=== PATIENT | male | born 1945 | race Caucasian/White ===

== ENCOUNTER → 2017-08-29 | Outpatient (CLI) | payer MEDICARE ==
[2017-08-29 10:14] LABS: HCT 48.2 % (39.0-53.0); MCH 31.6 pg (25.0-35.0); MCHC 33.2 g/dL (31.0-37.0); MCV 95.2 fL (80.0-100.0); Mean Platelet Volume 6.4; Platelet Count 192 k/uL (150-450); RBC 5.07 m/uL (4.30-5.90); RDW 12.8 % (11.5-15.5); WBC 6.1 k/uL (3.8-10.6)
[2017-08-29 10:29] LABS: Prothrombin Time 9.6 sec (9.0-12.0)
[2017-08-29 10:42] LABS: ALT 40 U/L (21-72); AST 27 U/L (17-59); Albumin 4.4 g/dL (3.5-5.0); Alkaline Phosphatase 60 U/L (38-126); Anion Gap 11 mmol/L; Blood Urea Nitrogen 22 mg/dL (9-20); Calcium 9.4 mg/dL (8.4-10.2); Carbon Dioxide 26 mmol/L (22-30); Chloride 105 mmol/L (98-107); Glucose 105 mg/dL (74-99); Potassium 4.8 mmol/L (3.5-5.1); Sodium 142 mmol/L (137-145); Total Bilirubin 0.9 mg/dL (0.2-1.3); Total Protein 6.9 g/dL (6.3-8.2)
[2017-08-29 12:22] LABS: Appearance,Urine Clear (Clear); Bilirubin,Urine Negative (Negative); Blood,Urine Negative (Negative); Color,Urine Yellow; Glucose,Urine (UA) Negative (Negative); Ketones,Urine Negative (Negative); Leukocyte Esterase,Urine Negative (Negative); Nitrite,Urine Negative (Negative); PH, Urine 6.5 (5.0-8.0); Protein,Urine Trace (Negative)
== END | disposition home or self-care (01) ==
LOC: LABPAT 09:27
PROVIDERS: ATTEND Orthopaedic Surgery Sports Medicine
DX: Z01.812 Encounter for preprocedural laboratory examination (principal); M19.011 Primary osteoarthritis, right shoulder; Z79.01 Long term (current) use of anticoagulants
CPT/HCPCS: 36415; 80053; 81003; 85027; 85610; 85730; 87070

== ENCOUNTER 2017-09-08 09:40 | Inpatient (IN) | payer MEDICARE ==
[2017-08-29 11:30] VITALS: BMI 27.8
[~2017-09-08 09:40] MED LIST: ACETAMINOPHEN TAB 500 MG TAB PO ONE; DEXAMETHASONE SOD PHOSPHATE 10 MG/ML 1 ML VIAL IV ONE; HYDROmorphone 0.5 MG/0.5 ML SYRINGE IVP PRN; MIDAZOLAM 2 MG/2 ML VIAL IV PRN; ONDANSETRON 4 MG/2 ML VIAL IVP ONE; TRANEXAMIC ACID 1,000 MG in SODIUM CHLORIDE 0.9% 50 ML IVPB ONE; VANCOMYCIN 1,500 MG in SODIUM CHLORIDE 0.9% 250 ML IVPB ONE; ceFAZolin IN SWFI 2 GM/20 ML SYRINGE IVP ONE
[2017-09-08] MEDS: LACTATED RINGERS 1,000 ML IV SCH ×2 (10:34→17:37)
[2017-09-08] MEDS ORDERED: LIDOCAINE 1% 20 ML VIAL (10MG/ML) FOR IV START INTRADERMA ONE (10:34)
[2017-09-08] MEDS ORDERED: fentaNYL (PF) 50 MCG/ML 2 ML AMP ONE ×2 (11:22→13:38)
[2017-09-08] MEDS ORDERED: fentaNYL (PF) 50 MCG/ML 2 ML AMP IVP ONE (12:25)
[2017-09-08] MEDS ORDERED: NEOSTIGMINE 1 MG/ML 10 ML VIAL ONE (13:38)
[2017-09-08] MEDS ORDERED: ePHEDrine SULFATE/0.9% NACL/PF 50 MG/5 ML SYRINGE IV ONE (13:38)
[2017-09-08] MEDS ORDERED: PROPOFOL 10 MG/ML 20 ML VIAL IV ONE (13:38)
[2017-09-08] MEDS ORDERED: ROCURONIUM BROMIDE 10 MG/ML 10 ML VIAL IV ONE (13:38)
[2017-09-08] MEDS ORDERED: SUCCINYLCHOLINE CHLORIDE 100 MG/5 ML SYR IV ONE (13:38)
[2017-09-08] MEDS ORDERED: TRANEXAMIC ACID 1,000 MG/10 ML VIAL ONE (13:38)
[2017-09-08] MEDS ORDERED: SODIUM CHLORIDE 0.9% 100 ML BAG ONE (13:38)
[2017-09-08] MEDS ORDERED: MIDAZOLAM 2 MG/2 ML VIAL ONE (13:38)
[2017-09-08] MEDS ORDERED: GLYCOPYRROLATE 0.2 MG/ML 2 ML VIAL ONE (13:38)
[2017-09-08] MEDS ORDERED: ROPIVACAINE 5 MG/ML 30 ML VIAL ONE (13:38)
[2017-09-08] MEDS ORDERED: PHENYLEPHRINE-0.9% NACL SYG 1 MG/10 ML SYRINGE ONE (13:38)
[2017-09-08] MEDS ORDERED: LIDOCAINE 1% INJ 10MG/ML (20 ML MDV) ONE (13:38)
[2017-09-08] MEDS ORDERED: VANCOMYCIN 1,000 MG VIAL MISCELLANE ONE (15:07)
[2017-09-08] MEDS ORDERED: TEMAZEPAM 15 MG CAP PO PRN (15:41)
[2017-09-08] MEDS ORDERED: diphenhydrAMINE 25 MG CAP PO PRN (15:41)
[2017-09-08] MEDS ORDERED: ONDANSETRON 4 MG/2 ML VIAL IVP PRN (15:41)
[2017-09-08] MEDS ORDERED: METOCLOPRAMIDE 5 MG/ML 2 ML VIAL IVP PRN (15:41)
[2017-09-08] MEDS ORDERED: HYDROmorphone 0.5 MG/0.5 ML SYRINGE IVP PRN ×2 (15:41)
[2017-09-08] MEDS ORDERED: PROCHLORPERAZINE SUPPOSITORY 25 MG SUPP RECTAL PRN (15:41)
[2017-09-08] MEDS ORDERED: SENNOSIDES-DOCUSATE SODIUM 1 EACH TAB PO PRN (15:41)
[2017-09-08] MEDS ORDERED: HYDROcodone/APAP 7.5-325MG 1 EACH TAB PO PRN (15:45)
--- NOTE | 2017-09-08 16:03 | XR ---
EXAMINATION TYPE: XR shoulder limited RT DATE OF EXAM: 09/08/2017 COMPARISON: NONE HISTORY: 71-year-old male assess postoperative alignment TECHNIQUE: Single portable AP view FINDINGS: Images shows reverse right total shoulder arthroplasty. Alignment appears appropriate. The S tear and humeral stem components appear well-seated without periprosthetic fracture. Surgical drain is presen t. Prominent degenerative spurring superiorly at the AC joint. Some hazy right basilar densities prob ably represent atelectasis. IMPRESSION: Uncomplicated postoperative appearance reverse right total shoulder arthroplasty.
--- NOTE | 2017-09-08 17:20 | OP ---
OPERATIVE REPORT DATE OF PROCEDURE: 09/08/2017. SURGEON: Stuart Adam MD. ELECTROMECHANISMS DESIGN DRAFTER: KYLAH Palm. PREOPERATIVE DIAGNOSIS: Right shoulder advanced rotator cuff arthropathy. POSTOPERATIVE DIAGNOSIS: Right shoulder advanced rotator cuff arthropathy. OPERATION: Right reverse total shoulder arthroplasty. ANESTHESIA: General endotracheal with interscalene block. ESTIMATED BLOOD LOSS: 150 mL. DRAINS: One deep drain. COMPLICATIONS: None apparent. DISPOSITION: Postanesthesia care unit. INDICATIONS: Mr. Colunga is a very pleasant 71-year-old gentleman with long-standing right shoulder pain. Workup including x-rays, MRI revealed advanced rotator cuff arthropathy of the right shoulder. At this point, it is felt that he has failed conservative management and he would like to proceed with operative intervention. The risks of procedure were discussed with him in detail. These risks include, but are not limited to risk of infection, nerve damage, bleeding, pain, instability in the shoulder, loosening of the implants and the risk of deep infection. There is also small risk of deep vein thrombosis which could lead to fatal pulmonary embolism. The patient understands all the risks. All of his questions with regards to the risks of procedure were answered to his satisfaction. Appropriate informed consent was obtained. DESCRIPTION OF THE PROCEDURE: Patient identified in preoperative holding area. Surgical sites marked by both the patient and myself. He was given 2 g of Ancef IV for prophylactic purposes. He was then transferred to the operative suite where he was placed supine on the operative table. General anesthetic was then administered and dosed per the Anesthesia Department without apparent complication. Examination under anesthesia was then performed of the right shoulder. He had passive elevation to 140 degrees, external rotation at the side to 50 degrees. The patient's right upper extremity was then prepped and draped in usual sterile fashion. Standard surgical pause undertaken to ensure that we were operating the correct site and that appropriate preoperative antibiotics were given. All staff in the room in agreement and we proceeded. The acromion, AC joint, clavicle and coracoid were marked surgical pen. A planned incision starting at the level at the clavicle and extending distally over the deltopectoral interval approximately 1 cm lateral to the coracoid were marked surgical pen. The incision was then made with a 10 blade scalpel. Dissection carried down sharply to the deltoid fascia. The deltopectoral interval was then identified at the level of the clavicle. A small band retractor was then placed onto the proximal deltoid. I then released the deltoid fascia on the lateral aspect of the cephalic vein. The vein was protected and left in its bed medially. The cephalic vein was protected throughout the entire case. I then identified the clavipectoral fascia. This was incised proximally to the level of the coracoacromial ligament. The coracoacromial ligament was left intact. I then used my finger to spread the interval between the conjoint tendon and the subscapularis. I felt for the axillary nerve which was readily palpable. I then cleared the subacromial and subdeltoid spaces of bursal and scar tissue. There was no rotator cuff tissue attached to the entire greater tuberosity at all. He had very minimal subscapularis tendon remaining and this was only approximately the inferior 1/4 was still attached to the lesser tuberosity. The entire superior 3/4 of the subscapularis was torn and retracted. The long head of the biceps tendon and also chronically ruptured and was not in the in the bicipital groove. I then proceeded with release of the anterior inferior shoulder capsule and the inferior aspect of the subscapularis. I then continued to release the capsule along the inferior neck of the humerus in a vertical fashion to about the 6 o'clock position. Great care was taken to ensure that the capsule was always visualized as it was released to avoid injuring the axillary nerve. I then brought the Brewer booking officer with the arm externally rotated and abducted. I continued to release the capsule inferomedially to the 4 o'clock position. He had very minimal inferior osteophytes and these were now removed as well. This was done with a rongeur. I then proceeded with preparation of the humerus. I removed the subchondral plate from the superior aspect of the humeral head utilizing a rongeur. I then used a starter reamer to gain access to the humeral canal. This was 1 cm medial to the rotator cuff insertion and 1 cm posterior to the bicipital groove. I then prepared the humeral canal with hand reaming. I started with a 6 mm reamer and progressed in 1 mm increments until firm resistance was encountered. This was at 14 mm. The reamer handle was then left in place. I then utilized a humeral resection guide set at 30 degrees of retrotorsion. The cutting block was set at the insertion of the rotator cuff. I proceeded to osteotomized the humeral head utilizing oscillating saw. I removed the resection guide and then completed the osteotomy. I then proceed with trial stem placement. Trial with a 6 mm broach and incrementally increased in 1 mm increments up to a 14 mm broach. The 14 mm broach was left in place. I then proceeded to expose the glenoid. The arm was then placed on the Brewer booking officer approximately 80 degrees of abduction and in slight flexion. I then placed the Bhattman retractor in the posterior glenoid rim. I then proceeded to remove the hypertrophic labrum to definitively identify the actual glenoid. I then utilized the mini base plate guide. The pin was placed with a 10 degree of an inferior tilt in the center of the glenoid. I then proceeded with reaming. This was done with the mini base plate reamer. This preferentially took off slightly more inferior glenoid due to the inferior tilt of the pin. I then had the claims representative open a Biomet mini base plate. This was then impacted into the glenoid firmly. The threaded pin was removed. I then placed a 30 mm central screw. This had excellent purchase in bone. When it was firmly seated, I was able to rotate the scapula through the screwdriver. I then proceeded to place the 4 peripheral locking screws. The superior locking screws 25 x 5 mm screw. The inferior screw was a 20 x 5 mm screw. The anterior-posterior screws were both 15 mm x 5 mm screws. The base plate had excellent fixation in the glenoid. I then chose a size 41 glenosphere. It was selectively offset that the glenosphere would be inferiorly set as much as possible. The glenosphere was then impacted into the base plate firmly. I then proceeded with trialing. I utilized a standard tray and a standard poly. The shoulder was then reduced. It was a somewhat difficult reduction. It was very stable once reduced, was taken through full range of motion. There was no impingement anteriorly. He had a full elevation. The shoulder was then redislocated. I made decision to proceed with a 14 mm mini stem, a standard tray and a standard poly. The claims representative opened a Biomet 14 mm mini stem. This is impacted in 30 degrees of retrotorsion. The standard poly and tray were assembled on the back table and then impacted into the Spaulding taper of the stem. The shoulder was reduced. It was taken through full range of motion. Again, there was no impingement anteriorly. He had full elevation. At this point, no further work was deemed necessary. The shoulder was thoroughly irrigated with sterile saline solution with antibiotic added via pulse lavage. Deep drain was then placed and brought out superiorly away from the incision. I then also felt for the axillary nerve. It was readily palpable and intact. 500 mg of vancomycin powder was then spread into the wound. The deltopectoral interval was then closed with interrupted 0 Vicryl suture. The wound was again thoroughly irrigated with sterile saline solution with antibiotic added via pulse lavage. The remaining 500 mg of vancomycin powder was then spread subcutaneously. The subcutaneous tissue was then closed with 2-0 Vicryl suture. The skin was closed with 3-0 running Quill suture. Dermabond was applied to the incision. Sterile compressive dressings were then applied. The patient's right upper extremity was placed into a standard sling. All sponge and needle counts were deemed correct prior to closure. The patient tolerated procedure without apparent complication. He was transferred recovery room in stable condition. MMODL / IJN: [id number] /
[2017-09-08] MEDS: FINASTERIDE 5 MG TAB PO SCH (20:51)
[2017-09-08] MEDS: ATORVASTATIN 10 MG TAB PO SCH (20:52)
[2017-09-08] MEDS: HYDROcodone/APAP 7.5-325MG 1 EACH TAB PO PRN (21:23)
[2017-09-08] MEDS: ceFAZolin IN SWFI 2 GM/20 ML SYRINGE IVP SCH (23:20)
[2017-09-09] MEDS: HYDROcodone/APAP 7.5-325MG 1 EACH TAB PO PRN (01:59)
[2017-09-09] MEDS: LACTATED RINGERS 1,000 ML IV SCH ×3 (05:45→16:20)
[2017-09-09 06:41] LABS: Basophils % (A) 0 %; Eosinophils % (A) 0 %; HCT 41.1 % (39.0-53.0); HGB 13.8 gm/dL (13.0-17.5); Lymphocytes # (A) 0.4 k/uL (1.0-4.8); Lymphocytes % (A) 4 %; MCH 32.1 pg (25.0-35.0); MCHC 33.5 g/dL (31.0-37.0); MCV 95.6 fL (80.0-100.0); Mean Platelet Volume 6.9; Monocytes # (A) 0.6 k/uL (0-1.0); Monocytes % (A) 6 %; Neutrophils # (A) 8.9 k/uL (1.3-7.7); Neutrophils % (A) 89 %; Platelet Count 189 k/uL (150-450)
[2017-09-09] MEDS: hydrOXYzine PAMOATE 25 MG CAP PO PRN ×3 (07:02→23:48)
[2017-09-09] MEDS: HYDROmorphone 0.5 MG/0.5 ML SYRINGE IVP PRN ×3 (07:02→21:26)
[2017-09-09] MEDS: ceFAZolin IN SWFI 2 GM/20 ML SYRINGE IVP SCH (08:53)
[2017-09-09] MEDS ORDERED: oxyCODONE-APAP 5-325MG 1 EACH TAB PO PRN ×2 (09:57→09:58)
--- NOTE | 2017-09-09 12:24 | P.PN ---
Subjective Progress Note Date: 09/09/17 Principal diagnosis: S/P right total reverse shoulder arthroplasty Patient is seen at bedside this morning. He is postop day #1 from Right Total Reverse Shoulder arthroplasty. He has pain at the surgical site as expected but denies any new complaints. He denies numbness, tingling or calf pain. Review of systems is negative for fever, chills, chest pain, shortness of breath or other Objective - Vital Signs Vital signs: Vital Signs Temp 97.7 F 09/09/17 07:31 Pulse 74 09/09/17 07:31 Resp 17 09/09/17 07:31 BP 130/75 09/09/17 07:31 Pulse Ox 94 L 09/09/17 07:31 Intake & Output 09/08/17 09/09/17 09/09/17 18:59 06:59 18:59 Intake Total 1550 900 Output Total 190 65 Balance 1360 835 Weight 92.986 kg Intake: IV 1550 Intake, IV Titration 900 Amount Lactated Ringers 1,000 ml 900 @ 75 mls/hr IV .[id number] [facility] Rx#:[id number] Output: Drainage 65 Right Shoulder 65 Estimated Blood Loss 190 Other: Voiding Method Urinal Toilet # Voids 2 - Exam Inspection reveals a benign surgical wound. There is no active bleeding or drainage. Neurovascular status is intact throughout the upper extremity with motor and sensation fully intact. Calf is soft and nontender. 2+ radial pulse , dorsalis pedis pulse and less than 2 second cap refill is present - Constitutional General appearance: Present: no acute distress - Psychiatric Psychiatric: Present: A&O x's 3, appropriate affect, intact judgment & insight - Labs CBC & Chem 7: 09/09/17 06:12 Labs: Abnormal Lab Results - Last 24 Hours (Table) 09/09/17 Range/Units 06:12 Neutrophils # 8.9 H (1.3-7.7) k/uL Lymphocytes # 0.4 L (1.0-4.8) k/uL Assessment and Plan (1) Osteoarthritis of right shoulder Narrative/Plan: Wound vac has been discontinued without complication. Wound remained intact and benign. He will continue with routine postop orthopedic protocol including pain management, wound care, DVT prophylaxis and medical management. Expect that he will discharge to home tomorrow. Current Visit: Yes Status: Acute Priority: Medium Code(s): M19.011 - PRIMARY OSTEOARTHRITIS, RIGHT SHOULDER SNOMED Code(s): [id number] Time with Patient: Less than 30
--- NOTE | 2017-09-09 13:52 | P.CONS ---
History of Present Illness - Reason for Consult Recommendations regarding antidepressive medications - History of Present Illness 70-year-old admitted with right shoulder arthroplasty patient services and underwent surgery his pain is not well controlled because of which a orthopedic surgeries holding his discharge today. Patient blood pressures are fairly stable at this point of time patient is expected to have perioperative hypotension because of which I'll hold off on antidepressant medication patient and fever chills nausea dysuria. Review of Systems REVIEW OF SYSTEMS: CONSTITUTIONAL: No fever, no malaise, no fatigue. HEENT: No recent visual problems or hearing problems. Denied any sore throat. CARDIOVASCULAR: No chest pain, orthopnea, PND, no palpitations, no syncope. PULMONARY: No shortness of breath, no cough, no hemoptysis. GASTROINTESTINAL: No diarrhea, no nausea, no vomiting, no abdominal pain. Normoactive bowel sounds. NEUROLOGICAL: No headaches, no weakness, no numbness. HEMATOLOGICAL: Denies any bleeding or petechiae. GENITOURINARY: Denies any burning micturition, frequency, or urgency. MUSCULOSKELETAL/RHEUMATOLOGICAL: Denies any joint pain, swelling, or any muscle pain. ENDOCRINE: Denies any polyuria or polydipsia. The rest of the 14-point review of systems is negative. 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, History of Any Multi-Drug Resistant Organisms: None Reported Past Surgical History: Cardiac Valve Replacement, Heart Catheterization, Hernia Repair, Joint Replacement, Orthopedic Surgery Additional Past Surgical History / Comment(s): aortic valve replacement 2013, rt ankle tendon repair, shelly knee replacements, left carotid endarterectomy, arthroscopy left knee x 3 Past Anesthesia/Blood Transfusion Reactions: Previous Problems w/ Anesthesia Additional Past Anesthesia/Blood Transfusion Reaction / Comm: DVT post op after ankle surgery, throat swelling and sore throat "pretty bad" after he had arthroscopy left knee surgery at another hospital. pt states was not told anything about any problems or difficulty with intubation Past Psychological History: No Psychological Hx Reported Smoking Status: Never smoker Past Alcohol Use History: Daily Additional Past Alcohol Use History / Comment(s): 2 drinks daily with dinner Past Drug Use History: None Reported - Past Family History Mother Family Medical History: Cancer Additional Family Medical History / Comment(s): ovarian cancer Father Family Medical History: Cancer Additional Family Medical History / Comment(s): melanoma Medications and Allergies Home Medications Medication Instructions Recorded Confirmed Type Acetaminophen with Codeine 1 tab PO QID PRN 08/29/17 09/08/17 History [Tylenol w/codeine #3] Aspirin [Adult Low Dose Aspirin EC] 81 mg PO HS 08/29/17 09/08/17 History Finasteride [Proscar] 5 mg PO HS 08/29/17 09/08/17 History Lansoprazole 30 mg PO DAILY 08/29/17 09/08/17 History Losartan/Hydrochlorothiazide 1 tab PO DAILY 08/29/17 09/08/17 History [Losartan-Hctz 100-25 mg Tab] Simvastatin [Zocor] 20 mg PO HS 08/29/17 09/08/17 History Docusate [Colace] 100 mg PO BID #60 capsule 09/09/17 Rx Doxycycline Hyclate 100 mg PO BID #10 tab 09/09/17 Rx oxyCODONE HCL/ACETAMINOPHEN 1 tab PO Q4HR PRN #60 tab 09/09/17 Rx [Percocet 5-325 mg] Allergies Allergy/AdvReac Type Severity Reaction Status Date / Time No Known Allergies Allergy Verified 09/08/17 16:48 Physical Exam Vitals: Vital Signs Temp Pulse Pulse Resp BP Pulse Ox 09/09/17 07:31 97.7 F 74 17 130/75 94 L 09/09/17 00:14 98.1 F 99 16 100/62 94 L 09/08/17 19:07 87 108/72 94 L 09/08/17 18:55 81 109/72 95 09/08/17 18:25 96 109/74 93 L 09/08/17 17:55 83 111/75 94 L 09/08/17 17:25 83 110/75 93 L 09/08/17 17:10 96 109/78 09/08/17 16:58 87 18 112/72 95 09/08/17 16:55 98.7 F 89 16 116/75 92 L 09/08/17 16:30 68 18 109/58 95 09/08/17 16:15 83 16 109/58 94 L 09/08/17 16:00 71 16 109/60 95 09/08/17 15:41 97.6 F 84 17 107/59 94 L Intake and Output 07/05/18 07/06/18 07/06/18 22:59 06:59 14:59 Intake Total 400 600 Output Total 40 65 Balance 360 535 Intake: IV 100 Intake, IV Titration 300 600 Amount Lactated Ringers 1,000 ml 300 600 @ 75 mls/hr IV .[id number] [facility] Rx#:[id number] Output: Drainage 65 Right Shoulder 65 Estimated Blood Loss 40 Other: Voiding Method Toilet Toilet # Voids 1 2 Weight 92.986 kg PHYSICAL EXAMINATION: GENERAL: The patient is alert and oriented x3, not in any acute distress. Well developed, well nourished. HEENT: Pupils are round and equally reacting to light. EOMI. No scleral icterus. No conjunctival pallor. Normocephalic, atraumatic. No pharyngeal erythema. No thyromegaly. CARDIOVASCULAR: S1 and S2 present. No murmurs, rubs, or gallops. PULMONARY: Chest is clear to auscultation, no wheezing or crackles. ABDOMEN: Soft, nontender, nondistended, normoactive bowel sounds. No palpable organomegaly. MUSCULOSKELETAL: No joint swelling or deformity. Right shoulder sling EXTREMITIES: No cyanosis, clubbing, or pedal edema. NEUROLOGICAL: Gross neurological examination did not reveal any focal deficits. SKIN: No rashes. Results CBC & Chem 7: 09/09/17 06:12 Labs: Abnormal Lab Results - Last 24 Hours (Table) 09/09/17 Range/Units 06:12 Neutrophils # 8.9 H (1.3-7.7) k/uL Lymphocytes # 0.4 L (1.0-4.8) k/uL Assessment and Plan Plan: -Hypertension: Hold off on antidepressant medication to prevent perioperative hypotension probably can be resumed upon discharge -Right shoulder arthroplasty pain management and DVT prophylaxis per primary service -Gastroesophageal reflux disease -Hyperlipidemia: Patient can be resumed on statin. -Osteoarthritis
[2017-09-09] MEDS ORDERED: oxyCODONE-APAP 7.5-325MG 1 EACH TAB PO PRN (15:16)
[2017-09-09] MEDS: oxyCODONE-APAP 7.5-325MG 1 EACH TAB PO PRN ×2 (16:45→23:49)
[2017-09-09] MEDS ORDERED: ASPIRIN 81 MG PO SCH (21:00)
[2017-09-09] MEDS ORDERED: NON-FORMULARY DRUG (Aspirin [Adult Low Dose Aspirin Ec] 81 MG) PO SCH (21:00)
[2017-09-09] MEDS: ASPIRIN 81 MG PO SCH (21:16)
[2017-09-09] MEDS: FINASTERIDE 5 MG TAB PO SCH (21:16)
[2017-09-09] MEDS: ATORVASTATIN 10 MG TAB PO SCH (21:16)
[2017-09-10] MEDS: LACTATED RINGERS 1,000 ML IV SCH ×2 (05:44→08:26)
[2017-09-10] MEDS: hydrOXYzine PAMOATE 25 MG CAP PO PRN (06:12)
[2017-09-10] MEDS: oxyCODONE-APAP 7.5-325MG 1 EACH TAB PO PRN ×2 (06:13→12:16)
[2017-09-10] MEDS ORDERED: PANTOPRAZOLE 40 MG TABLET PO SCH (07:30)
[2017-09-10 07:34] VITALS: BP 119/73; PULSE 80; RESP 18; TEMP 98.4
[2017-09-10] MEDS: ASPIRIN 81 MG PO SCH (08:26)
[2017-09-10] MEDS ORDERED: NON-FORMULARY DRUG (Lansoprazole [Lansoprazole] 30 MG) PO SCH (09:00)
--- NOTE | 2017-09-10 09:58 | P.DS ---
Providers Date of admission: 09/08/17 09:51 Expected date of discharge: 09/10/17 Attending physician: Stuart Adam Consults: 09/08/17 15:41 Consult Physician Routine Consulting Provider: Constantine Ramirez Consult Reason/Comments: post op medical management Do you want consulting provider notified?: Yes Primary care physician: Amish Braun - Discharge Diagnosis(es) (1) Osteoarthritis of right shoulder Current Visit: Yes Status: Acute Priority: Medium (2) S/P shoulder surgery Current Visit: Yes Status: Acute Hospital Course: This is a 71-year-old male who has history of severe degenerative arthritis of the right shoulder and presented to discuss surgical options. After discussion and consideration the patient elects to proceed with total shoulder arthroplasty. The pt is seen preoperatively by their family physician and cleared for surgery. The patient is admitted to [facility] on 09/08/2017 for total right shoulder arthroplasty. He is doing well postoperatively. Vital signs and hemoglobin are stable. The pt is able to get up out of bed independently and is ambulating without assistance. Pain is well controlled. Patient is discharged to home on postoperative day #2 in good condition. Please see med rec for accurate list of home medications. Plan - Discharge Summary Discharge Rx Participant: Yes New Discharge Prescriptions: New Docusate [Colace] 100 mg PO BID #60 capsule Doxycycline Hyclate 100 mg PO BID #10 tab oxyCODONE HCL/ACETAMINOPHEN [Percocet 5-325 mg] 1 tab PO Q4HR PRN #60 tab PRN Reason: Pain No Action Acetaminophen with Codeine [Tylenol w/codeine #3] 1 tab PO QID PRN PRN Reason: Pain Aspirin [Adult Low Dose Aspirin EC] 81 mg PO HS Simvastatin [Zocor] 20 mg PO HS Losartan/Hydrochlorothiazide [Losartan-Hctz 100-25 mg Tab] 1 tab PO DAILY Lansoprazole 30 mg PO DAILY Finasteride [Proscar] 5 mg PO HS Discharge Medication List Acetaminophen with Codeine [Tylenol w/codeine #3] 1 tab PO QID PRN 08/29/17 [ History] Aspirin [Adult Low Dose Aspirin EC] 81 mg PO HS 08/29/17 [History] Finasteride [Proscar] 5 mg PO HS 08/29/17 [History] Lansoprazole 30 mg PO DAILY 08/29/17 [History] Losartan/Hydrochlorothiazide [Losartan-Hctz 100-25 mg Tab] 1 tab PO DAILY [History] Simvastatin [Zocor] 20 mg PO HS 08/29/17 [History] Docusate [Colace] 100 mg PO BID #60 capsule 09/09/17 [Rx] Doxycycline Hyclate 100 mg PO BID #10 tab 09/09/17 [Rx] oxyCODONE HCL/ACETAMINOPHEN [Percocet 5-325 mg] 1 tab PO Q4HR PRN #60 tab [Rx] Follow up Appointment(s)/Referral(s): Stuart Adam MD [STAFF PHYSICIAN] - 09/21/17 10:00 am Activity/Diet/Wound Care/Special Instructions: keep wound clean and dry take meds as directed f/u with Dr. Adam in office Maintain sling non weightbearing with right upper extremity Discharge Disposition: HOME WITH HOME HEALTH SERVICES
--- NOTE | 2017-09-10 22:31 | P.PN ---
Subjective Progress Note Date: 09/10/17 Principal diagnosis: Right shoulder arthroplasty Patient is status post right shoulder arthroplasty due to degenerative joint disease. postoperative day 1. 09/10/2017 Patient says that his right shoulder pain is well controlled with pain medications. No complaints of nausea vomiting or abdominal pain. Tolerating oral diet. No fever no chills. No headache or dizziness or lightheadedness. Patient is being discharged home today. Objective - Vital Signs Vital signs: Vital Signs Temp 98.4 F 09/10/17 07:33 Pulse 80 09/10/17 07:33 Resp 18 09/10/17 07:33 BP 119/73 09/10/17 07:33 Pulse Ox 94 L 09/10/17 07:33 Intake & Output 09/09/17 09/10/17 09/10/17 18:59 06:59 18:59 Intake Total 600 Balance 600 Intake: Intake, IV Titration 600 Amount Lactated Ringers 1,000 ml 600 @ 75 mls/hr IV .[id number] [facility]IKE Rx#:[id number] Other: Voiding Method Toilet # Voids 2 1 - Exam PHYSICAL EXAMINATION: Patient is lying in the bed comfortably, no acute distress, awake alert and oriented.. HEENT: Normocephalic. Neck is supple. Pupils reactive. Nostrils clear. Oral cavity is moist. Ears reveal no drainage. Neck reveals no JVD, carotid bruits, or thyromegaly. CHEST EXAMINATION: Trachea is central. Symmetrical expansion. Lung gregorio clear to auscultation and percussion. CARDIAC: Normal S1, S2 with no gallops. No murmurs ABDOMEN: Soft. Bowel sounds normal. No organomegaly. No abdominal bruits. Extremities: reveal no edema. No clubbing or cyanosis Neurologically awake, alert, oriented x3 with well-coordinated movements. No focal deficits noted Skin: No rash or skin lesions. Psychiatric: Coperative. Nonsuicidal Musculoskeletal: No joint swelling or deformity. Normal range of motion. Right shoulder sling in place - Labs CBC & Chem 7: 09/09/17 06:12 Assessment and Plan Assessment: -Hypertension: Hold off on antihypertensive medication to prevent perioperative hypotension. can be resumed upon discharge -Right shoulder arthroplasty -Gastroesophageal reflux disease -Hyperlipidemia: Patient can be resumed on statin. -Osteoarthritis Plan: Patient be continued on pain management and DVT prophylaxis per primary service. Blood pressure medications can be restarted upon discharge. DVT prophylaxis and incentive spirometry. Discharge medication reconciliation was done. Patient was recommended to follow with primary care physician in 1-3 days. Patient is being discharged home today. Time with Patient: Greater than 30
== END 2017-09-10 14:25 | disposition home health service (06) | DRG 483 ==
LOC: 2ORMAIN 09:51 → 3SUR 15:34
PROVIDERS: ADMIT Orthopaedic Surgery Sports Medicine; ATTEND Orthopaedic Surgery Sports Medicine
PROC: 0RRJ00Z Replacement of Right Shoulder Joint with Reverse Ball and Socket Synthetic Substitute, Open Approach (ICD-10-PCS; principal; 2017-09-08 13:30)
DX: M19.011 Primary osteoarthritis, right shoulder (principal); E78.5 Hyperlipidemia, unspecified; I10 Essential (primary) hypertension; K21.9 Gastro-esophageal reflux disease without esophagitis; Z79.82 Long term (current) use of aspirin; Z79.899 Other long term (current) drug therapy; Z80.8 Family history of malignant neoplasm of other organs or systems; Z95.2 Presence of prosthetic heart valve; Z96.653 Presence of artificial knee joint, bilateral; Z79.891 Long term (current) use of opiate analgesic; Z86.718 Personal history of other venous thrombosis and embolism
CPT/HCPCS: 64415; 85025; 88300

== ENCOUNTER → 2019-02-15 | Outpatient (CLI) | payer MEDICARE ==
--- NOTE | 2019-02-15 12:00 | CT ---
EXAMINATION TYPE: CT ChestAbdPelvis w con DATE OF EXAM: 02/15/2019 COMPARISON: None HISTORY: Prostate cancer CT DLP: 1536 mGycm Automated exposure control for dose reduction was used. CONTRAST: CT scan of the chest, abdomen and pelvis is performed with Oral Contrast and with IV Contrast, patien t injected with 100 ml mL of Isovue 300. FINDINGS: There is a hiatal hernia with partial intrathoracic stomach, paraesophageal hernia. LUNGS: The lungs are grossly clear, there is no concerning parenchymal mass or nodule identified. So me focal thickening present along the fissure posteriorly on the left on axial image 32. There is no pleural effusion or pneumothorax seen. The tracheobronchial tree is patent. MEDIASTINUM: There are no greater than 1 cm hilar or mediastinal lymph nodes. No pericardial effusi on is seen. AORTA: There is a focal area of abnormal enhancement anterior to the ascending aorta measuring appro ximately 2 cm x 2 cm x 2.5 cm. Some associated low-attenuation is present peripherally about this are a. There is probable post procedural change to the aortic valve. OTHER: Right inguinal hernia contains fat. LIVER/GB: No significant abnormality is appreciated. PANCREAS: No significant abnormality is seen. SPLEEN: No significant abnormality is seen. ADRENALS: No significant abnormality is seen. KIDNEYS: No significant abnormality is seen. REPRODUCTIVE ORGANS: Prostate shows associated calcification BOWEL: Diverticular changes extensive in the sigmoid colon. Difficult to exclude a mucosal lesion. FREE AIR: No Free Air visible. ASCITES: None seen. RETROPERITONEAL ADENOPATHY: No retroperitoneal adenopathy is seen. LYMPH NODES: No greater than 1 cm abdominal or pelvic lymph nodes are appreciated. URINARY BLADDER: No significant abnormality is seen. PELVIC ADENOPATHY: None visualized. OSSEOUS STRUCTURES: Lytic lesion in the right femoral neck shows a sclerotic margin, nonaggressive a ppearance and measures approximately 3.3 cm. 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 Correlate with bone scan. Patient is post median sternotomy. 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 Metastatic disease is not evident. Urgent message sent by [employer]. Results called to the office of Dr. Garcia at the time of dicta tion, results given telephonically at the time of interpretation.
--- NOTE | 2019-02-15 14:10 | NM ---
EXAMINATION TYPE: NM bone scan whole body DATE OF EXAM: 02/15/2019 COMPARISON: NONE HISTORY: Prostate CA Delayed whole-body scanning was performed following the injection of 26.2 mCi Tc 99m MDP. Images acq uired 5 hours post injection. FINDINGS: Intense uptake noted to involve the approximate L1 segment. On CT there is a severe degenerative osullivan ge noted at this level. The metastatic disease however is difficult to exclude. There is degenerative uptake seen about the shoulders, throughout the thoracic spine, bilateral wrists and bilateral ankle s and mid feet. The bilateral knee prosthesis noted. IMPRESSION: 1. Intense uptake involving L1 may be related to degenerative change however I cannot exclude metasta tic disease.
== END | disposition home or self-care (01) ==
LOC: RADCTMAIN 07:36
PROVIDERS: ATTEND Urology
DX: I71.2 Thoracic aortic aneurysm, without rupture (principal); C61 Malignant neoplasm of prostate
CPT/HCPCS: 82565; 84520; 71260; 74177; 36415; 78306; A9503; Q9967

== ENCOUNTER → 2021-06-16 | Outpatient (CLI) | payer MEDICARE ==
--- NOTE | 2021-06-16 12:02 | MM ---
Reason for exam: clinical finding. Baseline mammogram. History: Patient has history of other cancer at age 73. Family history of breast cancer in brother at age 60. Indicated problem(s): palpable abnormality in both breasts. Physical Findings: A clinical breast exam by your physician is recommended on an annual basis and results should be correlated with mammographic findings. MG 3D Diag Mammo W/Cad INDU Bilateral CC and MLO view(s) were taken. The breast tissue is heterogeneously dense. This may lower the sensitivity of mammography. Bilateral flame shaped subareolar focal asymmetry. A few benign oil cyst calcifications. Results were given to the patient verbally at the time of the exam. ASSESSMENT: Incomplete: need additional imaging evaluation, BI-RAD 0 RECOMMENDATION: Ultrasound of both breasts.
--- NOTE | 2021-06-16 12:05 | USB ---
Reason for exam: additional evaluation requested from abnormal screening. History: Patient has history of other cancer at age 73. Family history of breast cancer in brother at age 60. Physical Findings: A clinical breast exam by your physician is recommended on an annual basis and results should be correlated with mammographic findings. US Breast Limited BILAT Right limited breast ultrasound including focal area of concern, retroareolar and axilla demonstrates a 1.7 x 0.8 x 0.6cm hypoechoic lesion at the posterior nipple. Left limited breast ultrasound including focal area of concern, retroareolar and axilla demonstrates a 1.4 x 0.8 x 1.2cm hypoechoic lesion at the posterior nipple. Subareaolar gynecomastia. Bilateral periareolar and subareolar regions scanned. Results were given to the patient verbally at the time of the exam. ASSESSMENT: Benign, BI-RAD 2 RECOMMENDATION: Clinical management of both breasts. Manage on a clinical basis with regard to cause of gynecomastia. Surgical consult can be considered.
== END | disposition home or self-care (01) ==
LOC: RADMAMWWP 10:19
PROVIDERS: ATTEND Family Medicine
DX: R92.1 Mammographic calcification found on diagnostic imaging of breast (principal); N62 Hypertrophy of breast; N64.89 Other specified disorders of breast
CPT/HCPCS: 77066; 76642; G0279; 77062

== ENCOUNTER → 2023-01-17 | Outpatient (CLI) | payer MEDICARE ==
[2023-01-17 15:54] LABS: INR 0.95 sec (0.93-1.11); Prothrombin Time 10.3 sec (9.9-11.9)
[2023-01-17 16:04] LABS: Appearance,Urine Clear (Clear); Bilirubin,Urine Negative (Negative); Blood,Urine Negative (Negative); Color,Urine Yellow (Yellow); Ketones,Urine Trace (Negative); Nitrite,Urine Negative (Negative); Specific Gravity,Urine 1.016 (1.001-1.030); Urobilinogen,Urine 0.2 E.U./DL
[2023-01-17 16:53] LABS: Basophils # (A) 0.05 X 10*3/uL (0.00-0.10); Eosinophils # (A) 0.35 X 10*3/uL (0.04-0.35); Eosinophils % (A) 7.2 %; HCT 45.9 % (39.6-50.0); Lymphocytes % (A) 12.3 %; MCH 32.5 pg (27.0-32.0); MCHC 32.7 g/dL (32.0-37.0); MCV 99.6 FL (80.0-97.0); Mean Platelet Volume 9.1 FL (9.5-12.2); Monocytes # (A) 0.43 X 10*3/uL (0.20-1.00); Monocytes % (A) 8.8 %; NRBC Per 100 WBC 0 X 10*3/uL (0.00-0.01); Neutrophils # (A) 3.44 X 10*3/uL (1.80-7.70); Neutrophils % (A) 70.5 %; Platelet Count 153 X 10*3/uL (140-440); RBC 4.61 X 10*6/uL (4.40-5.60); RDW 13.2 % (11.5-14.5); WBC 4.88 X 10*3/uL (4.50-10.00)
[2023-01-17 18:43] LABS: ALT 18 U/L (10-49); AST 22 U/L (14-35); Albumin 4.1 g/dL (3.8-4.9); Albumin/Globulin Ratio 1.95 Ratio (1.60-3.17); Alkaline Phosphatase 69 U/L (41-126); BUN/Creat Ratio 15.45 Ratio (12.00-20.00); Calcium 9.4 mg/dL (8.7-10.3); Carbon Dioxide 24.1 mmol/L (21.6-31.8); Chloride 105 mmol/L (96-109); Globulin 2.1 g/dL (1.6-3.3); Glucose 107 mg/dL (70-110); Potassium 4.8 mmol/L (3.5-5.5); Sodium 141 mmol/L (135-145); Total Bilirubin 0.8 mg/dL (0.3-1.2); Total Protein 6.2 g/dL (6.2-8.2)
== END | disposition home or self-care (01) ==
LOC: LABPAT 09:27
PROVIDERS: ATTEND Orthopaedic Surgery Sports Medicine
DX: Z01.812 Encounter for preprocedural laboratory examination (principal); M19.012 Primary osteoarthritis, left shoulder
CPT/HCPCS: 80053; 81003; 85025; 85610; 85730; 87070

== ENCOUNTER → 2023-01-19 | Outpatient (CLI) | payer MEDICARE ==
--- NOTE | 2023-01-19 21:00 | CT ---
EXAMINATION TYPE: CT shoulder LT wo con CT DLP: 514 mGycm, Automated exposure control for dose reduction was used. DATE OF EXAM: 01/19/2023 3:21 PM COMPARISON: CT 02/15/2019 CLINICAL INDICATION:Male, 77 years old with history of M75.122 COMPLETE ROTATR-CUFF TEAR/RUPTR OF LEF T SH; PHH, presurgical planning TECHNIQUE: Axial images were obtained of the CT shoulder LT wo con, Additional coronal and sagittal r eformatted images and soft tissue and bone window were obtained for review. 3-D reconstruction was cr eated on a separate workstation. Contrast used: mL of , (None if empty) Oral contrast used: (None if empty) FINDINGS: There is severe degeneration changes of the left shoulder with acetabularization of the acromion comp atible with focal full-thickness rotator cuff tear. There is atrophy changes of the supraspinous and infraspinatus muscles. Osteophyte formation involving the humeral head and aspect involving the glenoid. Glenoid is without significant subchondral pseudocystic change. There is evidence of impingement of the humeral head on the acromion with subchondral cystic change in the more lateral aspect. High density material seen within the joint space itself which could represent joint bodies. Multilevel degeneration changes throughout the spine are moderate. Visualized portions of the chest including the lungs are grossly unremarkable. Mild ascending thoraci c aorta ectasia up to 4.2 cm. Mild coronary artery atherosclerosis. Aortic valve repair changes. Ster notomy wires are present. IMPRESSION: Severe degeneration changes of the left shoulder with evidence of full-thickness rotator cuff tear wi th atrophy changes of the supraspinatus and infraspinatus muscles.
== END | disposition home or self-care (01) ==
LOC: RADCTMAIN 14:09
PROVIDERS: ATTEND Orthopaedic Surgery Sports Medicine
DX: M19.012 Primary osteoarthritis, left shoulder (principal); M75.122 Complete rotator cuff tear or rupture of left shoulder, not specified as traumatic

== ENCOUNTER 2023-02-10 05:35 | Day surgery (SDC) | payer MEDICARE ==
[~2023-02-10 05:35] MED LIST changes: -ACETAMINOPHEN TAB 500 MG TAB PO ONE; +ACETAMINOPHEN TAB 500 MG TAB PO PRN; -DEXAMETHASONE SOD PHOSPHATE 10 MG/ML 1 ML VIAL IV ONE; +GABAPENTIN 300 MG CAP PO PRN; -HYDROmorphone 0.5 MG/0.5 ML SYRINGE IVP PRN; +MELOXICAM 7.5 MG TAB PO PRN; -MIDAZOLAM 2 MG/2 ML VIAL IV PRN; -ONDANSETRON 4 MG/2 ML VIAL IVP ONE; +ONDANSETRON 4 MG/2 ML VIAL IVP PRN; +TRANEXAMIC 1,000 MG/100ML-NACL 1,000 MG in SALINE 1 100ML.BAG IVPB PRN; -TRANEXAMIC ACID 1,000 MG in SODIUM CHLORIDE 0.9% 50 ML IVPB ONE; -VANCOMYCIN 1,500 MG in SODIUM CHLORIDE 0.9% 250 ML IVPB ONE; -ceFAZolin IN SWFI 2 GM/20 ML SYRINGE IVP ONE
[2023-02-10] MEDS ORDERED: LACTATED RINGERS 1,000 ML IV SCH (05:47)
[2023-02-10] MEDS ORDERED: DEXAMETHASONE SOD PHOSPHATE 4 MG/ML 1 ML VIAL IV ONE (05:47)
[2023-02-10] MEDS ORDERED: ONDANSETRON 4 MG/2 ML VIAL IVP ONE (05:47)
[2023-02-10] MEDS ORDERED: HYDROmorphone 0.5 MG/0.5 ML SYRINGE IVP PRN ×3 (05:47→08:45)
[2023-02-10] MEDS ORDERED: MIDAZOLAM 2 MG/2 ML VIAL IVP ONE (06:39)
[2023-02-10] MEDS ORDERED: TRANEXAMIC 1,000 MG/100ML-NACL PREMIX BAG ONE (06:53)
[2023-02-10] MEDS ORDERED: SUCCINYLCHOLINE CHLORIDE 200 MG/10 ML VIAL IV ONE (06:53)
[2023-02-10] MEDS ORDERED: LIDOCAINE 1% INJ 10MG/ML (20 ML MDV) ONE (06:53)
[2023-02-10] MEDS ORDERED: fentaNYL (PF) 50 MCG/ML 2 ML AMP ONE (06:53)
[2023-02-10] MEDS ORDERED: NEOSTIGMINE 1 MG/ML 10 ML VIAL ONE (06:53)
[2023-02-10] MEDS ORDERED: GLYCOPYRROLATE 0.2 MG/ML 2 ML VIAL ONE (06:53)
[2023-02-10] MEDS ORDERED: DEXAMETHASONE SOD PHOSPHATE 4 MG/ML 1 ML VIAL ONE (06:53)
[2023-02-10] MEDS ORDERED: ROPIVACAINE 5 MG/ML 30 ML VIAL ONE (06:53)
[2023-02-10] MEDS ORDERED: PROPOFOL 10 MG/ML 20 ML VIAL IV ONE (06:53)
[2023-02-10] MEDS ORDERED: ePHEDrine 50 MG/ML 1 ML VIAL ONE (06:53)
[2023-02-10] MEDS ORDERED: PHENYLEPHRINE-0.9% NACL SYG 1,000 MCG/10 ML SYRINGE ONE (06:53)
[2023-02-10] MEDS ORDERED: ROCURONIUM 10 MG/ML (5 ML VIAL) IV ONE (06:53)
[2023-02-10] MEDS ORDERED: VANCOMYCIN 1,000 MG VIAL MISCELLANE ONE ×2 (07:42→08:00)
[2023-02-10] MEDS ORDERED: diphenhydrAMINE 25 MG CAP PO PRN (08:45)
[2023-02-10] MEDS ORDERED: SENNOSIDES-DOCUSATE SODIUM 1 EACH TAB PO PRN (08:45)
[2023-02-10] MEDS ORDERED: ONDANSETRON 4 MG/2 ML VIAL IVP PRN (08:45)
[2023-02-10] MEDS ORDERED: HYDROcodone/APAP 7.5-325MG 1 EACH TAB PO PRN (08:48)
--- NOTE | 2023-02-10 09:50 | OP ---
OPERATIVE REPORT DATE OF SERVICE : 02/10/2023 RESIDENTIAL MORTGAGE MANAGER: Singh Baldwin PA-C PREOPERATIVE DIAGNOSIS: Left shoulder advanced rotator cuff arthrosis. POSTOPERATIVE DIAGNOSIS: Left shoulder advanced rotator cuff arthrosis. PROCEDURE PERFORMED: Left reverse total shoulder arthroplasty. ANESTHESIA: General endotracheal. ESTIMATED BLOOD LOSS: 100 mL. DRAINS: None. COMPLICATIONS: None apparent. DISPOSITION: Postanesthesia care unit. INDICATIONS: Mr. Colunga is a very pleasant 77-year-old male with longstanding history of left shoulder pain. Workup including x-rays and CT scan revealed advanced rotator cuff arthropathy of the left shoulder. At this point, it was felt that he has failed conservative management. He would like to proceed with operative intervention. The risks of procedure were discussed with him in detail. These risks include, but are not limited to risk of infection, nerve damage, bleeding, pain, instability in the shoulder, loosening of the implants, and deep infection. There is also small risk of deep vein thrombosis, which could lead to fatal pulmonary embolism. The patient understood these risks. All of his questions with regard to the risks of procedure were answered to his satisfaction. An appropriate informed consent was obtained. DESCRIPTION OF PROCEDURE: The patient was identified in preoperative holding area. Surgical site was marked by both the patient and myself. He was given 2 g of Ancef IV for prophylactic purposes. He was then transported to the operative suite. He was placed supine on the operating room table. A general anesthetic was then administered and dosed per the anesthesia department without apparent complication. An examination under anesthesia was then performed of the left shoulder. Elevation was to 100 degrees. External rotation to the side was to 50 degrees. The patient was then placed in the beach chair position, well-padded in preparation for surgery. Great care was taken to ensure that his neck was in neutral alignment, well- padded and maintained that way throughout the operative procedure. Great care was also taken to ensure that his legs were appropriately padded as well. The patient's left upper extremity was then prepped and draped in usual sterile fashion. Standard surgical pause was undertaken to ensure that appropriate preoperative antibiotics were given and that we were operating the correct site. All staff in the room and were in agreement, and we proceeded. The acromion AC joint clavicle and coracoid were marked with a surgical pen. A planned incision starting at the level of the clavicle and extending distally over the deltopectoral interval approximately 1 cm lateral to the coracoid was marked with a surgical pen. The incision was then made with a 10-blade scalpel. Dissection was carried down sharply to the deltoid fascia. The deltopectoral interval was then identified at the level of the clavicle. A small band retractor was then placed onto the proximal deltoid. I then released the deltoid fascia on the lateral aspect of the cephalic vein. The vein was preserved and left in its bed medially. The cephalic vein was protected throughout the entire case. I then identified the clavipectoral fascia. This was incised proximally to the level of the coracoacromial ligament. The coracoacromial ligament was then left intact. I then used my finger to spread the interval between the conjoint tendon and the subscapularis. I felt for the axillary nerve, which was readily palpable. I then cleared the subacromial subdeltoid spaces of bursal and scar tissue. I then utilized a brown retractor to hold the deltoid and expose the humeral head. I then proceeded to release the subscapularis and the anterior inferior shoulder capsule. The rotator cuff was inspected. The greater tuberosity was completely devoid of rotator cuff attachment. He had a chronic massive tear of the supraspinatus and the entire infraspinatus. I then released the capsule anteriorly where the rotator interval would be. This released to the base of the coracoid and then out laterally. The capsule was then released and extended distally in a lazy-S fashion approximately 1 cm medial to the biceps tendon. I then continued to release the capsule along the inferior neck in a vertical fashion. This was done approximately at the 6 o'clock position. Great care was taken to ensure the capsule was always visualized as it was released as to avoid injuring the axillary nerve. I then brought the Brewer fish hatchery superintendent with the arm externally rotated and abducted. I continued to release the capsule inferomedially to approximately the 4 o'clock position. The inferior osteophytes were then removed as well. This was done with a rongeur. I then proceeded with preparation of the proximal humerus. I removed all the goat's gross osteophytes. I then removed the subchondral plate from the superior aspect of the humeral head utilizing a large rongeur. I then used a starting reamer to gain access to the humeral canal. This was approximately 1 cm medial to the prior rotator cuff insertion 1 cm posterior to the bicipital groove. I then prepared the humeral canal with hand reaming. We started with a 6 mm reamer and incrementally increased until firm resistance was encountered at 13 mm. The reamer handle was then left in place. I then utilized a humeral resection guide. This was set at 30 degrees of retrotorsion. The cutting block was then set approximately 1 mm above the prior rotator cuff insertion. I then proceeded to osteotomize the humeral head utilizing the oscillating saw. I removed the resection guide and then completed the osteotomy. I then proceeded with trial stem placement. A trial size 14 was then broached into the canal starting with an 8 mm broach and incrementally increasing up to a 13 mm broach. The 13 mm trial stem was then left in place. I then made a decision to proceed with a reverse shoulder arthroplasty due to the immense lack of rotator cuff. At this point, I did release the biceps tendon. This was tenotomized at the level of superior labrum. I then utilized a bone hook to pull the humerus out laterally. I then inspected the joint for any loose bodies. The Bhattman retractor was then placed onto the posterior glenoid rim. The arm was then placed in approximately 80 degrees of abduction and in slight flexion on the Brewer stand. I then proceeded to remove the hypertrophic labrum to definitively identify the actual glenoid. I then utilized a mini base plate guide. The starting pin was then placed in the center of the glenoid in approximately 10 degrees of inferior tilt. Great care was taken to ensure this. The starting pin was placed down the center of the glenoid. I then proceeded to ream the glenoid with a mini base plate reamer. As minimal reaming was done as possible as to preserve as much subchondral bone as possible with the reaming. After the glenoid was removed, I did remove the peripheral osteophytes around the glenoid utilizing a rongeur. I had the bilingual sales representative open a [place] mini base plate. This was then impacted onto the real glenoid. The starting pin was removed. I then measured the length and a 30 mm central screw was placed. The screw had an excellent purchase in bone. I was able to rotate the scapula through the screwdriver when the screw was firmly seated. I then proceeded to place the peripheral locking screws. The inferior screw was a 20 mm screw. The anterior and posterior screws were 15 mm screws and the superior screw was a 15 mm screw. All 4 of the screws had excellent purchase and bone and were firmly seated into the base plate. I then had the bilingual sales representative open a 36 mm glenosphere. I slightly offset it inferiorly. The Spaulding taper was dried and the real glenosphere was impacted onto the real base plate. I then proceeded with trial. I placed a standard tray and a standard poly trial. It was a mildly difficult reduction. It was very stable. There was no impingement noted. I took it through a full range of motion with no impingement noted. I then carefully redislocated the shoulder. I made a decision to proceed with the standard tray and standard polyethylene. I then had the bilingual sales representative open a Biomet mini 13 mm stem, standard tray, and a standard polyethylene for 36 mm glenosphere. The real stem was then impacted into the proximal humerus in approximately 30 degrees of retrotorsion. The Spaulding taper was then dried and the tray and polyethylene were then impacted onto the dried Spaulding taper. At this point, the wound was thoroughly irrigated with sterile saline solution with antibiotic added. This was done via pulse lavage. I then placed the IrriSept antiseptic solution. This was allowed to sit for a few minutes. The shoulder was then again reduced. Again, it was a mildly difficult reduction. It was very stable. The conjoint tendon did not have any undue tension. I felt for the axillary nerve at this point, which was readily palpable and intact. At this point, we proceeded with closure. Again, the wound was thoroughly irrigated with sterile saline solution with antibiotic added via pulse lavage. I then used the remaining IrriSept solution for a few minutes. Approximately 500 mg of vancomycin powder was then placed deep. The deltopectoral interval was closed with 0 Vicryl interrupted suture. The subcutaneous tissue was irrigated again and the remaining 500 mg of vancomycin powder was then placed subcutaneously. The subcutaneous tissue was then closed with 2-0 Vicryl interrupted suture and the skin was closed with a running 3-0 Quill suture. Dermabond was applied to the incision. Sterile compressive dressings were applied. The patient's left upper extremity was then placed into a standard sling. All sponge and needle counts were deemed correct prior to closure. The patient tolerated the procedure without apparent complication. He was transferred to recovery room in stable condition. MMODL / IJN: [id number] /
--- NOTE | 2023-02-10 10:05 | XR ---
EXAMINATION TYPE: XR shoulder limited LT DATE OF EXAM: 02/10/2023 COMPARISON: NONE HISTORY: Postop left shoulder TECHNIQUE: Single portable view left shoulder FINDINGS: Single portable view of the left shoulder is submitted demonstrating glenohumeral prosthesi s. Postsurgical soft tissue changes noted. Appropriate postoperative alignment. IMPRESSION: As above
[2023-02-10 12:14] VITALS: RESP 18
--- NOTE | 2023-02-10 18:49 | P.ANPRN ---
Procedure Note - Anesthesia - Nerve Block Performed Left Interscalene Single Time Out Performed: Yes Date of Procedure: 02/10/23 Procedure Start Time: 06:38 Procedure Stop Time: 06:41 Location of Patient: PreOp Indication: Acute Post-Operative Pain, Requested by Surgeon Sedation Type: Sedate with meaningful contact maintained Preparation: Sterile Prep Position: Supine Needle Types: Pajunk Needle Gauge: 21 Ultrasound used to visualize needle placement: Yes Ultrasound used to observe medication spread: Yes Blood Aspirated: No Pain Paresthesia on Injection Noted: No Resistance on Injection: Normal Image Stored and Saved: Yes Events: Uneventful and Well Tolerated (Ropivacaine 0.5% 20 mL plus dexamethasone 4 mg)
[2023-02-10] MEDS: PANTOPRAZOLE 40 MG/10 ML VIAL IVP SCH (20:11)
[2023-02-10] MEDS: LACTATED RINGERS 1,000 ML IV SCH ×2 (20:15→22:18)
[2023-02-10] MEDS ORDERED: ATORVASTATIN 10 MG TAB PO SCH (21:00)
[2023-02-10] MEDS: HYDROcodone/APAP 7.5-325MG 1 EACH TAB PO PRN (22:15)
--- NOTE | 2023-02-11 00:17 | P.CONS ---
History of Present Illness - Reason for Consult Consult date: 02/10/23 Medical management - Chief Complaint Left shoulder total arthroplasty - History of Present Illness Patient is a 77-year-old male with a known history of hypertension, hyperlipidemia, GERD, history of DVT and prostate cancer status post brachytherapy, history of aortic valve replacement in 2013, left carotid endarterectomy and osteoarthritis and also daily alcohol use was admitted to the hospital for elective right total arthroplasty. Patient is s/p procedure. Blood pressure is elevated with SBP in the 170s. Otherwise no complaints of chest pain or shortness of breath. No headache or dizziness or lightheadedness. No leg swelling. Denies any recent illnesses. Laboratory data is not available at this time. Review of Systems Constitutional: Patient denies any fever or chills . no Generalized weakness. Abdomen: Patient denied any nausea or vomiting or abd. pain Cardiovascular: Patient denies any chest pain or short of breath no palpitations. Respiratory: patient denied any cough . no sputum production. No shortness of breath Neurologic: Patient denied any numbness or tingling or headache. Musculoskeletal: Patient denies any complaints of joint swelling or deformity. Skin: Negative Psychiatric: Negative Endocrine: No heat or cold intolerance. No recent weight gain. Genitourinary: No dysuria or hematuria. 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 lumbar fusion laminectomy. L3 L5. bx of upper chest cancer Past Anesthesia/Blood Transfusion Reactions: Previous Problems w/ Anesthesia Additional Past Anesthesia/Blood Transfusion Reaction / Comm: DVT post op after ankle surgery 2007, throat swelling and sore throat "pretty bad" after he had arthroscopy left knee surgery at another hospital. pt states was not told anything about any problems or difficulty with intubation Past Psychological History: No Psychological Hx Reported Smoking Status: Never smoker Past Alcohol Use History: Daily Additional Past Alcohol Use History / Comment(s): 2 drinks daily with dinner Past Drug Use History: None Reported - Past Family History Mother Family Medical History: Cancer Additional Family Medical History / Comment(s): ovarian cancer Father Family Medical History: Cancer Additional Family Medical History / Comment(s): melanoma Medications and Allergies Home Medications Medication Instructions Recorded Confirmed Type Aspirin [Adult Low Dose Aspirin EC] 81 mg PO HS 08/29/17 02/07/23 History Lansoprazole 30 mg PO DAILY 08/29/17 02/10/23 History Losartan/Hydrochlorothiazide 1 tab PO DAILY 08/29/17 02/10/23 History [Losartan-Hctz 100-25 mg Tab] Simvastatin [Zocor] 20 mg PO HS 08/29/17 02/10/23 History Cholecalciferol [Vitamin D3 (25 25 mcg PO DAILY 02/07/23 02/10/23 History Mcg = 1000 Iu)] HYDROcodone/APAP 7.5-325MG [[place] 1 tab PO Q4H PRN 02/07/23 02/10/23 History 7.5-325] Allergies Allergy/AdvReac Type Severity Reaction Status Date / Time No Known Allergies Allergy Verified 02/10/23 05:56 Physical Exam Vitals: Vital Signs Temp Pulse Pulse Resp BP BP Pulse Ox 02/10/23 12:01 71 18 123/80 96 02/10/23 11:30 64 16 119/56 96 02/10/23 11:00 72 16 109/65 96 02/10/23 10:45 55 L 16 108/57 96 02/10/23 10:30 66 16 103/55 96 02/10/23 10:15 68 16 108/62 96 02/10/23 10:00 78 16 106/57 96 02/10/23 09:45 72 16 107/54 93 L 02/10/23 09:30 69 16 107/55 93 L 02/10/23 09:15 78 16 108/57 98 02/10/23 09:00 98 16 110/62 98 02/10/23 08:43 97.8 F 92 16 121/58 98 02/10/23 06:42 68 16 173/76 96 02/10/23 06:09 96.9 F L 80 18 168/74 97 Intake and Output 02/09/23 02/10/23 02/10/23 22:59 06:59 14:59 Intake Total 550 500 Output Total 100 Balance 550 400 Intake: IV 550 500 Output: Estimated Blood Loss 100 Other: Weight 90.2 kg 90.2 kg PHYSICAL EXAMINATION: Patient is lying in the bed comfortably, no acute distress, awake alert and oriented.. HEENT: Normocephalic. Neck is supple. Pupils reactive. Nostrils clear. Oral cavity is moist. Neck reveals no JVD, carotid bruits, or thyromegaly. CHEST EXAMINATION: Trachea is central. Symmetrical expansion. Lung gregorio clear to auscultation and percussion. CARDIAC: Normal S1, S2 with no gallops. No murmurs ABDOMEN: Soft. Bowel sounds present. Nontender. No organomegaly. No abdominal bruits. Extremities: reveal no edema. No clubbing or cyanosis Left shoulder surgical site is bandaged. Left shoulder sling in place. Neurologically awake, alert, oriented x3 with well-coordinated movements. No focal deficits noted Skin: No rash or skin lesions. Psychiatric: Coperative. Nonsuicidal, Musculoskeletal: No joint swelling or deformity. Normal range of motion. Assessment and Plan Assessment: Status post left total arthroplasty postoperative day 0 Hypertension uncontrolled likely due to pain. Hyperlipidemia History of prostate cancer status post brachytherapy History of aortic valve replacement 2013 Prior history of left carotid endarterectomy History of lumbar fusion/laminectomy L3 L5 Daily alcohol use GERD Plan: Patient will be continued current pain medications, bowel regimen and encourage incentive spirometry. Patient will be started back on losartan and hydrochlorothiazide is on hold. Encourage ambulation. Will continue to follow and further recommendations based on the clinical course. Follow-up CBC and BMP tomorrow Thank you kindly for your consult.
[2023-02-11] MEDS: HYDROmorphone 0.5 MG/0.5 ML SYRINGE IVP PRN ×4 (06:01→15:12)
[2023-02-11] MEDS ORDERED: NON FORMULARY DRUG (Losartan/Hydrochlorothiazide [Losartan-Hctz 100-25 Mg Tab] 1 EACH Tabl PO SCH (09:00)
[2023-02-11] MEDS ORDERED: LOSARTAN 50 MG TAB PO SCH (09:00)
[2023-02-11] MEDS ORDERED: CHOLECALCIFEROL 25 MCG (1000 IU) TABLET PO SCH (09:00)
[2023-02-11] MEDS: PANTOPRAZOLE 40 MG/10 ML VIAL IVP SCH (09:04)
[2023-02-11] MEDS: HYDROcodone/APAP 7.5-325MG 1 EACH TAB PO PRN (10:11)
[2023-02-11 11:30] LABS: Basophils # (A) 0.01 X 10*3/uL (0.00-0.10); Basophils % (A) 0.1 %; Eosinophils # (A) 0.01 X 10*3/uL (0.04-0.35); Eosinophils % (A) 0.1 %; HCT 41.9 % (39.6-50.0); Lymphocytes # (A) 0.58 X 10*3/uL (0.90-5.00); Lymphocytes % (A) 5.9 %; MCH 32.3 pg (27.0-32.0); MCHC 33.4 g/dL (32.0-37.0); MCV 96.8 FL (80.0-97.0); Mean Platelet Volume 9.1 FL (9.5-12.2); Monocytes # (A) 0.96 X 10*3/uL (0.20-1.00); Monocytes % (A) 9.8 %; NRBC Per 100 WBC 0 X 10*3/uL (0.00-0.01); Neutrophils # (A) 8.18 X 10*3/uL (1.80-7.70); Neutrophils % (A) 83.8 %; Platelet Count 154 X 10*3/uL (140-440); RBC 4.33 X 10*6/uL (4.40-5.60); RDW 13.1 % (11.5-14.5); WBC 9.77 X 10*3/uL (4.50-10.00)
[2023-02-11 11:37] LABS: Blood Urea Nitrogen 16.2 mg/dL (9.0-27.0); Calcium 9.2 mg/dL (8.7-10.3); Carbon Dioxide 25.6 mmol/L (21.6-31.8); Chloride 103 mmol/L (96-109); Glucose 124 mg/dL (70-110); Potassium 5.3 mmol/L (3.5-5.5); Sodium 139 mmol/L (135-145)
[2023-02-11] MEDS ORDERED: oxyCODONE-APAP 7.5-325MG 1 EACH TAB PO PRN ×2 (12:45)
--- NOTE | 2023-02-11 12:55 | P.PN ---
Subjective Progress Note Date: 02/11/23 Principal diagnosis: Left reverse TSA Patient is seen at bedside this morning. He is postop day #1 from left reverse total shoulder arthroplasty. He has pain at the surgical site as expected but denies any new complaints. He denies numbness, tingling or calf pain. Review of systems is negative for fever, chills, chest pain, shortness of breath or other Objective - Vital Signs Vital signs: Vital Signs Temp 97.6 F 02/11/23 06:51 Pulse 56 L 02/11/23 06:51 Resp 18 02/11/23 06:51 BP 144/80 02/11/23 06:51 Pulse Ox 98 02/11/23 06:51 FiO2 Intake & Output 02/10/23 02/11/23 02/11/23 18:59 06:59 18:59 Intake Total 500 10 Output Total 500 Balance 0 10 Weight 90.2 kg Intake: IV 500 10 Invasive Line 1 10 Output: Urine 400 Estimated Blood Loss 100 Other: Voiding Method Toilet # Voids 2 3 - Exam Inspection reveals a benign surgical wound. There is no active bleeding or drai nage. Neurovascular status is intact throughout the lower extremity with motor and sensation fully intact. Calf is soft and nontender. 2+ radial pulse and less than 2 second cap refill is present. - Constitutional General appearance: Present: no acute distress - Labs CBC & Chem 7: 02/11/23 06:30 02/11/23 06:30 Labs: Abnormal Lab Results - Last 24 Hours (Table) 02/11/23 02/11/23 Range/Units 06:30 06:30 RBC 4.33 L (4.40-5.60) X 10*6/uL MCH 32.3 H (27.0-32.0) pg MPV 9.1 L (9.5-12.2) FL Neutrophils # 8.18 H (1.80-7.70) X 10*3/uL Lymphocytes # 0.58 L (0.90-5.00) X 10*3/uL Eosinophils # 0.01 L (0.04-0.35) X 10*3/uL Glucose 124 H (70-110) mg/dL Assessment and Plan (1) Osteoarthritis of left shoulder Narrative/Plan: He will continue with routine postop orthopedic protocol including pain management, wound care, DVT prophylaxis and medical management. Expect that he will transfer to home later today or tomorrow Current Visit: Yes Status: Acute Priority: Medium Code(s): M19.012 - PRIMARY OSTEOARTHRITIS, LEFT SHOULDER SNOMED Code(s): 788236879689268 Time with Patient: Less than 30
--- NOTE | 2023-02-11 12:57 | P.DS ---
Providers Expected date of discharge: 02/12/23 Attending physician: Stuart Adam Consults: 02/10/23 08:45 Consult Physician Routine Consulting Provider: Constantine Ramirez Consult Reason/Comments: post op medical management Do you want consulting provider notified?: Yes Primary care physician: Linda Mccloud - Discharge Diagnosis(es) (1) Osteoarthritis of left shoulder Patient was admitted to the OR on 02/10/23 to undergo a left reverse total shoulder arthroplasty. He had failed conservative measures as an outpatient and desired to proceed with elective surgery after given informed consent. He underwent the above procedure which he tolerated well without complication. Postoperative hospital course has remained without complication. On day of discharge he is afebrile, vital signs stable, labs within acceptable ranges, tolerating by mouth meds and diet, voiding without difficulty, positive flatus, denies abdominal pain or calf pain, pain is controlled on oral pain medication and has no new complaints. Wound is benign, neurovascular status is intact, calf is soft and nontender, abdomen soft and nontender. Review of systems is negative for numbness, tingling, fever, chills, chest pain, shortness of breath, nausea, vomiting, dizziness, headaches, slurred speech or other. Current Visit: Yes Status: Acute Priority: Medium Procedures: Left Reverse TSA Patient Condition at Discharge: Good Plan - Discharge Summary Discharge Rx Participant: No New Discharge Prescriptions: New Doxycycline Hyclate 100 mg PO BID #10 tab Ondansetron [Zofran] 4 mg PO Q8HR PRN #21 tab PRN Reason: Nausea Docusate [Colace] 100 mg PO BID #60 capsule oxyCODONE-APAP 7.5-325MG [Percocet 7.5-325 mg] 1 tab PO Q4HR PRN #42 tab PRN Reason: Pain No Action Aspirin [Adult Low Dose Aspirin EC] 81 mg PO HS Simvastatin [Zocor] 20 mg PO HS Losartan/Hydrochlorothiazide [Losartan-Hctz 100-25 mg Tab] 1 tab PO DAILY Lansoprazole 30 mg PO DAILY Cholecalciferol [Vitamin D3 (25 Mcg = 1000 Iu)] 25 mcg PO DAILY HYDROcodone/APAP 7.5-325MG [[place] 7.5-325] 1 tab PO Q4H PRN PRN Reason: Pain Discharge Medication List Aspirin [Adult Low Dose Aspirin EC] 81 mg PO HS 08/29/17 [History] Lansoprazole 30 mg PO DAILY 08/29/17 [History] Losartan/Hydrochlorothiazide [Losartan-Hctz 100-25 mg Tab] 1 tab PO DAILY 08/29/17 [History] Simvastatin [Zocor] 20 mg PO HS 08/29/17 [History] Cholecalciferol [Vitamin D3 (25 Mcg = 1000 Iu)] 25 mcg PO DAILY 02/07/23 [History] HYDROcodone/APAP 7.5-325MG [[place] 7.5-325] 1 tab PO Q4H PRN 02/07/23 [History] Docusate [Colace] 100 mg PO BID #60 capsule 02/11/23 [Rx] Doxycycline Hyclate 100 mg PO BID #10 tab 02/11/23 [Rx] Ondansetron [Zofran] 4 mg PO Q8HR PRN #21 tab 02/11/23 [Rx] oxyCODONE-APAP 7.5-325MG [Percocet 7.5-325 mg] 1 tab PO Q4HR PRN #42 tab 02/11/23 [Rx] Follow up Appointment(s)/Referral(s): Stuart Adam MD [STAFF PHYSICIAN] - 10 Days Activity/Diet/Wound Care/Special Instructions: maintain sling keep wound clean and dry take meds as directed non weightbearing f/u in office Discharge Disposition: HOME SELF-CARE
--- NOTE | 2023-02-11 13:11 | P.PN ---
Subjective Progress Note Date: 02/11/23 77-year-old male with a known history of hypertension, hyperlipidemia, GERD, history of DVT and prostate cancer status post brachytherapy, history of aortic valve replacement in 2013, left carotid endarterectomy and osteoarthritis and also daily alcohol use was admitted to the hospital for elective right total arthroplasty. Patient is s/p procedure. Blood pressure is elevated with SBP in the 170s. Otherwise no complaints of chest pain or shortness of breath. No headache or dizziness or lightheadedness. No leg swelling. Denies any recent illnesses. Laboratory data is not available at this time. Patient is seen and evaluated. He is postop day #1 from left reverse total shoulder arthroplasty. He has pain at the surgical site; no other complaints reported. Likely dc today Objective - Vital Signs Vital signs: Vital Signs Temp 97.6 F 02/11/23 06:51 Pulse 56 L 02/11/23 06:51 Resp 18 02/11/23 06:51 BP 144/80 02/11/23 06:51 Pulse Ox 98 02/11/23 06:51 FiO2 Intake & Output 02/10/23 02/11/23 02/11/23 18:59 06:59 18:59 Intake Total 500 10 Output Total 500 Balance 0 10 Weight 90.2 kg Intake: IV 500 10 Invasive Line 1 10 Output: Urine 400 Estimated Blood Loss 100 Other: Voiding Method Toilet # Voids 2 3 - Exam Patient is lying in the bed comfortably, no acute distress, awake alert and o riented.. HEENT: Normocephalic. Neck is supple. Pupils reactive. Nostrils clear. Oral cavity is moist. Neck reveals no JVD, carotid bruits, or thyromegaly. CHEST EXAMINATION: Trachea is central. Symmetrical expansion. Lung gregorio clear to auscultation and percussion. CARDIAC: Normal S1, S2 with no gallops. No murmurs ABDOMEN: Soft. Bowel sounds present. Nontender. No organomegaly. No abdominal bruits. Extremities: reveal no edema. No clubbing or cyanosis Left shoulder surgical site is bandaged. Left shoulder sling in place. Neurologically awake, alert, oriented x3 with well-coordinated movements. No focal deficits noted - Labs CBC & Chem 7: 02/11/23 06:30 02/11/23 06:30 Labs: Abnormal Lab Results - Last 24 Hours (Table) 02/11/23 02/11/23 Range/Units 06:30 06:30 RBC 4.33 L (4.40-5.60) X 10*6/uL MCH 32.3 H (27.0-32.0) pg MPV 9.1 L (9.5-12.2) FL Neutrophils # 8.18 H (1.80-7.70) X 10*3/uL Lymphocytes # 0.58 L (0.90-5.00) X 10*3/uL Eosinophils # 0.01 L (0.04-0.35) X 10*3/uL Glucose 124 H (70-110) mg/dL Assessment and Plan Assessment: Status post left total arthroplasty postoperative day 0 Hypertension uncontrolled likely due to pain. Hyperlipidemia History of prostate cancer status post brachytherapy History of aortic valve replacement 2013 Prior history of left carotid endarterectomy History of lumbar fusion/laminectomy L3 L5 Daily alcohol use GERD Plan: Patient will be continued current pain medications, bowel regimen and encourage incentive spirometry. Patient will be started back on losartan and hydrochlorothiazide is on hold. Encourage ambulation. Stable for dc from medical standpoint
[2023-02-11 14:16] VITALS: BP 125/76; PULSE 80; TEMP 98
== END 2023-02-11 19:07 | disposition home or self-care (01) ==
LOC: OR 05:35 → 4SSUR 08:32 → OR 02-11 19:07
PROVIDERS: ATTEND Orthopaedic Surgery Sports Medicine
DX: M19.012 Primary osteoarthritis, left shoulder (principal); M75.122 Complete rotator cuff tear or rupture of left shoulder, not specified as traumatic; E78.5 Hyperlipidemia, unspecified; I10 Essential (primary) hypertension; K21.9 Gastro-esophageal reflux disease without esophagitis; Z85.46 Personal history of malignant neoplasm of prostate; Z86.718 Personal history of other venous thrombosis and embolism; Z95.2 Presence of prosthetic heart valve; Z79.899 Other long term (current) drug therapy
CPT/HCPCS: 64415; 80048; 85025; 73020; 23473; C1776; J2250; J3370; J1100; J0690; J2405; C9113 ×2; J1170 ×2

== ENCOUNTER 2023-08-18 20:12 | Inpatient (IN) | payer MEDICARE ==
--- NOTE | 2023-08-18 20:25 | ED ---
Syncope HPI - General Stated Complaint: near syncope Time Seen by Provider: 08/18/23 20:24 Source: RN notes reviewed, old records reviewed Mode of arrival: ambulatory Limitations: no limitations - History of Present Illness Initial Comments: This is a 77-year-old male to the ER today. This patient presents today for evaluation of severe weakness lightheadedness dizziness and feelings of near syncope diaphoresis without chest pain. Patient states has been off his pain medication for 2 days and became significant diaphoretic and short of breath and fell using a pass out prior to arrival remains anxious and feel he is in a pass out here in the emergency department MD Complaint: loss of consciousness, felt faint, almost passed out -: hour(s) Prodromal Symptoms: none -: second(s) Witnessed: yes - by bystander Current Symptoms: lightheaded Treatments Prior to Arrival: none - Related Data Home Medications Medication Instructions Recorded Confirmed Aspirin [Adult Low Dose Aspirin EC] 81 mg PO DAILY 08/29/17 08/19/23 Lansoprazole 30 mg PO Q2D 08/29/17 08/19/23 Simvastatin [Zocor] 20 mg PO HS 08/29/17 08/19/23 Losartan [Cozaar] 50 mg PO DAILY 08/19/23 08/19/23 Naproxen Sodium [Aleve] 220 mg PO BID PRN 08/19/23 08/19/23 hydroCHLOROthiazide 12.5 mg PO DAILY 08/19/23 08/19/23 Allergies Allergy/AdvReac Type Severity Reaction Status Date / Time No Known Allergies Allergy Verified 08/19/23 07:57 Review of Systems ROS Statement: Those systems with pertinent positive or pertinent negative responses have been documented in the HPI. ROS Other: All systems not noted in ROS Statement are negative. 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, History of Any Multi-Drug Resistant Organisms: None Reported Past Surgical History: Cardiac Valve Replacement, Heart Catheterization, Hernia Repair, Joint Replacement, Orthopedic Surgery Additional Past Surgical History / Comment(s): aortic valve replacement 2013, rt ankle tendon repair, shelly knee replacements, left carotid endarterectomy, arthroscopy left knee x 3 Past Anesthesia/Blood Transfusion Reactions: Previous Problems w/ Anesthesia Additional Past Anesthesia/Blood Transfusion Reaction / Comment(s): DVT post op after ankle surgery, throat swelling and sore throat "pretty bad" after he had arthroscopy left knee surgery at another hospital. pt states was not told anything about any problems or difficulty with intubation Past Psychological History: No Psychological Hx Reported Past Alcohol Use History: Daily Additional Past Alcohol Use History / Comment(s): 2 drinks daily with dinner Past Drug Use History: None Reported - Past Family History Mother Family Medical History: Cancer Additional Family Medical History / Comment(s): ovarian cancer Father Family Medical History: Cancer Additional Family Medical History / Comment(s): melanoma General Exam - General Exam Comments Initial Comments: NIH of 0 General appearance: alert, in no apparent distress, anxious Head exam: Present: atraumatic, normocephalic, normal inspection Eye exam: Present: normal appearance, PERRL, EOMI. Absent: scleral icterus, conjunctival injection, periorbital swelling ENT exam: Present: normal exam, mucous membranes moist Neck exam: Present: normal inspection. Absent: tenderness, meningismus, lymphadenopathy Respiratory exam: Present: normal lung sounds bilaterally. Absent: respiratory distress, wheezes, rales, rhonchi, stridor Cardiovascular Exam: Present: regular rate, normal rhythm, normal heart sounds. Absent: systolic murmur, diastolic murmur, rubs, gallop, clicks GI/Abdominal exam: Present: soft, normal bowel sounds. Absent: distended, te nderness, guarding, rebound, rigid Extremities exam: Present: normal inspection, full ROM, normal capillary refill. Absent: tenderness, pedal edema, joint swelling, calf tenderness Back exam: Present: normal inspection Neurological exam: Present: alert, oriented X3, CN II-XII intact Psychiatric exam: Present: normal affect, normal mood Skin exam: Present: warm, dry, intact, normal color. Absent: rash Course Vital Signs 08/18/23 08/18/23 08/18/23 20:19 21:00 21:30 Temperature 97.6 F Pulse Rate 70 86 72 Respiratory 18 19 20 Rate Blood Pressure 156/75 145/84 143/63 Blood Pressure [Sitting] Blood Pressure [Standing] Blood Pressure [Supine] O2 Sat by Pulse 100 98 99 Oximetry 08/18/23 08/18/23 08/18/23 22:00 22:30 23:40 Temperature Pulse Rate 74 72 72 Respiratory 16 18 18 Rate Blood Pressure 152/84 155/82 149/75 Blood Pressure [Sitting] Blood Pressure [Standing] Blood Pressure [Supine] O2 Sat by Pulse 86 L 98 99 Oximetry 08/19/23 08/19/23 08/19/23 00:00 00:30 01:00 Temperature Pulse Rate 68 78 79 Respiratory 18 16 16 Rate Blood Pressure 135/70 122/76 121/70 Blood Pressure [Sitting] Blood Pressure [Standing] Blood Pressure [Supine] O2 Sat by Pulse 95 97 96 Oximetry 08/19/23 08/19/23 08/19/23 01:30 02:00 04:25 Temperature 97.8 F Pulse Rate 80 71 85 Respiratory 18 17 17 Rate Blood Pressure 135/78 126/79 127/66 Blood Pressure [Sitting] Blood Pressure [Standing] Blood Pressure [Supine] O2 Sat by Pulse 98 96 96 Oximetry 08/19/23 08/19/23 08/19/23 10:00 14:00 17:00 Temperature Pulse Rate 86 83 74 Respiratory 18 17 18 Rate Blood Pressure 126/65 119/68 127/70 Blood Pressure [Sitting] Blood Pressure [Standing] Blood Pressure [Supine] O2 Sat by Pulse 97 97 98 Oximetry 08/19/23 08/19/23 08/19/23 18:00 20:17 21:00 Temperature Pulse Rate 76 71 80 Respiratory 17 16 18 Rate Blood Pressure 123/60 115/66 146/81 Blood Pressure [Sitting] Blood Pressure [Standing] Blood Pressure [Supine] O2 Sat by Pulse 98 97 97 Oximetry 08/19/23 08/19/23 08/20/23 22:00 23:00 00:00 Temperature Pulse Rate 87 72 67 Respiratory 19 16 16 Rate Blood Pressure 129/67 136/78 146/80 Blood Pressure [Sitting] Blood Pressure [Standing] Blood Pressure [Supine] O2 Sat by Pulse 98 Oximetry 08/20/23 08/20/23 08/20/23 00:49 01:00 02:00 Temperature Pulse Rate 71 70 76 Respiratory 16 18 18 Rate Blood Pressure 132/69 132/69 155/76 Blood Pressure [Sitting] Blood Pressure [Standing] Blood Pressure [Supine] O2 Sat by Pulse 95 98 97 Oximetry 08/20/23 08/20/23 08/20/23 05:00 06:00 10:02 Temperature Pulse Rate 68 63 99 Respiratory 16 14 16 Rate Blood Pressure 155/67 150/81 148/87 Blood Pressure [Sitting] Blood Pressure [Standing] Blood Pressure [Supine] O2 Sat by Pulse 98 99 99 Oximetry 08/20/23 08/20/23 08/20/23 13:13 16:51 17:04 Temperature Pulse Rate 95 62 Respiratory 18 20 Rate Blood Pressure 152/95 145/80 Blood Pressure 138/73 [Sitting] Blood Pressure 136/93 [Standing] Blood Pressure 145/80 [Supine] O2 Sat by Pulse 99 98 Oximetry 08/20/23 08/20/23 17:53 18:00 Temperature 98.2 F Pulse Rate 74 Respiratory 18 18 Rate Blood Pressure 140/87 Blood Pressure [Sitting] Blood Pressure [Standing] Blood Pressure [Supine] O2 Sat by Pulse 96 Oximetry - Reevaluation(s) Reevaluation #1: 08/18/23 22:33 Records reviewed Reevaluation #2: 08/18/23 22:33 Patient symptoms are mildly improving Reevaluation #3: 08/18/23 22:33 Patient informed of results and questions answered Patient does have persistent recurrence of near syncopal feeling Reevaluation #4: Was pt. sent in by a medical professional or institution (, PA, TOOL MAINTENANCE TECHNICIAN, urgent care, hospital, or [facility]...) When possible be specific @ -no Did you speak to anyone other than the patient for history (EMS, parent, family, police, friend...)? What history was obtained from this source @ -no Did you review nursing and triage notes (agree or disagree)? Why? @ -agree Are old charts reviewed (outside hosp., previous admission, EMS record, old EKG, old radiological studies, urgent care reports/EKG's, [facility] records)? Report findings @ -yes Differential Diagnosis (chest pain, altered mental status, abdominal pain women, abdominal pain men, vaginal bleeding, weakness, fever, dyspnea, syncope, headache, dizziness, GI bleed, back pain, seizure, CVA, palpatations, mental health, musculoskeletal)? @ -prior EKG interpreted by me (3pts min.). @ -yes X-rays interpreted by me (1pt min.). @ -no CT interpreted by me (1pt min.). @ -yes negative for acute disease U/S interpreted by me (1pt. min.). @ -no What testing was considered but not performed or refused? (CT, X-rays, U/S, labs)? Why? @ -none What meds were considered but not given or refused? Why? @ -none Did you discuss the management of the patient with other professionals (professionals i.e. , PA, TOOL MAINTENANCE TECHNICIAN, lab, RT, psych nurse, sr. social media & mobile manager, park worker, teacher, commercial account officer, case repairer)? Give summary @ -no Was smoking cessation discussed for >3mins.? @ -no Was critical care preformed (if so, how long)? @ -yes31 Were there social determinants of health that impacted care today? How? (Homelessness, low income, unemployed, alcoholism, drug addiction, transporta tion, low edu. Level, literacy, decrease access to med. care, shelter, rehab)? @ -none Was there de-escalation of care discussed even if they declined (Discuss DNR or withdrawal of care, Hospice)? DNR status @ -no What co-morbidities impacted this encounter? (DM, HTN, Smoking, COPD, CAD, Cancer, CVA, ARF, Chemo, Hep., AIDS, mental health diagnosis, sleep apnea, morbid obesity)? @ -none Was patient admitted / discharged? Hospital course, mention meds given and route, prescriptions, significant lab abnormalities, going to OR and other pertinent info. @ - 77 male to the ER for evaluation patient will be admitted for new onset atrial fibrillation near syncopal versus feeling like he is going to pass out. Admitted Undiagnosed new problem with uncertain prognosis? @ -no Drug Therapy requiring intensive monitoring for toxicity (Heparin, Nitro, Insulin, Cardizem)? @ -no Were any procedures done? @ -no Diagnosis/symptom? @ -Near syncope here in the emergency department with tachycardia Acute, or Chronic, or Acute on Chronic? @ -Acute Uncomplicated (without systemic symptoms) or Complicated (systemic symptoms)? @ -Complicated Side effects of treatment? @ -no Exacerbation, Progression, or Severe Exacerbation? @ -exacerbation Poses a threat to life or bodily function? How? (Chest pain, [place], AL, pneumonia, PE, COPD, DKA, ARF, appy, cholecystitis, CVA, Diverticulitis, Homicidal, [place] icidal, threat to staff... and all critical care pts) @ -yes extremes of age Reevaluation #5: Differential Syncope: Valvular disease, hypertrophic cardiomyopathy, pulmonary embolism, tamponade, tachycardia, bradycardia, AL, hypovolemia, hemorrhage, dissection, anemia, i ntracranial hemorrhage, seizure, hypoglycemia, carbon monoxide poisoning, this is not meant to be an all-inclusive list. - Consultations Consultation #1: Spoke with [facility] who agrees to admit this patient EKG Findings - EKG Comments: EKG Findings:: EKG is sinus 66 [place] 154 QRS 159 QTc 472 - EKG Results: EKG: interpreted by MADELINE Medical Decision Making - Medical Decision Making 77 male to the ER for evaluation patient will be admitted for syncope for what appears to be possible new onset atrial fibrillation here in the emergency department, new onset atrial fibrillation near syncopal versus feeling like he is going to pass out. - Lab Data Result diagrams: 08/29/23 06:10 08/29/23 06:10 Lab Results 08/18/23 08/18/23 08/18/23 Range/Units 20:36 20:36 20:36 WBC 8.2 (3.8-10.6) k/uL RBC 3.82 L (4.30-5.90) m/uL Hgb 11.6 L (13.0-17.5) gm/dL Hct 36.6 L (39.0-53.0) % MCV 95.8 (80.0-100.0) fL MCH 30.5 (25.0-35.0) pg MCHC 31.8 (31.0-37.0) g/dL RDW 13.2 (11.5-15.5) % Plt Count 244 (150-450) k/uL MPV 7.4 Neutrophils % 89 % Lymphocytes % 4 % Monocytes % 5 % Eosinophils % 1 % Basophils % 0 % Neutrophils # 7.3 (1.3-7.7) k/uL Lymphocytes # 0.4 L (1.0-4.8) k/uL Monocytes # 0.4 (0-1.0) k/uL Eosinophils # 0.1 (0-0.7) k/uL Basophils # 0.0 (0-0.2) k/uL Hypochromasia Slight PT 10.1 (10.0-12.5) sec INR 0.9 (<1.2) APTT 18.4 L (22.0-30.0) sec D-Dimer (<0.60) mg/L FEU Sodium 135 L (137-145) mmol/L Potassium 4.3 (3.5-5.1) mmol/L Chloride 107 (98-107) mmol/L Carbon Dioxide 21 L (22-30) mmol/L Anion Gap 7 mmol/L BUN 24 H (9-20) mg/dL Creatinine 0.80 (0.66-1.25) mg/dL Est GFR (CKD-EPI)AfAm >90 (>60 ml/min/1.73 sqM) Est GFR (CKD-EPI)NonAf 87 (>60 ml/min/1.73 sqM) Glucose 153 H (74-99) mg/dL Plasma Lactic Acid César (0.7-2.0) mmol/L Calcium 9.0 (8.4-10.2) mg/dL Phosphorus 3.6 (2.5-4.5) mg/dL Magnesium 1.8 (1.6-2.3) mg/dL Total Bilirubin 0.7 (0.2-1.3) mg/dL AST 17 (17-59) U/L ALT 13 (4-49) U/L Alkaline Phosphatase 83 (38-126) U/L Troponin I (0.000-0.034) ng/mL NT-Pro-B Natriuret Pep 219 pg/mL Total Protein 5.7 L (6.3-8.2) g/dL Albumin 3.6 (3.5-5.0) g/dL 08/18/23 08/18/23 08/18/23 Range/Units 20:36 20:36 21:44 WBC (3.8-10.6) k/uL RBC (4.30-5.90) m/uL Hgb (13.0-17.5) gm/dL Hct (39.0-53.0) % MCV (80.0-100.0) fL MCH (25.0-35.0) pg MCHC (31.0-37.0) g/dL RDW (11.5-15.5) % Plt Count (150-450) k/uL MPV Neutrophils % % Lymphocytes % % Monocytes % % Eosinophils % % Basophils % % Neutrophils # (1.3-7.7) k/uL Lymphocytes # (1.0-4.8) k/uL Monocytes # (0-1.0) k/uL Eosinophils # (0-0.7) k/uL Basophils # (0-0.2) k/uL Hypochromasia PT (10.0-12.5) sec INR (<1.2) APTT (22.0-30.0) sec D-Dimer 2.62 H (<0.60) mg/L FEU Sodium (137-145) mmol/L Potassium (3.5-5.1) mmol/L Chloride (98-107) mmol/L Carbon Dioxide (22-30) mmol/L Anion Gap mmol/L BUN (9-20) mg/dL Creatinine (0.66-1.25) mg/dL Est GFR (CKD-EPI)AfAm (>60 ml/min/1.73 sqM) Est GFR (CKD-EPI)NonAf (>60 ml/min/1.73 sqM) Glucose (74-99) mg/dL Plasma Lactic Acid César 1.7 (0.7-2.0) mmol/L Calcium (8.4-10.2) mg/dL Phosphorus (2.5-4.5) mg/dL Magnesium (1.6-2.3) mg/dL Total Bilirubin (0.2-1.3) mg/dL AST (17-59) U/L ALT (4-49) U/L Alkaline Phosphatase (38-126) U/L Troponin I <0.012 (0.000-0.034) ng/mL NT-Pro-B Natriuret Pep pg/mL Total Protein (6.3-8.2) g/dL Albumin (3.5-5.0) g/dL - EKG Data -: EKG Interpreted by Ak - Radiology Data Radiology results: report reviewed (CTA chest negative for PE), image reviewed Disposition Clinical Impression: Near syncope, Weakness, Dizziness Disposition: ADMITTED IP TO THIS [facility] Condition: Serious Is patient prescribed a controlled substance at d/c from ED?: No Time of Disposition: 22:55
[2023-08-18 21:00] LABS: Basophils % (A) 0 %; Eosinophils # (A) 0.1 k/uL (0-0.7); Eosinophils % (A) 1 %; HCT 36.6 % (39.0-53.0); HGB 11.6 gm/dL (13.0-17.5); Hypochromasia Slight; Lymphocytes # (A) 0.4 k/uL (1.0-4.8); Lymphocytes % (A) 4 %; MCH 30.5 pg (25.0-35.0); MCHC 31.8 g/dL (31.0-37.0); MCV 95.8 fL (80.0-100.0); Mean Platelet Volume 7.4; Monocytes # (A) 0.4 k/uL (0-1.0); Monocytes % (A) 5 %; Neutrophils # (A) 7.3 k/uL (1.3-7.7); Neutrophils % (A) 89 %; Platelet Count 244 k/uL (150-450); RBC 3.82 m/uL (4.30-5.90); RDW 13.2 % (11.5-15.5); WBC 8.2 k/uL (3.8-10.6)
[2023-08-18 21:02] LABS: ALT 13 U/L (4-49); AST 17 U/L (17-59); African American GFR (CKD) >90 (>60 ml/min/1.73 sqM); Albumin 3.6 g/dL (3.5-5.0); Alkaline Phosphatase 83 U/L (38-126); Anion Gap 7 mmol/L; Blood Urea Nitrogen 24 mg/dL (9-20); Carbon Dioxide 21 mmol/L (22-30); Chloride 107 mmol/L (98-107); Glucose 153 mg/dL (74-99); Magnesium 1.8 mg/dL (1.6-2.3); Non-African American GFR(CKD) 87 (>60 ml/min/1.73 sqM); Phosphorus 3.6 mg/dL (2.5-4.5); Potassium 4.3 mmol/L (3.5-5.1); Sodium 135 mmol/L (137-145); Total Bilirubin 0.7 mg/dL (0.2-1.3); Total Protein 5.7 g/dL (6.3-8.2)
[2023-08-18 21:10] LABS: NT-Pro-B-Type Natriuretic Pept 219 pg/mL
[2023-08-18 21:13] LABS: INR 0.9 (<1.2); Prothrombin Time 10.1 sec (10.0-12.5)
[2023-08-18 21:15] LABS: Partial Thromboplastin Time 18.4 sec (22.0-30.0)
[2023-08-18] MEDS: LORazepam 2 MG/ML INJ IV STA (21:41)
[2023-08-18] MEDS: SODIUM CHLORIDE 0.9% 500 ML 500 ML IV STA (21:41)
[2023-08-18] MEDS: SODIUM CHLORIDE 0.9% 1,000 ML IV STA ×2 (21:41)
[2023-08-18] MEDS ORDERED: HYDROmorphone 1 MG/ML 1 ML SYRINGE IVP PRN (22:29)
[2023-08-18] MEDS ORDERED: NALOXONE 0.4 MG/ML 1 ML VIAL IV PRN (22:29)
[2023-08-18] MEDS: HEPARIN SODIUM 1,000 UN/ML (10ML VL) IV ONE (23:26)
[2023-08-18] MEDS: HEPARIN SOD,PORK IN 0.45% NACL 25,000 UNIT in 0.45% NACL 1 250ML.BAG IV SCH (23:30)
[2023-08-18] MEDS: SODIUM CHLORIDE 0.9% 1,000 ML IV SCH (23:43)
--- NOTE | 2023-08-19 01:40 | CT ---
EXAM: CT Angiography Chest With Intravenous Contrast CLINICAL HISTORY: ITS.REASON CT Reason: pe TECHNIQUE: Axial computed tomographic angiography images of the chest with intravenous contrast. CTDI is 16.8 mGy and DLP is 491.3 mGy-cm. This CT exam was performed using one or more of the following dose reduction techniques: automated exposure control, adjustment of the mA and/or kV according to patient size, and/or use of iterative reconstruction technique. MIP reconstructed images were created and reviewed. COMPARISON: No relevant prior studies available. FINDINGS: Patient has undergone previous midline sternotomy and aortic valve replacement. There is mild coronary artery atherosclerosis. Heart size is normal. There is no RV strain or pericardial effusion. There is adequate pulmonary artery opacification. Evaluation for pulmonary embolus is limited by respiratory motion. No acute pulmonary embolism is identified to the segmental level. More distal emboli cannot be reliably excluded due to motion. 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 There is no aortic dissection. There is no adenopathy. There is no airspace consolidation, pulmonary mass, pleural effusion, or pneumothorax. Large hiatal hernia is noted. Benign hepatic cyst is present. Upper abdomen is otherwise unremarkable. There is no acute fracture or dislocation. Bilateral reverse shoulder arthroplasties are noted. Laminectomies and posterior fixation hardware are present in the visualized upper lumbar spine. There is disc degeneration within the spine without acute fracture or dislocation. IMPRESSION: 1. No pulmonary embolism as visualized. Respiratory motion obscures the subsegmental branch vessels. 2. 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 3. Large hiatal hernia.
[2023-08-19 08:54] LABS: Basophils % (A) 0 %; Eosinophils # (A) 0.1 k/uL (0-0.7); Eosinophils % (A) 2 %; HCT 33.2 % (39.0-53.0); HGB 10.4 gm/dL (13.0-17.5); Hypochromasia Slight; Lymphocytes # (A) 0.6 k/uL (1.0-4.8); Lymphocytes % (A) 8 %; MCH 30.5 pg (25.0-35.0); MCHC 31.4 g/dL (31.0-37.0); MCV 97.1 fL (80.0-100.0); Mean Platelet Volume 7.5; Monocytes # (A) 0.5 k/uL (0-1.0); Monocytes % (A) 6 %; Neutrophils # (A) 5.9 k/uL (1.3-7.7); Neutrophils % (A) 82 %; Platelet Count 224 k/uL (150-450); RBC 3.42 m/uL (4.30-5.90); RDW 13.2 % (11.5-15.5); WBC 7.2 k/uL (3.8-10.6)
[2023-08-19 09:13] LABS: ALT 12 U/L (4-49); AST 17 U/L (17-59); African American GFR (CKD) >90 (>60 ml/min/1.73 sqM); Alkaline Phosphatase 77 U/L (38-126); Anion Gap 4 mmol/L; Blood Urea Nitrogen 17 mg/dL (9-20); Calcium 8.5 mg/dL (8.4-10.2); Carbon Dioxide 20 mmol/L (22-30); Chloride 110 mmol/L (98-107); Glucose 122 mg/dL (74-99); Magnesium 1.8 mg/dL (1.6-2.3); Non-African American GFR(CKD) >90 (>60 ml/min/1.73 sqM); Phosphorus 3.3 mg/dL (2.5-4.5); Potassium 3.7 mmol/L (3.5-5.1); Sodium 134 mmol/L (137-145); Total Bilirubin 0.7 mg/dL (0.2-1.3); Total Protein 5.2 g/dL (6.3-8.2)
[2023-08-19] MEDS: HEPARIN SODIUM 1,000 UN/ML (10ML VL) IV PRN (09:30)
[2023-08-19] MEDS: PANTOPRAZOLE 40 MG/10 ML VIAL IV SCH (09:32)
--- NOTE | 2023-08-19 12:57 | P.HPIM ---
History of Present Illness Patient is a pleasant 77-year-old male came in with complaints lightheadedness it is not clear whether patient is dizzy or vertigo but upon further questioning manage it appears patient has vertigo and patient has weakness in bilateral lower extremities patient is unable to stand. Patient denies any hearing problems sinusitis or ear infection. Patient denies any diaphoresis, denies shortness of breath but patient felt like his get a pass out. Patient is admitted for atrial fibrillation but I did not see any A-fib on the EKG patient had sinus rhythm with PVCs. Patient denies any syncope. Patient is unable to stand quite weak which also started yesterday. REVIEW OF SYSTEMS: CONSTITUTIONAL: No fever, no malaise, no fatigue. HEENT: No recent visual problems or hearing problems. Denied any sore throat. CARDIOVASCULAR: No chest pain, orthopnea, PND, no palpitations, no syncope. PULMONARY: No shortness of breath, no cough, no hemoptysis. GASTROINTESTINAL: No diarrhea, no nausea, no vomiting, no abdominal pain. NEUROLOGICAL: No headaches, no weakness, no numbness. HEMATOLOGICAL: Denies any bleeding or petechiae. GENITOURINARY: Denies any burning micturition, frequency, or urgency. MUSCULOSKELETAL/RHEUMATOLOGICAL: Denies any joint pain, swelling, or any muscle pain. ENDOCRINE: Denies any polyuria or polydipsia. The rest of the 14-point review of systems is negative. PHYSICAL EXAMINATION: GENERAL: The patient is alert and oriented x3, not in any acute distress. Well developed, well nourished. HEENT: Pupils are round and equally reacting to light. EOMI. No scleral icterus. No conjunctival pallor. Normocephalic, atraumatic. No pharyngeal erythema. No thyromegaly. CARDIOVASCULAR: S1 and S2 present. No murmurs, rubs, or gallops. PULMONARY: Chest is clear to auscultation, no wheezing or crackles. ABDOMEN: Soft, nontender, nondistended, normoactive bowel sounds. No palpable organomegaly. MUSCULOSKELETAL: No joint swelling or deformity. EXTREMITIES: No cyanosis, clubbing, or pedal edema. NEUROLOGICAL: Significant nonfocal weakness which is new onset normal SKIN: No rashes. Assessment and plan 1 dizziness possibly vertigo: Will obtain a CT of the head without contrast and neurology will be consulted patient has significant weakness, I am unable to assess for Romberg sign need to rule out cerebellar stroke. -Possible lightheadedness, I did not see any atrial fibrillation patient heart rate is well-controlled cardiology will evaluate patient will obtain echocardiogram. Possibly because of mild dehydration and hypotension patient blood pressure is within normal limits we will hold off on his hydrochlorothiazide and DENA inhibitor temporarily -History of DVT presently not on any anticoagulation although patient was started on IV heparin by ER physician will continue with gentle patient is evaluate by cardiology -Hyperlipidemia -Gastroesophageal reflux disease DVT prophylaxis: Lovenox 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, History of Any Multi-Drug Resistant Organisms: None Reported Past Surgical History: Cardiac Valve Replacement, Heart Catheterization, Hernia Repair, Joint Replacement, Orthopedic Surgery Additional Past Surgical History / Comment(s): aortic valve replacement 2013, rt ankle tendon repair, shelly knee replacements, left carotid endarterectomy, arthroscopy left knee x 3 Past Anesthesia/Blood Transfusion Reactions: Previous Problems w/ Anesthesia Additional Past Anesthesia/Blood Transfusion Reaction / Comment(s): DVT post op after ankle surgery, throat swelling and sore throat "pretty bad" after he had arthroscopy left knee surgery at another hospital. pt states was not told anything about any problems or difficulty with intubation Past Psychological History: No Psychological Hx Reported Past Alcohol Use History: Daily Additional Past Alcohol Use History / Comment(s): 2 drinks daily with dinner Past Drug Use History: None Reported - Past Family History Mother Family Medical History: Cancer Additional Family Medical History / Comment(s): ovarian cancer Father Family Medical History: Cancer Additional Family Medical History / Comment(s): melanoma Medications and Allergies Home Medications Medication Instructions Recorded Confirmed Type Aspirin [Adult Low Dose Aspirin EC] 81 mg PO DAILY 08/29/17 08/19/23 History Lansoprazole 30 mg PO Q2D 08/29/17 08/19/23 History Simvastatin [Zocor] 20 mg PO HS 08/29/17 08/19/23 History Losartan [Cozaar] 50 mg PO DAILY 08/19/23 08/19/23 History Naproxen Sodium [Aleve] 220 mg PO BID PRN 08/19/23 08/19/23 History hydroCHLOROthiazide 12.5 mg PO DAILY 08/19/23 08/19/23 History Allergies Allergy/AdvReac Type Severity Reaction Status Date / Time No Known Allergies Allergy Verified 08/19/23 07:57 Physical Exam Vitals: Vital Signs Temp Pulse Resp BP Pulse Ox 08/19/23 10:00 86 18 126/65 97 08/19/23 04:25 97.8 F 85 17 127/66 96 08/19/23 02:00 71 17 126/79 96 08/19/23 01:30 80 18 135/78 98 08/19/23 01:00 79 16 121/70 96 08/19/23 00:30 78 16 122/76 97 08/19/23 00:00 68 18 135/70 95 08/18/23 23:40 72 18 149/75 99 08/18/23 22:30 72 18 155/82 98 08/18/23 22:00 74 16 152/84 86 L 08/18/23 21:30 72 20 143/63 99 08/18/23 21:00 86 19 145/84 98 08/18/23 20:19 97.6 F 70 18 156/75 100 Intake and Output 08/18/23 08/19/23 08/19/23 22:59 06:59 14:59 Intake Total 100.167 Output Total 300 Balance -300 100.167 Intake: Intake, IV Titration 100.167 Amount Heparin Sod,Pork in 0.45% 100.167 NaCl 25,000 unit In 0.45 % NaCl 1 250ml.bag @ 11. 603 UNITS/KG/HR 10 mls/hr IV .Q24H [facility] Rx#: [id number] Output: Urine 300 Other: Weight 86.183 kg Results CBC & Chem 7: 08/19/23 08:24 08/19/23 08:24 Labs: Abnormal Lab Results - Last 24 Hours (Table) 08/18/23 08/18/23 08/18/23 Range/Units 20:36 20:36 20:36 RBC 3.82 L (4.30-5.90) m/uL Hgb 11.6 L (13.0-17.5) gm/dL Hct 36.6 L (39.0-53.0) % Lymphocytes # 0.4 L (1.0-4.8) k/uL APTT 18.4 L (22.0-30.0) sec D-Dimer (<0.60) mg/L FEU Sodium 135 L (137-145) mmol/L Chloride (98-107) mmol/L Carbon Dioxide 21 L (22-30) mmol/L BUN 24 H (9-20) mg/dL Creatinine (0.66-1.25) mg/dL Glucose 153 H (74-99) mg/dL Total Protein 5.7 L (6.3-8.2) g/dL Albumin (3.5-5.0) g/dL 08/18/23 08/19/23 08/19/23 Range/Units 20:36 08:24 08:24 RBC 3.42 L (4.30-5.90) m/uL Hgb 10.4 L (13.0-17.5) gm/dL Hct 33.2 L (39.0-53.0) % Lymphocytes # 0.6 L (1.0-4.8) k/uL APTT (22.0-30.0) sec D-Dimer 2.62 H (<0.60) mg/L FEU Sodium 134 L (137-145) mmol/L Chloride 110 H (98-107) mmol/L Carbon Dioxide 20 L (22-30) mmol/L BUN (9-20) mg/dL Creatinine 0.59 L (0.66-1.25) mg/dL Glucose 122 H (74-99) mg/dL Total Protein 5.2 L (6.3-8.2) g/dL Albumin 3.0 L (3.5-5.0) g/dL 08/19/23 Range/Units 08:24 RBC (4.30-5.90) m/uL Hgb (13.0-17.5) gm/dL Hct (39.0-53.0) % Lymphocytes # (1.0-4.8) k/uL APTT 42.9 H (22.0-30.0) sec D-Dimer (<0.60) mg/L FEU Sodium (137-145) mmol/L Chloride (98-107) mmol/L Carbon Dioxide (22-30) mmol/L BUN (9-20) mg/dL Creatinine (0.66-1.25) mg/dL Glucose (74-99) mg/dL Total Protein (6.3-8.2) g/dL Albumin (3.5-5.0) g/dL
--- NOTE | 2023-08-19 14:16 | CT ---
EXAMINATION TYPE: CT brain wo con DATE OF EXAM: 08/19/2023 COMPARISON: None HISTORY: Vertigo, Weakness CT DLP: 1197.4 mGycm Automated exposure control for dose reduction was used. Findings: The ventricles, basal cisterns and sulci over convexities are moderately enlarged consistent with mod erate generalized atrophy. There is mild decreased anterior periventricular white matter consistent with mild chronic ischemic w pedrito matter demyelination. There is no mass effect or shift in midline structures.. There is no acute intra or extra-axial hemorrhage. The posterior fossa including the brainstem, fourth ventricle and cerebellar pontine angles appear no rmal. Intraorbital contents appear normal and symmetric. Visualized paranasal sinuses and mastoid air cells are well aerated. The calvarium is intact. IMPRESSION: 1. Moderate age-appropriate atrophy and ischemic demyelination. 2. No acute bleed or mass effect.
--- NOTE | 2023-08-19 19:48 | CA ---
Transthoracic Echo Report Name: Venkata Colunga Age: 77 Gender: M : 1945 Exam Date: 08/19/2023 14:55 Exam Location: [facility] Ht (in): 72 Wt (lb): 190 Ordering Physician: Antoni Rm MD Attending/Referring Phys: Parachute Cushion Installer July Olson RDCS Procedure CPT: Indications: near syncope Cardiac Hx: Hx of DVT, Biorosthetic AOV Technical Quality: Good Contrast 1: Total Dose (mL): Contrast 2: Total Dose (mL): MEASUREMENTS (Male / Female) Normal Values 2D ECHO LV Diastolic Diameter PLAX 4.5 cm 4.2 - 5.9 / 3.9 - 5.3 cm LV Systolic Diameter PLAX 3.7 cm IVS Diastolic Thickness 1.2 cm 0.6 - 1.0 / 0.6 - 0.9 cm LVPW Diastolic Thickness 1.2 cm 0.6 - 1.0 / 0.6 - 0.9 cm LV Relative Wall Thickness 0.5 RV Internal Dim ED PLAX 3.8 cm LA Systolic Diameter LX 4.3 cm 3.0 - 4.0 / 2.7 - 3.8 cm LV Diastolic Volume MOD 4C 136.3 cm??? LV Systolic Volume MOD 4C 51.0 cm??? LV Ejection Fraction MOD 4C 62.6 % LV Cardiac Index MOD 4C 2963.8 cm???/min???m??? LV Diastolic Length 4C 9.1 cm LV Systolic Length 4C 7.2 cm LV Diastolic Volume MOD 2C 112.7 cm??? LV Systolic Volume MOD 2C 57.7 cm??? LV Ejection Fraction MOD 2C 48.7 % LV Cardiac Index MOD 2C 1907.2 cm???/min???m??? LV Diastolic Length 2C 8.7 cm LV Systolic Length 2C 7.2 cm LA Volume 89.4 cm??? 18 - 58 / 22 - 52 cm??? LA Volume Index 42.5 cm???/m??? 16 - 28 cm???/m??? M-MODE Aortic Root Diameter MM 3.9 cm DOPPLER AV Peak Velocity 290.6 cm/s AV Peak Gradient 33.8 mmHg AV Mean Velocity 203.7 cm/s AV Mean Gradient 18.3 mmHg AV Velocity Time Integral 59.7 cm LVOT Peak Velocity 207.9 cm/s LVOT Peak Gradient 17.3 mmHg LVOT Velocity Time Integral 43.4 cm MV Area PHT 2.3 cm??? Mitral E Point Velocity 117.6 cm/s Mitral A Point Velocity 141.9 cm/s Mitral E to A Ratio 0.8 MV Deceleration Time 332.5 ms FINDINGS Left Ventricle Left ventricular ejection fraction is estimated at 55-60 %. Left ventricular cavity size normal. Mildly increased septal wall thickness. No obvious regional wall motion abnormalities. Right Ventricle Mild right ventricular dilatation. Unable to estimate the right ventricular systolic pressure. Right Atrium Normal right atrial size. No right atrial thrombus or mass seen. Left Atrium Moderate left atrial dilatation Mitral Valve Structurally normal mitral valve. Trace to mild mitral regurgitation. Aortic Valve Normally functioning bioprosthetic aortic valve without stenosis with a peak velocity of 2.9 m/s, peak gradient 34 mmHg, mean gradient 18 mmHg Tricuspid Valve Structurally normal tricuspid valve. No tricuspid stenosis, regurgitation or prolapse. Pulmonic Valve Structurally normal pulmonic valve. Trace pulmonic regurgitation. Pericardium No pericardial or pleural effusion. Aorta Mild aortic dilatation at the level of the sinuses of valsalva 39 mm. Ascending AO 41 mm CONCLUSIONS Left ventricular ejection fraction is estimated at 55-60 %. No obvious regional wall motion abnormalities. Moderate left atrial dilatation. Normally functioning bioprosthetic aortic valve with mean gradient 18 mmHg. No PVL Ascending aorta is at upper limit of normal. Ascending aorta measured 4.1 cm. Aortic root 3.9 cm Previewed by: Dr Zeeshan Boyd (Electronically Signed) Final Date: 19 August 2023 19:48
[2023-08-19] MEDS: CLOPIDOGREL 75 MG TAB PO SCH (21:51)
[2023-08-19] MEDS: ATORVASTATIN 10 MG TAB PO SCH (21:51)
--- NOTE | 2023-08-19 22:49 | P.CNNES ---
History of Present Illness Consult date: 08/19/23 Requesting physician: Antoni Rm Reason for Consult: vertigo, weakness History of Present Illness: Patient is a 77-year-old right-handed male with history of hypertension, came to the hospital by ambulance yesterday at 8:12 PM for acute onset of vertigo. Patient states that yesterday at 4 PM he was walking around the kitchen and when suddenly "something hit bad", and he started spinning and almost lost consciousness, and he kept himself from falling. He sat down in the chair. He then started sweating profusely for an hour. Then he started feeling cold. He also felt nauseous and vomited. He called his and he made it to the bed with his walker, but was very wobbly. He noticed that when he was watching TV, his eyes felt very blurry, and some double vision. There was no slurred speech or facial droop. Patient had undergone lumbar surgery about 3 weeks ago. Patient states that he takes aspirin every day. About 2 weeks before his back surgery and for 1 week after his back surgery he had stopped taking aspirin. 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 As per EMS flowsheet when they arrived, patient was laying in bed alert and orient x 4. Patient states that after he woke up from a nap at about 4 PM, he tried to stand up and became dizzy, nauseated and began to vomit. Patient stated he felt like he was "going to pass out". Patient states that he felt fine all day prior to this event. Patient had back surgery approximately 3 weeks prior and is off all pain medications. Patient mentioned that earlier in the day he took his dog for a walk and move light furniture in his home, and has not had any water intake. Patient appeared diaphoretic with normal skin coloring. He had some signs of dehydration with pallor to the mucosal membrane. Negative orthostatic blood pressure changes. He does have an increase in dizziness and vomiting upon sitting up. Patient's vitals at the scene was blood pressure 147/80, pulse rate 75 respirations 16 temperature 97.8. Blood sugar 191 mg/dL. Repeat blood pressure 163/90. Blood test shows normal WBC hemoglobin 11.6, platelets 244. PTT 18.4. Sodium 135, potassium is normal BUN 24, hepatic panel normal. Troponin negative. EKG showed sinus rhythm with occasional supraventricular premature complexes. CTA of the chest showed no pulmonary embolism. 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 Large hiatal hernia. CT head showed moderate age-appropriate atrophy and ischemic demy elination. No acute bleed or mass effect. I personally reviewed CT head, and on my review, there is evidence of probable multifocal, subacute hypodensities in the right cerebellar hemisphere concerning for subacute ischemia. Visualized paranasal sinuses and external auditory canals are clear. No prior CT scans available for comparison. Patient has history of hypertension. Denies diabetes. Patient denies any previous history of CVA or TIA. Patient has history of aortic valve replacement in 2013. He takes aspirin 81 mg daily. He has never smoked tobacco, drinks 2 drinks of vodka per day. Patient states that even at this time, he cannot stand at this time otherwise he feels very dizzy and off balance. Review of Systems Constitutional: Reports sweats (On the day of admission), Denies chills, Denies fever Eyes: bilateral blurred vision, bilateral diplopia (Transient), denies loss of peripheral vision Ears: deny: decreased hearing, ear discharge Ears, nose, mouth and throat: Reports vertigo, Denies headache, Denies sore throat Cardiovascular: Denies chest pain, Denies shortness of breath Respiratory: Denies cough, Denies wheezing Gastrointestinal: Reports constipation, Reports nausea, Reports vomiting, Denies diarrhea Genitourinary: Denies dysuria, Denies incontinence Musculoskeletal: Reports low back pain, Denies neck pain Integumentary: Denies pruritus, Denies rash Neurological: Reports as per HPI Psychiatric: Reports anxiety, Denies depression 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, History of Any Multi-Drug Resistant Organisms: None Reported Past Surgical History: Cardiac Valve Replacement, Heart Catheterization, Hernia Repair, Joint Replacement, Orthopedic Surgery Additional Past Surgical History / Comment(s): aortic valve replacement 2014, rt ankle tendon repair, shelly knee replacements, left carotid endarterectomy, arthroscopy left knee x 3 Past Anesthesia/Blood Transfusion Reactions: Previous Problems w/ Anesthesia Additional Past Anesthesia/Blood Transfusion Reaction / Comment(s): DVT post op after ankle surgery, throat swelling and sore throat "pretty bad" after he had arthroscopy left knee surgery at another hospital. pt states was not told anything about any problems or difficulty with intubation Past Psychological History: No Psychological Hx Reported Past Alcohol Use History: Daily Additional Past Alcohol Use History / Comment(s): 2 drinks daily with dinner Past Drug Use History: None Reported - Past Family History Mother Family Medical History: Cancer Additional Family Medical History / Comment(s): ovarian cancer Father Family Medical History: Cancer Additional Family Medical History / Comment(s): melanoma Medications and Allergies Home Medications Medication Instructions Recorded Confirmed Type Aspirin [Adult Low Dose Aspirin EC] 81 mg PO DAILY 08/29/17 08/19/23 History Lansoprazole 30 mg PO Q2D 08/29/17 08/19/23 History Simvastatin [Zocor] 20 mg PO HS 08/29/17 08/19/23 History Losartan [Cozaar] 50 mg PO DAILY 08/19/23 08/19/23 History Naproxen Sodium [Aleve] 220 mg PO BID PRN 08/19/23 08/19/23 History hydroCHLOROthiazide 12.5 mg PO DAILY 08/19/23 08/19/23 History Allergies Allergy/AdvReac Type Severity Reaction Status Date / Time No Known Allergies Allergy Verified 08/19/23 07:57 Physical Examination - Vital Signs Vital Signs: Vital Signs Temp Pulse Resp BP Pulse Ox 08/19/23 18:00 76 17 123/60 98 08/19/23 17:00 74 18 127/70 98 08/19/23 14:00 83 17 119/68 97 08/19/23 10:00 86 18 126/65 97 08/19/23 04:25 97.8 F 85 17 127/66 96 08/19/23 02:00 71 17 126/79 96 08/19/23 01:30 80 18 135/78 98 08/19/23 01:00 79 16 121/70 96 08/19/23 00:30 78 16 122/76 97 08/19/23 00:00 68 18 135/70 95 08/18/23 23:40 72 18 149/75 99 08/18/23 22:30 72 18 155/82 98 08/18/23 22:00 74 16 152/84 86 L 08/18/23 21:30 72 20 143/63 99 08/18/23 21:00 86 19 145/84 98 08/18/23 20:19 97.6 F 70 18 156/75 100 Intake and Output 08/19/23 08/19/23 08/19/23 06:59 14:59 22:59 Intake Total 100.167 Output Total 300 Balance -300 100.167 Intake: Intake, IV Titration 100.167 Amount Heparin Sod,Pork in 0.45% 100.167 NaCl 25,000 unit In 0.45 % NaCl 1 250ml.bag @ 11. 603 UNITS/KG/HR 10 mls/hr IV .Q24H [facility] Rx#: [id number] Output: Urine 300 Patient is an elderly male, very pleasant, in no acute distress. Patient is alert awake oriented to time place and person. Speech and language functions are normal. Patient can name and repeat very well. No aphasia or dysarthria. Attention, concentration and fund of knowledge is adequate. On cranial nerve examination, pupils are equal, round and reacting to light, visual gregorio are full on confrontation, with no neglect on double simultaneous stimulation. Extraocular muscles are intact with mild nystagmus noted to the left and right. Face is symmetric, tongue protrudes to the midline. Palatal elevation and sensation normal, hearing and shoulder shrug normal, facial sensation normal. On muscle strength testing, there is no pronator drift and the strength is normal in arms and legs distally and proximally, except (right/left) deltoid 5/5-, hip flexion 4+/5-. Rest of the muscle strength is normal. Deep tendon reflexes are symmetric 1+ to 2 and plantars downgoing. Sensory to touch is equal with no neglect on double simultaneous stimulation. Cerebellar function showed at least moderate ataxia for [id number] testing only with the right upper limb, not with the left. No ataxia for gfyo-eb-ilcu testing on either side. Tone and bulk of muscles normal. Gait deferred.. On general examination, there is no carotid bruit or murmur, S1-S2 audible. Chest is clear on consultation. Abdomen is soft nontender. No organomegaly, bowel sounds present. Peripheral pulses are present. No peripheral edema. Results - Laboratory Findings CBC and BMP: 08/19/23 08:24 08/19/23 08:24 Abnormal Lab Findings: Abnormal Labs 08/18/23 08/18/23 08/18/23 20:36 20:36 20:36 RBC 3.82 L Hgb 11.6 L Hct 36.6 L Lymphocytes # 0.4 L APTT 18.4 L D-Dimer Sodium 135 L Chloride Carbon Dioxide 21 L BUN 24 H Creatinine Glucose 153 H Total Protein 5.7 L Albumin 08/18/23 08/19/23 08/19/23 20:36 08:24 08:24 RBC 3.42 L Hgb 10.4 L Hct 33.2 L Lymphocytes # 0.6 L APTT D-Dimer 2.62 H Sodium 134 L Chloride 110 H Carbon Dioxide 20 L BUN Creatinine 0.59 L Glucose 122 H Total Protein 5.2 L Albumin 3.0 L 08/19/23 08/19/23 08:24 15:29 RBC Hgb Hct Lymphocytes # APTT 42.9 H 64.2 H D-Dimer Sodium Chloride Carbon Dioxide BUN Creatinine Glucose Total Protein Albumin Assessment and Plan Assessment: * Acute ischemic stroke, right cerebellar region. Patient has presented with vertigo, nausea vomiting, gait ataxia and near syncope. Examination reveals nystagmus, ataxia of the right upper limb, and gait ataxia. CT head on my review revealed multiple areas of subacute ischemia in the right cerebellar hemisphere. Patient has history of aortic valve replacement for which patient was on aspirin. Patient had stopped aspirin for about 3 weeks around his lumbar surgery that was performed 3 weeks ago. * Hypertension * History of aortic valve replacement * Status post back surgery 3 weeks ago * History of bilateral knee and bilateral shoulder surgery. * Mild alcoholism, consumes 2 drinks of vodka daily. Plan: MRI of the brain without contrast, evaluate for acute CVA 2-D echo revealed left ventricular EF 55 to 60%. Left ventricular cavity size is normal. Mildly increased septal wall thickness. No obvious regional wall mo tion abnormalities. Moderate left atrial dilation. Ascending aorta is at upper limits of normal. Ascending aorta measured 4.1 cm with aortic root 3.9 cm. Patient may need PRIMITIVO. Recommend 30-day event monitor to rule out paroxysmal atrial fibrillation Cardiology on board. Check CTA head and neck Fasting a.m. lipid panel. Patient on simvastatin 20 mg daily. Hemoglobin A1c Permissive hypertension for next 24-48 hours Patient was taking aspirin 81 mg daily. We will start Plavix 75 mg daily. Neuro checks as per protocol. Telemetry monitoring rule out any arrhythmia PT, OT, speech therapy DVT prophylaxis: Heparin 5000 units subcu every [address] Navarrete will cover neurology service over the weekend.. Thank you for the consult. Addendum: I had already ordered Plavix, and later found out patient has been diagnosed with new onset atrial fibrillation. Patient has been started on heparin IV. PTT is therapeutic 64.2. We will stop Plavix. We will discontinue the order of CTA and order carotid Doppler ultrasound instead.
[2023-08-19] MEDS: MECLIZINE 25 MG TAB PO PRN (23:10)
[2023-08-19] MEDS: traZODone HCL 50 MG TAB PO SCH (23:11)
[2023-08-20] MEDS: ASPIRIN 81 MG PO SCH (09:55)
[2023-08-20] MEDS: PANTOPRAZOLE 40 MG TABLET PO SCH (09:55)
[2023-08-20] MEDS: APIXABAN 5 MG TAB PO SCH (11:34)
--- NOTE | 2023-08-20 12:24 | P.PN ---
Subjective Progress Note Date: 08/20/23 The patient is a 77-year-old male who was seen in neurologic follow-up on August 20, 2023, in collaboration with Ela Mccloud, via teleneurology. This chart has been reviewed. Dr. De Jesus's consultation from yesterday August 19, 2023 has been reviewed. I have personally viewed CT scan of the brain. I agree with Dr. De Jesus's interpretation of possible multifocal areas of ischemia involving the right cerebellar hemisphere. This morning, the patient reports feeling better. He says that yesterday, he had a spinning sensation as well as feeling off balance. He said it was as if he was on a boat. Rocking back and forth, up and down. He also reported nausea and vomiting. The patient reported blurred vision. There is no diplopia, tinnitus or hearing loss. Objective - Vital Signs Vital signs: Vital Signs Temp 97.8 F 08/19/23 04:25 Pulse 63 08/20/23 06:00 Resp 14 08/20/23 06:00 BP 150/81 08/20/23 06:00 Pulse Ox 99 08/20/23 06:00 FiO2 Intake & Output 08/19/23 08/20/23 08/20/23 18:59 06:59 18:59 Intake Total 100.167 149.833 Balance 100.167 149.833 Intake: Intake, IV Titration 100.167 149.833 Amount Heparin Sod,Pork in 0.45% 100.167 149.833 NaCl 25,000 unit In 0.45 % NaCl 1 250ml.bag @ 11. 603 UNITS/KG/HR 10 mls/hr IV .Q24H [facility] Rx#: [id number] - Exam General: The patient is well-nourished, well-developed and in no acute distress. HEENT: Head is atraumatic, normocephalic. Fundus not visualized. There is no scleral icterus. Mucous members are moist. Neck: Supple without carotid bruits Heart: Regular rate and rhythm Lungs: Essentially clear to auscultation Extremities: Without edema Neurological examination Mental status: The patient is awake, alert and oriented x 3. His speech is clear. There is no dysarthria or aphasia. Cranial nerves: Pupils are equal at 2 mm and reactive. Visual gregorio are full to confrontation. Extraocular movements are intact. There is nystagmus involving the right eye only, in all directions of gaze. Facial sensation is intact. There is a mild right facial droop with right ptosis. Hearing is grossly intact. Uvula and palate are midline. Shoulder shrug is symmetric. Tongue protrudes midline. Motor: Strength is 5/5 throughout, with the exception of the hip flexors bilaterally at 4/5. Sensation: The patient reports decreased light touch sensation in the fingers of his right hand. Coordination: Baevah-dl-exxl, rapid alternating movements and vnbn-ti-zmdm are intact. Deep tendon reflexes: Right upper extremity reflexes 3+/4+. Left upper extremity reflexes 2+/4+. Right patellar 2+/4+. Left patellar 1+/4+. Gait: Not assessed - Labs CBC & Chem 7: 08/19/23 08:24 08/19/23 08:24 Labs: Abnormal Lab Results - Last 24 Hours (Table) 08/19/23 08/19/23 08/19/23 Range/Units 08:24 08:24 08:24 RBC 3.42 L (4.30-5.90) m/uL Hgb 10.4 L (13.0-17.5) gm/dL Hct 33.2 L (39.0-53.0) % Lymphocytes # 0.6 L (1.0-4.8) k/uL APTT 42.9 H (22.0-30.0) sec Sodium 134 L (137-145) mmol/L Chloride 110 H (98-107) mmol/L Carbon Dioxide 20 L (22-30) mmol/L Creatinine 0.59 L (0.66-1.25) mg/dL Glucose 122 H (74-99) mg/dL Total Protein 5.2 L (6.3-8.2) g/dL Albumin 3.0 L (3.5-5.0) g/dL 08/19/23 Range/Units 15:29 RBC (4.30-5.90) m/uL Hgb (13.0-17.5) gm/dL Hct (39.0-53.0) % Lymphocytes # (1.0-4.8) k/uL APTT 64.2 H (22.0-30.0) sec Sodium (137-145) mmol/L Chloride (98-107) mmol/L Carbon Dioxide (22-30) mmol/L Creatinine (0.66-1.25) mg/dL Glucose (74-99) mg/dL Total Protein (6.3-8.2) g/dL Albumin (3.5-5.0) g/dL Assessment and Plan Assessment: Acute ischemic stroke, right cerebellar region. Patient has presented with vertigo, nausea vomiting, gait ataxia and near syncope. Examination reveals nystagmus, ataxia of the right upper limb, and gait ataxia. CT head on my review revealed multiple areas of subacute ischemia in the right cerebellar hemisphere. Patient has history of aortic valve replacement for which patient was on aspirin. Patient had stopped aspirin for about 3 weeks around his lumbar surgery that was performed 3 weeks ago. * Hypertension * History of aortic valve replacement * Status post back surgery 3 weeks ago * History of bilateral knee and bilateral shoulder surgery. * Mild alcoholism, consumes 2 drinks of vodka daily. Plan: MRI of the brain without contrast, evaluate for acute CVA-this test will be done today 2-D echo revealed left ventricular EF 55 to 60%. Left ventricular cavity size is normal. Mildly increased septal wall thickness. No obvious regional wall motion abnormalities. Moderate left atrial dilation. Ascending aorta is at upper limits of normal. Ascending aorta measured 4.1 cm with aortic root 3.9 cm. Patient may need PRIMITIVO. Recommend 30-day event monitor to rule out paroxysmal atrial fibrillation Cardiology on board. Fasting a.m. lipid panel. Patient on simvastatin 20 mg daily. Hemoglobin A1c Permissive hypertension for next 24-48 hours Patient was taking aspirin 81 mg daily. We will start Plavix 75 mg daily. Neuro checks as per protocol. Telemetry monitoring rule out any arrhythmia PT, OT, speech therapy Time with Patient: Greater than 30 (45 minutes were spent caring for this patient today including obtaining history, examining the patient, reviewing imaging, chart documentation, labs, placing orders and creating this note)
--- NOTE | 2023-08-20 13:06 | US ---
EXAMINATION TYPE: US carotid duplex BILAT DATE OF EXAM: 08/20/2023 COMPARISON: NONE CLINICAL INDICATION: Male, 77 years old with history of cva; CVA TECHNIQUE: Carotid duplex ultrasound examination. Indirect Doppler criteria was utilized. FINDINGS: EXAM MEASUREMENTS: RIGHT: Peak Systolic Velocity (PSV) cm/sec ----- Right CCA: 95.5 ----- Right ICA: 125 ----- Right ECA: 154 ICA/CCA ratio: 1.3 RIGHT: End Diastole cm/sec ----- Right CCA: 10.4 ----- Right ICA: 22.1 ----- Right ECA: 0.0 LEFT: Peak Systolic Velocity (PSV) cm/sec ----- Left CCA: 112 ----- Left ICA: 173 ----- Left ECA: 234 ICA/CCA ratio: 1.5 LEFT: End Diastole cm/sec ----- Left CCA: 14.7 ----- Left ICA: 14.5 ----- Left ECA: 0.0 VERTEBRALS (direction of flow): Right Vertebral: Antegrade Left Vertebral: Antegrade Rhythm: Arrhythmia, - known A-fib DIRECTOR HOME NOTES: Heterogeneous plaque bilaterally, more on left side with elevated velocities left ICA and ECA IMPRESSION: 1. Bilateral heterogeneous plaque greater on the left with no significant hemodynamic stenosis by car otid Doppler ultrasound. 2. 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 3. Cardiac dysrhythmia. Criteria for Assigning % of Stenosis / Diameter reduction (Estimation based on the indirect measurements of the internal carotid artery velocities (ICA PSV). 1. Normal (no stenosis)=ICA PSV < 125 cm/s: ratio < 2.0: ICA EDV<40 cm/s. 2. Less than 50% stenosis=ICA PSV < 125 cm/s: ratio < 2.0: ICA EDV<40 cm/s. 3. 50 to 69% stenosis=ICA PSV of 125 to 230 cm/s: ration 2.0 ? 4.0: ICA EDV 40-100 cm/s. 4. Greater than 70% stenosis to near occlusion= ICA PSV > 230 cm/s: ratio > 4.0: ICA EDV > 100 cm/s. 5. Near occlusion= ICA PSV velocities may be low or undetectable: variable ratio and ICA EDV. 6. Total occlusion=unable to detect flow.
[2023-08-20 13:32] LABS: INR 0.9 (<1.2); Prothrombin Time 10.1 sec (10.0-12.5)
--- NOTE | 2023-08-20 15:20 | P.PN ---
Subjective Progress Note Date: 08/20/23 Patient is a pleasant 77-year-old male came in with complaints lightheadedness it is not clear whether patient is dizzy or vertigo but upon further questioning manage it appears patient has vertigo and patient has weakness in bilateral lower extremities patient is unable to stand. Patient denies any hearing problems sinusitis or ear infection. Patient denies any diaphoresis, denies shortness of breath but patient felt like his get a pass out. Patient is admitted for atrial fibrillation but I did not see any A-fib on the EKG patient had sinus rhythm with PVCs. Patient denies any syncope. Patient is unable to stand quite weak which also started yesterday. 08/20/2023 Patient is evaluated today in follow-up in the ER pending bed on the medical floor. He continues to report significant dizziness and lightheadedness. Patient is currently pending MRI. Had carotid doppler done showing bilateral heterogenous plaque greater than left with no significant hemodynamic stenosis by carotid Doppler ultrasound. Stenosis involving the left CECE suspected. There is cardiac dysrhythmia. There was concern for atrial fibrillation with has been ruled out at this time patient appears to have sinus rhythm with right bundle branch block and frequent PVCs and PACs. He has been started on dual antiplatelet therapy with aspirin and Plavix. Echocardiogram has been done and reveals an EF of 55 to 60% with moderate left atrial dilation, trace to mild mitral regurgitation. Review of Systems Constitutional: Denied any fatigue denied any fever. Cardio vascular: denied any chest pain, palpitations Gastrointestinal: denied any nausea, vomiting, diarrhea Pulmonary: Denied any shortness of breath cough Neurologic denied any new focal deficits All inpatient medications were reviewed and appropriate changes in these medications as dictated in the interval history and assessment and plan. PHYSICAL EXAMINATION: GENERAL: The patient is alert and oriented x3, not in any acute distress. Well developed, well nourished. HEENT: Pupils are round and equally reacting to light. EOMI. No scleral icterus. No conjunctival pallor. Normocephalic, atraumatic. No pharyngeal erythema. No thyromegaly. CARDIOVASCULAR: S1 and S2 present. No murmurs, rubs, or gallops. PULMONARY: Chest is clear to auscultation, no wheezing or crackles. ABDOMEN: Soft, nontender, nondistended, normoactive bowel sounds. No palpable organomegaly. MUSCULOSKELETAL: No joint swelling or deformity. EXTREMITIES: No cyanosis, clubbing, or pedal edema. NEUROLOGICAL: Significant nonfocal weakness which is new onset normal SKIN: No rashes. Assessment and plan -Dizziness lightheadedness vertigo and near syncope with brain CT positive for multiple areas of subacute ischemia in the right cerebellar hemisphere. Patient recently stopped taking his aspirin outpatient about 3 weeks ago secondary to lumbar surgery that was performed. Patient will complete stroke workup with a brain MRI which is currently pending at this time. He has been resumed on dual antiplatelet therapy with aspirin and Plavix. Neurology following. -Cardiac dysrhythmia atrial fibrillation has been ruled out -History of aortic valve replacement in 2013 -Hx of carotid artery stenosis with previous left carotid endartectomy -History of DVT presently not on any anticoagulation -Hyperlipidemia -Gastroesophageal reflux disease DVT prophylaxis: subcu heparin Full Code Pending PT/OT consultation continue on meclizine. The impression and plan of care has been dictated by Sharla Ma, Nurse Practitioner as directed. Dr. Jag MD I have performed a history and physical examination and medical decision making of this patient, discussed the same with the dictator, and agree with the dictators assessment and plan as written, documented as a scribe. Based on total visit time, I have performed more than 50% of this visit. Objective - Vital Signs Vital signs: Vital Signs Temp 97.8 F 08/19/23 04:25 Pulse 95 08/20/23 13:13 Resp 18 08/20/23 13:13 BP 152/95 08/20/23 13:13 Pulse Ox 99 08/20/23 13:13 FiO2 Intake & Output 08/19/23 08/20/23 08/20/23 18:59 06:59 18:59 Intake Total 100.167 149.833 Balance 100.167 149.833 Intake: Intake, IV Titration 100.167 149.833 Amount Heparin Sod,Pork in 0.45% 100.167 149.833 NaCl 25,000 unit In 0.45 % NaCl 1 250ml.bag @ 11. 603 UNITS/KG/HR 10 mls/hr IV .Q24H HEIKE Rx#: [id number] - Labs CBC & Chem 7: 08/19/23 08:24 08/19/23 08:24 Labs: Abnormal Lab Results - Last 24 Hours (Table) 08/19/23 Range/Units 15:29 APTT 64.2 H (22.0-30.0) sec Assessment and Plan Time with Patient: Less than 30
--- NOTE | 2023-08-20 16:21 | MR ---
EXAMINATION TYPE: MR brain wo con DATE OF EXAM: 08/20/2023 1:49 PM CLINICAL INDICATION:Male, 77 years old with history of CVA; PHH, Syncope, weakness, evaluate for CVA. COMPARISON: 08/19/2023.. TECHNIQUE: Multi planar, multi sequence imaging was performed through the brain including: T1, T2, In version recovery, Diffusion weighted imaging, and gradient echo imaging. No gadolinium was given. FINDINGS: Restricted diffusion within the right cerebellum also affecting the medulla oblongata on th e right lateral aspect. Mild cerebral atrophy with proportional dilation of ventricular system. Sca ttered foci of high T2 signal intensity are seen within the periventricular white matter. Midline str uctures show no abnormality. The susceptibility weighted images do not reveal any evidence for micro -hemorrhage. The bone marrow signal is within normal limits. Paranasal sinuses and mastoid air cells: No significant paranasal sinus disease. Visualized orbits: . IMPRESSION: 1. Involving the right cerebellum and right lateral medulla oblongata. 2. Nonspecific white matter changes, likely secondary to small vessel ischemic disease.
--- NOTE | 2023-08-20 18:10 | P.CRDCN ---
History of Present Illness Consult date: 08/20/23 History of present illness: HISTORY OF PRESENTING ILLNESS 77-year-old presented to the hospital because of lightheadedness and dizziness. Patient is a poor historian and is not able to describe his symptoms of dizziness. It is unclear if patient had a passing out spell. There was a concern of possible atrial fibrillation on admission Hg. On review of ECG and telemetry it appears that the rhythm is sinus rhythm with frequent PACs and right bundle branch block. There is no prior documented atrial fibrillation history on [facility]. Patient not on prior anticoagulation. BP 145/80, heart rate 62, hemoglobin 10.4, BUN 17, creatinine 0.5, troponins are negative, TSH 1.2. REVIEW OF SYSTEMS 14 point review of system is negative except what is mentioned above in HPI. PHYSICAL EXAMINATION Vital signs reviewed. Head: Normocephalic. Eyes: Sclerae nonicteric. Neck: Brisk carotid upstroke, no jugular venous distention. Lungs: Diminished breath sounds bilateral lung bases. Heart: Irregularly irregular, S1-S2, mild systolic murmur audible Abdomen: Soft nontender, Extremities: No edema, Neuro: Alert, oritented, no focal deficits. Detailed neuro exam was not performed. 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 On review of CT from 2019, ascending aorta pseudoaneurysm was noticed measuring at 2.3 cm Mild Ascending aorta dilatation S/p bioprosthetic aortic valve, normal function Dizziness, likely vertigo History of prostate cancer Cardiac testing ECG shows sinus rhythm with frequent PACs, right bundle branch block. Heart rate 83 bpm Echo showed LVEF 55 to 60%, no wall motion abnormality, moderate LA dilatation, normal functioning bioprosthetic aortic valve, 18 mmHg mean gradient, no PVL, ascending or to dilated at 4.1 cm Suspected left ECA stenosis on carotid Doppler PLAN Consult CT surgery for ascending aorta pseudoaneurysm Discontinue Plavix. Continue aspirin, atorvastatin Obtain echocardiogram Monitor telemetry Consider event monitor at the time of discharge Obtain orthostatic vital signs Zeeshan Boyd MD, FACC, RPVI Thank you for allowing [facility] to participate in this patient's care. Feel free to reach out in case of any followup questions. 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, History of Any Multi-Drug Resistant Organisms: None Reported Past Surgical History: Cardiac Valve Replacement, Heart Catheterization, Hernia Repair, Joint Replacement, Orthopedic Surgery Additional Past Surgical History / Comment(s): aortic valve replacement 2013, rt ankle tendon repair, shelly knee replacements, left carotid endarterectomy, arthroscopy left knee x 3 Past Anesthesia/Blood Transfusion Reactions: Previous Problems w/ Anesthesia Additional Past Anesthesia/Blood Transfusion Reaction / Comment(s): DVT post op after ankle surgery, throat swelling and sore throat "pretty bad" after he had arthroscopy left knee surgery at another hospital. pt states was not told anyt andreia about any problems or difficulty with intubation Past Psychological History: No Psychological Hx Reported Past Alcohol Use History: Daily Additional Past Alcohol Use History / Comment(s): 2 drinks daily with dinner Past Drug Use History: None Reported - Past Family History Mother Family Medical History: Cancer Additional Family Medical History / Comment(s): ovarian cancer Father Family Medical History: Cancer Additional Family Medical History / Comment(s): melanoma Medications and Allergies Home Medications Medication Instructions Recorded Confirmed Type Aspirin [Adult Low Dose Aspirin EC] 81 mg PO DAILY 08/29/17 08/19/23 History Lansoprazole 30 mg PO Q2D 08/29/17 08/19/23 History Simvastatin [Zocor] 20 mg PO HS 08/29/17 08/19/23 History Losartan [Cozaar] 50 mg PO DAILY 08/19/23 08/19/23 History Naproxen Sodium [Aleve] 220 mg PO BID PRN 08/19/23 08/19/23 History hydroCHLOROthiazide 12.5 mg PO DAILY 08/19/23 08/19/23 History Allergies Allergy/AdvReac Type Severity Reaction Status Date / Time No Known Allergies Allergy Verified 08/19/23 07:57 Physical Exam Vitals: Vital Signs Temp Pulse Resp BP BP BP BP 08/20/23 17:53 98.2 F 74 18 140/87 08/20/23 17:04 138/73 136/93 145/80 08/20/23 16:51 62 20 145/80 08/20/23 13:13 95 18 152/95 08/20/23 10:02 99 16 148/87 08/20/23 06:00 63 14 150/81 08/20/23 05:00 68 16 155/67 08/20/23 02:00 76 18 155/76 08/20/23 01:00 70 18 132/69 08/20/23 00:49 71 16 132/69 08/20/23 00:00 67 16 146/80 08/19/23 23:00 72 16 136/78 08/19/23 22:00 87 19 129/67 08/19/23 21:00 80 18 146/81 08/19/23 20:17 71 16 115/66 Pulse Ox 08/20/23 17:53 96 08/20/23 17:04 08/20/23 16:51 98 08/20/23 13:13 99 08/20/23 10:02 99 08/20/23 06:00 99 08/20/23 05:00 98 08/20/23 02:00 97 08/20/23 01:00 98 08/20/23 00:49 95 08/20/23 00:00 08/19/23 23:00 08/19/23 22:00 98 08/19/23 21:00 97 08/19/23 20:17 97 Results 08/19/23 08:24 08/19/23 08:24 Coagulation 08/20/23 Range/Units 12:53 PT 10.1 (10.0-12.5) sec Current Medications Generic Name Dose Route Start Last Admin Trade Name Freq PRN Reason Stop Dose Admin Aspirin 81 mg 08/20/23 09:00 08/20/23 09:55 Aspirin 81 Mg PO 81 mg DAILY HEIKE Administration Atorvastatin Calcium 10 mg 08/19/23 21:00 08/19/23 21:51 Atorvastatin 10 Mg Tab PO 10 mg HS HEIKE Administration Heparin Sodium (Porcine) 5,000 unit 08/20/23 21:00 Heparin Sodium,Porcine 5,000 Unit/Ml 1 Ml Vial SQ Q12HR HEIKE Meclizine HCl 25 mg 08/19/23 12:38 08/19/23 23:10 Meclizine 25 Mg Tab PO 25 mg TID PRN Administration Vertigo Naloxone HCl 0.2 mg 08/18/23 22:29 Naloxone 0.4 Mg/Ml 1 Ml Vial IV Q2M PRN Opioid Reversal Pantoprazole Sodium 40 mg 08/20/23 07:30 06/15/24 09:55 Pantoprazole 40 Mg Tablet PO 40 mg Q2D HEIKE Administration Trazodone HCl 50 mg 08/19/23 23:30 08/19/23 23:11 Trazodone Hcl 50 Mg Tab PO 50 mg HS HEIKE Administration 08/19/23 08:24 08/19/23 08:24
[2023-08-20] MEDS: HEPARIN SODIUM,PORCINE 5,000 UNIT/ML 1 ML VIAL SQ SCH (20:05)
[2023-08-20] MEDS: HYDROcodone/APAP 5-325MG 1 EACH TAB PO PRN (20:39)
[2023-08-21 11:03] LABS: Chol/HDL Ratio 2.42 Ratio; LDL Cholesterol,Calculated 82.1 mg/dL (0.0-131.0)
--- NOTE | 2023-08-21 12:21 | P.PN ---
Subjective Progress Note Date: 08/21/23 The patient is a 77-year-old male who was seen in neurologic follow-up on August 21, 2023, in collaboration with Ela Mccloud, via teleneurology. This chart has been reviewed. Dr. De Jesus's consultation from August 19, 2023 has been reviewed. I have personally viewed CT scan of the brain. I agree with Dr. De Jesus's interpretation of possible multifocal areas of ischemia involving the right cerebellar hemisphere. This morning, the patient reports that he continues to have difficulty with balance. He says he feels off balance and dizzy when he attempts to stand. He reports having difficulty getting to the commode on his own. The patient has not been up sitting in the bedside chair. He reports that he was assisted into a wheelchair, to going to the bathroom to clean up. He has not worked with physical therapy as of yet. MRI results were discussed with the patient and his who is present at the bedside at the time of the evaluation. Objective - Vital Signs Vital signs: Vital Signs Temp 97.9 F 08/21/23 08:00 Pulse 95 08/21/23 08:00 Resp 16 08/21/23 08:00 BP 131/73 08/21/23 08:00 Pulse Ox 96 08/21/23 08:00 FiO2 Intake & Output 08/20/23 08/21/23 08/21/23 18:59 06:59 18:59 Intake Total 20 40 118 Output Total 150 800 200 Balance -130 -760 -82 Weight 86.183 kg Intake: IV 20 40 Invasive Line 1 10 20 Invasive Line 2 10 20 Oral 118 Output: Urine 150 800 200 Other: Voiding Method Urinal Urinal # Voids 1 - Exam General: The patient is well-nourished, well-developed and in no acute distress. HEENT: Head is atraumatic, normocephalic. Fundus not visualized. There is no scleral icterus. Mucous members are moist. Extremities: Without edema Neurological examination Mental status: The patient is awake, alert and oriented x 3. His speech is clear. There is no dysarthria or aphasia. Cranial nerves: Pupils are equal at 2 mm and reactive. Visual gregorio are full to confrontation. Extraocular movements are intact. There is nystagmus involving the right eye only, in all directions of gaze. Facial sensation is intact. There is a mild right facial droop with right ptosis. Hearing is grossly intact. Uvula and palate are midline. Shoulder shrug is symmetric. Tongue protrudes midline. Motor: Strength is 5/5 throughout, with the exception of the hip flexors bilaterally at 4/5. Coordination: [id number], rapid alternating movements and [id number] are intact. Deep tendon reflexes: Right upper extremity reflexes 3+/4+. Left upper extremity reflexes 2+/4+. Right patellar 2+/4+. Left patellar 1+/4+. Gait: Not assessed - Labs CBC & Chem 7: 08/19/23 08:24 08/19/23 08:24 Assessment and Plan Assessment: Acute ischemic stroke, right cerebellar region, definitively verified by MRI. Patient has presented with vertigo, nausea vomiting, gait ataxia and near syncope. Examination reveals nystagmus, ataxia of the right upper limb, and gait ataxia. CT head on my review revealed multiple areas of subacute ischemia in the right cerebellar hemisphere. Patient has history of aortic valve replacement for which patient was on aspirin. Patient had stopped aspirin for about 3 weeks around his lumbar surgery that was performed 3 weeks ago. * Hypertension * History of aortic valve replacement * Status post back surgery 3 weeks ago * History of bilateral knee and bilateral shoulder surgery. * Mild alcoholism, consumes 2 drinks of vodka daily. Plan: Await physical therapy and Occupational Therapy evaluation. The patient may benefit from acute rehab placement 2-D echo revealed left ventricular EF 55 to 60%. Left ventricular cavity size is normal. Mildly increased septal wall thickness. No obvious regional wall motion abnormalities. Moderate left atrial dilation. Ascending aorta is at upper limits of normal. Ascending aorta measured 4.1 cm with aortic root 3.9 cm. Patient may need PRIMITIVO. Recommend 30-day event monitor to rule out paroxysmal atrial fibrillation Cardiology on board. Fasting a.m. lipid panel. Patient on simvastatin 20 mg daily, would recommend increase to 40 mg in light of LDL cholesterol is elevated at 82.1, total cholesterol 182, triglycerides 123 Hemoglobin A1c-5.9 Patient was taking aspirin 81 mg daily. We will start Plavix 75 mg daily. Neuro checks as per protocol. Telemetry monitoring rule out any arrhythmia PT, OT, speech therapy Dr. Александр Arce will assume neurologic coverage of this patient as of 08/22/2023 Time with Patient: Greater than 30 (35 minutes were spent caring for this patient today including, obtaining the history, examining the patient, reviewing imaging, chart documentation, labs, placing orders and creating this note)
--- NOTE | 2023-08-21 12:39 | P.GSCN ---
History of Present Illness Consult date: 08/21/23 Reason for Consult: Ascending aorta pseudoaneurysm Requesting physician: Zeeshan Boyd History of present illness: This is a 77-year-old gentleman who is followed by Dr. Linda Mccloud on an outpatient basis for his primary care. He also follows with Dr. Jacobs from cardiothoracic surgery for a known pseudoaneurysm. He has a past medical history significant for hypertension, hyperlipidemia, aortic valve disease und erwent an aortic valve replacement surgery in 2013 at [facility] by Dr. Jacobs, has a known ascending aorta pseudoaneurysm with yearly surveillance, carotid artery stenosis, status post left carotid endarterectomy, GERD, history of prostate cancer status post radiation treatments, degenerative disc disease with recent lower back surgery completed at [facility], osteoarthritis, and daily alcohol use with drinking 3 glasses of alcohol a day. The patient reports on August while in the kitchen he became dizzy, the room started to spin, blurred vision, he was losing his balance, nauseous with 1 small emesis, diaphoretic with cold sweats. The patient did report that he felt like he was going to pass out but never lost consciousness. He denies any recent fever, shortness of breath, recent trauma, hematemesis, hemoptysis, cough, headache, constipation, diarrhea, chest pain/pressure, weakness in any extremity and syncope. The patient reports he was brought to the emergency department here at [facility] via EMS. The patient states that he was in atrial fibrillation on admission but his EKG shows normal sinus rhythm with occasional PVCs. Initial laboratory results show a WBC count of 8.2, hemoglobin 11.6, hematocrit 36.6, platelets 244, PT 10.1, INR 0.9, PTT 18.4, D- dimer 2.62, sodium 135, potassium 4.3, CO2 21, BUN 24, creatinine 0.80, glucose 153, proBNP 219 and troponin less than 0.012. Subsequently, due to the patient's elevated D-dimer the patient underwent a CTA of the chest which demonstrated no evidence of pulmonary embolism, a pseudoaneurysm projecting anteriorly from the ascending aorta measuring 2.5 cm which was stable from his prior exam in 2018 and it also showed a large hiatal hernia. Subsequently, due to the findings on the CT of the chest a consult was placed to Dr. Hou from cardiothoracic surgery for further evaluation and treatment recommendations. Review of Systems A review of systems was completed and was negative except as mentioned in the HPI. 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, History of Any Multi-Drug Resistant Organisms: None Reported Past Surgical History: Cardiac Valve Replacement, Heart Catheterization, Hernia Repair, Joint Replacement, Orthopedic Surgery Additional Past Surgical History / Comment(s): aortic valve replacement 2013, rt ankle tendon repair, shelly knee replacements, left carotid endarterectomy, arthroscopy left knee x 3 Past Anesthesia/Blood Transfusion Reactions: Previous Problems w/ Anesthesia Additional Past Anesthesia/Blood Transfusion Reaction / Comm: DVT post op after ankle surgery, throat swelling and sore throat "pretty bad" after he had arthroscopy left knee surgery at another hospital. pt states was not told anything about any problems or difficulty with intubation Past Psychological History: No Psychological Hx Reported Smoking Status: Never smoker Past Alcohol Use History: Daily Additional Past Alcohol Use History / Comment(s): 3 drinks daily Past Drug Use History: None Reported - Past Family History Mother History Unknown: Yes Family Medical History: Cancer Additional Family Medical History / Comment(s): ovarian cancer Father History Unknown: Yes Family Medical History: Cancer Additional Family Medical History / Comment(s): melanoma Medications and Allergies Home Medications Medication Instructions Recorded Confirmed Type Aspirin [Adult Low Dose Aspirin EC] 81 mg PO DAILY 08/29/17 08/19/23 History Lansoprazole 30 mg PO Q2D 08/29/17 08/19/23 History Simvastatin [Zocor] 20 mg PO HS 08/29/17 08/19/23 History Losartan [Cozaar] 50 mg PO DAILY 08/19/23 08/19/23 History Naproxen Sodium [Aleve] 220 mg PO BID PRN 08/19/23 08/19/23 History hydroCHLOROthiazide 12.5 mg PO DAILY 08/19/23 08/19/23 History Allergies Allergy/AdvReac Type Severity Reaction Status Date / Time No Known Allergies Allergy Verified 08/19/23 07:57 Surgical - Exam Vital Signs Temp Pulse Resp BP Pulse Ox 97.6 F 70 18 156/75 100 08/18/23 20:19 08/18/23 20:19 08/18/23 20:19 08/18/23 20:19 08/18/23 20:19 - General well developed, well nourished, no distress, no pain - Eyes PERRL, normal ocular movement, no pale, no icteric - ENT normal pinna, normal nares, normal mucosa, no hearing loss, no congestion - Neck Neck is supple, no lymphadenopathy. no masses, no bruits, trachea midline, no venous distension - Respiratory Lung sounds essentially clear throughout. No wheezes, rhonchi or crackles. Respirations are symmetrical and nonlabored. - Cardiovascular Regular rhythm and rate. S1 and S2 present, negative for S3, gallop or murmur. - Abdomen Abdomen is soft, nontender nondistended. Active bowel sounds present all 4 abdominal quadrants. No guarding or rigidity. No organomegaly appreciated. - Genitourinary Deferred - Rectum Deferred - Integumentary Skin is warm and dry. No clubbing or cyanosis is present. Dressing clean, dry and intact to his lower back. no rash, no growths, no abnormal pigmentation - Neurologic Blurred vision, right eye greater than left, significant nonfocal weakness - Musculoskeletal Moves all 4 extremities with equal strength bilateral. - Psychiatric oriented to time, oriented to person, oriented to place, speech is normal, paulette ry intact Results - Labs 08/19/23 08:24 08/19/23 08:24 Abnormal Lab Results - Last 24 Hours (Table) 08/21/23 Range/Units 06:24 HDL Cholesterol 75.30 H (40.00-60.00) mg/dL Diabetes panel 08/20/23 08/21/23 Range/Units 12:53 06:24 Hemoglobin A1c 5.9 (<=6.0) % Triglycerides 123.00 (0.00-149.00) mg/dL HDL Cholesterol 75.30 H (40.00-60.00) mg/dL Thyroid panel 08/20/23 Range/Units 12:53 TSH 1.220 (0.465-4.680) mIU/L Pituitary panel 08/20/23 Range/Units 12:53 TSH 1.220 (0.465-4.680) mIU/L - Imaging CT scan - chest: report reviewed, image reviewed Assessment and Plan Assessment: Known 2.5 cm ascending aorta pseudoaneurysm on CT of the chest, with no significant change from his CTA of his chest in 2019, gets yearly surveillance Aortic valve disease status post aortic valve replacement in 2014 Dizziness, blurred vision unknown etiology History of hypertension Hyperlipidemia History of carotid stenosis, status post left carotid endarterectomy History of prostate cancer, status post radiation treatments GERD Degenerative disc disease, status post recent lower back surgery Osteoarthritis Daily EtOH use Plan: The patient was seen and examined at his bedside on the third floor cardiac stepdown unit in conjunction with Dr. Hou from cardiothoracic surgery. His chart and diagnostics were reviewed. Dr. Hou discussed the findings on the CT of the chest with the patient, the patient reports that he has a no one ascending aorta pseudoaneurysm which is followed yearly by Dr. Jacobs from cardiothoracic surgery. No surgical intervention is warranted at this time. Continue to follow with Dr. Jacobs for continued surveillance of the ascending aorta pseudoaneurysm. Continue to recommend strict blood pressure control. Medical management other comorbidities per primary care service. We will continue to follow the patient on an as-needed basis. Thank you for this consult. I have personally seen and examined the patient, performed the documentation and the assessment and plan as written. Number of minutes spent on the visit: 30. DESIREE Hutchins Attending Addendum: Pt seen and evaluated with SENIOR MARKETING MANAGER above. Agree with his assessment and plan. This is a 77 year-old M s/p bioprosthetic AVR 10 years ago who has had a chronic pseudoanueurysm in the ascending aorta which is unchanged. He presents with TIA symptoms. Agree with conservative management at this time. I spent 35 minutes reviewing the data and discussing plan of care with the patient and his team. Time with Patient: Greater than 30
--- NOTE | 2023-08-21 13:33 | P.PN ---
Subjective Progress Note Date: 08/21/23 Patient is a pleasant 77-year-old male came in with complaints lightheadedness it is not clear whether patient is dizzy or vertigo but upon further questioning manage it appears patient has vertigo and patient has weakness in bilateral lower extremities patient is unable to stand. Patient denies any hearing problems sinusitis or ear infection. Patient denies any diaphoresis, denies shortness of breath but patient felt like his get a pass out. Patient is admitted for atrial fibrillation but I did not see any A-fib on the EKG patient had sinus rhythm with PVCs. Patient denies any syncope. Patient is unable to stand quite weak which also started yesterday. 08/20/2023 Patient is evaluated today in follow-up in the ER pending bed on the medical floor. He continues to report significant dizziness and lightheadedness. Patient is currently pending MRI. Had carotid doppler done showing bilateral heterogenous plaque greater than left with no significant hemodynamic stenosis by carotid Doppler ultrasound. Stenosis involving the left CECE suspected. There is cardiac dysrhythmia. There was concern for atrial fibrillation with has been ruled out at this time patient appears to have sinus rhythm with right bundle branch block and frequent PVCs and PACs. He has been started on dual antiplatelet therapy with aspirin and Plavix. Echocardiogram has been done and reveals an EF of 55 to 60% with moderate left atrial dilation, trace to mild mitral regurgitation. 08/21/2023 Patient is evaluated in follow-up on the medical floor. Patient does continue to report significant dizziness and lightheadedness ports he is up ambulating to the bathroom today was unable to ambulate back to the bed secondary to his dizziness. He has meclizine as needed 3 times a day would recommend to change this to scheduled to see if this helps improve his vertigo-like symptoms. Patient's MRI does come back positive for a acute ischemic stroke in the right cerebellum and right lateral medulla oblongata. This is felt to be due to him stopping his aspirin outpatient secondary to a recent lumbar surgery. 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 Neurology recommending aspirin and plavix. Review of Systems Constitutional: Denied any fatigue denied any fever. Cardio vascular: denied any chest pain, palpitations Gastrointestinal: denied any nausea, vomiting, diarrhea Pulmonary: Denied any shortness of breath cough Neurologic: Continues to report dizziness and gait ataxia. All inpatient medications were reviewed and appropriate changes in these medications as dictated in the interval history and assessment and plan. PHYSICAL EXAMINATION: GENERAL: The patient is alert and oriented x3, not in any acute distress. Well developed, well nourished. HEENT: Pupils are round and equally reacting to light. EOMI. No scleral icterus. No conjunctival pallor. Normocephalic, atraumatic. No pharyngeal erythema. No thyromegaly. CARDIOVASCULAR: S1 and S2 present. No murmurs, rubs, or gallops. PULMONARY: Chest is clear to auscultation, no wheezing or crackles. ABDOMEN: Soft, nontender, nondistended, normoactive bowel sounds. No palpable organomegaly. MUSCULOSKELETAL: No joint swelling or deformity. EXTREMITIES: No cyanosis, clubbing, or pedal edema. NEUROLOGICAL: Significant nonfocal weakness which is new onset, continues to report dizziness, gait ataxia. SKIN: No rashes. Assessment and plan -Dizziness lightheadedness vertigo and near syncope with brain CT positive for multiple areas of subacute ischemia in the right cerebellar hemisphere. Patient recently stopped taking his aspirin outpatient about 3 weeks ago secondary to lumbar surgery that was performed. Patient will complete stroke workup; brain MRI confirms stroke in the right cerebellum. Neurology recommending aspirin and plavix therapy, on statin therapy as well with lipitor 40 mg HS. Patient is awaiting evaluation with PT/OT and will likely need CHARIS on discharge may be a good candidate for IPR. -Cardiac dysrhythmia atrial fibrillation has been ruled out patient will need 30 day event monitor on discharge to rule out atrial fibrillation. 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 -History of aortic valve replacement in 2013 -Ascending aortic pseudoaneurysm following with CT surgery and stable at this time -Recent lumbar surgery 3 weeks ago -Hx of carotid artery stenosis with previous left carotid endartectomy -History of DVT presently not on any anticoagulation -Hyperlipidemia -Gastroesophageal reflux disease DVT prophylaxis: subcu heparin Full Code Pending PT/OT consultation continue on meclizine. The impression and plan of care has been dictated by Nurse Jackie Godinezitioner as directed. Dr. Jag MD I have performed a history and physical examination and medical decision making of this patient, discussed the same with the dictator, and agree with the dictat ors assessment and plan as written, documented as a scribe. Based on total visit time, I have performed more than 50% of this visit. Objective - Vital Signs Vital signs: Vital Signs Temp 97.9 F 08/21/23 08:00 Pulse 93 08/21/23 12:00 Resp 16 08/21/23 12:00 BP 143/67 08/21/23 12:00 Pulse Ox 97 08/21/23 12:00 FiO2 Intake & Output 08/20/23 08/21/23 08/21/23 18:59 06:59 18:59 Intake Total 20 40 266 Output Total 150 800 300 Balance -130 -760 -34 Weight 86.183 kg Intake: IV 20 40 30 Invasive Line 1 10 20 10 Invasive Line 2 10 20 20 Oral 236 Output: Urine 150 800 300 Other: Voiding Method Urinal Urinal Urinal # Voids 1 - Labs CBC & Chem 7: 08/19/23 08:24 08/19/23 08:24 Labs: Abnormal Lab Results - Last 24 Hours (Table) 08/21/23 Range/Units 06:24 HDL Cholesterol 75.30 H (40.00-60.00) mg/dL Assessment and Plan Time with Patient: Less than 30
[2023-08-21] MEDS ORDERED: CLOPIDOGREL 75 MG TAB PO SCH (16:00)
[2023-08-21] MEDS: CLOPIDOGREL 75 MG TAB PO SCH (16:07)
--- NOTE | 2023-08-21 17:44 | P.PN ---
Subjective Progress Note Date: 08/21/23 Progress note August 21, 2023 Patient seen and examined at bedside this a.m. He reports feeling dizzy with c hanging in position. His MRI is suspicious for cerebellar infarct. Unable to determine from the MRI report if there has been embolic phenomena or not. On detailed review of his chest CT it appears that patient's pseudoaneurysm in ascending aorta does have layered thrombus. HISTORY OF PRESENTING ILLNESS 77-year-old presented to the hospital because of lightheadedness and dizziness. Patient is a poor historian and is not able to describe his symptoms of dizziness. It is unclear if patient had a passing out spell. There was a concern of possible atrial fibrillation on admission Hg. On review of ECG and telemetry it appears that the rhythm is sinus rhythm with frequent PACs and right bundle branch block. There is no prior documented atrial fibrillation history on [facility]. Patient not on prior anticoagulation. BP 145/80, heart rate 62, hemoglobin 10.4, BUN 17, creatinine 0.5, troponins are negative, TSH 1.2. REVIEW OF SYSTEMS 14 point review of system is negative except what is mentioned above in HPI. PHYSICAL EXAMINATION Vital signs reviewed. Head: Normocephalic. Eyes: Sclerae nonicteric. Neck: Brisk carotid upstroke, no jugular venous distention. Lungs: Diminished breath sounds bilateral lung bases. Heart: Irregularly irregular, S1-S2, mild systolic murmur audible Abdomen: Soft nontender, Extremities: No edema, Neuro: Alert, oritented, no focal deficits. Detailed neuro exam was not performed. 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 On review of CT from 2019, ascending aorta pseudoaneurysm was noticed measuring at 2.3 cm Mild Ascending aorta dilatation S/p bioprosthetic aortic valve, normal function Dizziness, likely vertigo History of prostate cancer Cardiac testing ECG shows sinus rhythm with frequent PACs, right bundle branch block. Heart rate 83 bpm Echo showed LVEF 55 to 60%, no wall motion abnormality, moderate LA dilatation, normal functioning bioprosthetic aortic valve, 18 mmHg mean gradient, no PVL, ascending or to dilated at 4.1 cm Suspected left ECA stenosis on carotid Doppler PLAN Consult CT surgery for ascending aorta pseudoaneurysm. No plan for intervention Patient was not on Plavix prior to this event. Will start him on aspirin and Plavix. Patient does have suspected layered thrombus in his aortic pseudoaneurysm. There is no clear evidence or guidelines on what anticoagulation or antiplatelet regimen is best suited in this clinical situation. He will choose to continue aspirin and Plavix. If CVA med records, would recommend evaluation. Would recommend 30-day event monitor prior to discharge. It can be picked up from cardiology clinic Obtain echocardiogram Monitor telemetry Anticipate discharge in next 24 hours, PT OT evaluation, rehab evaluation Objective - Vital Signs Vital signs: Vital Signs Temp 97.9 F 08/21/23 08:00 Pulse 94 08/21/23 16:00 Resp 16 08/21/23 16:00 BP 116/78 08/21/23 16:00 Pulse Ox 97 08/21/23 16:00 FiO2 Intake & Output 08/20/23 08/21/23 08/21/23 18:59 06:59 18:59 Intake Total 20 40 266 Output Total 150 800 300 Balance -130 -760 -34 Weight 86.183 kg Intake: IV 20 40 30 Invasive Line 1 10 20 10 Invasive Line 2 10 20 20 Oral 236 Output: Urine 150 800 300 Other: Voiding Method Urinal Urinal Urinal # Voids 1 - Labs CBC & Chem 7: 08/19/23 08:24 08/19/23 08:24 Labs: Abnormal Lab Results - Last 24 Hours (Table) 08/21/23 Range/Units 06:24 HDL Cholesterol 75.30 H (40.00-60.00) mg/dL
[2023-08-21] MEDS: ATORVASTATIN 40 MG TAB PO SCH (20:23)
--- NOTE | 2023-08-22 12:42 | P.PN ---
Subjective Progress Note Date: 08/22/23 HISTORY OF PRESENTING ILLNESS 77-year-old presented to the hospital because of lightheadedness and dizziness. Patient is a poor historian and is not able to describe his symptoms of dizziness. It is unclear if patient had a passing out spell. There was a concern of possible atrial fibrillation on admission Hg. On review of ECG and telemetry it appears that the rhythm is sinus rhythm with frequent PACs and right bundle branch block. There is no prior documented atrial fibrillation history on [facility]. Patient not on prior anticoagulation. BP 145/80, heart rate 62, hemoglobin 10.4, BUN 17, creatinine 0.5, troponins are negative, TSH 1.2. Cardiac testing ECG shows sinus rhythm with frequent PACs, right bundle branch block. Heart rate 83 bpm Echo showed LVEF 55 to 60%, no wall motion abnormality, moderate LA dilatation, normal functioning bioprosthetic aortic valve, 18 mmHg mean gradient, no PVL, ascending or to dilated at 4.1 cm Suspected left ECA stenosis on carotid Doppler August 21, 2023 Patient seen and examined at bedside this a.m. He reports feeling dizzy with changing in position. His MRI is suspicious for cerebellar infarct. Unable to determine from the MRI report if there has been embolic phenomena or not. On detailed review of his chest CT it appears that patient's pseudoaneurysm in ascending aorta does have layered thrombus. 08/21 Patient states that his breathing is a little labored and a little worse from when he came in. He denies having any chest pain, no syncopal episodes, he does have dizziness like spinning of the room. No nausea. 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 Colon. He denies history of atrial fibrillation. Patient has been seen by cardiothoracic surgery regarding ascending aortic pseudoaneurysm. No plan for any surgical intervention at this time as patient follows on a regular basis with Dr. Jacobs. Echocardiogram reveals EF of 55 to 60%. Moderate left atrial dilatation. Normally functioning bioprosthetic aortic valve with mean gradient 18 mmHg. No PE VL. Ascending aorta measuring 4.1 cm. Aortic root 3.9 cm. PHYSICAL EXAMINATION Vital signs reviewed. Head: Normocephalic. Eyes: Sclerae nonicteric. Neck: Brisk carotid upstroke, no jugular venous distention. Lungs: Diminished breath sounds bilateral lung bases. Heart: Irregularly irregular, S1-S2, mild systolic murmur audible Abdomen: Soft nontender, Extremities: No edema, Neuro: Alert, oritented, no focal deficits. Detailed neuro exam was not pe rformed. 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 On review of CT from 2019, ascending aorta pseudoaneurysm was noticed measuring at 2.3 cm Mild Ascending aorta dilatation S/p bioprosthetic aortic valve, normal function Dizziness, likely vertigo History of prostate cancer PLAN Consult CT surgery for ascending aorta pseudoaneurysm appreciated. No plan for intervention Continue patient on aspirin and Plavix. 30-day event monitor ordered Patient is cleared for discharge from cardiology and may follow-up with his primary lithographic press operator apprentice, Dr. Colon, in 1 to 2 weeks. Nurse practitioner note has been reviewed, I agree with documented findings and plan of care. Patient was seen and examined. Objective - Vital Signs Vital signs: Vital Signs Temp 97.8 F 08/22/23 08:00 Pulse 68 08/22/23 08:00 Resp 16 08/22/23 08:00 BP 116/60 08/22/23 08:00 Pulse Ox 95 08/22/23 08:00 FiO2 Intake & Output 08/21/23 08/22/23 08/22/23 18:59 06:59 18:59 Intake Total 384 40 240 Output Total 450 400 Balance -66 -360 240 Intake: IV 30 40 20 Invasive Line 1 10 20 10 Invasive Line 2 20 20 10 Oral 354 220 Output: Urine 450 400 Other: Voiding Method Urinal Urinal - Labs CBC & Chem 7: 08/19/23 08:24 08/19/23 08:24 Labs: Abnormal Lab Results - Last 24 Hours (Table) 08/21/23 Range/Units 06:24 HDL Cholesterol 75.30 H (40.00-60.00) mg/dL
--- NOTE | 2023-08-22 15:06 | P.PN ---
Subjective Progress Note Date: 08/22/23 I am seeing the patient for the first time during this admission. Please refer to Dr. De Jesus's and Rosalba's note for further details. Seems the patient presented to the hospital because of dizziness nausea vomiting and was found to have acute right cerebellar stroke. Having some hoarseness of the voice today. Objective - Vital Signs Vital signs: Vital Signs Temp 97.8 F 08/22/23 08:00 Pulse 68 08/22/23 08:00 Resp 16 08/22/23 08:00 BP 116/60 08/22/23 08:00 Pulse Ox 95 08/22/23 08:00 FiO2 Intake & Output 08/21/23 08/22/23 08/22/23 18:59 06:59 18:59 Intake Total 384 40 358 Output Total 450 400 Balance -66 -360 358 Intake: IV 30 40 20 Invasive Line 1 10 20 10 Invasive Line 2 20 20 10 Oral 354 338 Output: Urine 450 400 Other: Voiding Method Urinal Urinal # Voids 1 # Bowel Movements 1 - Exam General: Lying in bed and does not appear in acute distress. Neuro: The patient is awake, alert, oriented to self, place and time. Is following simple commands. No aphasia or neglect. Pupils are round equal and reactive to light. No facial weakness. Has minimal hoarsesness of voice. Motor: Strength is 5/5 throughout. - Labs CBC & Chem 7: 08/19/23 08:24 08/19/23 08:24 Assessment and Plan Assessment: Acute ischemic stroke, right cerebellar region, definitively verified by MRI. Patient has presented with vertigo, nausea vomiting, gait ataxia and near syncope. Examination reveals nystagmus, ataxia of the right upper limb, and gait ataxia. CT head on my review revealed multiple areas of subacute ischemia in the right cerebellar hemisphere. MRI showed right cerebellum and right lateral medulla oblongata. Patient has history of aortic valve replacement for which patient was on aspirin. Patient had stopped aspirin for about 3 weeks around his lumbar surgery that was performed 3 weeks ago. * Hypertension * History of aortic valve replacement * Status post back surgery 3 weeks ago * History of bilateral knee and bilateral shoulder surgery. * Mild alcoholism, consumes 2 drinks of vodka daily. Plan: MRI of the brain is reported as involving right cerebellum and right lateral me dulla oblongatta. Nonspecific white matter changes, likely secondary due to small vessel ischemic disease. 2-D echo revealed left ventricular EF 55 to 60%. Left ventricular cavity size is normal. Mildly increased septal wall thickness. No obvious regional wall motion abnormalities. Moderate left atrial dilation. Ascending aorta is at upper limits of normal. Ascending aorta measured 4.1 cm with aortic root 3.9 cm. Carotid duplex is reported as bilateral heterogeneous plaque greater on the left with no significant hemodynamic stenosis by carotid Doppler ultrasound. 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 Cardiac dysrhythmia. Per Dr. Navarrete may need PRIMITIVO and spoke with primary team and they stated will have it likely tomorrow. Recommend 30-day event monitor to rule out paroxysmal atrial fibrillation and today had monitor placed. Cardiology on board. Fasting a.m. lipid panel. Patient on simvastatin 20 mg daily, would recommend increase to 40 mg in light of LDL cholesterol is elevated at 82.1, total cholesterol 182, triglycerides 123 Hemoglobin A1c-5.9 Continue aspirin 81 mg daily (home dose) and Plavix 75 mg daily. Recommend dual antiplatelet for 21 days and after 21 days stop Plavix but continue aspirin indefinitely. Neuro checks as per protocol. Telemetry monitoring rule out any arrhythmia PT, OT, speech therapy For DVT prophylaxis: On subq heparin. Upon discharge, recommend the patient to follow-up with neurologist as outpatient within 2 weeks. The plan is discussed with patient and primary team. Time with Patient: Less than 30
--- NOTE | 2023-08-22 16:28 | P.CONS ---
History of Present Illness - Reason for Consult Consult date: 08/22/23 Rehab Needs - History of Present Illness PMR consult Mr. Colunga is 77 yo, right-handed, , lives with his in a 2 story home with 3 BERTIN; does have bed/bath on 1st floor if needed. Was using a walker recently as had lumbar surgery 2 weeks ago. Otherwise was independent with mobility and ADLS. He presented to the hospital because of lightheadedness and dizziness. It is unclear if patient had a passing out spell. There was a concern of possible atrial fibrillation on admission Hg. On review of ECG and telemetry it appears that the rhythm is sinus rhythm with frequent PACs and right bundle branch block. There is no prior documented atrial fibrillation history on [facility]. Patient not on prior anticoagulation. hemoglobin 10.4, BUN 17, creatinine 0.5, troponins are negative, TSH 1.2. Cardiac testing ECG shows sinus rhythm with frequent PACs, right bundle branch block. Heart rate 83 bpm Echo showed LVEF 55 to 60%, no wall motion abnormality, moderate LA dilatation, normal functioning bioprosthetic aortic valve, 18 mmHg mean gradient, no PVL, ascending or to dilated at 4.1 cm Suspected left ECA stenosis on carotid Doppler 08/20/2023 Patient is evaluated today in follow-up in the ER pending bed on the medical floor. He continues to report significant dizziness and lightheadedness. Patient is currently pending MRI. Had carotid doppler done showing bilateral het erogenous plaque greater than left with no significant hemodynamic stenosis by carotid Doppler ultrasound. Stenosis involving the left CECE suspected. There is cardiac dysrhythmia. There was concern for atrial fibrillation with has been ruled out at this time patient appears to have sinus rhythm with right bundle branch block and frequent PVCs and PACs. He has been started on dual antiplatelet therapy with aspirin and Plavix. Echocardiogram has been done and reveals an EF of 55 to 60% with moderate left atrial dilation, trace to mild mitral regurgitation. 08/21/2023 Patient is evaluated in follow-up on the medical floor. Patient does continue to report significant dizziness and lightheadedness ports he is up ambulating to the bathroom today was unable to ambulate back to the bed secondary to his dizziness. He has meclizine as needed 3 times a day would recommend to change this to scheduled to see if this helps improve his vertigo-like symptoms. Patient's MRI does come back positive for a acute ischemic stroke in the right cerebellum and right lateral medulla oblongata. This is felt to be due to him stopping his aspirin outpatient secondary to a recent lumbar surgery. 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 Neurology recommending aspirin and plavix. 08/21 Patient states that his breathing is a little labored and a little worse from when he came in. He denies having any chest pain, no syncopal episodes, he does have dizziness like spinning of the room. No nausea. His primary glaze carrier is Dr. Colon. He denies history of atrial fibrillation. Patient has been seen by cardiothoracic surgery regarding ascending aortic pseudoaneurysm. No plan for any surgical intervention at this time as patient follows on a regular basis with Dr. Jacobs. Echocardiogram reveals EF of 55 to 60%. Moderate left atrial dilatation. Normally functioning bioprosthetic aortic valve with mean gradient 18 mmHg. No PE VL. Ascending aorta measuring 4.1 cm. Aortic root 3.9 cm. PMR consulted for rehab needs. He is still dizzy, especially when up. Also having vision changes, SOB at times, difficulty swallowing. Had some right eye pain this am, also still some low back pain but denies LE pain. Denies numbness/tingling. Denies QUINTERO, CP, abdominal pain. LBM this am. With therapies, min A transfers, min A with TWISTING OPERATOR to ambulate, Mod A bathing/LE ADL/toileting, SUP UE ADL Review of Systems + per above, o/w alll systems reviewed negative. 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, History of Any Multi-Drug Resistant Organisms: None Reported Past Surgical History: Cardiac Valve Replacement, Heart Catheterization, Hernia Repair, Joint Replacement, Orthopedic Surgery Additional Past Surgical History / Comment(s): aortic valve replacement 2013, rt ankle tendon repair, shelly knee replacements, left carotid endarterectomy, arthroscopy left knee x 3 Past Anesthesia/Blood Transfusion Reactions: Previous Problems w/ Anesthesia Additional Past Anesthesia/Blood Transfusion Reaction / Comm: DVT post op after ankle surgery, throat swelling and sore throat "pretty bad" after he had arthroscopy left knee surgery at another hospital. pt states was not told anything about any problems or difficulty with intubation Past Psychological History: No Psychological Hx Reported Smoking Status: Never smoker Past Alcohol Use History: Daily Additional Past Alcohol Use History / Comment(s): 3 drinks daily Past Drug Use History: None Reported - Past Family History Mother History Unknown: Yes Family Medical History: Cancer Additional Family Medical History / Comment(s): ovarian cancer Father History Unknown: Yes Family Medical History: Cancer Additional Family Medical History / Comment(s): melanoma Medications and Allergies Home Medications Medication Instructions Recorded Confirmed Type Aspirin [Adult Low Dose Aspirin EC] 81 mg PO DAILY 08/29/17 08/19/23 History Lansoprazole 30 mg PO Q2D 08/29/17 08/19/23 History Simvastatin [Zocor] 20 mg PO HS 08/29/17 08/19/23 History Losartan [Cozaar] 50 mg PO DAILY 08/19/23 08/19/23 History Naproxen Sodium [Aleve] 220 mg PO BID PRN 08/19/23 08/19/23 History hydroCHLOROthiazide 12.5 mg PO DAILY 08/19/23 08/19/23 History Allergies Allergy/AdvReac Type Severity Reaction Status Date / Time No Known Allergies Allergy Verified 08/19/23 07:57 Physical Exam Vitals: Vital Signs Temp Pulse Resp BP Pulse Ox 08/22/23 08:00 97.8 F 68 16 116/60 95 08/22/23 03:40 62 16 131/85 97 08/21/23 23:10 82 16 111/68 95 08/21/23 20:40 98.6 F 105 H 16 137/85 97 08/21/23 16:00 94 16 116/78 97 Intake and Output 08/21/23 08/22/23 08/22/23 22:59 06:59 14:59 Intake Total 138 20 358 Output Total 550 Balance -412 20 358 Intake: IV 20 20 20 Invasive Line 1 10 10 10 Invasive Line 2 10 10 10 Oral 118 338 Output: Urine 550 Other: Voiding Method Urinal Urinal # Voids 1 # Bowel Movements 1 GENERAL: NAD, Well developed, well nourished. HEENT: Pupils are round and equally reacting to light. EOMI. No scleral icterus. Normocephalic, atraumatic. HEART: Regular rate, no significant LE edema LUNGS: Good air exchange, non-labored ABDOMEN: Soft, nontender, nondistended NEURO: A&O x4. Speech fluent. Repeats no ifs ands or buts. Follows 3 step commands MMT 5/5 bilateral UE/LE except decreased left shoulder (old surgery) SILT intact bilateral UE/LE DTR symmetric UE/LE Right finger to nose and heel to mulligan with dysmetria; normal on left EXTREMITIES: No cyanosis, clubbing, or pedal edema; negative Homans, no calf TTP SKIN: No rashes, warm and dry Results CBC & Chem 7: 08/19/23 08:24 06 08:24 Assessment and Plan Assessment: # Right cerebellar/lateral medulla oblongata CVA with ataxia, dizziness - brain CT positive for multiple areas of subacute ischemia in the right cerebellar hemisphere - Patient recently stopped taking his aspirin outpatient about 3 weeks ago secondary to lumbar surgery that was performed. - brain MRI confirms stroke in the right cerebellum. - Neurology recommending aspirin and plavix therapy, on statin therapy as well with lipitor 40 mg HS. 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 On review of CT from 2019, ascending aorta pseudoaneurysm was noticed measuring at 2.3 cm # Mild Ascending aorta dilatation - CT surgery consult for ascending aorta pseudoaneurysm appreciated. No plan for intervention #S/p bioprosthetic aortic valve, normal function # History of prostate cancer # Recent lumbar surgery 3 weeks ago # Hx of carotid artery stenosis with previous left carotid endartectomy DVT prophylaxis: subcu heparin Full Code Recommendations: - per your medical management - continue therapies Good IPR candidate when medically stable, pending insurance approval.
--- NOTE | 2023-08-22 18:30 | P.PN ---
Subjective Progress Note Date: 08/22/23 Patient is a pleasant 77-year-old male came in with complaints lightheadedness it is not clear whether patient is dizzy or vertigo but upon further questioning manage it appears patient has vertigo and patient has weakness in bilateral lower extremities patient is unable to stand. Patient denies any hearing problems sinusitis or ear infection. Patient denies any diaphoresis, denies shortness of breath but patient felt like his get a pass out. Patient is admitted for atrial fibrillation but I did not see any A-fib on the EKG patient had sinus rhythm with PVCs. Patient denies any syncope. Patient is unable to stand quite weak which also started yesterday. 08/20/2023 Patient is evaluated today in follow-up in the ER pending bed on the medical floor. He continues to report significant dizziness and lightheadedness. Patient is currently pending MRI. Had carotid doppler done showing bilateral heterogenous plaque greater than left with no significant hemodynamic stenosis by carotid Doppler ultrasound. Stenosis involving the left CECE suspected. There is cardiac dysrhythmia. There was concern for atrial fibrillation with has been ruled out at this time patient appears to have sinus rhythm with right bundle branch block and frequent PVCs and PACs. He has been started on dual antiplatelet therapy with aspirin and Plavix. Echocardiogram has been done and reveals an EF of 55 to 60% with moderate left atrial dilation, trace to mild mitral regurgitation. 08/21/2023 Patient is evaluated in follow-up on the medical floor. Patient does continue to report significant dizziness and lightheadedness ports he is up ambulating to the bathroom today was unable to ambulate back to the bed secondary to his dizziness. He has meclizine as needed 3 times a day would recommend to change this to scheduled to see if this helps improve his vertigo-like symptoms. Patient's MRI does come back positive for a acute ischemic stroke in the right cerebellum and right lateral medulla oblongata. This is felt to be due to him stopping his aspirin outpatient secondary to a recent lumbar surgery. 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 Neurology recommending aspirin and plavix. 08/22/2023 Patient is evaluated today in follow up. Further evaluation there is concern for thrombus in the ascending aortic aneurysm and patient will be going for a PRIMITIVO tomorrow as recommended by neurology. Patient remains on aspirin and plavix at this time. He continues to report dizziness and lightheadedness. He will be evaluated for inpatient rehab. Review of Systems Constitutional: Denied any fatigue denied any fever. Cardio vascular: denied any chest pain, palpitations Gastrointestinal: denied any nausea, vomiting, diarrhea Pulmonary: Denied any shortness of breath cough Neurologic: Continues to report dizziness and gait ataxia. All inpatient medications were reviewed and appropriate changes in these medications as dictated in the interval history and assessment and plan. PHYSICAL EXAMINATION: GENERAL: The patient is alert and oriented x3, not in any acute distress. Well developed, well nourished. HEENT: Pupils are round and equally reacting to light. EOMI. No scleral icterus. No conjunctival pallor. Normocephalic, atraumatic. No pharyngeal erythema. No thyromegaly. CARDIOVASCULAR: S1 and S2 present. No murmurs, rubs, or gallops. PULMONARY: Chest is clear to auscultation, no wheezing or crackles. ABDOMEN: Soft, nontender, nondistended, normoactive bowel sounds. No palpable organomegaly. MUSCULOSKELETAL: No joint swelling or deformity. EXTREMITIES: No cyanosis, clubbing, or pedal edema. NEUROLOGICAL: Significant nonfocal weakness which is new onset, continues to re port dizziness, gait ataxia. SKIN: No rashes. Assessment and plan -Dizziness lightheadedness vertigo and near syncope with brain CT positive for multiple areas of subacute ischemia in the right cerebellar hemisphere. Brain MRI confirms stroke in the right cerebellum. -Cardiac dysrhythmia atrial fibrillation has been ruled out while inpatient -History of aortic valve replacement in 2013 -Ascending aortic pseudoaneurysm following with CT surgery and stable at this time -Recent lumbar surgery 3 weeks ago -Hx of carotid artery stenosis with previous left carotid endartectomy -History of DVT presently not on any anticoagulation -Hyperlipidemia -Gastroesophageal reflux disease DVT prophylaxis: subcu heparin Full Code Plan Patient will be NPO after midnight for PRIMITIVO tomorrow Continue off losartan and hydrochlorothiazide at this time Patient recently stopped taking his aspirin outpatient about 3 weeks ago secondary to lumbar surgery that was performed. He has been resumed on aspirin 81 mg daily and started on plavix 75 mg daily Patient able to remove the dressing on his lumbar spine today and cleared to shower by his surgeon 30 day event monitor has been placed for discharge rule out cardiac arrhythmia. Continue security monitor while in the hospital. Pending evaluation for IPR vs. CHARIS on discharge Continue on meclizine as needed The impression and plan of care has been dictated by Sharla Ma, Nurse Practitioner as directed. Dr. Jag MD I have performed a history and physical examination and medical decision making of this patient, discussed the same with the dictator, and agree with the dictators assessment and plan as written, documented as a scribe. Based on total visit time, I have performed more than 50% of this visit. Objective - Vital Signs Vital signs: Vital Signs Temp 97.8 F 08/22/23 08:00 Pulse 68 08/22/23 08:00 Resp 16 08/22/23 08:00 BP 116/60 08/22/23 08:00 Pulse Ox 95 08/22/23 08:00 FiO2 Intake & Output 08/21/23 08/22/23 08/22/23 18:59 06:59 18:59 Intake Total 384 40 358 Output Total 450 400 Balance -66 -360 358 Intake: IV 30 40 20 Invasive Line 1 10 20 10 Invasive Line 2 20 20 10 Oral 354 338 Output: Urine 450 400 Other: Voiding Method Urinal Urinal # Voids 1 # Bowel Movements 1 - Labs CBC & Chem 7: 08/19/23 08:24 08/19/23 08:24 Assessment and Plan Time with Patient: Less than 30
[2023-08-22] MEDS: LACTATED RINGERS 1,000 ML IV SCH (20:41)
[2023-08-23] MEDS: BENZOCAINE SPRAY 1 CAN TOPICAL ONE (10:19)
[2023-08-23] MEDS: MIDAZOLAM 2 MG/2 ML VIAL IVP ONE (10:19)
[2023-08-23] MEDS: fentaNYL (PF) 50 MCG/ML 2 ML AMP IVP ONE (10:19)
--- NOTE | 2023-08-23 10:43 | P.PN ---
Subjective Progress Note Date: 08/23/23 PROGRESS NOTE The patient is a 77-year-old male who presented with symptoms of dizziness and was found to have evidence of right cerebellum infarct. He is status post aortic valve replacement. Since admission he has been in sinus mechanism with PACs but no atrial fibrillation. He continues to have symptoms of dizziness turning to the right. His breathing has been stable. He denies any chest discomfort. On his transthoracic echo his left ventricle systolic function was normal with normal functioning of his bioprosthetic aortic valve. Hemodynamically he has been stable. Neurology recommended a PRIMITIVO that was performed today and showed a normal ventricle size and systolic function with no evidence of left atrial appendage thrombus and no shunting. His bioprosthetic aortic valve had a normal function. On the monitor he continues to be in sinus mechanism. He has an event monitor placed. Medications: Aspirin, Lipitor 40 mg daily, clopidogrel 75 mg daily, Protonix, trazodone 50 mg daily PHYSICAL EXAMINATION: Blood pressure 134/69 heart rate 90 LUNGS: Clear to auscultation HEART: Regular rate and rhythm, S1, S2. No S3. Systolic ejection murmur, 2/6 at the base ABDOMEN: Soft, nontender, no organomegaly EXTREMETIES: No edema IMPRESSION: 1. Acute right cerebellar stroke with associated nausea vomiting and gait ataxia 2. Status post aortic valve replacement 3. History of hyperlipidemia 4. History of dilated ascending aorta with pseudoaneurysm, stable PLAN: 1. Patient has an event monitor placed to rule out atrial fibrillation, if documented then will require long-term anticoagulation 2. Continue other medication 3. Follow-up as an outpatient with Dr. Colon, his primary machine scallop cutter 4. We will follow on as-needed basis, please feel free to call us for any question Objective - Vital Signs Vital signs: Vital Signs Temp 97.7 F 08/23/23 07:31 Pulse 96 08/23/23 07:31 Resp 16 08/23/23 07:31 BP 152/52 08/23/23 07:31 Pulse Ox 97 08/23/23 07:31 FiO2 Intake & Output 08/22/23 08/23/23 08/23/23 18:59 06:59 18:59 Intake Total 476 40 Output Total 1150 Balance 476 -1110 Intake: IV 20 40 Invasive Line 1 10 20 Invasive Line 2 10 20 Oral 456 0 Output: Urine 1150 Other: Voiding Method Urinal Urinal # Voids 1 # Bowel Movements 1 0 - Labs CBC & Chem 7: 08/19/23 08:24 08/19/23 08:24
--- NOTE | 2023-08-23 10:45 | P.PCN ---
Date of Procedure: 08/23/23 Description of Procedure: Indication: CVA Procedure Description: After explaining the procedure to the patient, it's risk and complications, blood pressure, heart rate and O2 saturation were monitored. The throat was sprayed with Cetacaine. Patient received 2 mg intravenous Versed, 50 mcg intravenous fentanyl. The probe was introduced into the esophagus without difficulty. Images were obtained. Following that, the probe was removed. There was no immediate complication. Findings: Left atrial size is mildly dilated, left atrial appendage is normal. Lipomatous hypertrophy of the intra-atrial septum was noted. Left ventricle size and systolic function are normal. Mild thickening of the mitral valve leaflets was noted. Bioprosthetic aortic valve was noted with normal opening. The tricuspid valve appears to be normal. The ascending aorta is dilated, measuring 4.2 cm. No pericardial fusion was noted. Contrast bubble study revealed no shunting across the interatrial septum. Doppler: Pulse wave and color Doppler were obtained, and revealed mild mitral and tricuspid regurgitation. There was no shunting by color Doppler study. Conclusion: 1. Mildly dilated left atrium with normal appearance of the left atrial appendage 2. Normal ventricle size and systolic function 3. Bioprosthetic aortic valve with normal opening and no regurgitation 4. Mild mitral and tricuspid regurgitation 5. No shunting across the interatrial septum 6. Dilated ascending aorta
[2023-08-23] MEDS: fentaNYL (PF) 50 MCG/ML 2 ML AMP ONE (10:54)
--- NOTE | 2023-08-23 11:03 | CT ---
EXAMINATION TYPE: CT brain wo con DATE OF EXAM: 08/23/2023 COMPARISON: 08/19/2023 HISTORY: Re-eval recent CVA CT DLP: 1132.[address] of the brain was performed. The ventricles, basal cisterns and sulci overlying the cerebral convexities demonstrate mild enlargem ent. There is no evidence for intracranial hemorrhage or sulcal effacement. There is decreased attenuation about the periventricular white matter and deep white matter of both c erebral hemispheres, compatible with chronic small vessel ischemia. Differential diagnosis does inclu de demyelination. No mass effects are seen.No midline shift. Osseous calvarium is intact. If symptoms persist consider MRI. IMPRESSION: 1. Age related atrophic and chronic small vessel ischemic change without acute intracranial process s een at this time.
--- NOTE | 2023-08-23 12:00 | P.PN ---
Subjective Progress Note Date: 08/23/23 I am following up with patient and he is accompanied with his daughter. The patient states he continues to be hoarse and since yesterday noticed right facial numbness and hoarseness since yesterday. He is having some more secretions. Continue to feel dizzy. Denies any new weakness. Today he had PRIMITIVO. Objective - Vital Signs Vital signs: Vital Signs Temp 97.7 F 08/23/23 07:31 Pulse 98 08/23/23 11:00 Resp 16 08/23/23 11:00 BP 140/84 08/23/23 11:00 Pulse Ox 93 L 08/23/23 11:00 FiO2 Intake & Output 08/22/23 08/23/23 08/23/23 18:59 06:59 18:59 Intake Total 476 40 Output Total 1150 Balance 476 -1110 Weight 86.183 kg Intake: IV 20 40 Invasive Line 1 10 20 Invasive Line 2 10 20 Oral 456 0 Output: Urine 1150 Other: Voiding Method Urinal Urinal # Voids 1 # Bowel Movements 1 0 - Exam General: Lying in bed and does not appear in acute distress. Neuro: The patient is awake, alert, oriented to self, place and time. Is following simple commands. No aphasia or neglect. Pupils are round equal and reactive to light. Decrease sensation to right sided of face and normal to touch on left side. No facial weakness. Has hoarsesness of voice. Has mild dysarthria. Motor: Strength is 5/5 throughout. Cerebellar: Maybe subtle dysmetria on right finger to nose. Otherwise normal on the left side. - Labs CBC & Chem 7: 08/19/23 08:24 08/19/23 08:24 Assessment and Plan Assessment: Acute ischemic stroke, right cerebellar region, definitively verified by MRI. Patient has presented with vertigo, nausea vomiting, gait ataxia and near syncope. Examination reveals nystagmus, ataxia of the right upper limb, and gait ataxia. CT head on my review revealed multiple areas of subacute ischemia in the right cerebellar hemisphere. MRI showed right cerebellum and right lateral medulla oblongata. Patient has history of aortic valve replacement for which patient was on aspirin. Patient had stopped aspirin for about 3 weeks around his lumbar surgery that was performed 3 weeks ago. Yesterday he had right facial numbness, hoarseness of voice and continue to have some dyphagia and dizziness: Likely due to evolution of stroke. * Hypertension * History of aortic valve replacement * Status post back surgery 3 weeks ago * History of bilateral knee and bilateral shoulder surgery. * Mild alcoholism, consumes 2 drinks of vodka daily. Plan: MRI of the brain is reported as involving right cerebellum and right lateral medulla oblongatta. Nonspecific white matter changes, likely secondary due to small vessel ischemic disease. 2-D echo revealed left ventricular EF 55 to 60%. Left ventricular cavity size is normal. Mildly increased septal wall thickness. No obvious regional wall motion abnormalities. Moderate left atrial dilation. Ascending aorta is at upper limits of normal. Ascending aorta measured 4.1 cm with aortic root 3.9 cm. Carotid duplex is reported as bilateral heterogeneous plaque greater on the left with no significant hemodynamic stenosis by carotid Doppler ultrasound. 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 Cardiac dysrhythmia. PRIMITIVO: 1. Mildly dilated left atrium with normal appearance of the left atrial appendage, 2. Normal ventricle size and systolic function, 3. Bioprosthetic aortic valve with normal opening and no regurgitation, 4. Mild mitral and tricuspid regurgitation, 5. No shunting across the interatrial septum, 6. Dilated ascending aorta Recommend 30-day event monitor to rule out paroxysmal atrial fibrillation and on 08/22/2023 had monitor placed. I will get repeat CT head since patient have worsening of symptoms but I feel more due to evolution of stroke. I ordered scopolamine patch for excess secretion. Have head of the bed at 30 degrees. If patient has drastic worsening of symptoms then recommend to patient to be send to ICU for closer observation. Cardiology on board. Fasting a.m. lipid panel. Patient on simvastatin 20 mg daily, would recommend increase to 40 mg in light of LDL cholesterol is elevated at 82.1, total cholesterol 182, triglycerides 123 Hemoglobin A1c-5.9 Continue aspirin 81 mg daily (home dose) and Plavix 75 mg daily. Recommend dual antiplatelet for 21 days and after 21 days stop Plavix but continue aspirin indefinitely. Neuro checks as per protocol. Telemetry monitoring rule out any arrhythmia PT, OT, speech therapy. For DVT prophylaxis: On subq heparin. Upon discharge, recommend the patient to follow-up with neurologist as outp atient within 2 weeks. Patient is going to be discharge to inpatient rehab and I feel he will benefit from it. The plan is discussed with patient, his daughter who is at bedside and N.P. from primary team. Time with Patient: Less than 30
[2023-08-23 12:25] LABS: African American GFR (CKD) >90 (>60 ml/min/1.73 sqM); Anion Gap 4 mmol/L; Blood Urea Nitrogen 12 mg/dL (9-20); Calcium 8.8 mg/dL (8.4-10.2); Carbon Dioxide 24 mmol/L (22-30); Chloride 110 mmol/L (98-107); Glucose 106 mg/dL (74-99); Non-African American GFR(CKD) 90 (>60 ml/min/1.73 sqM); Potassium 4.7 mmol/L (3.5-5.1); Sodium 138 mmol/L (137-145)
[2023-08-23] MEDS: SCOPOLAMINE 1 MG/72 HR PATCH TRANSDERM SCH (12:32)
--- NOTE | 2023-08-23 13:47 | XR ---
EXAMINATION TYPE: XR chest 1V portable DATE OF EXAM: 08/23/2023 COMPARISON: None INDICATION: Shortness of breath TECHNIQUE: Single frontal view of the chest is obtained. FINDINGS: The heart size is normal. The pulmonary vasculature is normal. The lungs are clear. Sternotomy wires are in the midline. Electronic components overlie the chest. Bilateral shoulder pros theses are present. Large hiatal hernia may be present. IMPRESSION: 1. No acute pulmonary process. 2. Large hiatal hernia may be present.
--- NOTE | 2023-08-23 14:27 | P.PN ---
Subjective Progress Note Date: 08/23/23 Patient is a pleasant 77-year-old male came in with complaints lightheadedness it is not clear whether patient is dizzy or vertigo but upon further questioning manage it appears patient has vertigo and patient has weakness in bilateral lower extremities patient is unable to stand. Patient denies any hearing problems sinusitis or ear infection. Patient denies any diaphoresis, denies shortness of breath but patient felt like his get a pass out. Patient is admitted for atrial fibrillation but I did not see any A-fib on the EKG patient had sinus rhythm with PVCs. Patient denies any syncope. Patient is unable to stand quite weak which also started yesterday. 08/20/2023 Patient is evaluated today in follow-up in the ER pending bed on the medical floor. He continues to report significant dizziness and lightheadedness. Patient is currently pending MRI. Had carotid doppler done showing bilateral heterogenous plaque greater than left with no significant hemodynamic stenosis by carotid Doppler ultrasound. Stenosis involving the left CECE suspected. There is cardiac dysrhythmia. There was concern for atrial fibrillation with has been ruled out at this time patient appears to have sinus rhythm with right bundle branch block and frequent PVCs and PACs. He has been started on dual antiplatelet therapy with aspirin and Plavix. Echocardiogram has been done and reveals an EF of 55 to 60% with moderate left atrial dilation, trace to mild mitral regurgitation. 08/21/2023 Patient is evaluated in follow-up on the medical floor. Patient does continue to report significant dizziness and lightheadedness ports he is up ambulating to the bathroom today was unable to ambulate back to the bed secondary to his dizziness. He has meclizine as needed 3 times a day would recommend to change this to scheduled to see if this helps improve his vertigo-like symptoms. Patient's MRI does come back positive for a acute ischemic stroke in the right cerebellum and right lateral medulla oblongata. This is felt to be due to him stopping his aspirin outpatient secondary to a recent lumbar surgery. 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 Neurology recommending aspirin and plavix. 08/22/2023 Patient is evaluated today in follow up. Further evaluation there is concern for thrombus in the ascending aortic aneurysm and patient will be going for a PRIMITIVO tomorrow as recommended by neurology. Patient remains on aspirin and plavix at this time. He continues to report dizziness and lightheadedness. He will be evaluated for inpatient rehab. 08/23/2023 Patient is reporting worsening neurosymptoms today he report hoarseness in his voice, blurry vision and headache over the right eye and occipital lobe, facial numbness in the right side. This correlates with the area of stroke with MRI sh owing positive right cerebellar and right medulla oblongata area of infarct. Patient will undergo a repeat brain CT today. He is also pending a PRIMITIVO with cardiology. Continues on aspirin and Plavix therapy for now. Blood work reveals a sodium level of 138, potassium 4.7, BUN of 12 creatinine of 0.72. Review of Systems Constitutional: Denied any fatigue denied any fever. Cardio vascular: denied any chest pain, palpitations Gastrointestinal: denied any nausea, vomiting, diarrhea Pulmonary: Denied any shortness of breath cough Neurologic: Continues to report dizziness and gait ataxia. Now reports blurriness over his right eye with right facial numbness and hoarseness in his voice All inpatient medications were reviewed and appropriate changes in these medications as dictated in the interval history and assessment and plan. PHYSICAL EXAMINATION: GENERAL: The patient is alert and oriented x3, not in any acute distress. Well developed, well nourished. HEENT: Pupils are round and equally reacting to light. EOMI. No scleral icterus. No conjunctival pallor. Normocephalic, atraumatic. No pharyngeal erythema. No thyromegaly. CARDIOVASCULAR: S1 and S2 present. No murmurs, rubs, or gallops. PULMONARY: Chest is clear to auscultation, no wheezing or crackles. ABDOMEN: Soft, nontender, nondistended, normoactive bowel sounds. No palpable organomegaly. MUSCULOSKELETAL: No joint swelling or deformity. EXTREMITIES: No cyanosis, clubbing, or pedal edema. NEUROLOGICAL: Significant nonfocal weakness which is new onset, continues to report dizziness, gait ataxia. SKIN: No rashes. Assessment and plan -Dizziness lightheadedness vertigo and near syncope with brain CT positive for multiple areas of subacute ischemia in the right cerebellar hemisphere. Brain MRI confirms stroke in the right cerebellum and right medulla oblongata -Worsening newer symptoms with right facial numbness, blurry vision and pain in the right eye concern for evolution of the stroke. Brain CT does mention demyelination in the differential. 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 Patient underwent PRIMITIVO today reports pending Continue off losartan and hydrochlorothiazide at this time Patient recently stopped taking his aspirin outpatient about 3 weeks ago secondary to lumbar surgery that was performed. He has been resumed on aspirin 81 mg daily and started on plavix 75 mg daily Patient able to remove the dressing on his lumbar spine and cleared to shower by his surgeon 30 day event monitor has been placed for discharge rule out cardiac arrhythmia. Continue secured entrance monitor while in the hospital. Pending insurance authorization for IPR on discharge. Continue on meclizine as needed Speech therapy following. The impression and plan of care has been dictated by Sharla Ma, Nurse Practitioner as directed. Dr. Jag MD I have performed a history and physical examination and medical decision making of this patient, discussed the same with the dictator, and agree with the dictators assessment and plan as written, documented as a scribe. Based on total visit time, I have performed more than 50% of this visit. Objective - Vital Signs Vital signs: Vital Signs Temp 97.7 F 08/23/23 07:31 Pulse 98 08/23/23 11:00 Resp 16 08/23/23 11:00 BP 140/84 08/23/23 11:00 Pulse Ox 93 L 08/23/23 11:00 FiO2 Intake & Output 08/22/23 08/23/23 08/23/23 18:59 06:59 18:59 Intake Total 476 40 118 Output Total 1150 Balance 476 -1110 118 Weight 86.183 kg Intake: IV 20 40 Invasive Line 1 10 20 Invasive Line 2 10 20 Oral 456 0 118 Output: Urine 1150 Other: Voiding Method Urinal Urinal # Voids 1 # Bowel Movements 1 0 - Labs CBC & Chem 7: 08/19/23 08:24 08/23/23 11:10 Labs: Abnormal Lab Results - Last 24 Hours (Table) 08/23/23 Range/Units 11:10 Chloride 110 H (98-107) mmol/L Glucose 106 H (74-99) mg/dL Assessment and Plan Time with Patient: Less than 30
[2023-08-23 18:07] LABS: Glucose,Whole Blood 127 mg/dL (70-110)
[2023-08-24 05:28] LABS: Glucose,Whole Blood 117 mg/dL (70-110)
[2023-08-24] MEDS: ADENOSINE 3 MG/ML 2 ML VIAL IVP ONE (05:33)
[2023-08-24] MEDS: ADENOSINE 3 MG/ML 2 ML VIAL IVP STA (05:43)
[2023-08-24] MEDS: DILTIAZEM DRIP BOLUS FROM BAG 1 MG SOLN IV STA (06:02)
[2023-08-24] MEDS: DILTIAZEM DRIP BOLUS FROM BAG 1 MG SOLN IV ONE (06:02)
[2023-08-24] MEDS: DILTIAZEM 125 MG in SODIUM CHLORIDE 0.9% 100 ML IV SCH (06:02)
--- NOTE | 2023-08-24 11:14 | P.PN ---
Subjective Progress Note Date: 08/24/23 HISTORY OF PRESENTING ILLNESS 77-year-old presented to the hospital because of lightheadedness and dizziness. Patient is a poor historian and is not able to describe his symptoms of dizziness. It is unclear if patient had a passing out spell. There was a concern of possible atrial fibrillation on admission Hg. On review of ECG and telemetry it appears that the rhythm is sinus rhythm with frequent PACs and right bundle branch block. There is no prior documented atrial fibrillation history on [facility]. Patient not on prior anticoagulation. BP 145/80, heart rate 62, hemoglobin 10.4, BUN 17, creatinine 0.5, troponins are negative, TSH 1.2. Cardiac testing ECG shows sinus rhythm with frequent PACs, right bundle branch block. Heart rate 83 bpm Echo showed LVEF 55 to 60%, no wall motion abnormality, moderate LA dilatation, normal functioning bioprosthetic aortic valve, 18 mmHg mean gradient, no PVL, ascending or to dilated at 4.1 cm Suspected left ECA stenosis on carotid Doppler August 21, 2023 Patient seen and examined at bedside this a.m. He reports feeling dizzy with changing in position. His MRI is suspicious for cerebellar infarct. Unable to determine from the MRI report if there has been embolic phenomena or not. On detailed review of his chest CT it appears that patient's pseudoaneurysm in ascending aorta does have layered thrombus. 08/21 Patient states that his breathing is a little labored and a little worse from when he came in. He denies having any chest pain, no syncopal episodes, he does have dizziness like spinning of the room. No nausea. His primary bookkeeper receptionist is Dr. Colon. He denies history of atrial fibrillation. Patient has been seen by cardiothoracic surgery regarding ascending aortic pseudoaneurysm. No plan for any surgical intervention at this time as patient follows on a regular basis with Dr. Jacobs. Echocardiogram reveals EF of 55 to 60%. Moderate left atrial dilatation. Normally functioning bioprosthetic aortic valve with mean gradient 18 mmHg. No PE VL. Ascending aorta measuring 4.1 cm. Aortic root 3.9 cm. 08/23 Yesterday, patient underwent PRIMITIVO which revealed mildly dilated left atrium and normal appearance of the left atrial appendage. Normal ventricle size and systolic function. Bioprosthetic aortic valve with normal opening and no regurgitation. Mild mitral and tricuspid regurgitation. No shunting across the interatrial septum. Dilated ascending aorta. Patient was cleared at that time for discharge but subsequently patient developed SVT during the night and is status post adenosine and started on Cardizem drip. Telemetry and EKG revealed wide-complex rhythm up to 196 bpm. Patient is currently in a sinus rhythm at 111 bpm. Patient denied having any symptoms with the arrhythmias. Blood pressure is 118/52. Event monitor has been applied. Discussed with the patient and his the need for possible ablation down the road which would need to be discussed with his primary bookkeeper receptionist. PHYSICAL EXAMINATION Vital signs reviewed. Head: Normocephalic. Eyes: Sclerae nonicteric. Neck: Brisk carotid upstroke, no jugular venous distention. Lungs: Diminished breath sounds bilateral lung bases. Heart: Irregularly irregular, S1-S2, mild systolic murmur audible Abdomen: Soft nontender, Extremities: No edema, Neuro: Alert, oritented. 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 On review of CT from 2019, ascending aorta pseudoaneurysm was noticed measuring at 2.3 cm Mild Ascending aorta dilatation S/p bioprosthetic aortic valve, normal function Acute ischemic stroke presenting with dizziness New onset of SVT, currently sinus rhythm and controlled rate History of prostate cancer PLAN Consult with CT surgery for ascending aorta pseudoaneurysm appreciated. No plan for intervention Continue patient on aspirin, atorvastatin, and Plavix. 30-day event monitor in place Discontinue Cardizem drip and start patient on Lopressor 25 mg twice daily Continue telemetry monitoring At the time of discharge, patient will be following up with his primary bookkeeper receptionist, Dr. Colon. Nurse practitioner note has been reviewed, I agree with documented findings and plan of care. Patient was seen and examined. Objective - Vital Signs Vital signs: Vital Signs Temp 97.8 F 08/24/23 08:00 Pulse 61 08/24/23 08:00 Resp 16 08/24/23 08:00 BP 118/52 08/24/23 08:00 Pulse Ox 93 L 08/24/23 08:00 FiO2 Intake & Output 08/23/23 08/24/23 08/24/23 18:59 06:59 18:59 Intake Total 236 118 Output Total 750 Balance 236 -750 118 Weight 86.183 kg Intake: Oral 236 118 Output: Urine 750 Other: Voiding Method Urinal Urinal # Voids 1 # Bowel Movements 1 - Labs CBC & Chem 7: 08/19/23 08:24 08/23/23 11:10 Labs: Abnormal Lab Results - Last 24 Hours (Table) 08/23/23 08/23/23 08/24/23 Range/Units 11:10 18:06 05:27 Chloride 110 H (98-107) mmol/L Glucose 106 H (74-99) mg/dL POC Glucose (mg/dL) 127 H 117 H (70-110) mg/dL
[2023-08-24] MEDS: METOPROLOL TARTRATE 25 MG TAB PO SCH (11:21)
[2023-08-24] MEDS ORDERED: ACETAMINOPHEN TAB 325 MG TAB PO PRN (11:52)
--- NOTE | 2023-08-24 11:54 | P.PN ---
Subjective Progress Note Date: 08/24/23 Patient is a pleasant 77-year-old male came in with complaints lightheadedness it is not clear whether patient is dizzy or vertigo but upon further questioning manage it appears patient has vertigo and patient has weakness in bilateral lower extremities patient is unable to stand. Patient denies any hearing problems sinusitis or ear infection. Patient denies any diaphoresis, denies shortness of breath but patient felt like his get a pass out. Patient is admitted for atrial fibrillation but I did not see any A-fib on the EKG patient had sinus rhythm with PVCs. Patient denies any syncope. Patient is unable to stand quite weak which also started yesterday. 08/20/2023 Patient is evaluated today in follow-up in the ER pending bed on the medical floor. He continues to report significant dizziness and lightheadedness. Patient is currently pending MRI. Had carotid doppler done showing bilateral heterogenous plaque greater than left with no significant hemodynamic stenosis by carotid Doppler ultrasound. Stenosis involving the left CECE suspected. There is cardiac dysrhythmia. There was concern for atrial fibrillation with has been ruled out at this time patient appears to have sinus rhythm with right bundle branch block and frequent PVCs and PACs. He has been started on dual antiplatelet therapy with aspirin and Plavix. Echocardiogram has been done and reveals an EF of 55 to 60% with moderate left atrial dilation, trace to mild mitral regurgitation. 08/21/2023 Patient is evaluated in follow-up on the medical floor. Patient does continue to report significant dizziness and lightheadedness ports he is up ambulating to the bathroom today was unable to ambulate back to the bed secondary to his dizziness. He has meclizine as needed 3 times a day would recommend to change this to scheduled to see if this helps improve his vertigo-like symptoms. Patient's MRI does come back positive for a acute ischemic stroke in the right cerebellum and right lateral medulla oblongata. This is felt to be due to him stopping his aspirin outpatient secondary to a recent lumbar surgery. 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 Neurology recommending aspirin and plavix. 08/22/2023 Patient is evaluated today in follow up. Further evaluation there is concern for thrombus in the ascending aortic aneurysm and patient will be going for a PRIMITIVO tomorrow as recommended by neurology. Patient remains on aspirin and plavix at this time. He continues to report dizziness and lightheadedness. He will be evaluated for inpatient rehab. 08/23/2023 Patient is reporting worsening neurosymptoms today he report hoarseness in his voice, blurry vision and headache over the right eye and occipital lobe, facial numbness in the right side. This correlates with the area of stroke with MRI sh owing positive right cerebellar and right medulla oblongata area of infarct. Patient will undergo a repeat brain CT today. He is also pending a PRIMITIVO with cardiology. Continues on aspirin and Plavix therapy for now. Blood work reveals a sodium level of 138, potassium 4.7, BUN of 12 creatinine of 0.72. 08/24/2023 Patient is evaluated today on the medical floor. He is having worsening neurological symptoms including the numbness now going from the face all the way down the right side into the right arm. Patient also reports weakness in the right side. He is up in the bathroom attempting to shave and washout but is quite frustrated and agitated due to his worsening neurological symptoms. He does report the pain in his right eye has slightly improved today. Patient was given a scopolamine patch yesterday due to secretions and hoarseness in his voice and he reports that he has not noticed much difference in his symptoms. A repeat brain CT was completed yesterday which did not report on the acute stroke. Noted there was a age-related atrophic and chronic small vessel ischemic change without any acute intracranial processes at this time. Underwent trans esophageal echocardiogram completed yesterday revealing a mildly dilated left atrium with normal appearance of the left atrial appendage. Normal ventricle size and systolic function. There is a bioprosthetic aortic valve with normal opening and no regurgitation. Mild mitral and tricuspid regurgitation. No shunting across the interarterial septum. A dilated ascending aorta measuring 4.2 cm. There is no evidence of pericardial effusion and this was a negative bubble study. Continues on aspirin and Plavix therapy at this time. He is receiving LR at 50 MLS per hour. Patient continues on DVT prophylaxis with subcutaneous heparin. Over the night patient had an episode of SVT with heart rate up into the 180s to 200s. He received adenosine and was started on IV Cardizem drip. This is being discontinued today and cardiology is planning on transitioning the patient to oral Lopressor. Heart rate is now controlled and he is in normal sinus mechanism. Had a chest xray due to increased congestion noted on examination and concern for aspiration. Chest xray reveals no acute cardiopulmonary process. There is large hiatal hernia may be present. Remains afebrile, heart rate of 96, blood pressure 122/66, 95% 2L nasal cannula. Review of Systems Constitutional: Denied any fatigue denied any fever. Cardio vascular: denied any chest pain, palpitations Gastrointestinal: denied any nausea, vomiting, diarrhea Pulmonary: Denied any shortness of breath cough Neurologic: Continues to report dizziness and gait ataxia. Now reports blurriness over his right eye with right facial numbness and hoarseness in his voice having worsening symptoms today with numbness of the right arm. All inpatient medications were reviewed and appropriate changes in these medications as dictated in the interval history and assessment and plan. PHYSICAL EXAMINATION: GENERAL: The patient is alert and oriented x3, not in any acute distress. Well developed, well nourished. HEENT: Pupils are round and equally reacting to light. EOMI. No scleral icterus. No conjunctival pallor. Normocephalic, atraumatic. No pharyngeal erythema. No thyromegaly. CARDIOVASCULAR: S1 and S2 present. No murmurs, rubs, or gallops. PULMONARY: Chest is clear to auscultation, no wheezing or crackles. ABDOMEN: Soft, nontender, nondistended, normoactive bowel sounds. No palpable organomegaly. MUSCULOSKELETAL: No joint swelling or deformity. EXTREMITIES: No cyanosis, clubbing, or pedal edema. NEUROLOGICAL: Significant nonfocal weakness which is new onset, continues to report dizziness, gait ataxia. Hoarse voice. 4/5 right hand strength. SKIN: No rashes. Assessment and plan -Dizziness lightheadedness vertigo and near syncope with brain CT positive for multiple areas of subacute ischemia in the right cerebellar hemisphere. Brain MRI confirms stroke in the right cerebellum and right medulla oblongata -Worsening newer symptoms with right facial numbness, blurry vision and pain in the right eye concern for evolution of the stroke. Today patient reports right hand/arm numbness. 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 Continue off losartan and hydrochlorothiazide at this time Has been started on oral metoprolol for the SVT cardiology following. IV cardizem discontinued. Patient has been offered scopalomine patch for the excess secretions Patient is aspiration precautions head of bed should up be 30-45% at all times. On dysphagia level 3 chopped diet. Patient recently stopped taking his aspirin outpatient about 3 weeks ago secondary to lumbar surgery that was performed. He has been resumed on aspirin 81 mg daily and started on plavix 75 mg daily Patient able to remove the dressing on his lumbar spine and cleared to shower by his surgeon 30 day event monitor has been placed for discharge rule out cardiac arrhythmia. Continue monitoring manager while in the hospital. Pending insurance authorization for IPR on discharge. D/C held due to worsening neuro symptoms. Continue on meclizine as needed for the dizziness/vertigo Speech therapy following. Repeat blood work in the AM. The impression and plan of care has been dictated by Sharla Ma, Nurse Practitioner as directed. Dr. Jag MD I have performed a history and physical examination and medical decision making of this patient, discussed the same with the dictator, and agree with the dictators assessment and plan as written, documented as a scribe. Based on total visit time, I have performed more than 50% of this visit. Objective - Vital Signs Vital signs: Vital Signs Temp 97.8 F 08/24/23 08:00 Pulse 96 08/24/23 11:22 Resp 16 08/24/23 11:22 BP 122/66 08/24/23 11:22 Pulse Ox 95 08/24/23 11:22 FiO2 Intake & Output 08/23/23 08/24/23 08/24/23 18:59 06:59 18:59 Intake Total 236 118 Output Total 750 Balance 236 -750 118 Weight 86.183 kg Intake: Oral 236 118 Output: Urine 750 Other: Voiding Method Urinal Urinal Urinal # Voids 1 # Bowel Movements 1 - Labs CBC & Chem 7: 08/19/23 08:24 08/23/23 11:10 Labs: Abnormal Lab Results - Last 24 Hours (Table) 08/23/23 08/23/23 08/24/23 Range/Units 11:10 18:06 05:27 Chloride 110 H (98-107) mmol/L Glucose 106 H (74-99) mg/dL POC Glucose (mg/dL) 127 H 117 H (70-110) mg/dL Assessment and Plan Time with Patient: Greater than 30
--- NOTE | 2023-08-24 13:33 | P.CNPUL ---
History of Present Illness Consult date: 08/24/23 Requesting physician: Александр Arce Reason for consult: other (Critical care management) Chief complaint: Weakness, unsteady History of present illness: This is a 77-year-old male patient with a known history of hypertension, hyperlipidemia, gastroesophageal reflux disease, daily alcohol use, previous aortic valve replacement in 2013, previous left carotid endarterectomy, recent back surgery 3 weeks ago. 6 days ago the patient had developed severe dizziness lightheadedness and weakness and was able to get himself into a chair but then unable to get out. EMS was called and he was brought here on 08/18/2023. CT angiogram ruled out pulmonary embolism. There was a pseudoaneurysm of the asce nding aorta measuring 2.5 cm. Large hiatal hernia. CT scan of the brain revealed a moderate age-appropriate atrophy and ischemic demyelination. No acute bleed or mass effect. Echocardiogram revealed preserved left ventricular systolic function. Normally functioning bioprosthetic aortic valve. No evidence of thrombus. Carotid Dopplers revealed no significant stenosis bilaterally. MRI of the brain on 08/20/2023 revealed restricted diffusion within the right cerebellum and right lateral mid medulla oblongata. Follow-up CT scan of the brain revealed age-related atrophy and chronic small vessel ischemic changes without acute intracranial process. However, the patient was having progressive symptoms with increasing weakness on his right side. Facial droop, difficulty managing his secretions. He was seen again by neurology who felt that his CVA was evolving and is requesting transfer to the intensive care unit. Seen today in consultation. He is currently awake and alert. He definitely has some drifting of the right upper extremity. Unable to perform simple tasks such as touching his nose with his right finger. He is coughing and congested. Maintaining good O2 saturations in the mid 90s on 2 L/min per nasal cannula. He is afebrile. Hemodynamically stable. White count 7.2. Hemoglobin 10.4. Platelets 224. Sodium 138. Potassium 3.7. Bicarb 24. BUN 12. Creatinine 0.72. Glucose 106. He currently has a scopolamine patch in place. He is continued on Brilinta and aspirin. Heparin for DVT prophylaxis. Lactated Ringer's at 50 MLS per hour. PRIMITIVO today ruled out thrombus, no evidence of shunting across the interatrial septum, normally functioning bioprosthetic aortic valve. Review of Systems REVIEW OF SYSTEMS: CONSTITUTIONAL: Positive for significant dizziness and weakness. Denies any recent significant weight loss or weight gain. EYES: Denies change in vision. EARS, NOSE, MOUTH, THROAT: Denies headaches, denies sore throat. CARDIOVASCULAR: Denies chest pain, palpitations or syncopal episodes. RESPIRATORY: As it of for cough and congestion. No hemoptysis. GASTROINTESTINAL: Denies change in appetite, denies abdominal pain GENITOURINARY: Denies hematuria, denies infections. MUSKULOSKELETAL: Denies pain, denies swelling. INTEGUMENTARY: Denies rash, denies eczema. NEUROLOGICAL: Positive for dizziness, weakness, right-sided weakness, facial droop. PSYCHIATRIC: Denies anxiety, denies depression. HEMATOLOGIC/LYMPHATIC: Denies anemia, denies enlarged lymph nodes. 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, History of Any Multi-Drug Resistant Organisms: None Reported Past Surgical History: Cardiac Valve Replacement, Heart Catheterization, Hernia Repair, Joint Replacement, Orthopedic Surgery Additional Past Surgical History / Comment(s): aortic valve replacement 2013, rt ankle tendon repair, shelly knee replacements, left carotid endarterectomy, arthroscopy left knee x 3 Past Anesthesia/Blood Transfusion Reactions: Previous Problems w/ Anesthesia Additional Past Anesthesia/Blood Transfusion Reaction / Comment(s): DVT post op after ankle surgery, throat swelling and sore throat "pretty bad" after he had arthroscopy left knee surgery at another hospital. pt states was not told anything about any problems or difficulty with intubation Past Psychological History: No Psychological Hx Reported Past Alcohol Use History: Daily Additional Past Alcohol Use History / Comment(s): 2 drinks daily with dinner Past Drug Use History: None Reported - Past Family History Mother History Unknown: Yes Family Medical History: Cancer Additional Family Medical History / Comment(s): ovarian cancer Father History Unknown: Yes Family Medical History: Cancer Additional Family Medical History / Comment(s): melanoma Medications and Allergies Home Medications Medication Instructions Recorded Confirmed Type Aspirin [Adult Low Dose Aspirin EC] 81 mg PO DAILY 08/29/17 08/19/23 History Lansoprazole 30 mg PO Q2D 08/29/17 08/19/23 History Simvastatin [Zocor] 20 mg PO HS 08/29/17 08/19/23 History Losartan [Cozaar] 50 mg PO DAILY 08/19/23 08/19/23 History Naproxen Sodium [Aleve] 220 mg PO BID PRN 08/19/23 08/19/23 History hydroCHLOROthiazide 12.5 mg PO DAILY 08/19/23 08/19/23 History Allergies Allergy/AdvReac Type Severity Reaction Status Date / Time No Known Allergies Allergy Verified 08/19/23 07:57 Physical Exam Vitals: Vital Signs Temp Pulse Resp BP BP Pulse Ox 08/24/23 11:22 96 16 122/66 95 08/24/23 08:00 97.8 F 61 16 118/52 93 L 08/24/23 07:57 90 L 08/24/23 06:49 109 H 104/74 08/24/23 06:43 200 H 108/69 08/24/23 06:27 100 144/67 08/24/23 05:59 101 H 120/64 08/24/23 05:57 200 H 104/74 08/24/23 05:40 189 H 101/66 08/24/23 05:36 129 H 114/63 08/24/23 05:25 195 H 107/72 08/24/23 05:19 197 H 97/62 08/24/23 03:59 97.4 F L 110 H 16 96/54 97 08/23/23 23:46 75 16 110/59 99 08/23/23 20:24 98.2 F 78 16 146/70 96 08/23/23 18:52 116 H 08/23/23 17:49 98.0 F 133 H 24 140/69 94 L 08/23/23 15:07 97.6 F 101 H 20 130/73 94 L 08/23/23 13:18 98 Intake and Output 08/23/23 08/24/23 08/24/23 22:59 06:59 14:59 Intake Total 118 118 Output Total 750 Balance 118 -750 118 Intake: Oral 118 118 Output: Urine 750 Other: Voiding Method Urinal Urinal Urinal GENERAL EXAM: Alert, pleasant 77-year-old gentleman, noted right-sided weakness, facial droop, on 2 L nasal cannula. HEAD: Normocephalic. Noted facial droop. EYES: Normal reaction of pupils, equal size. NOSE: Clear with pink turbinates. THROAT: No erythema or exudates. NECK: No masses, no JVD. CHEST: No chest wall deformity. LUNGS: Equal air entry with few scattered rhonchi. CVS: S1 and S2 normal with no audible murmur, regular rhythm. ABDOMEN: No hepatosplenomegaly, normal bowel sounds, no guarding or rigidity. SPINE: No scoliosis or deformity SKIN: No rashes CENTRAL NERVOUS SYSTEM: Facial droop, right-sided weakness, tone is normal in all 4 extremities. EXTREMITIES: There is no peripheral edema. No clubbing, no cyanosis. Peripheral pulses are intact. Results - Laboratory Findings CBC and BMP: 08/19/23 08:24 08/23/23 11:10 PT/INR, D-dimer PT 10.1 sec (10.0-12.5) 08/20/23 12:53 INR 0.9 (<1.2) 08/20/23 12:53 D-Dimer 2.62 mg/L FEU (<0.60) H 08/18/23 20:36 Abnormal lab findings: Abnormal Labs 08/18/23 08/18/23 08/18/23 20:36 20:36 20:36 RBC 3.82 L Hgb 11.6 L Hct 36.6 L Lymphocytes # 0.4 L APTT 18.4 L D-Dimer Sodium 135 L Chloride Carbon Dioxide 21 L BUN 24 H Creatinine Glucose 153 H POC Glucose (mg/dL) Total Protein 5.7 L Albumin HDL Cholesterol 08/18/23 08/19/23 08/19/23 20:36 08:24 08:24 RBC 3.42 L Hgb 10.4 L Hct 33.2 L Lymphocytes # 0.6 L APTT D-Dimer 2.62 H Sodium 134 L Chloride 110 H Carbon Dioxide 20 L BUN Creatinine 0.59 L Glucose 122 H POC Glucose (mg/dL) Total Protein 5.2 L Albumin 3.0 L HDL Cholesterol 08/19/23 08/19/23 08/21/23 08:24 15:29 06:24 RBC Hgb Hct Lymphocytes # APTT 42.9 H 64.2 H D-Dimer Sodium Chloride Carbon Dioxide BUN Creatinine Glucose POC Glucose (mg/dL) Total Protein Albumin HDL Cholesterol 75.30 H 08/23/23 08/23/23 08/24/23 11:10 18:06 05:27 RBC Hgb Hct Lymphocytes # APTT D-Dimer Sodium Chloride 110 H Carbon Dioxide BUN Creatinine Glucose 106 H POC Glucose (mg/dL) 127 H 117 H Total Protein Albumin HDL Cholesterol - Diagnostic Findings CT scan - chest: image reviewed Assessment and Plan Assessment: Dizziness, near syncope, generalized weakness more so on the right secondary to acute ischemic stroke, right cerebellar region and right lateral medulla oblongata as documented by MRI Nystagmus, ataxia of the right upper extremity, gait ataxia secondary to above Recent back surgery approximately 3 weeks ago and patient had remained off aspirin Aortic valve replacement with bioprosthetic valve in 2013 Hyperlipidemia Gastroesophageal reflux disease Large hiatal hernia Carotid stenosis with previous left carotid endarterectomy History of hypertension History of daily alcohol use Plan: The patient was seen and evaluated CT scans of the brain, MRI of the brain, carotid Dopplers reviewed CT scan of the chest, chest x-ray, labs and medications reviewed Echocardiogram and transesophageal echocardiograms reviewed Patient is having progressive symptoms regarding his CVA To be transferred to the intensive care unit for closer monitoring Currently stable and on 2 L nasal cannula Currently able to expectorate his secretions Scopolamine patch remains in place Maintained on statin, aspirin and Brilinta Heparin for DVT prophylaxis We will continue to follow and make further recommendations based on his clinical status I have personally seen and examined the patient, performed the documentation in the assessment and plan as written. Number of minutes spent on the visit: 20.
--- NOTE | 2023-08-24 13:49 | P.PN ---
Subjective Progress Note Date: 08/24/23 I am following-up with patient and per the , she states he is worse today and feels he is weaker on the right side. She feels when eating he dropping food on himself since he is weak. Patient feels about the same compared to yesterday. Objective - Vital Signs Vital signs: Vital Signs Temp 97.8 F 08/24/23 08:00 Pulse 96 08/24/23 11:22 Resp 16 08/24/23 11:22 BP 122/66 08/24/23 11:22 Pulse Ox 95 08/24/23 11:22 FiO2 Intake & Output 08/23/23 08/24/23 08/24/23 18:59 06:59 18:59 Intake Total 236 236 Output Total 750 Balance 236 -750 236 Weight 86.183 kg Intake: Oral 236 236 Output: Urine 750 Other: Voiding Method Urinal Urinal Urinal # Voids 1 # Bowel Movements 1 - Exam General: Lying in bed and does not appear in acute distress. Neuro: The patient is awake, alert, oriented to self, place and time. Is following simple commands. No aphasia or neglect. Pupils are round equal and reactive to light. Decrease sensation to right sided of face and normal to touch on left side. No facial weakness. Has hoarsesness of voice. Has mild dysarthria. And it seems he continues to have secretions. Motor: Strength is right upper extremity is forearm flexion is 4+. Otherwise 5/5 throughout. Cerebellar: Ataxia finger to nose on the right. - Labs CBC & Chem 7: 08/19/23 08:24 08/23/23 11:10 Labs: Abnormal Lab Results - Last 24 Hours (Table) 08/23/23 08/24/23 Range/Units 18:06 05:27 POC Glucose (mg/dL) 127 H 117 H (70-110) mg/dL Assessment and Plan Assessment: Acute ischemic stroke, right cerebellar region, definitively verified by MRI. Patient has presented with vertigo, nausea vomiting, gait ataxia and near syncope. Examination reveals nystagmus, ataxia of the right upper limb, and gait ataxia. CT head on my review revealed multiple areas of subacute ischemia in the right cerebellar hemisphere. MRI showed right cerebellum and right lateral medulla oblongata. Patient has history of aortic valve replacement for which patient was on aspirin. Patient had stopped aspirin for about 3 weeks around his lumbar surgery that was performed 3 weeks ago. Two days he had right facial numbness, hoarseness of voice and continue to have some dyphagia and dizziness: Likely due to evolution of stroke. He also has ataxia on the right side due to stroke. * Hypertension * History of aortic valve replacement * Status post back surgery 3 weeks ago * History of bilateral knee and bilateral shoulder surgery. * Mild alcoholism, consumes 2 drinks of vodka daily. Plan: MRI of the brain is reported as involving right cerebellum and right lateral medulla oblongatta. Nonspecific white matter changes, likely secondary due to small vessel ischemic disease. 2-D echo revealed left ventricular EF 55 to 60%. Left ventricular cavity size is normal. Mildly increased septal wall thickness. No obvious regional wall motion abnormalities. Moderate left atrial dilation. Ascending aorta is at upper limits of normal. Ascending aorta measured 4.1 cm with aortic root 3.9 cm. Carotid duplex is reported as bilateral heterogeneous plaque greater on the left with no significant hemodynamic stenosis by carotid Doppler ultrasound. 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 Cardiac dysrhythmia. PRIMITIVO: 1. Mildly dilated left atrium with normal appearance of the left atrial appendage, 2. Normal ventricle size and systolic function, 3. Bioprosthetic aortic valve with normal opening and no regurgitation, 4. Mild mitral and tric uspid regurgitation, 5. No shunting across the interatrial septum, 6. Dilated ascending aorta Recommend 30-day event monitor to rule out paroxysmal atrial fibrillation and on 08/22/[address] monitor [address] head: It is reported as Agre related atrophic and chronic small vessel ischemic change without acute intracranial process seen at this time. Will pursue with repeat MRI Brain stat today. Continue scopolamine patch for excess secretion. Have head of the bed at 30 degrees. Since patient is having worsening of symptoms will have him transferred to ICU for closer neurological observation. Recommend repeat Swallow study. Cardiology on board. Fasting a.m. lipid panel. Patient on simvastatin 20 mg daily, would recommend increase to 40 mg in light of LDL cholesterol is elevated at 82.1, total cholesterol 182, triglycerides 123 Hemoglobin A1c-5.9 Continue aspirin 81 mg daily (home dose). During this admission he was on Plavix 75mg daily but will change to Brilinta 90mg bid. Neuro checks as per protocol. Telemetry monitoring rule out any arrhythmia PT, OT, speech therapy. For DVT prophylaxis: On subq heparin. Upon discharge, recommend the patient to follow-up with neurologist as outpatient within 2 weeks. Patient is going to be discharge to inpatient rehab and I feel he will benefit from it. The plan is discussed with patient, his who is at bedside, his nurse and N.P. from primary team. Time with Patient: Less than 30
[2023-08-24 15:34] LABS: Glucose,Whole Blood 130 mg/dL (70-110)
[2023-08-24 16:57] LABS: Glucose,Whole Blood 112 mg/dL (70-110)
--- NOTE | 2023-08-24 17:05 | MR ---
EXAMINATION TYPE: MR brain wo con DATE OF EXAM: 08/24/2023 4:45 PM CLINICAL INDICATION:Male, 77 years old with history of stroke. worsening of symptoms and new numbnes s; PHH, Stroke, Worsening of symptoms and new numbness COMPARISON: 08/20/2023.. TECHNIQUE: Multi planar, multi sequence imaging was performed through the brain including: T1, T2, In version recovery, Diffusion weighted imaging, and gradient echo imaging. No gadolinium was given. FINDINGS: FINDINGS: Restricted diffusion within the right cerebellum also affecting the medulla oblongata on th e right lateral aspect. Slightly more restricted diffusion within the abdominal medulla oblongata com pared to prior. Mild cerebral atrophy with proportional dilation of ventricular system. Scattered f oci of high T2 signal intensity are seen within the periventricular white matter. Midline structures show no abnormality. The susceptibility weighted images do not reveal any evidence for micro-hemorrh age. The bone marrow signal is within normal limits. Paranasal sinuses and mastoid air cells: No significant paranasal sinus disease. Visualized orbits: . IMPRESSION: 1. Involving the right cerebellum and right lateral medulla oblongata infarct with slightly more rest ricted diffusion within the medulla oblongata compared to immediate prior. No additional areas identi fied. 2. Nonspecific white matter changes, likely secondary to small vessel ischemic disease.
[2023-08-24] MEDS: TICAGRELOR 90 MG TAB PO SCH (21:44)
--- NOTE | 2023-08-24 21:56 | CT ---
EXAMINATION TYPE: CT angio head neck CT DLP: 502 mGycm, Automated exposure control for dose reduction was used. DATE OF EXAM: 08/24/2023 9:19 PM COMPARISON: MRI same day. CLINICAL INDICATION:Male, 77 years old with history of stroke; PHH, Stroke, Worsening of symptoms and new numbness. TECHNIQUE: Axially acquired helical CT angiogram of the head and neck was obtained with contrast. Axi al images are supplemented with 3D reconstructions and MIP images which were post-processed at an in dependent workstation. NASCET criteria used. Contrast used:65 mL of Isovue 370 with IV Contrast, Oral contrast used: None. FINDINGS: CTA HEAD: Right cerebral hemisphere/medulla oblongata infarct has increased in size within the medull a oblongata as seen on same day MRI. No evidence of acute intracranial hemorrhage, mass effect, or midline shift. The ventricles, sulci, a nd cisterns are unremarkable. The visualized portions of the internal carotid arteries, middle cerebral arteries, anterior cerebral arteries, and posterior cerebral arteries are patent. The basilar arteries is patent. CTA NECK: Right Carotid System: The common carotid and external carotid arteries are patent. There is less than 25% stenosis at the c arotid bifurcation secondary to calcified/noncalcified plaque. The rest of the internal carotid arter y is patent. Left Carotid System: The common carotid and external carotid arteries are patent. There is less than 25% stenosis at the c arotid bifurcation secondary to calcified/noncalcified plaque. The rest of the internal carotid arter y is patent. The right vertebral distally is occluded with reconstitution near its confluence with the left verteb ral artery. Dentition work limits evaluation. The left vertebral artery is patent. There is a three-vessel aortic arch. The origins of the great vessels are patent. No evidence of hemo dynamically significant stenosis. Upper thorax: Bilateral shoulder arthroplasties appear intact. Airspace opacities in the posterior as pect of the right lower lobe superior segment. IMPRESSION: 1. 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 Evolving right cerebellar hemisphere and right medulla oblongata acute/subacute CVA 3. No evidence of dissection of the cervical internal carotid arteries or vertebral arteries or any e vidence of significant stenosis at the carotid bifurcations. 4. No evidence of intracranial high-grade stenosis or intracranial aneurysm. 5. Airspace opacities right lower lobe superior segment suggested correlate for pneumonia.
[2023-08-24 23:24] LABS: Glucose,Whole Blood 121 mg/dL (70-110)
[2023-08-25] MEDS: QUEtiapine 25 MG TAB PO SCH (02:14)
[2023-08-25] MEDS: DEXMEDETOMIDINE/0.9% NACL(PMX) 400 MCG in EMPTY BAG 1 BAG IV SCH (02:19)
[2023-08-25 03:54] LABS: Basophils % (A) 0 %; Eosinophils % (A) 0 %; HCT 33.6 % (39.0-53.0); HGB 10.4 gm/dL (13.0-17.5); Hypochromasia Moderate; Lymphocytes # (A) 0.3 k/uL (1.0-4.8); Lymphocytes % (A) 3 %; MCH 30.5 pg (25.0-35.0); MCHC 30.8 g/dL (31.0-37.0); MCV 98.9 fL (80.0-100.0); Mean Platelet Volume 8.1; Monocytes # (A) 0.5 k/uL (0-1.0); Monocytes % (A) 5 %; Neutrophils # (A) 9.5 k/uL (1.3-7.7); Neutrophils % (A) 91 %; Platelet Count 192 k/uL (150-450); RDW 13.1 % (11.5-15.5); WBC 10.4 k/uL (3.8-10.6)
[2023-08-25 04:34] LABS: African American GFR (CKD) >90 (>60 ml/min/1.73 sqM); Anion Gap 3 mmol/L; Blood Urea Nitrogen 13 mg/dL (9-20); Calcium 8.6 mg/dL (8.4-10.2); Carbon Dioxide 24 mmol/L (22-30); Chloride 108 mmol/L (98-107); Glucose 114 mg/dL (74-99); Magnesium 1.9 mg/dL (1.6-2.3); Non-African American GFR(CKD) >90 (>60 ml/min/1.73 sqM); Potassium 3.7 mmol/L (3.5-5.1); Sodium 135 mmol/L (137-145)
[2023-08-25] MEDS ORDERED: Potassium Replacement Protocol 1 EACH MISC MISCELLANE PRN (04:46)
[2023-08-25] MEDS: PANTOPRAZOLE 40 MG TABLET PO SCH (05:49)
[2023-08-25] MEDS: POTASSIUM BICARBONATE/CIT AC 20 MEQ TABLET.EFF NG-TUBE SCH (05:52)
[2023-08-25] MEDS: POTASSIUM CHLORIDE 10 MEQ in WATER FOR INJECTION 1 100ML.BAG IVPB SCH (06:06)
--- NOTE | 2023-08-25 07:20 | P.PN ---
Subjective Progress Note Date: 08/25/23 PROGRESS NOTE The patient is a 77-year-old male who presented with symptoms of dizziness and was found to have evidence of right cerebellum infarct. He is status post aortic valve replacement. Since admission he has been in sinus mechanism with PACs but no atrial fibrillation. He continues to have symptoms of dizziness turning to the right. His breathing has been stable. He denies any chest discomfort. On his transthoracic echo his left ventricle systolic function was normal with normal functioning of his bioprosthetic aortic valve. Hemodynamically he has been stable. Neurology recommended a PRIMITIVO that was performed today and showed a normal ventricle size and systolic function with no evidence of left atrial appendage thrombus and no shunting. His bioprosthetic aortic valve had a normal function. On the monitor he continues to be in sinus mechanism. He has an event monitor placed. August 24: The patient was transferred to the ICU, he is awake alert, had some confusion. There was a question of extension of his cerebral stroke. He continues to be in sinus mechanism with PACs but no evidence of atrial fibrillation. Hemodynamically he is stable. He continues to have dizziness but he does not feel that it has progressed. He continues to have difficulties with his upper right extremity. He underwent a brain MRI that showed restricted diffusion in the right cerebellum involving the medulla oblongata with some progression. He had a CT angiogram that showed a distal right vertebral artery occlusion with evolving right cerebral hemisphere and right medulla oblongata acute and subacute CVA with no evidence of significant obstructive disease in the carotid artery. Medications: Aspirin, Lipitor 40 mg daily, Protonix, trazodone 50 mg daily, metoprolol 25 mg twice a day, Brilinta 90 mg twice a day PHYSICAL EXAMINATION: Blood pressure 114/80 heart rate 110 LUNGS: Clear to auscultation HEART: Regular rate and rhythm, S1, S2. No S3. Systolic ejection murmur, 2/6 at the base ABDOMEN: Soft, nontender, no organomegaly EXTREMETIES: No edema, continues with difficulty performing tasks with his right upper extremity IMPRESSION: 1. Acute right cerebellar stroke with associated nausea vomiting and gait ataxia, involving 2. Status post aortic valve replacement 3. History of hyperlipidemia 4. History of dilated ascending aorta with pseudoaneurysm, stable 5. Episode of SVT, continues to be in sinus mechanism PLAN: 1. Follow blood pressure and adjust the dose of beta-saba 2. Continue other medication 3. Follow-up as an outpatient with Dr. Colon, his primary purchasing intern 4. Other treatment per neurology team Objective - Vital Signs Vital signs: Vital Signs Temp 98.3 F 08/25/23 04:00 Pulse 111 H 08/25/23 07:00 Resp 31 H 08/25/23 07:00 BP 114/80 08/25/23 07:00 Pulse Ox 99 08/25/23 07:00 FiO2 2 08/24/23 19:00 Intake & Output 08/24/23 08/25/23 08/25/23 18:59 06:59 18:59 Intake Total 346.333 600 50 Output Total 1060 1310 125 Balance -713.667 -710 -75 Weight 88.3 kg Intake: IV 10 Invasive Line 3 10 Intake, IV Titration 100.333 600 50 Amount Diltiazem 125 mg In 100.333 Sodium Chloride 0.9% 100 ml @ 10 MG/HR 10 mls/hr IV .[id number] [facility] Rx#: [id number] Lactated Ringers 1,000 ml 0 600 50 @ 50 mls/hr IV .Q20H [facility] Rx#:[id number] Oral 236 Output: Urine 1060 1310 125 Other: Voiding Method Indwelling Catheter Indwelling Catheter - Labs CBC & Chem 7: 08/25/23 03:38 08/25/23 03:38 Labs: Abnormal Lab Results - Last 24 Hours (Table) 08/24/23 08/24/23 08/24/23 Range/Units 15:31 16:55 23:22 RBC (4.30-5.90) m/uL Hgb (13.0-17.5) gm/dL Hct (39.0-53.0) % MCHC (31.0-37.0) g/dL Neutrophils # (1.3-7.7) k/uL Lymphocytes # (1.0-4.8) k/uL Sodium (137-145) mmol/L Chloride (98-107) mmol/L Glucose (74-99) mg/dL POC Glucose (mg/dL) 130 H 112 H 121 H (70-110) mg/dL 08/25/23 08/25/23 Range/Units 03:38 03:38 RBC 3.40 L (4.30-5.90) m/uL Hgb 10.4 L (13.0-17.5) gm/dL Hct 33.6 L (39.0-53.0) % MCHC 30.8 L (31.0-37.0) g/dL Neutrophils # 9.5 H (1.3-7.7) k/uL Lymphocytes # 0.3 L (1.0-4.8) k/uL Sodium 135 L (137-145) mmol/L Chloride 108 H (98-107) mmol/L Glucose 114 H (74-99) mg/dL POC Glucose (mg/dL) (70-110) mg/dL
--- NOTE | 2023-08-25 12:04 | FL ---
Modified barium swallow. HISTORY: Dysphagia. Modified barium swallow was performed with the department of speech pathology. The patient was prese nted with various consistencies of barium. Bhaskar aspiration with thin liquid barium. Minimal aspiration noted with nectar thick barium and honey thick barium. Pooling of ingested material within the piriform sinuses. Full report is to follow fro m the department of speech pathology. Impression: As above.
--- NOTE | 2023-08-25 12:15 | P.PN ---
Subjective Progress Note Date: 08/25/23 Principal diagnosis: Acute cerebellar CVA This is a 77-year-old male patient with a known history of hypertension, hyperlipidemia, gastroesophageal reflux disease, daily alcohol use, previous aortic valve replacement in 2013, previous left carotid endarterectomy, recent back surgery 3 weeks ago. 6 days ago the patient had developed severe dizziness lightheadedness and weakness and was able to get himself into a chair but then unable to get out. EMS was called and he was brought here on 08/18/2023. CT angiogram ruled out pulmonary embolism. 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 Large hiatal hernia. CT scan of the brain revealed a moderate age-appropriate atrophy and ischemic demyelination. No acute bleed or mass effect. Echocardiogram revealed preserved left ventricular systolic function. Normally functioning bioprosthetic aortic valve. No evidence of thrombus. Carotid Dopplers revealed no significant stenosis bilaterally. MRI of the brain on 08/20/2023 revealed restricted diffusion within the right cerebellum and right lateral mid medulla oblongata. Follow-up CT scan of the brain revealed age-related atrophy and chronic small vessel ischemic changes without acute intracranial process. However, the patient was having progressive symptoms with increasing weakness on his right side. Facial droop, difficulty managing his secretions. He was seen again by neurology who felt that his CVA was evolving and is requesting transfer to the intensive care unit. Seen today in consultation. He is currently awake and alert. He definitely has some drifting of the right upper extremity. Unable to perform simple tasks such as touching his nose with his right finger. He is coughing and congested. Maintaining good O2 saturations in the mid 90s on 2 L/min per nasal cannula. He is afebrile. Hemodynamically stable. White count 7.2. Hemoglobin 10.4. Platelets 224. Sodium 138. Potassium 3.7. Bicarb 24. BUN 12. Creatinine 0.72. Glucose 106. He currently has a scopolamine patch in place. He is continued on Brilinta and aspirin. Heparin for DVT prophylaxis. Lactated Ringer's at 50 MLS per hour. PRIMITIVO today ruled out thrombus, no evidence of shunting across the interatrial septum, normally functioning bioprosthetic aortic valve. Patient evaluated today on 08/25/2023, remains in the ICU, I saw him yesterday and arrange for transfer to ICU. Patient is obviously having evolving right cerebellar CVA and lateral medulla oblongata CVA. Patient required a Precedex 0.2 mcg/kg/h yesterday upon arrival to the ICU as he was getting agitated and restless, aggressive. Today he seems to be [place]. He is now on aspirin, Brilinta, and heparin subcu. Patient is basically about the same as yesterday, not much has changed with his neurological findings, continues to have abnormal cerebellar findings with definite abnormal right [id number] test. CT angiogram showed distal right vertebral artery occlusion was involving the right cerebellar hemisphere and right medulla oblongata changes/acute Objective - Vital Signs Vital signs: Vital Signs Temp 98.1 F 08/25/23 08:00 Pulse 124 H 08/25/23 10:00 Resp 14 08/25/23 10:00 BP 114/80 08/25/23 11:41 Pulse Ox 98 08/25/23 10:00 FiO2 2 08/24/23 19:00 Intake & Output 08/24/23 08/25/23 08/25/23 18:59 06:59 18:59 Intake Total 346.333 600 282.748 Output Total 1060 1310 775 Balance -713.667 -710 -492.252 Weight 88.3 kg Intake: IV 10 200 Invasive Line 3 10 Lactated Ringers 1,000 ml 200 @ 50 mls/hr IV .Q20H [facility] Rx#:[id number] Intake, IV Titration 100.333 600 82.748 Amount Dexmedetomidine/0.9% NaCl 32.748 (Pmx) 400 mcg In Empty Bag 1 bag @ 0.2 MCG/KG/HR 4.309 mls/hr IV .[id number] [facility] Rx#:[id number] Diltiazem 125 mg In 100.333 Sodium Chloride 0.9% 100 ml @ 10 MG/HR 10 mls/hr IV .[id number] [facility] Rx#: [id number] Lactated Ringers 1,000 ml 0 600 50 @ 50 mls/hr IV .Q20H [facility] Rx#:[id number] Oral 236 Output: Urine 1060 1310 775 Other: Voiding Method Indwelling Catheter Indwelling Catheter Indwelling Catheter - Exam GENERAL EXAM: Alert, pleasant 77-year-old gentleman, noted right-sided weakness HEAD: Normocephalic. Noted facial droop. EYES: Normal reaction of pupils, equal size. NOSE: Clear with pink turbinates. THROAT: No erythema or exudates. NECK: No masses, no JVD. CHEST: No chest wall deformity. LUNGS: Equal air entry with few scattered rhonchi. CVS: S1 and S2 normal with no audible murmur, regular rhythm. ABDOMEN: No hepatosplenomegaly, normal bowel sounds, no guarding or rigidity. SPINE: No scoliosis or deformity SKIN: No rashes CENTRAL NERVOUS SYSTEM: Abnormal right krqoec-[id number] test. Clearly consistent with cerebellar CVA facial droop, right-sided weakness EXTREMITIES: There is no peripheral edema. No clubbing, no cyanosis. Peripheral pulses are intact. - Labs CBC & Chem 7: 08/25/23 03:38 08/25/23 03:38 Labs: Abnormal Lab Results - Last 24 Hours (Table) 08/24/23 08/24/23 08/24/23 Range/Units 15:31 16:55 23:22 RBC (4.30-5.90) m/uL Hgb (13.0-17.5) gm/dL Hct (39.0-53.0) % MCHC (31.0-37.0) g/dL Neutrophils # (1.3-7.7) k/uL Lymphocytes # (1.0-4.8) k/uL Sodium (137-145) mmol/L Chloride (98-107) mmol/L Glucose (74-99) mg/dL POC Glucose (mg/dL) 130 H 112 H 121 H (70-110) mg/dL 08/25/23 08/25/23 Range/Units 03:38 03:38 RBC 3.40 L (4.30-5.90) m/uL Hgb 10.4 L (13.0-17.5) gm/dL Hct 33.6 L (39.0-53.0) % MCHC 30.8 L (31.0-37.0) g/dL Neutrophils # 9.5 H (1.3-7.7) k/uL Lymphocytes # 0.3 L (1.0-4.8) k/uL Sodium 135 L (137-145) mmol/L Chloride 108 H (98-107) mmol/L Glucose 114 H (74-99) mg/dL POC Glucose (mg/dL) (70-110) mg/dL Assessment and Plan Assessment: Impression: Subacute cerebellar CVA with right-sided weakness, ataxia, and poor coordination. History of aortic valve replacement/bioprosthetic valve in 2013 Large hiatal hernia History of carotid artery stenosis with previous left carotid endarterectomy Benign essential hypertension Distal right vertebral artery occlusion Recommendation: Continue present supportive care measures Continue to monitor in the ICU Continue aspirin, subcu heparin and Brilinta Will eventually require long-term rehab. And physical therapy as well as Occupational Therapy May have to consider swallow evaluation on this patient and determine whether the patient could even swallow. Without aspiration Will continue to follow Time with Patient: Less than 30
--- NOTE | 2023-08-25 13:05 | P.PN ---
Subjective Progress Note Date: 08/25/23 Patient is a pleasant 77-year-old male came in with complaints lightheadedness it is not clear whether patient is dizzy or vertigo but upon further questioning manage it appears patient has vertigo and patient has weakness in bilateral lower extremities patient is unable to stand. Patient denies any hearing problems sinusitis or ear infection. Patient denies any diaphoresis, denies shortness of breath but patient felt like his get a pass out. Patient is admitted for atrial fibrillation but I did not see any A-fib on the EKG patient had sinus rhythm with PVCs. Patient denies any syncope. Patient is unable to stand quite weak which also started yesterday. 08/20/2023 Patient is evaluated today in follow-up in the ER pending bed on the medical floor. He continues to report significant dizziness and lightheadedness. Patient is currently pending MRI. Had carotid doppler done showing bilateral heterogenous plaque greater than left with no significant hemodynamic stenosis by carotid Doppler ultrasound. Stenosis involving the left CECE suspected. There is cardiac dysrhythmia. There was concern for atrial fibrillation with has been ruled out at this time patient appears to have sinus rhythm with right bundle branch block and frequent PVCs and PACs. He has been started on dual antiplatelet therapy with aspirin and Plavix. Echocardiogram has been done and reveals an EF of 55 to 60% with moderate left atrial dilation, trace to mild mitral regurgitation. 08/21/2023 Patient is evaluated in follow-up on the medical floor. Patient does continue to report significant dizziness and lightheadedness ports he is up ambulating to the bathroom today was unable to ambulate back to the bed secondary to his dizziness. He has meclizine as needed 3 times a day would recommend to change this to scheduled to see if this helps improve his vertigo-like symptoms. Patient's MRI does come back positive for a acute ischemic stroke in the right cerebellum and right lateral medulla oblongata. This is felt to be due to him stopping his aspirin outpatient secondary to a recent lumbar surgery. 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 Neurology recommending aspirin and plavix. 08/22/2023 Patient is evaluated today in follow up. Further evaluation there is concern for thrombus in the ascending aortic aneurysm and patient will be going for a PRIMITIVO tomorrow as recommended by neurology. Patient remains on aspirin and plavix at this time. He continues to report dizziness and lightheadedness. He will be evaluated for inpatient rehab. 08/23/2023 Patient is reporting worsening neurosymptoms today he report hoarseness in his voice, blurry vision and headache over the right eye and occipital lobe, facial numbness in the right side. This correlates with the area of stroke with MRI sh owing positive right cerebellar and right medulla oblongata area of infarct. Patient will undergo a repeat brain CT today. He is also pending a PRIMITIVO with cardiology. Continues on aspirin and Plavix therapy for now. Blood work reveals a sodium level of 138, potassium 4.7, BUN of 12 creatinine of 0.72. 08/24/2023 Patient is evaluated today on the medical floor. He is having worsening neurological symptoms including the numbness now going from the face all the way down the right side into the right arm. Patient also reports weakness in the right side. He is up in the bathroom attempting to shave and washout but is quite frustrated and agitated due to his worsening neurological symptoms. He does report the pain in his right eye has slightly improved today. Patient was given a scopolamine patch yesterday due to secretions and hoarseness in his voice and he reports that he has not noticed much difference in his symptoms. A repeat brain CT was completed yesterday which did not report on the acute stroke. Noted there was a age-related atrophic and chronic small vessel ischemic change without any acute intracranial processes at this time. Underwent trans esophageal echocardiogram completed yesterday revealing a mildly dilated left atrium with normal appearance of the left atrial appendage. Normal ventricle size and systolic function. There is a bioprosthetic aortic valve with normal opening and no regurgitation. Mild mitral and tricuspid regurgitation. No shunting across the interarterial septum. A dilated ascending aorta measuring 4.2 cm. There is no evidence of pericardial effusion and this was a negative bubble study. Continues on aspirin and Plavix therapy at this time. He is receiving LR at 50 MLS per hour. Patient continues on DVT prophylaxis with subcutaneous heparin. Over the night patient had an episode of SVT with heart rate up into the 180s to 200s. He received adenosine and was started on IV Cardizem drip. This is being discontinued today and cardiology is planning on transitioning the patient to oral Lopressor. Heart rate is now controlled and he is in normal sinus mechanism. Had a chest xray due to increased congestion noted on examination and concern for aspiration. Chest xray reveals no acute cardiopulmonary process. There is large hiatal hernia may be present. Remains afebrile, heart rate of 96, blood pressure 122/66, 95% 2L nasal cannula. 08/24. Patient seen and examined. at the bedside. Patient had a swallow study done this morning and failed swallow eval. Discussed with speech, they are recommending PEG tube placement REVIEW OF SYSTEMS: Cannot be obtained as patient is very confused PHYSICAL EXAMINATION: GENERAL: The patient is alert to self, ill looking HEENT: Pupils are round and equally reacting to light. EOMI. No scleral icterus. No conjunctival pallor. Normocephalic, atraumatic. No pharyngeal erythema. No thyromegaly. CARDIOVASCULAR: S1 and S2 present. No murmurs, rubs, or gallops. PULMONARY: Chest is clear to auscultation, no wheezing or crackles. ABDOMEN: Soft, nontender, nondistended, normoactive bowel sounds. No palpable organomegaly. MUSCULOSKELETAL: No joint swelling or deformity. EXTREMITIES: No cyanosis, clubbing, or pedal edema. NEUROLOGICAL: Moving all extremities SKIN: No rashes. 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 and stable at this time -Recent lumbar surgery 3 weeks ago -Hx of carotid artery stenosis with previous left carotid endartectomy -History of DVT presently not on any anticoagulation -Hyperlipidemia -Gastroesophageal reflux disease Plan Monitor vital signs monitor CBC Monitor CMP Continue neurochecks Failed swallow evaluation, speech therapy has been evaluating the patient, recommend alternative form of nutrition in the form of PEG tube placed Aspiration precautions continue aspirin, Brilinta Neurology following ICU following Consult surgery for PEG tube placement Labs and medication were reviewed.. Continue same treatment. Continue with symptomatic treatment. Resume home medication. Monitor labs and vitals. DVT and GI prophylaxis. Further recommendations as per clinical course of the patient Dictation was produced using [email or web address] dictation software. please excuse any grammatical, word or spelling errors. Objective - Vital Signs Vital signs: Vital Signs Temp 98.1 F 08/25/23 08:00 Pulse 124 H 08/25/23 10:00 Resp 14 08/25/23 10:00 BP 114/80 08/25/23 11:41 Pulse Ox 98 08/25/23 10:00 FiO2 2 08/24/23 19:00 Intake & Output 08/24/23 08/25/23 08/25/23 18:59 06:59 18:59 Intake Total 346.333 600 282.748 Output Total 1060 1310 775 Balance -713.667 -710 -492.252 Weight 88.3 kg Intake: IV 10 200 Invasive Line 3 10 Lactated Ringers 1,000 ml 200 @ 50 mls/hr IV .Q20H [facility] Rx#:[id number] Intake, IV Titration 100.333 600 82.748 Amount Dexmedetomidine/0.9% NaCl 32.748 (Pmx) 400 mcg In Empty Bag 1 bag @ 0.2 MCG/KG/HR 4.309 mls/hr IV .[id number] [facility] Rx#:[id number] Diltiazem 125 mg In 100.333 Sodium Chloride 0.9% 100 ml @ 10 MG/HR 10 mls/hr IV .[id number] [facility] Rx#: [id number] Lactated Ringers 1,000 ml 0 600 50 @ 50 mls/hr IV .Q20H [facility] Rx#:[id number] Oral 236 Output: Urine 1060 1310 775 Other: Voiding Method Indwelling Catheter Indwelling Catheter Indwelling Catheter - Labs CBC & Chem 7: 08/25/23 03:38 08/25/23 03:38 Labs: Abnormal Lab Results - Last 24 Hours (Table) 08/24/23 08/24/23 08/24/23 Range/Units 15:31 16:55 23:22 RBC (4.30-5.90) m/uL Hgb (13.0-17.5) gm/dL Hct (39.0-53.0) % MCHC (31.0-37.0) g/dL Neutrophils # (1.3-7.7) k/uL Lymphocytes # (1.0-4.8) k/uL Sodium (137-145) mmol/L Chloride (98-107) mmol/L Glucose (74-99) mg/dL POC Glucose (mg/dL) 130 H 112 H 121 H (70-110) mg/dL 08/25/23 08/25/23 Range/Units 03:38 03:38 RBC 3.40 L (4.30-5.90) m/uL Hgb 10.4 L (13.0-17.5) gm/dL Hct 33.6 L (39.0-53.0) % MCHC 30.8 L (31.0-37.0) g/dL Neutrophils # 9.5 H (1.3-7.7) k/uL Lymphocytes # 0.3 L (1.0-4.8) k/uL Sodium 135 L (137-145) mmol/L Chloride 108 H (98-107) mmol/L Glucose 114 H (74-99) mg/dL POC Glucose (mg/dL) (70-110) mg/dL
--- NOTE | 2023-08-25 14:26 | P.GSCN ---
History of Present Illness Consult date: 08/25/23 History of present illness: CHIEF COMPLAINT: Dizziness and weakness Reason for consult PEG tube placement HISTORY OF PRESENT ILLNESS: This is a 77-year-old male who presented with dizziness and weakness and was found to have a cerebellar CVA. Patient did require transfer to the ICU due to evolving stroke. Patient had swallow eval completed today which she failed he had marv signs of aspiration. Surgical consult has been placed for PEG tube placement. Patient did receive Brilinta yesterday evening. Prior to appointment the patient had been on Plavix. Patien t also having atrial fibrillation with rapid ventricular response followed by cardiology and currently on lopressor. Patient does have a history of aortic valve replacement in 2013, left carotid enterectomy and recent back surgery 3 weeks ago. Patient has bedside sitter. PAST MEDICAL HISTORY: See below PAST SURGICAL HISTORY: See below MEDICATIONS: See below ALLERGIES: See below SOCIAL HISTORY: No illicit drug use. REVIEW OF SYSTEMS: CONSTITUTIONAL: Denies fever or chills. HEENT: Denies blurred vision, vision changes, or eye pain. Denies hemoptysis CARDIOVASCULAR: Denies chest pain or pressure. RESPIRATORY: No shortness of breath. GASTROINTESTINAL: See HPI for pertinent findings HEMATOLOGIC: Denies bleeding disorders. GENITOURINARY: Denies any blood in urine or increased urinary frequency. SKIN: Denies pruitis. Denies rash. PHYSICAL EXAM: VITAL SIGNS: Reviewed GENERAL: no acute distress. ABDOMEN: Soft. Nondistended. nontender NEUROLOGIC: awake and alert but confused. Facial droop present LABORATORY DATA: WBC 10.4 hgb 10.4 plt 192 Na135 K 3.7 Cr 0.67 Albumin 3.0 IMAGING: MRI of the brain reports evolving right cerebellum and right lateral medulla oblongata infarct. ASSESSMENT: 1. Moderate protein calorie malnutrition 2. Dysphagia 3. Failed swallow eval 4. Evolving cerebellar CVA PLAN: -Patient scheduled for PEG tube placement tomorrow with Dr. 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 Signing provider agrees with the documented findings, assessment, and plan of care. I have personally seen and examined the patient, reviewed the SEO ANALYST /PAs history, exam and MDM and agree with the assessment and plan as written. Based on total visit time, I have performed more than 50% of the visit. As above: Patient with recent stroke. Failed swallow evaluation. Tentatively will schedule for PEG tube tomorrow if patient and family agreeable. Increased risks of bleeding related to his anticoagulant use reviewed with him. 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, History of Any Multi-Drug Resistant Organisms: None Reported Past Surgical History: Cardiac Valve Replacement, Heart Catheterization, Hernia Repair, Joint Replacement, Orthopedic Surgery Additional Past Surgical History / Comment(s): aortic valve replacement 2013, rt ankle tendon repair, shelly knee replacements, left carotid endarterectomy, arthroscopy left knee x 3 Past Anesthesia/Blood Transfusion Reactions: Previous Problems w/ Anesthesia Additional Past Anesthesia/Blood Transfusion Reaction / Comm: DVT post op after ankle surgery, throat swelling and sore throat "pretty bad" after he had arthroscopy left knee surgery at another hospital. pt states was not told anything about any problems or difficulty with intubation Past Psychological History: No Psychological Hx Reported Past Alcohol Use History: Daily Additional Past Alcohol Use History / Comment(s): 2 drinks daily with dinner Past Drug Use History: None Reported - Past Family History Mother History Unknown: Yes Family Medical History: Cancer Additional Family Medical History / Comment(s): ovarian cancer Father History Unknown: Yes Family Medical History: Cancer Additional Family Medical History / Comment(s): melanoma Medications and Allergies Home Medications Medication Instructions Recorded Confirmed Type Aspirin [Adult Low Dose Aspirin EC] 81 mg PO DAILY 08/29/17 08/19/23 History Lansoprazole 30 mg PO Q2D 08/29/17 08/19/23 History Simvastatin [Zocor] 20 mg PO HS 08/29/17 08/19/23 History Losartan [Cozaar] 50 mg PO DAILY 08/19/23 08/19/23 History Naproxen Sodium [Aleve] 220 mg PO BID PRN 08/19/23 08/19/23 History hydroCHLOROthiazide 12.5 mg PO DAILY 08/19/23 08/19/23 History Allergies Allergy/AdvReac Type Severity Reaction Status Date / Time No Known Allergies Allergy Verified 08/19/23 07:57 Surgical - Exam Vital Signs Temp Pulse Resp BP Pulse Ox 97.6 F 70 18 156/75 100 08/18/23 20:19 08/18/23 20:19 08/18/23 20:19 08/18/23 20:19 08/18/23 20:19 Results - Labs 08/25/23 03:38 08/25/23 03:38 Abnormal Lab Results - Last 24 Hours (Table) 08/24/23 08/24/23 08/24/23 Range/Units 15:31 16:55 23:22 RBC (4.30-5.90) m/uL Hgb (13.0-17.5) gm/dL Hct (39.0-53.0) % MCHC (31.0-37.0) g/dL Neutrophils # (1.3-7.7) k/uL Lymphocytes # (1.0-4.8) k/uL Sodium (137-145) mmol/L Chloride (98-107) mmol/L Glucose (74-99) mg/dL POC Glucose (mg/dL) 130 H 112 H 121 H (70-110) mg/dL 08/25/23 08/25/23 Range/Units 03:38 03:38 RBC 3.40 L (4.30-5.90) m/uL Hgb 10.4 L (13.0-17.5) gm/dL Hct 33.6 L (39.0-53.0) % MCHC 30.8 L (31.0-37.0) g/dL Neutrophils # 9.5 H (1.3-7.7) k/uL Lymphocytes # 0.3 L (1.0-4.8) k/uL Sodium 135 L (137-145) mmol/L Chloride 108 H (98-107) mmol/L Glucose 114 H (74-99) mg/dL POC Glucose (mg/dL) (70-110) mg/dL Diabetes panel 08/25/23 Range/Units 03:38 Sodium 135 L (137-145) mmol/L Potassium 3.7 (3.5-5.1) mmol/L Chloride 108 H (98-107) mmol/L Carbon Dioxide 24 (22-30) mmol/L BUN 13 (9-20) mg/dL Creatinine 0.67 (0.66-1.25) mg/dL Glucose 114 H (74-99) mg/dL Calcium 8.6 (8.4-10.2) mg/dL Calcium panel 08/25/23 Range/Units 03:38 Calcium 8.6 (8.4-10.2) mg/dL Pituitary panel 08/25/23 Range/Units 03:38 Sodium 135 L (137-145) mmol/L Potassium 3.7 (3.5-5.1) mmol/L Chloride 108 H (98-107) mmol/L Carbon Dioxide 24 (22-30) mmol/L BUN 13 (9-20) mg/dL Creatinine 0.67 (0.66-1.25) mg/dL Glucose 114 H (74-99) mg/dL Calcium 8.6 (8.4-10.2) mg/dL Adrenal panel 08/25/23 Range/Units 03:38 Sodium 135 L (137-145) mmol/L Potassium 3.7 (3.5-5.1) mmol/L Chloride 108 H (98-107) mmol/L Carbon Dioxide 24 (22-30) mmol/L BUN 13 (9-20) mg/dL Creatinine 0.67 (0.66-1.25) mg/dL Glucose 114 H (74-99) mg/dL Calcium 8.6 (8.4-10.2) mg/dL
--- NOTE | 2023-08-25 15:28 | P.PN ---
Subjective Progress Note Date: 08/25/23 Patient seen at bedside and denies any worsening of his condition. It seems he had barium swallow study today earlier in the morning and it seems that he failed it. is at bedside and that she was updated about his failed barium swallow test. Seems to overnight patient was agitated restless somewhat confused trying to get out of bed as a result patient was given Seroquel 25 mg nightly. Today he is much more calm and cooperative. He has a sitter at bedside. Objective - Vital Signs Vital signs: Vital Signs Temp 98.0 F 08/25/23 12:00 Pulse 122 H 08/25/23 15:00 Resp 42 H 08/25/23 15:00 BP 129/92 08/25/23 15:00 Pulse Ox 98 08/25/23 15:00 FiO2 2 08/24/23 19:00 Intake & Output 08/24/23 08/25/23 08/25/23 18:59 06:59 18:59 Intake Total 346.333 600 490.828 Output Total 1060 1310 1325 Balance -713.667 -710 -834.172 Weight 88.3 kg Intake: IV 10 400 Invasive Line 3 10 Lactated Ringers 1,000 ml 400 @ 50 mls/hr IV .Q20H [facility] Rx#:[id number] Intake, IV Titration 100.333 600 90.828 Amount Dexmedetomidine/0.9% NaCl 40.828 (Pmx) 400 mcg In Empty Bag 1 bag @ 0.2 MCG/KG/HR 4.309 mls/hr IV .[id number] [facility] Rx#:[id number] Diltiazem 125 mg In 100.333 Sodium Chloride 0.9% 100 ml @ 10 MG/HR 10 mls/hr IV .[id number] [facility] Rx#: [id number] Lactated Ringers 1,000 ml 0 600 50 @ 50 mls/hr IV .Q20H [facility] Rx#:[id number] Oral 236 Output: Urine 1060 1310 1325 Other: Voiding Method Indwelling Catheter Indwelling Catheter Indwelling Catheter - Exam General: Lying in bed and does not appear in acute distress. Neuro: The patient is awake, alert, oriented to self, place and time. Is following simple commands. No aphasia or neglect. Pupils are round equal and reactive to light. Decrease sensation to right sided of face and normal to touch on left side. No facial weakness. Has hoarsesness of voice. Has mild dysarthria. And it seems he continues to have secretions. Motor: Strength is right upper extremity is forearm flexion is 4+. Otherwise 5/5 throughout. Cerebellar: Ataxia finger to nose on the right. - Labs CBC & Chem 7: 08/25/23 03:38 08/25/23 03:38 Labs: Abnormal Lab Results - Last 24 Hours (Table) 08/24/23 08/24/23 08/24/23 Range/Units 15:31 16:55 23:22 RBC (4.30-5.90) m/uL Hgb (13.0-17.5) gm/dL Hct (39.0-53.0) % MCHC (31.0-37.0) g/dL Neutrophils # (1.3-7.7) k/uL Lymphocytes # (1.0-4.8) k/uL Sodium (137-145) mmol/L Chloride (98-107) mmol/L Glucose (74-99) mg/dL POC Glucose (mg/dL) 130 H 112 H 121 H (70-110) mg/dL 08/25/23 08/25/23 Range/Units 03:38 03:38 RBC 3.40 L (4.30-5.90) m/uL Hgb 10.4 L (13.0-17.5) gm/dL Hct 33.6 L (39.0-53.0) % MCHC 30.8 L (31.0-37.0) g/dL Neutrophils # 9.5 H (1.3-7.7) k/uL Lymphocytes # 0.3 L (1.0-4.8) k/uL Sodium 135 L (137-145) mmol/L Chloride 108 H (98-107) mmol/L Glucose 114 H (74-99) mg/dL POC Glucose (mg/dL) (70-110) mg/dL Assessment and Plan Assessment: Acute ischemic stroke, right cerebellar region, definitively verified by MRI. Patient has presented with vertigo, nausea vomiting, gait ataxia and near syncope. Examination reveals nystagmus, ataxia of the right upper limb, and gait ataxia. CT head on my review revealed multiple areas of subacute ischemia in the right cerebellar hemisphere. MRI showed right cerebellum and right lateral medulla oblongata. Patient has history of aortic valve replacement for which patient was on aspirin. Patient had stopped aspirin for about 3 weeks around his lumbar surgery that was performed 3 weeks ago. * Right PCIA stroke (cerebellum and lateral medulla) with symptoms of ataxia on the right, right facial numbness, hoarseness of voice, dyphagia and dizziness: Due to right PCIA stroke and he had worsening of symptoms due to evolution of stroke on repeat MRI. * Hypertension * History of aortic valve replacement * Status post back surgery 3 weeks ago * History of bilateral knee and bilateral shoulder surgery. * Mild alcoholism, consumes 2 drinks of vodka daily. Plan: MRI of the brain on 08/20/2023 is reported as involving right cerebellum and right lateral medulla oblongatta. Nonspecific white matter changes, likely secondary due to small vessel ischemic disease. Repeat MRI Brain on 08/24/23: Involving the right cerebellum and the right lateral medulla upon Gatta infarct with slightly more restricted diffusion within the medulla oblongata compared to the immediate prior. No additional areas identified. Nonspecific white matter changes, likely secondary due to small vessel ischemic disease. CTA head and neck: Artery is occluded with reconstitution near confluence with the left vertebral artery. Evolving right cerebellar hemisphere and right medulla oblongata acute/subacute CVA. No evidence of dissection of cervical internal carotid artery or vertebral artery or any evidence of significant stenosis at the carotid bifurcation. No evidence of intracranial high-grade stenosis or intracranial aneurysm. Regarding the right vertebral artery the patient is outside the window of intervention and had symptoms for >24 hours. Has been in our facility for 7 days. 2-D echo revealed left ventricular EF 55 to 60%. Left ventricular cavity size is normal. Mildly increased septal wall thickness. No obvious regional wall motion abnormalities. Moderate left atrial dilation. Ascending aorta is at upper limits of normal. Ascending aorta measured 4.1 cm with aortic root 3.9 cm. Carotid duplex is reported as bilateral heterogeneous plaque greater on the left with no significant hemodynamic stenosis by carotid Doppler ultrasound. 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 Cardiac dysrhythmia. PRIMITIVO: 1. Mildly dilated left atrium with normal appearance of the left atrial appendage, 2. Normal ventricle size and systolic function, 3. Bioprosthetic aortic valve with normal opening and no regurgitation, 4. Mild mitral and tricuspid regurgitation, 5. No shunting across the interatrial septum, 6. Dilated ascending aorta Recommend 30-day event monitor to rule out paroxysmal atrial fibrillation and on 08/22/2023 had monitor placed.. Continue scopolamine patch for excess secretion. Have head of the bed at 30 degrees. Has dysphagia and failed barium swallow. The was notified about NG tube vs PEG tube. She will talk with rest of family and make a decision. Cardiology on board. Fasting a.m. lipid panel. Patient on simvastatin 20 mg daily, would recommend increase to 40 mg in light of LDL cholesterol is elevated at 82.1, total cholesterol 182, triglycerides 123 Hemoglobin A1c-5.9 Continue aspirin 81 mg daily (home dose). During this admission he was on Plavix 75mg daily but it was changed to Brilinta 90mg bid on 08/24/2023. Neuro checks as per protocol. Telemetry monitoring rule out any arrhythmia PT, OT, speech therapy. For DVT prophylaxis: On subq heparin. Upon discharge, recommend the patient to follow-up with neurologist as outpatient within 2 weeks. Patient is going to be discharge to inpatient rehab and I feel he will benefit from it. The plan is discussed with patient, his who is at bedside, and primary team. ADDENDUM: Brilinta has been stopped by general surgery team for PEG tube. Time with Patient: Less than 30
[2023-08-26] MEDS: OLANZapine 10 MG VIAL IM STA (01:20)
[2023-08-26 06:58] LABS: HCT 35.1 % (39.0-53.0); HGB 10.7 gm/dL (13.0-17.5); Hypochromasia Marked; MCH 30.4 pg (25.0-35.0); MCHC 30.5 g/dL (31.0-37.0); MCV 99.9 fL (80.0-100.0); Mean Platelet Volume 7.2; Platelet Count 210 k/uL (150-450); RBC 3.51 m/uL (4.30-5.90); RDW 12.9 % (11.5-15.5); WBC 8.6 k/uL (3.8-10.6)
--- NOTE | 2023-08-26 07:22 | P.PN ---
Subjective Progress Note Date: 08/26/23 PROGRESS NOTE The patient is a 77-year-old male who presented with symptoms of dizziness and was found to have evidence of right cerebellum infarct. He is status post aortic valve replacement. Since admission he has been in sinus mechanism with PACs but no atrial fibrillation. He continues to have symptoms of dizziness turning to the right. His breathing has been stable. He denies any chest discomfort. On his transthoracic echo his left ventricle systolic function was normal with normal functioning of his bioprosthetic aortic valve. Hemodynamically he has been stable. Neurology recommended a PRIMITIVO that was performed today and showed a normal ventricle size and systolic function with no evidence of left atrial appendage thrombus and no shunting. His bioprosthetic aortic valve had a normal function. On the monitor he continues to be in sinus mechanism. He has an event monitor placed. August 24: The patient was transferred to the ICU, he is awake alert, had some confusion. There was a question of extension of his cerebral stroke. He continues to be in sinus mechanism with PACs but no evidence of atrial fibrillation. Hemodynamically he is stable. He continues to have dizziness but he does not feel that it has progressed. He continues to have difficulties with his upper right extremity. He underwent a brain MRI that showed restricted diffusion in the right cerebellum involving the medulla oblongata with some progression. He had a CT angiogram that showed a distal right vertebral artery occlusion with evolving right cerebral hemisphere and right medulla oblongata acute and subacute CVA with no evidence of significant obstructive disease in the carotid artery. August 25: The patient was more confused during the night requiring sedation. He appears to be better this morning. He continues to be in sinus mechanism with no evidence of atrial fibrillation. He has failed his swallow test and is scheduled to undergo PEG tube placement for nutrition. His blood pressure has been stable. He had mild dyspnea during the night that resolved. His urinary output is stable. Medications: Aspirin, Lipitor 40 mg daily, Protonix, trazodone 50 mg daily, metoprolol 25 mg twice a day, PHYSICAL EXAMINATION: Blood pressure 148/90 heart rate 70, mildly confused LUNGS: Clear to auscultation HEART: Regular rate and rhythm, S1, S2. No S3. Systolic ejection murmur, 2/6 at the base ABDOMEN: Soft, nontender, no organomegaly EXTREMETIES: No edema, Lab: Hemoglobin 10.7. Potassium yesterday 3.7, creatinine 0.67 IMPRESSION: 1. Acute right cerebellar stroke with associated nausea vomiting and gait ataxia, 2. Status post aortic valve replacement 3. History of hyperlipidemia 4. History of dilated ascending aorta with pseudoaneurysm, stable 5. Episode of SVT, continues to be in sinus mechanism. Event monitor in place 6. Difficulty swallowing PLAN: 1. PEG tube today 2. Continue other medication 3. Follow-up as an outpatient with Dr. Colon, his primary it project lead 4. We will see him on as-needed basis, please feel free to call us for any question. Objective - Vital Signs Vital signs: Vital Signs Temp 98.2 F 08/26/23 04:00 Pulse 71 08/26/23 07:00 Resp 29 H 08/26/23 07:00 BP 155/84 08/26/23 07:00 Pulse Ox 96 08/26/23 07:00 FiO2 50 08/26/23 05:07 Intake & Output 08/25/23 08/26/23 08/26/23 18:59 06:59 18:59 Intake Total 657.562 783.705 50 Output Total 1600 465 65 Balance -942.438 318.705 -15 Weight 85.4 kg Intake: IV 550 600 50 Lactated Ringers 1,000 ml 550 600 50 @ 50 mls/hr IV .Q20H [facility] Rx#:[id number] Intake, IV Titration 107.562 183.705 Amount Dexmedetomidine/0.9% NaCl 57.562 183.705 (Pmx) 400 mcg In Empty Bag 1 bag @ 0.2 MCG/KG/HR 4.309 mls/hr IV .[id number] [facility] Rx#:[id number] Lactated Ringers 1,000 ml 50 @ 50 mls/hr IV .Q20H [facility] Rx#:[id number] Output: Urine 1600 465 65 Other: Voiding Method Indwelling Catheter Indwelling Catheter - Labs CBC & Chem 7: 08/26/23 05:29 08/25/23 03:38 Labs: Abnormal Lab Results - Last 24 Hours (Table) 08/26/23 Range/Units 05:29 RBC 3.51 L (4.30-5.90) m/uL Hgb 10.7 L (13.0-17.5) gm/dL Hct 35.1 L (39.0-53.0) % MCHC 30.5 L (31.0-37.0) g/dL
[2023-08-26 07:33] LABS: African American GFR (CKD) >90 (>60 ml/min/1.73 sqM); Anion Gap 5 mmol/L; Blood Urea Nitrogen 18 mg/dL (9-20); Calcium 8.6 mg/dL (8.4-10.2); Carbon Dioxide 25 mmol/L (22-30); Chloride 108 mmol/L (98-107); Glucose 104 mg/dL (74-99); Non-African American GFR(CKD) >90 (>60 ml/min/1.73 sqM); Potassium 4.2 mmol/L (3.5-5.1); Sodium 138 mmol/L (137-145)
[2023-08-26] MEDS: PIPERACILLIN-TAZOBACTAM 3.375 GM in SODIUM CHLORIDE 0.9% 100 ML IVPB SCH (10:40)
--- NOTE | 2023-08-26 11:24 | P.PN ---
Subjective Progress Note Date: 08/26/23 Principal diagnosis: Acute cerebellar CVA This is a 77-year-old male patient with a known history of hypertension, hyperlipidemia, gastroesophageal reflux disease, daily alcohol use, previous aortic valve replacement in 2013, previous left carotid endarterectomy, recent back surgery 3 weeks ago. 6 days ago the patient had developed severe dizziness lightheadedness and weakness and was able to get himself into a chair but then unable to get out. EMS was called and he was brought here on 08/18/2023. CT angiogram ruled out pulmonary embolism. 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 Large hiatal hernia. CT scan of the brain revealed a moderate age-appropriate atrophy and ischemic demyelination. No acute bleed or mass effect. Echocardiogram revealed preserved left ventricular systolic function. Normally functioning bioprosthetic aortic valve. No evidence of thrombus. Carotid Dopplers revealed no significant stenosis bilaterally. MRI of the brain on 08/20/2023 revealed restricted diffusion within the right cerebellum and right lateral mid medulla oblongata. Follow-up CT scan of the brain revealed age-related atrophy and chronic small vessel ischemic changes without acute intracranial process. However, the patient was having progressive symptoms with increasing weakness on his right side. Facial droop, difficulty managing his secretions. He was seen again by neurology who felt that his CVA was evolving and is requesting transfer to the intensive care unit. Seen today in consultation. He is currently awake and alert. He definitely has some drifting of the right upper extremity. Unable to perform simple tasks such as touching his nose with his right finger. He is coughing and congested. Maintaining good O2 saturations in the mid 90s on 2 L/min per nasal cannula. He is afebrile. Hemodynamically stable. White count 7.2. Hemoglobin 10.4. Platelets 224. Sodium 138. Potassium 3.7. Bicarb 24. BUN 12. Creatinine 0.72. Glucose 106. He currently has a scopolamine patch in place. He is continued on Brilinta and aspirin. Heparin for DVT prophylaxis. Lactated Ringer's at 50 MLS per hour. PRIMITIVO today ruled out thrombus, no evidence of shunting across the interatrial septum, normally functioning bioprosthetic aortic valve. Patient evaluated today on 08/25/2023, remains in the ICU, I saw him yesterday and arrange for transfer to ICU. Patient is obviously having evolving right cerebellar CVA and lateral medulla oblongata CVA. Patient required a Precedex 0.2 mcg/kg/h yesterday upon arrival to the ICU as he was getting agitated and restless, aggressive. Today he seems to be [place]. He is now on aspirin, Brilinta, and heparin subcu. Patient is basically about the same as yesterday, not much has changed with his neurological findings, continues to have abnormal cerebellar findings with definite abnormal right [id number] test. CT angiogram showed distal right vertebral artery occlusion was involving the right cerebellar hemisphere and right medulla oblongata changes/acute evaluated today on 08/26/2023, remains in the ICU, patient is on 4 L nasal cannula, off Precedex. Patient is scheduled to have a PEG tube placement today. Chest x-ray is now showing a right lower lobe infiltrate highly suspicious for aspiration pneumonia hence I have recommended that we start the patient on Zosyn empirically. His neurological status is about the same, no change, and he is being closely followed by neurology on the case. WBC count is 8.6 hemoglobin 10.7 electrolytes are normal and renal profile is normal Objective - Vital Signs Vital signs: Vital Signs Temp 97.5 F L 08/26/23 08:00 Pulse 93 08/26/23 11:00 Resp 13 08/26/23 11:00 BP 160/86 08/26/23 11:00 Pulse Ox 96 08/26/23 11:00 FiO2 50 08/26/23 05:07 Intake & Output 08/25/23 08/26/23 08/26/23 18:59 06:59 18:59 Intake Total 657.562 783.705 150 Output Total 1600 465 340 Balance -942.438 318.705 -190 Weight 85.4 kg Intake: IV 550 600 150 Lactated Ringers 1,000 ml 550 600 150 @ 50 mls/hr IV .Q20H [facility] Rx#:[id number] Intake, IV Titration 107.562 183.705 Amount Dexmedetomidine/0.9% NaCl 57.562 183.705 (Pmx) 400 mcg In Empty Bag 1 bag @ 0.2 MCG/KG/HR 4.309 mls/hr IV .[id number] [facility] Rx#:[id number] Lactated Ringers 1,000 ml 50 @ 50 mls/hr IV .Q20H [facility] Rx#:[id number] Output: Urine 1600 465 340 Other: Voiding Method Indwelling Catheter Indwelling Catheter Indwelling Catheter - Exam GENERAL EXAM: Alert, pleasant 77-year-old gentleman, in no distress liters nasal cannula HEAD: Normocephalic. Noted facial droop. EYES: Normal reaction of pupils, equal size. NOSE: Clear with pink turbinates. THROAT: No erythema or exudates. NECK: No masses, no JVD. CHEST: No chest wall deformity. LUNGS: Crackles at the bases with scattered rhonchi. CVS: S1 and S2 normal with no audible murmur, regular rhythm. ABDOMEN: No hepatosplenomegaly, normal bowel sounds, no guarding or rigidity. SPINE: No scoliosis or deformity SKIN: No rashes CENTRAL NERVOUS SYSTEM: Abnormal right [id number] test. Clearly consistent with cerebellar CVA facial droop, right-sided weakness EXTREMITIES: There is no peripheral edema. No clubbing, no cyanosis. Peripheral pulses are intact. - Labs CBC & Chem 7: 08/26/23 05:29 08/26/23 05:29 Labs: Abnormal Lab Results - Last 24 Hours (Table) 08/26/23 08/26/23 Range/Units 05:29 05:29 RBC 3.51 L (4.30-5.90) m/uL Hgb 10.7 L (13.0-17.5) gm/dL Hct 35.1 L (39.0-53.0) % MCHC 30.5 L (31.0-37.0) g/dL Chloride 108 H (98-107) mmol/L Creatinine 0.60 L (0.66-1.25) mg/dL Glucose 104 H (74-99) mg/dL Assessment and Plan Assessment: Impression: Subacute cerebellar CVA with right-sided weakness, ataxia, and poor coordination. History of aortic valve replacement/bioprosthetic valve in 2013 Large hiatal hernia History of carotid artery stenosis with previous left carotid endarterectomy Benign essential hypertension Distal right vertebral artery occlusion Acute aspiration pneumonia Recommendation: Start patient empirically on Zosyn for aspiration pneumonia Proceed with PEG tube placement Continue present supportive care measures Continue to monitor in the ICU Continue aspirin, subcu heparin and Brilinta Patient will eventually require long-term rehab Prognosis is guarded. Will continue to follow Time with Patient: Less than 30
[2023-08-26] MEDS ORDERED: PROPOFOL 10 MG/ML 20 ML VIAL IV ONE (12:57)
[2023-08-26] MEDS ORDERED: LIDOCAINE 1% INJ 10MG/ML (20 ML MDV) ONE (12:57)
[2023-08-26] MEDS: SODIUM CHLORIDE 0.9% 500 ML 500 ML IV ONE (12:58)
--- NOTE | 2023-08-26 13:14 | P.PN ---
Subjective Progress Note Date: 08/26/23 Patient is a pleasant 77-year-old male came in with complaints lightheadedness it is not clear whether patient is dizzy or vertigo but upon further questioning manage it appears patient has vertigo and patient has weakness in bilateral lower extremities patient is unable to stand. Patient denies any hearing problems sinusitis or ear infection. Patient denies any diaphoresis, denies shortness of breath but patient felt like his get a pass out. Patient is admitted for atrial fibrillation but I did not see any A-fib on the EKG patient had sinus rhythm with PVCs. Patient denies any syncope. Patient is unable to stand quite weak which also started yesterday. 08/20/2023 Patient is evaluated today in follow-up in the ER pending bed on the medical floor. He continues to report significant dizziness and lightheadedness. Patient is currently pending MRI. Had carotid doppler done showing bilateral heterogenous plaque greater than left with no significant hemodynamic stenosis by carotid Doppler ultrasound. Stenosis involving the left CECE suspected. There is cardiac dysrhythmia. There was concern for atrial fibrillation with has been ruled out at this time patient appears to have sinus rhythm with right bundle branch block and frequent PVCs and PACs. He has been started on dual antiplatelet therapy with aspirin and Plavix. Echocardiogram has been done and reveals an EF of 55 to 60% with moderate left atrial dilation, trace to mild mitral regurgitation. 08/21/2023 Patient is evaluated in follow-up on the medical floor. Patient does continue to report significant dizziness and lightheadedness ports he is up ambulating to the bathroom today was unable to ambulate back to the bed secondary to his dizziness. He has meclizine as needed 3 times a day would recommend to change this to scheduled to see if this helps improve his vertigo-like symptoms. Patient's MRI does come back positive for a acute ischemic stroke in the right cerebellum and right lateral medulla oblongata. This is felt to be due to him stopping his aspirin outpatient secondary to a recent lumbar surgery. 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 Neurology recommending aspirin and plavix. 08/22/2023 Patient is evaluated today in follow up. Further evaluation there is concern for thrombus in the ascending aortic aneurysm and patient will be going for a PRIMITIVO tomorrow as recommended by neurology. Patient remains on aspirin and plavix at this time. He continues to report dizziness and lightheadedness. He will be evaluated for inpatient rehab. 08/23/2023 Patient is reporting worsening neurosymptoms today he report hoarseness in his voice, blurry vision and headache over the right eye and occipital lobe, facial numbness in the right side. This correlates with the area of stroke with MRI sh owing positive right cerebellar and right medulla oblongata area of infarct. Patient will undergo a repeat brain CT today. He is also pending a PRIMITIVO with cardiology. Continues on aspirin and Plavix therapy for now. Blood work reveals a sodium level of 138, potassium 4.7, BUN of 12 creatinine of 0.72. 08/24/2023 Patient is evaluated today on the medical floor. He is having worsening neurological symptoms including the numbness now going from the face all the way down the right side into the right arm. Patient also reports weakness in the right side. He is up in the bathroom attempting to shave and washout but is quite frustrated and agitated due to his worsening neurological symptoms. He does report the pain in his right eye has slightly improved today. Patient was given a scopolamine patch yesterday due to secretions and hoarseness in his voice and he reports that he has not noticed much difference in his symptoms. A repeat brain CT was completed yesterday which did not report on the acute stroke. Noted there was a age-related atrophic and chronic small vessel ischemic change without any acute intracranial processes at this time. Underwent trans esophageal echocardiogram completed yesterday revealing a mildly dilated left atrium with normal appearance of the left atrial appendage. Normal ventricle size and systolic function. There is a bioprosthetic aortic valve with normal opening and no regurgitation. Mild mitral and tricuspid regurgitation. No shunting across the interarterial septum. A dilated ascending aorta measuring 4.2 cm. There is no evidence of pericardial effusion and this was a negative bubble study. Continues on aspirin and Plavix therapy at this time. He is receiving LR at 50 MLS per hour. Patient continues on DVT prophylaxis with subcutaneous heparin. Over the night patient had an episode of SVT with heart rate up into the 180s to 200s. He received adenosine and was started on IV Cardizem drip. This is being discontinued today and cardiology is planning on transitioning the patient to oral Lopressor. Heart rate is now controlled and he is in normal sinus mechanism. Had a chest xray due to increased congestion noted on examination and concern for aspiration. Chest xray reveals no acute cardiopulmonary process. There is large hiatal hernia may be present. Remains afebrile, heart rate of 96, blood pressure 122/66, 95% 2L nasal cannula. 08/24. Patient seen and examined. at the bedside. Patient had a swallow study done this morning and failed swallow eval. Discussed with speech, they are recommending PEG tube placement 08/25. Patient seen and examined. Patient is much more alert compared to yesterday. Family at the bedside. Patient scheduled for PEG tube placement today REVIEW OF SYSTEMS: Denies any chest pain. Denies any shortness of breath. Denies nausea or vomiting PHYSICAL EXAMINATION: GENERAL: The patient is alert to self, ill looking HEENT: Pupils are round and equally reacting to light. EOMI. No scleral icterus. No conjunctival pallor. Normocephalic, atraumatic. No pharyngeal erythema. No thyromegaly. CARDIOVASCULAR: S1 and S2 present. No murmurs, rubs, or gallops. PULMONARY: Chest is clear to auscultation, no wheezing or crackles. ABDOMEN: Soft, nontender, nondistended, normoactive bowel sounds. No palpable organomegaly. MUSCULOSKELETAL: No joint swelling or deformity. EXTREMITIES: No cyanosis, clubbing, or pedal edema. NEUROLOGICAL: Moving all extremities SKIN: No rashes. 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 Continue same treatment. Continue with symptomatic treatment. Resume home medication. Monitor labs and vitals. DVT and GI prophylaxis. Further recommendations as per clinical course of the patient Dictation was produced using [employer] dictation software. please excuse any grammatical, word or spelling errors. Objective - Vital Signs Vital signs: Vital Signs Temp 97.5 F L 08/26/23 08:00 Pulse 93 08/26/23 11:00 Resp 13 08/26/23 11:00 BP 160/86 08/26/23 11:00 Pulse Ox 96 08/26/23 11:00 FiO2 50 08/26/23 05:07 Intake & Output 08/25/23 08/26/23 08/26/23 18:59 06:59 18:59 Intake Total 657.562 783.705 150 Output Total 1600 465 340 Balance -942.438 318.705 -190 Weight 85.4 kg Intake: IV 550 600 150 Lactated Ringers 1,000 ml 550 600 150 @ 50 mls/hr IV .Q20H [facility] Rx#:[id number] Intake, IV Titration 107.562 183.705 Amount Dexmedetomidine/0.9% NaCl 57.562 183.705 (Pmx) 400 mcg In Empty Bag 1 bag @ 0.2 MCG/KG/HR 4.309 mls/hr IV .[id number] [facility] Rx#:[id number] Lactated Ringers 1,000 ml 50 @ 50 mls/hr IV .Q20H [facility] Rx#:[id number] Output: Urine 1600 465 340 Other: Voiding Method Indwelling Catheter Indwelling Catheter Indwelling Catheter - Labs CBC & Chem 7: 08/26/23 05:29 08/26/23 05:29 Labs: Abnormal Lab Results - Last 24 Hours (Table) 08/26/23 08/26/23 Range/Units 05:29 05:29 RBC 3.51 L (4.30-5.90) m/uL Hgb 10.7 L (13.0-17.5) gm/dL Hct 35.1 L (39.0-53.0) % MCHC 30.5 L (31.0-37.0) g/dL Chloride 108 H (98-107) mmol/L Creatinine 0.60 L (0.66-1.25) mg/dL Glucose 104 H (74-99) mg/dL
--- NOTE | 2023-08-26 15:07 | P.PN ---
Subjective Progress Note Date: 08/26/23 I am following-up with patient and he feels about the same. Denies new neurological issues. He has been having ptosis of right eye for at least 3 days. The family has decided to pursue with PEG tube and he is schedule today. Objective - Vital Signs Vital signs: Vital Signs Temp 97.8 F 08/26/23 12:00 Pulse 105 H 08/26/23 14:00 Resp 24 08/26/23 14:00 BP 126/69 08/26/23 14:00 Pulse Ox 98 08/26/23 14:00 FiO2 50 08/26/23 05:07 Intake & Output 08/25/23 08/26/23 08/26/23 18:59 06:59 18:59 Intake Total 657.562 783.705 600 Output Total 1600 465 690 Balance -942.438 318.705 -90 Weight 85.4 kg 85.4 kg Intake: IV 550 600 600 Lactated Ringers 1,000 ml 550 600 400 @ 50 mls/hr IV .Q20H [facility] Rx#:[id number] Intake, IV Titration 107.562 183.705 Amount Dexmedetomidine/0.9% NaCl 57.562 183.705 (Pmx) 400 mcg In Empty Bag 1 bag @ 0.2 MCG/KG/HR 4.309 mls/hr IV .[id number] [facility] Rx#:[id number] Lactated Ringers 1,000 ml 50 @ 50 mls/hr IV .Q20H [facility] Rx#:[id number] Output: Urine 1600 465 690 Other: Voiding Method Indwelling Catheter Indwelling Catheter Indwelling Catheter - Exam General: Lying in bed and does not appear in acute distress. Neuro: The patient is awake, alert, oriented to self, place and time. Is following simple commands. No aphasia or neglect. Ptosis of right eye. Pupils are round equal and reactive to light. Decrease sensation to right sided of face and normal to touch on left side. No facial weakness. Has hoarsesness of voice. Has mild dysarthria. And it seems he continues to have secretions. Motor: Strength is right upper extremity is forearm flexion is 4+. Otherwise 5/5 throughout. Cerebellar: Ataxia finger to nose on the right. - Labs CBC & Chem 7: 08/26/23 05:29 08/26/23 05:29 Labs: Abnormal Lab Results - Last 24 Hours (Table) 08/26/23 08/26/23 Range/Units 05:29 05:29 RBC 3.51 L (4.30-5.90) m/uL Hgb 10.7 L (13.0-17.5) gm/dL Hct 35.1 L (39.0-53.0) % MCHC 30.5 L (31.0-37.0) g/dL Chloride 108 H (98-107) mmol/L Creatinine 0.60 L (0.66-1.25) mg/dL Glucose 104 H (74-99) mg/dL Assessment and Plan Assessment: Acute ischemic stroke, right cerebellar region, definitively verified by MRI. Patient has presented with vertigo, nausea vomiting, gait ataxia and near syncope. Examination reveals nystagmus, ataxia of the right upper limb, and gait ataxia. CT head on my review revealed multiple areas of subacute ischemia in the right cerebellar hemisphere. MRI showed right cerebellum and right lateral medulla oblongata. Patient has history of aortic valve replacement for which patient was on aspirin. Patient had stopped aspirin for about 3 weeks around his lumbar surgery that was performed 3 weeks ago. * Right PCIA stroke (cerebellum and lateral medulla) with symptoms of ataxia on the right, right facial numbness, ptosis of right eye, hoarseness of voice, dyphagia and dizziness: Due to right PCIA stroke and he had worsening of symptoms due to evolution of stroke on repeat MRI. * Hypertension * History of aortic valve replacement * Status post back surgery 3 weeks ago * History of bilateral knee and bilateral shoulder surgery. * Mild alcoholism, consumes 2 drinks of vodka daily. Plan: MRI of the brain on 08/20/2023 is reported as involving right cerebellum and right lateral medulla oblongatta. Nonspecific white matter changes, likely secondary due to small vessel ischemic disease. Repeat MRI Brain on 08/24/23: Involving the right cerebellum and the right lateral medulla upon Gatta infarct with slightly more restricted diffusion within the medulla oblongata compared to the immediate prior. No additional areas identified. Nonspecific white matter changes, likely secondary due to small vessel ischemic disease. CTA head and neck: Artery is occluded with reconstitution near confluence with the left vertebral artery. Evolving right cerebellar hemisphere and right medulla oblongata acute/subacute CVA. No evidence of dissection of cervical internal carotid artery or vertebral artery or any evidence of significant stenosis at the carotid bifurcation. No evidence of intracranial high-grade stenosis or intracranial aneurysm. Regarding the right vertebral artery the patient is outside the window of intervention and had symptoms for >24 hours. Has been in our facility for 7 days. 2-D echo revealed left ventricular EF 55 to 60%. Left ventricular cavity size is normal. Mildly increased septal wall thickness. No obvious regional wall motion abnormalities. Moderate left atrial dilation. Ascending aorta is at upper limits of normal. Ascending aorta measured 4.1 cm with aortic root 3.9 cm. Carotid duplex is reported as bilateral heterogeneous plaque greater on the left with no significant hemodynamic stenosis by carotid Doppler ultrasound. 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 Cardiac dysrhythmia. PRIMITIVO: 1. Mildly dilated left atrium with normal appearance of the left atrial appendage, 2. Normal ventricle size and systolic function, 3. Bioprosthetic aortic valve with normal opening and no regurgitation, 4. Mild mitral and tricuspid regurgitation, 5. No shunting across the interatrial septum, 6. Dilated ascending aorta Recommend 30-day event monitor to rule out paroxysmal atrial fibrillation and on 08/22/2023 had monitor placed.. Continue scopolamine patch for excess secretion. Have head of the bed at 30 degrees. Has dysphagia and failed barium swallow. He is schedule for PEG tube today. Cardiology on board. Fasting a.m. lipid panel. Patient on simvastatin 20 mg daily, would recommend increase to 40 mg in light of LDL cholesterol is elevated at 82.1, total cholesterol 182, triglycerides 123 Hemoglobin A1c-5.9 Continue aspirin 81 mg daily (home dose). During this admission he was on Plavix 75mg daily but it was changed to Brilinta 90mg bid on 08/24/2023. Neuro checks as per protocol. Telemetry monitoring rule out any arrhythmia PT, OT, speech therapy. For DVT prophylaxis: On subq heparin. Upon discharge, recommend the patient to follow-up with neurologist as outpatient within 2 weeks. Patient is going to be discharge to inpatient rehab and I feel he will benefit from it. The plan is discussed with patient, his and daughter who is at bedside. Time with Patient: Less than 30
--- NOTE | 2023-08-26 15:34 | XR ---
EXAMINATION TYPE: XR chest 1V portable DATE OF EXAM: 08/26/2023 COMPARISON: 08/23/2023 INDICATION: Increased O2 TECHNIQUE: Single frontal view of the chest is obtained. FINDINGS: The heart size is normal. The pulmonary vasculature is normal. There is a right lower infiltrate, correlate for pneumonia. Follow up recommended. IMPRESSION: 1. Correlate for right lower pneumonia.
--- NOTE | 2023-08-26 15:46 | P.PCN ---
Date of Procedure: 08/26/23 Procedure(s) Performed: PREOPERATIVE DIAGNOSIS: Malnutrition, aspiration POSTOPERATIVE DIAGNOSIS: Same PROCEDURE: EGD with PEG tube placement SURGEON: Phuc EBL: Minimal ANESTHESIA: Sedation COMPLICATIONS: None OPERATIVE PROCEDURE: The patient was placed in the supine position on the endoscopy table. The patient was sedated per anesthesia that time. The Olympus gastroscope was inserted into the oropharynx and passed under direct visualization to the region of the duodenum. No obstruction was seen. The pylorus was widely patent. The stomach was carefully inspected. The stomach was fully insufflated with air. The abdominal wall was inspected. The light was seen shining through the abdominal wall in the left upper quadrant. This site was chosen for PEG tube placement. The area was prepped in the usual sterile fashion. This area was then localized with lidocaine. No air was evident when aspirating while advancing the localizing needle into the stomach until the stomach was reached. A small vertical incision was made using the scalpel. The Seldinger needle was advanced into the lumen of the stomach the wire was advanced. The wire was grasped with an endoscopic snare. The wire was pulled through the oropharynx. The catheter was then threaded over the guidewire and the guidewire and catheter were pulled anteriorly until the hub of the PEG tube catheter was seated against the anterior wall the stomach. The circular bolster was applied and tightened down. The endoscope was then readvanced into the stomach. There was no evidence of any bleeding and there was appropriate tightness on the bolster. The catheter was cut appropriately. The dual port feeding adapter was applied. DISPOSITION: Stable to recovery room
[2023-08-26 23:34] LABS: Glucose,Whole Blood 83 mg/dL (70-110)
[2023-08-27 06:16] LABS: Basophils % (A) 0 %; Eosinophils # (A) 0.1 k/uL (0-0.7); Eosinophils % (A) 1 %; HCT 33.2 % (39.0-53.0); Hypochromasia Moderate; Lymphocytes # (A) 0.4 k/uL (1.0-4.8); Lymphocytes % (A) 6 %; MCV 96.6 fL (80.0-100.0); Mean Platelet Volume 7.4; Monocytes # (A) 0.4 k/uL (0-1.0); Monocytes % (A) 6 %; Neutrophils # (A) 6.4 k/uL (1.3-7.7); Neutrophils % (A) 85 %; Platelet Count 271 k/uL (150-450); RBC 3.44 m/uL (4.30-5.90); RDW 13.1 % (11.5-15.5); WBC 7.5 k/uL (3.8-10.6)
[2023-08-27 08:13] LABS: African American GFR (CKD) >90 (>60 ml/min/1.73 sqM); Anion Gap 5 mmol/L; Blood Urea Nitrogen 19 mg/dL (9-20); Calcium 8.3 mg/dL (8.4-10.2); Carbon Dioxide 23 mmol/L (22-30); Chloride 110 mmol/L (98-107); Glucose 104 mg/dL (74-99); Non-African American GFR(CKD) 89 (>60 ml/min/1.73 sqM); Potassium 3.6 mmol/L (3.5-5.1); Sodium 138 mmol/L (137-145)
[2023-08-27] MEDS: POTASSIUM BICARBONATE/CIT AC 20 MEQ TABLET.EFF NG-TUBE SCH (09:29)
[2023-08-27] MEDS: QUEtiapine 50 MG TAB PO SCH (10:12)
--- NOTE | 2023-08-27 10:37 | P.PN ---
Subjective Progress Note Date: 08/27/23 Principal diagnosis: Acute cerebellar CVA This is a 77-year-old male patient with a known history of hypertension, hyperlipidemia, gastroesophageal reflux disease, daily alcohol use, previous aortic valve replacement in 2013, previous left carotid endarterectomy, recent back surgery 3 weeks ago. 6 days ago the patient had developed severe dizziness lightheadedness and weakness and was able to get himself into a chair but then unable to get out. EMS was called and he was brought here on 08/18/2023. CT angiogram ruled out pulmonary embolism. 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 Large hiatal hernia. CT scan of the brain revealed a moderate age-appropriate atrophy and ischemic demyelination. No acute bleed or mass effect. Echocardiogram revealed preserved left ventricular systolic function. Normally functioning bioprosthetic aortic valve. No evidence of thrombus. Carotid Dopplers revealed no significant stenosis bilaterally. MRI of the brain on 08/20/2023 revealed restricted diffusion within the right cerebellum and right lateral mid medulla oblongata. Follow-up CT scan of the brain revealed age-related atrophy and chronic small vessel ischemic changes without acute intracranial process. However, the patient was having progressive symptoms with increasing weakness on his right side. Facial droop, difficulty managing his secretions. He was seen again by neurology who felt that his CVA was evolving and is requesting transfer to the intensive care unit. Seen today in consultation. He is currently awake and alert. He definitely has some drifting of the right upper extremity. Unable to perform simple tasks such as touching his nose with his right finger. He is coughing and congested. Maintaining good O2 saturations in the mid 90s on 2 L/min per nasal cannula. He is afebrile. Hemodynamically stable. White count 7.2. Hemoglobin 10.4. Platelets 224. Sodium 138. Potassium 3.7. Bicarb 24. BUN 12. Creatinine 0.72. Glucose 106. He currently has a scopolamine patch in place. He is continued on Brilinta and aspirin. Heparin for DVT prophylaxis. Lactated Ringer's at 50 MLS per hour. PRIMITIVO today ruled out thrombus, no evidence of shunting across the interatrial septum, normally functioning bioprosthetic aortic valve. Patient evaluated today on 08/25/2023, remains in the ICU, I saw him yesterday and arrange for transfer to ICU. Patient is obviously having evolving right cerebellar CVA and lateral medulla oblongata CVA. Patient required a Precedex 0.2 mcg/kg/h yesterday upon arrival to the ICU as he was getting agitated and restless, aggressive. Today he seems to be [place]. He is now on aspirin, Brilinta, and heparin subcu. Patient is basically about the same as yesterday, not much has changed with his neurological findings, continues to have abnormal cerebellar findings with definite abnormal right [id number] test. CT angiogram showed distal right vertebral artery occlusion was involving the right cerebellar hemisphere and right medulla oblongata changes/acute evaluated today on 08/26/2023, remains in the ICU, patient is on 4 L nasal cannula, off Precedex. Patient is scheduled to have a PEG tube placement today. Chest x-ray is now showing a right lower lobe infiltrate highly suspicious for aspiration pneumonia hence I have recommended that we start the patient on Zosyn empirically. His neurological status is about the same, no change, and he is being closely followed by neurology on the case. WBC count is 8.6 hemoglobin 10.7 electrolytes are normal and renal profile is normal Patient was evaluated today on 08/27/2023, patient is basically about the same. However he is back on Precedex because of intermittent episodes of agitation. On 3 L nasal cannula and O2 sats are 95% patient is status post PEG tube placement for nutritional support/enteral feeding via PEG tube. Apparently the patient failed his swallow evaluation, and clearly required a PEG tube placement which was done by Dr. Friend chest x-ray continues to show bibasilar infiltrates right more so than left, consistent with aspiration pneumonia, patient remains on Zosyn. WBC count is 7.5 hemoglobin is 10 electrolytes are normal renal profile is normal Objective - Vital Signs Vital signs: Vital Signs Temp 98.2 F 08/27/23 08:00 Pulse 32 L 08/27/23 09:00 Resp 16 08/27/23 09:00 BP 134/65 08/27/23 09:00 Pulse Ox 98 08/27/23 09:00 FiO2 50 08/26/23 05:07 Intake & Output 08/26/23 08/27/23 08/27/23 18:59 06:59 18:59 Intake Total 850 638.919 200 Output Total 1010 645 140 Balance -160 -6.081 60 Weight 85.4 kg 84.3 kg Intake: IV 850 600 200 Lactated Ringers 1,000 ml 550 600 100 @ 50 mls/hr IV .Q20H [facility] Rx#:[id number] Piperacillin-Tazobactam 3 100 100 .375 gm In Sodium Chloride 0.9% 100 ml @ 25 mls/hr IVPB Q8HR [facility] Rx# :[id number] Intake, IV Titration 38.919 Amount Dexmedetomidine/0.9% NaCl 38.919 (Pmx) 400 mcg In Empty Bag 1 bag @ 0.2 MCG/KG/HR 4.309 mls/hr IV .[id number] [facility] Rx#:[id number] Output: Urine 1010 645 140 Other: Voiding Method Indwelling Catheter Indwelling Catheter Indwelling Catheter # Bowel Movements 0 - Exam GENERAL EXAM: Alert, pleasant 77-year-old gentleman, in no distress, on nasal cannula HEAD: Normocephalic. Noted facial droop. EYES: Normal reaction of pupils, equal size. NOSE: Clear with pink turbinates. THROAT: No erythema or exudates. NECK: No masses, no JVD. CHEST: No chest wall deformity. LUNGS: Crackles at the bases with scattered rhonchi. CVS: S1 and S2 normal with no audible murmur, regular rhythm. ABDOMEN: No hepatosplenomegaly, normal bowel sounds, no guarding or rigidity. SPINE: No scoliosis or deformity SKIN: No rashes CENTRAL NERVOUS SYSTEM: No change in his overall neurological status with right- sided weakness and poor hiqxry-jx-yvsx test with right hand. EXTREMITIES: There is no peripheral edema. No clubbing, no cyanosis. Peripheral pulses are intact. - Labs CBC & Chem 7: 08/27/23 06:00 08/27/23 06:00 Labs: Abnormal Lab Results - Last 24 Hours (Table) 08/27/23 08/27/23 Range/Units 06:00 06:00 RBC 3.44 L (4.30-5.90) m/uL Hgb 10.0 L (13.0-17.5) gm/dL Hct 33.2 L (39.0-53.0) % MCHC 30.0 L (31.0-37.0) g/dL Lymphocytes # 0.4 L (1.0-4.8) k/uL Chloride 110 H (98-107) mmol/L Glucose 104 H (74-99) mg/dL Calcium 8.3 L (8.4-10.2) mg/dL Assessment and Plan Assessment: Impression: Subacute cerebellar CVA with right-sided weakness, ataxia, and poor coordination. History of aortic valve replacement/bioprosthetic valve in 2013 Large hiatal hernia History of carotid artery stenosis with previous left carotid endarterectomy Benign essential hypertension Distal right vertebral artery occlusion Acute aspiration pneumonia Recommendation: Continue present supportive care measures Patient is status post PEG tube placement and will start enteral feeding Continue Zosyn empirically for aspiration pneumonia Continue Precedex however the patient will be given a maintenance dose of Seroquel hoping to discontinue Precedex Continue to monitor in ICU Continue aspirin, subcu heparin and Brilinta Placement in rehab is in progress. Prognosis is guarded. Will continue to follow Time with Patient: Less than 30
--- NOTE | 2023-08-27 10:50 | P.PN ---
Progress Note - Text Progress Note Date: 08/27/23 HISTORY OF PRESENT ILLNESS: NAEO PHYSICAL EXAM: VITAL SIGNS: Reviewed. GENERAL: Well-developed in no acute distress. ABDOMEN: Soft. Nondistended. Nontender. PEG Tube site C/D/I NEUROLOGIC: Alert and oriented. Cranial nerves II through XII grossly intact. ASSESSMENT: 1. POD #1 PEG Tube Insertion PLAN: - ok to start Trickle Feeds and Meds
[2023-08-27 11:53] LABS: Glucose,Whole Blood 98 mg/dL (70-110)
--- NOTE | 2023-08-27 12:12 | P.PN ---
Subjective Progress Note Date: 08/27/23 Patient is a pleasant 77-year-old male came in with complaints lightheadedness it is not clear whether patient is dizzy or vertigo but upon further questioning manage it appears patient has vertigo and patient has weakness in bilateral lower extremities patient is unable to stand. Patient denies any hearing problems sinusitis or ear infection. Patient denies any diaphoresis, denies shortness of breath but patient felt like his get a pass out. Patient is admitted for atrial fibrillation but I did not see any A-fib on the EKG patient had sinus rhythm with PVCs. Patient denies any syncope. Patient is unable to stand quite weak which also started yesterday. 08/20/2023 Patient is evaluated today in follow-up in the ER pending bed on the medical floor. He continues to report significant dizziness and lightheadedness. Patient is currently pending MRI. Had carotid doppler done showing bilateral heterogenous plaque greater than left with no significant hemodynamic stenosis by carotid Doppler ultrasound. Stenosis involving the left CECE suspected. There is cardiac dysrhythmia. There was concern for atrial fibrillation with has been ruled out at this time patient appears to have sinus rhythm with right bundle branch block and frequent PVCs and PACs. He has been started on dual antiplatelet therapy with aspirin and Plavix. Echocardiogram has been done and reveals an EF of 55 to 60% with moderate left atrial dilation, trace to mild mitral regurgitation. 08/21/2023 Patient is evaluated in follow-up on the medical floor. Patient does continue to report significant dizziness and lightheadedness ports he is up ambulating to the bathroom today was unable to ambulate back to the bed secondary to his dizziness. He has meclizine as needed 3 times a day would recommend to change this to scheduled to see if this helps improve his vertigo-like symptoms. Patient's MRI does come back positive for a acute ischemic stroke in the right cerebellum and right lateral medulla oblongata. This is felt to be due to him stopping his aspirin outpatient secondary to a recent lumbar surgery. 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 Neurology recommending aspirin and plavix. 08/22/2023 Patient is evaluated today in follow up. Further evaluation there is concern for thrombus in the ascending aortic aneurysm and patient will be going for a PRIMITIVO tomorrow as recommended by neurology. Patient remains on aspirin and plavix at this time. He continues to report dizziness and lightheadedness. He will be evaluated for inpatient rehab. 08/23/2023 Patient is reporting worsening neurosymptoms today he report hoarseness in his voice, blurry vision and headache over the right eye and occipital lobe, facial numbness in the right side. This correlates with the area of stroke with MRI sh owing positive right cerebellar and right medulla oblongata area of infarct. Patient will undergo a repeat brain CT today. He is also pending a PRIMITIVO with cardiology. Continues on aspirin and Plavix therapy for now. Blood work reveals a sodium level of 138, potassium 4.7, BUN of 12 creatinine of 0.72. 08/24/2023 Patient is evaluated today on the medical floor. He is having worsening neurological symptoms including the numbness now going from the face all the way down the right side into the right arm. Patient also reports weakness in the right side. He is up in the bathroom attempting to shave and washout but is quite frustrated and agitated due to his worsening neurological symptoms. He does report the pain in his right eye has slightly improved today. Patient was given a scopolamine patch yesterday due to secretions and hoarseness in his voice and he reports that he has not noticed much difference in his symptoms. A repeat brain CT was completed yesterday which did not report on the acute stroke. Noted there was a age-related atrophic and chronic small vessel ischemic change without any acute intracranial processes at this time. Underwent trans esophageal echocardiogram completed yesterday revealing a mildly dilated left atrium with normal appearance of the left atrial appendage. Normal ventricle size and systolic function. There is a bioprosthetic aortic valve with normal opening and no regurgitation. Mild mitral and tricuspid regurgitation. No shunting across the interarterial septum. A dilated ascending aorta measuring 4.2 cm. There is no evidence of pericardial effusion and this was a negative bubble study. Continues on aspirin and Plavix therapy at this time. He is receiving LR at 50 MLS per hour. Patient continues on DVT prophylaxis with subcutaneous heparin. Over the night patient had an episode of SVT with heart rate up into the 180s to 200s. He received adenosine and was started on IV Cardizem drip. This is being discontinued today and cardiology is planning on transitioning the patient to oral Lopressor. Heart rate is now controlled and he is in normal sinus mechanism. Had a chest xray due to increased congestion noted on examination and concern for aspiration. Chest xray reveals no acute cardiopulmonary process. There is large hiatal hernia may be present. Remains afebrile, heart rate of 96, blood pressure 122/66, 95% 2L nasal cannula. 08/24. Patient seen and examined. at the bedside. Patient had a swallow study done this morning and failed swallow eval. Discussed with speech, they are recommending PEG tube placement 08/25. Patient seen and examined. Patient is much more alert compared to yesterday. Family at the bedside. Patient scheduled for PEG tube placement today 08/26. Patient seen and examined. Patient had PEG tube placed yesterday, currently started on tube feeding. Patient gets frustrated easily. REVIEW OF SYSTEMS: Denies any chest pain. Denies any shortness of breath. Denies nausea or vomiting PHYSICAL EXAMINATION: GENERAL: The patient is alert to self, ill looking HEENT: Pupils are round and equally reacting to light. EOMI. No scleral icterus. No conjunctival pallor. Normocephalic, atraumatic. No pharyngeal erythema. No thyromegaly. CARDIOVASCULAR: S1 and S2 present. No murmurs, rubs, or gallops. PULMONARY: Chest is clear to auscultation, no wheezing or crackles. ABDOMEN: Soft, nontender, nondistended, normoactive bowel sounds. No palpable organomegaly. MUSCULOSKELETAL: No joint swelling or deformity. EXTREMITIES: No cyanosis, clubbing, or pedal edema. NEUROLOGICAL: Moving all extremities SKIN: No rashes. 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 Continue same treatment. Continue with symptomatic treatment. Resume home medication. Monitor labs and vitals. DVT and GI prophylaxis. Further recommendations as per clinical course of the patient Dictation was produced using [employer] dictation software. please excuse any grammatical, word or spelling errors. Objective - Vital Signs Vital signs: Vital Signs Temp 98.2 F 08/27/23 08:00 Pulse 81 08/27/23 11:00 Resp 11 L 08/27/23 11:00 BP 118/74 08/27/23 11:00 Pulse Ox 92 L 08/27/23 11:00 FiO2 50 08/26/23 05:07 Intake & Output 08/26/23 08/27/23 08/27/23 18:59 06:59 18:59 Intake Total 850 638.919 384.058 Output Total 1010 645 350 Balance -160 -6.081 34.058 Weight 85.4 kg 84.3 kg Intake: IV 850 600 350 Lactated Ringers 1,000 ml 550 600 250 @ 50 mls/hr IV .Q20H [facility] Rx#:[id number] Piperacillin-Tazobactam 3 100 100 .375 gm In Sodium Chloride 0.9% 100 ml @ 25 mls/hr IVPB Q8HR [facility] Rx# :[id number] Intake, IV Titration 38.919 24.058 Amount Dexmedetomidine/0.9% NaCl 38.919 24.058 (Pmx) 400 mcg In Empty Bag 1 bag @ 0.2 MCG/KG/HR 4.309 mls/hr IV .[id number] [facility] Rx#:[id number] Tube Feeding 10 Output: Urine 1010 645 350 Other: Voiding Method Indwelling Catheter Indwelling Catheter Indwelling Catheter # Bowel Movements 0 - Labs CBC & Chem 7: 08/27/23 06:00 08/27/23 06:00 Labs: Abnormal Lab Results - Last 24 Hours (Table) 08/27/23 08/27/23 Range/Units 06:00 06:00 RBC 3.44 L (4.30-5.90) m/uL Hgb 10.0 L (13.0-17.5) gm/dL Hct 33.2 L (39.0-53.0) % MCHC 30.0 L (31.0-37.0) g/dL Lymphocytes # 0.4 L (1.0-4.8) k/uL Chloride 110 H (98-107) mmol/L Glucose 104 H (74-99) mg/dL Calcium 8.3 L (8.4-10.2) mg/dL
--- NOTE | 2023-08-27 13:57 | P.PN ---
Subjective Progress Note Date: 08/27/23 I am following-up with patient and he had received PEG tube. He was restless and as result on IV Precedex and currently sleeping and has sitter at bedside. The sitter stated he is much calmer now compared to earlier. Objective - Vital Signs Vital signs: Vital Signs Temp 98.4 F 08/27/23 12:00 Pulse 87 08/27/23 13:00 Resp 39 H 08/27/23 13:00 BP 119/90 08/27/23 13:00 Pulse Ox 97 08/27/23 13:00 FiO2 50 08/26/23 05:07 Intake & Output 08/26/23 08/27/23 08/27/23 18:59 06:59 18:59 Intake Total 850 638.919 511.778 Output Total 1010 645 425 Balance -160 -6.081 86.778 Weight 85.4 kg 84.3 kg Intake: IV 850 600 450 Lactated Ringers 1,000 ml 550 600 350 @ 50 mls/hr IV .Q20H [facility] Rx#:[id number] Piperacillin-Tazobactam 3 100 100 .375 gm In Sodium Chloride 0.9% 100 ml @ 25 mls/hr IVPB Q8HR [facility] Rx# :[id number] Intake, IV Titration 38.919 31.778 Amount Dexmedetomidine/0.9% NaCl 38.919 31.778 (Pmx) 400 mcg In Empty Bag 1 bag @ 0.2 MCG/KG/HR 4.309 mls/hr IV .[id number] [facility] Rx#:[id number] Tube Feeding 30 Output: Urine 1010 645 425 Other: Voiding Method Indwelling Catheter Indwelling Catheter Indwelling Catheter # Bowel Movements 0 - Exam General: Lying in bed and does not appear in acute distress. Neuro: Limited since sleeping. Is on IV Precedex 0.1mcg/kg/hr. - Labs CBC & Chem 7: 08/27/23 06:00 08/27/23 06:00 Labs: Abnormal Lab Results - Last 24 Hours (Table) 08/27/23 08/27/23 Range/Units 06:00 06:00 RBC 3.44 L (4.30-5.90) m/uL Hgb 10.0 L (13.0-17.5) gm/dL Hct 33.2 L (39.0-53.0) % MCHC 30.0 L (31.0-37.0) g/dL Lymphocytes # 0.4 L (1.0-4.8) k/uL Chloride 110 H (98-107) mmol/L Glucose 104 H (74-99) mg/dL Calcium 8.3 L (8.4-10.2) mg/dL Assessment and Plan Assessment: Acute ischemic stroke, right cerebellar region, definitively verified by MRI. Patient has presented with vertigo, nausea vomiting, gait ataxia and near syncope. Examination reveals nystagmus, ataxia of the right upper limb, and gait ataxia. CT head on my review revealed multiple areas of subacute ischemia in the right cerebellar hemisphere. MRI showed right cerebellum and right lateral medulla oblongata. Patient has history of aortic valve replacement for which patient was on aspirin. Patient had stopped aspirin for about 3 weeks around his lumbar surgery that was performed 3 weeks ago. * Right PCIA stroke (cerebellum and lateral medulla) with symptoms of ataxia on the right, right facial numbness, ptosis of right eye, hoarseness of voice, dyphagia and dizziness: Due to right PCIA stroke and he had worsening of symptoms due to evolution of stroke on repeat MRI. * Dysphagia due to stroke s/p PEG tube on 08/26/2023 * Hypertension * History of aortic valve replacement * Status post back surgery 3 weeks ago * History of bilateral knee and bilateral shoulder surgery. * Mild alcoholism, consumes 2 drinks of vodka daily. Plan: MRI of the brain on 08/20/2023 is reported as involving right cerebellum and right lateral medulla oblongatta. Nonspecific white matter changes, likely secondary due to small vessel ischemic disease. Repeat MRI Brain on 08/24/23: Involving the right cerebellum and the right lateral medulla upon Gatta infarct with slightly more restricted diffusion within the medulla oblongata compared to the immediate prior. No additional areas identified. Nonspecific white matter changes, likely secondary due to small vessel ischemic disease. CTA head and neck: Artery is occluded with reconstitution near confluence with the left vertebral artery. Evolving right cerebellar hemisphere and right medulla oblongata acute/subacute CVA. No evidence of dissection of cervical internal carotid artery or vertebral artery or any evidence of significant stenosis at the carotid bifurcation. No evidence of intracranial high-grade stenosis or intracranial aneurysm. Regarding the right vertebral artery the patient is outside the window of intervention and had symptoms for >24 hours. Has been in our facility for 7 days. 2-D echo revealed left ventricular EF 55 to 60%. Left ventricular cavity size is normal. Mildly increased septal wall thickness. No obvious regional wall motion abnormalities. Moderate left atrial dilation. Ascending aorta is at upper limits of normal. Ascending aorta measured 4.1 cm with aortic root 3.9 cm. Carotid duplex is reported as bilateral heterogeneous plaque greater on the left with no significant hemodynamic stenosis by carotid Doppler ultrasound. 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 Cardiac dysrhythmia. PRIMITIVO: 1. Mildly dilated left atrium with normal appearance of the left atrial appendage, 2. Normal ventricle size and systolic function, 3. Bioprosthetic aortic valve with normal opening and no regurgitation, 4. Mild mitral and tr icuspid regurgitation, 5. No shunting across the interatrial septum, 6. Dilated ascending aorta Recommend 30-day event monitor to rule out paroxysmal atrial fibrillation and on 08/22/2023 had monitor placed.. Continue scopolamine patch for excess secretion. Have head of the bed at 30 degrees. Cardiology on board. Fasting a.m. lipid panel. Patient on simvastatin 20 mg daily, would recommend increase to 40 mg in light of LDL cholesterol is elevated at 82.1, total cholesterol 182, triglycerides 123 Hemoglobin A1c-5.9 Continue aspirin 81 mg daily (home dose). During this admission he was on Plavix 75mg daily but it was changed to Brilinta 90mg bid on 08/24/2023. Neuro checks as per protocol. Telemetry monitoring rule out any arrhythmia PT, OT, speech therapy. For DVT prophylaxis: On subq heparin. Upon discharge, recommend the patient to follow-up with neurologist as out patient within 2 weeks. Patient is going to be discharge to inpatient rehab and I feel he will benefit from it. Time with Patient: Less than 30
[2023-08-27 17:59] LABS: Glucose,Whole Blood 111 mg/dL (70-110)
[2023-08-27 23:50] LABS: Glucose,Whole Blood 135 mg/dL (70-110)
[2023-08-28 05:19] LABS: HCT 35.2 % (39.0-53.0); HGB 10.7 gm/dL (13.0-17.5); Hypochromasia Moderate; MCH 29.4 pg (25.0-35.0); MCHC 30.4 g/dL (31.0-37.0); MCV 96.7 fL (80.0-100.0); Mean Platelet Volume 6.8; Platelet Count 273 k/uL (150-450); RBC 3.64 m/uL (4.30-5.90); RDW 13.1 % (11.5-15.5)
[2023-08-28 05:29] LABS: ALT 12 U/L (4-49); AST 14 U/L (17-59); African American GFR (CKD) >90 (>60 ml/min/1.73 sqM); Albumin 2.7 g/dL (3.5-5.0); Alkaline Phosphatase 65 U/L (38-126); Anion Gap 5 mmol/L; Blood Urea Nitrogen 14 mg/dL (9-20); Calcium 8.5 mg/dL (8.4-10.2); Carbon Dioxide 26 mmol/L (22-30); Chloride 107 mmol/L (98-107); Glucose 131 mg/dL (74-99); Non-African American GFR(CKD) >90 (>60 ml/min/1.73 sqM); Potassium 3.7 mmol/L (3.5-5.1); Sodium 138 mmol/L (137-145); Total Bilirubin 0.7 mg/dL (0.2-1.3)
[2023-08-28] MEDS: POTASSIUM BICARBONATE/CIT AC 20 MEQ TABLET.EFF NG-TUBE SCH (05:49)
[2023-08-28 06:34] LABS: Glucose,Whole Blood 135 mg/dL (70-110)
--- NOTE | 2023-08-28 10:25 | P.PN ---
Subjective Progress Note Date: 08/28/23 Principal diagnosis: Aspiration 77-year-old male remains in the ICU. PEG tube placed on Tuesday. Tube feeds up to 40 cc/h. Denies pain. Objective - Vital Signs Vital signs: Vital Signs Temp 98.4 F 08/28/23 08:00 Pulse 82 08/28/23 09:00 Resp 9 L 08/28/23 09:00 BP 156/92 08/28/23 09:00 Pulse Ox 95 08/28/23 09:00 FiO2 50 08/26/23 05:07 Intake & Output 08/27/23 08/28/23 08/28/23 18:59 06:59 18:59 Intake Total 247.820 1009.952 290.271 Output Total 760 660 350 Balance 133.035 380.952 -59.729 Weight 84 kg Intake: IV 800 600 200 Lactated Ringers 1,000 ml 600 600 100 @ 50 mls/hr IV .Q20H [facility] Rx#:[id number] Piperacillin-Tazobactam 3 200 100 .375 gm In Sodium Chloride 0.9% 100 ml @ 25 mls/hr IVPB Q8HR [facility] Rx# :[id number] Intake, IV Titration 33.035 90.952 10.271 Amount Dexmedetomidine/0.9% NaCl 33.035 90.952 10.271 (Pmx) 400 mcg In Empty Bag 1 bag @ 0.2 MCG/KG/HR 4.309 mls/hr IV .[id number] [facility] Rx#:[id number] Tube Feeding 60 260 80 Other 90 Output: Urine 760 660 350 Other: Voiding Method Indwelling Catheter Indwelling Catheter Indwelling Catheter - Exam Abdomen: Soft, nondistended, PEG tube site clean without evidence of infection. Bolster loosened slightly. - Labs CBC & Chem 7: 08/28/23 04:56 08/28/23 04:56 Labs: Abnormal Lab Results - Last 24 Hours (Table) 08/27/23 08/27/23 08/28/23 Range/Units 17:58 23:48 04:56 RBC 3.64 L (4.30-5.90) m/uL Hgb 10.7 L (13.0-17.5) gm/dL Hct 35.2 L (39.0-53.0) % MCHC 30.4 L (31.0-37.0) g/dL Creatinine (0.66-1.25) mg/dL Glucose (74-99) mg/dL POC Glucose (mg/dL) 111 H 135 H (70-110) mg/dL AST (17-59) U/L Total Protein (6.3-8.2) g/dL Albumin (3.5-5.0) g/dL 08/28/23 08/28/23 Range/Units 04:56 06:33 RBC (4.30-5.90) m/uL Hgb (13.0-17.5) gm/dL Hct (39.0-53.0) % MCHC (31.0-37.0) g/dL Creatinine 0.65 L (0.66-1.25) mg/dL Glucose 131 H (74-99) mg/dL POC Glucose (mg/dL) 135 H (70-110) mg/dL AST 14 L (17-59) U/L Total Protein 5.0 L (6.3-8.2) g/dL Albumin 2.7 L (3.5-5.0) g/dL Assessment and Plan (1) Acute ischemic stroke Narrative/Plan: Patient doing well with feedings. Continue advancing tube feeds as tolerated. Will sign off. Please reconsult if needed. Current Visit: Yes Status: Acute Code(s): I63.9 - CEREBRAL INFARCTION, UNSPECIFIED SNOMED Code(s): 631923402
--- NOTE | 2023-08-28 10:29 | P.PN ---
Subjective Progress Note Date: 08/28/23 Principal diagnosis: Acute cerebellar CVA This is a 77-year-old male patient with a known history of hypertension, hyperlipidemia, gastroesophageal reflux disease, daily alcohol use, previous aortic valve replacement in 2013, previous left carotid endarterectomy, recent back surgery 3 weeks ago. 6 days ago the patient had developed severe dizziness lightheadedness and weakness and was able to get himself into a chair but then unable to get out. EMS was called and he was brought here on 08/18/2023. CT angiogram ruled out pulmonary embolism. 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 Large hiatal hernia. CT scan of the brain revealed a moderate age-appropriate atrophy and ischemic demyelination. No acute bleed or mass effect. Echocardiogram revealed preserved left ventricular systolic function. Normally functioning bioprosthetic aortic valve. No evidence of thrombus. Carotid Dopplers revealed no significant stenosis bilaterally. MRI of the brain on 08/20/2023 revealed restricted diffusion within the right cerebellum and right lateral mid medulla oblongata. Follow-up CT scan of the brain revealed age-related atrophy and chronic small vessel ischemic changes without acute intracranial process. However, the patient was having progressive symptoms with increasing weakness on his right side. Facial droop, difficulty managing his secretions. He was seen again by neurology who felt that his CVA was evolving and is requesting transfer to the intensive care unit. Seen today in consultation. He is currently awake and alert. He definitely has some drifting of the right upper extremity. Unable to perform simple tasks such as touching his nose with his right finger. He is coughing and congested. Maintaining good O2 saturations in the mid 90s on 2 L/min per nasal cannula. He is afebrile. Hemodynamically stable. White count 7.2. Hemoglobin 10.4. Platelets 224. Sodium 138. Potassium 3.7. Bicarb 24. BUN 12. Creatinine 0.72. Glucose 106. He currently has a scopolamine patch in place. He is continued on Brilinta and aspirin. Heparin for DVT prophylaxis. Lactated Ringer's at 50 MLS per hour. PRIMITIVO today ruled out thrombus, no evidence of shunting across the interatrial septum, normally functioning bioprosthetic aortic valve. Patient evaluated today on 08/25/2023, remains in the ICU, I saw him yesterday and arrange for transfer to ICU. Patient is obviously having evolving right cerebellar CVA and lateral medulla oblongata CVA. Patient required a Precedex 0.2 mcg/kg/h yesterday upon arrival to the ICU as he was getting agitated and restless, aggressive. Today he seems to be [place]. He is now on aspirin, Brilinta, and heparin subcu. Patient is basically about the same as yesterday, not much has changed with his neurological findings, continues to have abnormal cerebellar findings with definite abnormal right lyelzd-bi-bonj test. CT angiogram showed distal right vertebral artery occlusion was involving the right cerebellar hemisphere and right medulla oblongata changes/acute evaluated today on 08/26/2023, remains in the ICU, patient is on 4 L nasal cannula, off Precedex. Patient is scheduled to have a PEG tube placement today. Chest x-ray is now showing a right lower lobe infiltrate highly suspicious for aspiration pneumonia hence I have recommended that we start the patient on Zosyn empirically. His neurological status is about the same, no change, and he is being closely followed by neurology on the case. WBC count is 8.6 hemoglobin 10.7 electrolytes are normal and renal profile is normal Patient was evaluated today on 08/27/2023, patient is basically about the same. However he is back on Precedex because of intermittent episodes of agitation. On 3 L nasal cannula and O2 sats are 95% patient is status post PEG tube placement for nutritional support/enteral feeding via PEG tube. Apparently the patient failed his swallow evaluation, and clearly required a PEG tube placement which was done by Dr. Friend chest x-ray continues to show bibasilar infiltrates right more so than left, consistent with aspiration pneumonia, patient remains on Zosyn. WBC count is 7.5 hemoglobin is 10 electrolytes are normal renal profile is normal Patient was evaluated today on 08/28/2023, continues to have intermittent episodes of agitations had to be placed back on Precedex yesterday. Presently on 0.2 mcg/kg/h. Patient is also on Seroquel 50 mg twice daily patient is rece iving feeding via PEG tube/enteral feeding he did develop aspiration pneumonia and his swallow evaluations to be rechecked in the next 24 hours. On 2 L nasal cannula, seems to be fairly calm with Precedex. Enteral feeding with Jevity at 40 cc/h.WBC count is 6 hemoglobin 10.7 basic metabolic profile is normal and renal profile is normal Objective - Vital Signs Vital signs: Vital Signs Temp 98.4 F 08/28/23 08:00 Pulse 82 08/28/23 09:00 Resp 9 L 08/28/23 09:00 BP 156/92 08/28/23 09:00 Pulse Ox 95 08/28/23 09:00 FiO2 50 08/26/23 05:07 Intake & Output 08/27/23 08/28/23 08/28/23 18:59 06:59 18:59 Intake Total 169.343 8851.952 290.271 Output Total 760 660 350 Balance 133.035 380.952 -59.729 Weight 84 kg Intake: IV 800 600 200 Lactated Ringers 1,000 ml 600 600 100 @ 50 mls/hr IV .Q20H [facility] Rx#:[id number] Piperacillin-Tazobactam 3 200 100 .375 gm In Sodium Chloride 0.9% 100 ml @ 25 mls/hr IVPB Q8HR [facility] Rx# :[id number] Intake, IV Titration 33.035 90.952 10.271 Amount Dexmedetomidine/0.9% NaCl 33.035 90.952 10.271 (Pmx) 400 mcg In Empty Bag 1 bag @ 0.2 MCG/KG/HR 4.309 mls/hr IV .[id number] [facility] Rx#:[id number] Tube Feeding 60 260 80 Other 90 Output: Urine 760 660 350 Other: Voiding Method Indwelling Catheter Indwelling Catheter Indwelling Catheter - Exam GENERAL EXAM: Alert, pleasant 77-year-old gentleman, in no distress, 2 L nasal cannula HEAD: Normocephalic. Noted facial droop. EYES: Normal reaction of pupils, equal size. NOSE: Clear with pink turbinates. THROAT: No erythema or exudates. NECK: No masses, no JVD. CHEST: No chest wall deformity. LUNGS: Crackles at the bases with scattered rhonchi. CVS: S1 and S2 normal with no audible murmur, regular rhythm. ABDOMEN: No hepatosplenomegaly, normal bowel sounds, no guarding or rigidity. SPINE: No scoliosis or deformity SKIN: No rashes CENTRAL NERVOUS SYSTEM: No change in his overall neurological status with right- sided weakness and poor [id number] test with right hand. EXTREMITIES: There is no peripheral edema. No clubbing, no cyanosis. Peripheral pulses are intact. - Labs CBC & Chem 7: 08/28/23 04:56 08/28/23 04:56 Labs: Abnormal Lab Results - Last 24 Hours (Table) 08/27/23 08/27/23 08/28/23 Range/Units 17:58 23:48 04:56 RBC 3.64 L (4.30-5.90) m/uL Hgb 10.7 L (13.0-17.5) gm/dL Hct 35.2 L (39.0-53.0) % MCHC 30.4 L (31.0-37.0) g/dL Creatinine (0.66-1.25) mg/dL Glucose (74-99) mg/dL POC Glucose (mg/dL) 111 H 135 H (70-110) mg/dL AST (17-59) U/L Total Protein (6.3-8.2) g/dL Albumin (3.5-5.0) g/dL 08/28/23 08/28/23 Range/Units 04:56 06:33 RBC (4.30-5.90) m/uL Hgb (13.0-17.5) gm/dL Hct (39.0-53.0) % MCHC (31.0-37.0) g/dL Creatinine 0.65 L (0.66-1.25) mg/dL Glucose 131 H (74-99) mg/dL POC Glucose (mg/dL) 135 H (70-110) mg/dL AST 14 L (17-59) U/L Total Protein 5.0 L (6.3-8.2) g/dL Albumin 2.7 L (3.5-5.0) g/dL Assessment and Plan Assessment: Impression: Subacute cerebellar CVA with right-sided weakness, ataxia, and poor coordination. History of aortic valve replacement/bioprosthetic valve in 2014 Large hiatal hernia History of carotid artery stenosis with previous left carotid endarterectomy Benign essential hypertension Distal right vertebral artery occlusion Acute aspiration pneumonia Intermittent episodes of agitation, acute metabolic encephalopathy Recommendation: Continue to monitor in the ICU Continue Precedex, continue Seroquel Continue present supportive care measures Continue enteral feeding via PEG tube Continue Zosyn empirically for aspiration pneumonia Continue aspirin, subcu heparin and Brilinta Placement in rehab is in progress. Prognosis is guarded. Will continue to follow Time with Patient: Less than 30
[2023-08-28] MEDS: TICAGRELOR 90 MG TAB PO SCH (10:38)
[2023-08-28 11:55] LABS: Glucose,Whole Blood 115 mg/dL (70-110)
--- NOTE | 2023-08-28 12:40 | P.PN ---
Subjective Progress Note Date: 08/28/23 Patient is a pleasant 77-year-old male came in with complaints lightheadedness it is not clear whether patient is dizzy or vertigo but upon further questioning manage it appears patient has vertigo and patient has weakness in bilateral lower extremities patient is unable to stand. Patient denies any hearing problems sinusitis or ear infection. Patient denies any diaphoresis, denies shortness of breath but patient felt like his get a pass out. Patient is admitted for atrial fibrillation but I did not see any A-fib on the EKG patient had sinus rhythm with PVCs. Patient denies any syncope. Patient is unable to stand quite weak which also started yesterday. 08/20/2023 Patient is evaluated today in follow-up in the ER pending bed on the medical floor. He continues to report significant dizziness and lightheadedness. Patient is currently pending MRI. Had carotid doppler done showing bilateral heterogenous plaque greater than left with no significant hemodynamic stenosis by carotid Doppler ultrasound. Stenosis involving the left CECE suspected. There is cardiac dysrhythmia. There was concern for atrial fibrillation with has been ruled out at this time patient appears to have sinus rhythm with right bundle branch block and frequent PVCs and PACs. He has been started on dual antiplatelet therapy with aspirin and Plavix. Echocardiogram has been done and reveals an EF of 55 to 60% with moderate left atrial dilation, trace to mild mitral regurgitation. 08/21/2023 Patient is evaluated in follow-up on the medical floor. Patient does continue to report significant dizziness and lightheadedness ports he is up ambulating to the bathroom today was unable to ambulate back to the bed secondary to his dizziness. He has meclizine as needed 3 times a day would recommend to change this to scheduled to see if this helps improve his vertigo-like symptoms. Patient's MRI does come back positive for a acute ischemic stroke in the right cerebellum and right lateral medulla oblongata. This is felt to be due to him stopping his aspirin outpatient secondary to a recent lumbar surgery. 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 Neurology recommending aspirin and plavix. 08/22/2023 Patient is evaluated today in follow up. Further evaluation there is concern for thrombus in the ascending aortic aneurysm and patient will be going for a PRIMITIVO tomorrow as recommended by neurology. Patient remains on aspirin and plavix at this time. He continues to report dizziness and lightheadedness. He will be evaluated for inpatient rehab. 08/23/2023 Patient is reporting worsening neurosymptoms today he report hoarseness in his voice, blurry vision and headache over the right eye and occipital lobe, facial numbness in the right side. This correlates with the area of stroke with MRI sh owing positive right cerebellar and right medulla oblongata area of infarct. Patient will undergo a repeat brain CT today. He is also pending a PRIMITIVO with cardiology. Continues on aspirin and Plavix therapy for now. Blood work reveals a sodium level of 138, potassium 4.7, BUN of 12 creatinine of 0.72. 08/24/2023 Patient is evaluated today on the medical floor. He is having worsening neurological symptoms including the numbness now going from the face all the way down the right side into the right arm. Patient also reports weakness in the right side. He is up in the bathroom attempting to shave and washout but is quite frustrated and agitated due to his worsening neurological symptoms. He does report the pain in his right eye has slightly improved today. Patient was given a scopolamine patch yesterday due to secretions and hoarseness in his voice and he reports that he has not noticed much difference in his symptoms. A repeat brain CT was completed yesterday which did not report on the acute stroke. Noted there was a age-related atrophic and chronic small vessel ischemic change without any acute intracranial processes at this time. Underwent trans esophageal echocardiogram completed yesterday revealing a mildly dilated left atrium with normal appearance of the left atrial appendage. Normal ventricle size and systolic function. There is a bioprosthetic aortic valve with normal opening and no regurgitation. Mild mitral and tricuspid regurgitation. No shunting across the interarterial septum. A dilated ascending aorta measuring 4.2 cm. There is no evidence of pericardial effusion and this was a negative bubble study. Continues on aspirin and Plavix therapy at this time. He is receiving LR at 50 MLS per hour. Patient continues on DVT prophylaxis with subcutaneous heparin. Over the night patient had an episode of SVT with heart rate up into the 180s to 200s. He received adenosine and was started on IV Cardizem drip. This is being discontinued today and cardiology is planning on transitioning the patient to oral Lopressor. Heart rate is now controlled and he is in normal sinus mechanism. Had a chest xray due to increased congestion noted on examination and concern for aspiration. Chest xray reveals no acute cardiopulmonary process. There is large hiatal hernia may be present. Remains afebrile, heart rate of 96, blood pressure 122/66, 95% 2L nasal cannula. 08/24. Patient seen and examined. at the bedside. Patient had a swallow study done this morning and failed swallow eval. Discussed with speech, they are recommending PEG tube placement 08/25. Patient seen and examined. Patient is much more alert compared to yesterday. Family at the bedside. Patient scheduled for PEG tube placement today 08/26. Patient seen and examined. Patient had PEG tube placed yesterday, currently started on tube feeding. Patient gets frustrated easily. 08/27. Patient seen and examined. Currently sitting up in the chair. Patient has been weaned off the Precedex drip REVIEW OF SYSTEMS: Denies any chest pain. Denies any shortness of breath. Denies nausea or vomiting PHYSICAL EXAMINATION: GENERAL: The patient is alert to self, ill looking HEENT: Pupils are round and equally reacting to light. EOMI. No scleral icterus. No conjunctival pallor. Normocephalic, atraumatic. No pharyngeal erythema. No thyromegaly. CARDIOVASCULAR: S1 and S2 present. No murmurs, rubs, or gallops. PULMONARY: Chest is clear to auscultation, no wheezing or crackles. ABDOMEN: Soft, nontender, nondistended, normoactive bowel sounds. No palpable organomegaly. PEG tube in place MUSCULOSKELETAL: No joint swelling or deformity. EXTREMITIES: No cyanosis, clubbing, or pedal edema. NEUROLOGICAL: Moving all extremities muscle strength is 4 x 5 in right side and 5 x 5 in left side SKIN: No rashes. 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 Continue same treatment. Continue with symptomatic treatment. Resume home medication. Monitor labs and vitals. DVT and GI prophylaxis. Further recommendations as per clinical course of the patient Dictation was produced using [employer] dictation software. please excuse any grammatical, word or spelling errors. Objective - Vital Signs Vital signs: Vital Signs Temp 98.2 F 08/28/23 12:00 Pulse 88 08/28/23 12:00 Resp 8 L 08/28/23 12:00 BP 133/71 08/28/23 12:00 Pulse Ox 89 L 08/28/23 12:00 FiO2 50 08/26/23 05:07 Intake & Output 08/27/23 08/28/23 08/28/23 18:59 06:59 18:59 Intake Total 557.582 9284.952 650.271 Output Total 760 660 640 Balance 133.035 380.952 10.271 Weight 84 kg Intake: IV 800 600 400 Lactated Ringers 1,000 ml 600 600 300 @ 50 mls/hr IV .Q20H [facility] Rx#:[id number] Piperacillin-Tazobactam 3 200 100 .375 gm In Sodium Chloride 0.9% 100 ml @ 25 mls/hr IVPB Q8HR [facility] Rx# :[id number] Intake, IV Titration 33.035 90.952 10.271 Amount Dexmedetomidine/0.9% NaCl 33.035 90.952 10.271 (Pmx) 400 mcg In Empty Bag 1 bag @ 0.2 MCG/KG/HR 4.309 mls/hr IV .[id number] [facility] Rx#:[id number] Tube Feeding 60 260 240 Other 90 Output: Urine 760 660 640 Other: Voiding Method Indwelling Catheter Indwelling Catheter Indwelling Catheter - Labs CBC & Chem 7: 08/28/23 04:56 08/28/23 04:56 Labs: Abnormal Lab Results - Last 24 Hours (Table) 08/27/23 08/27/23 08/28/23 Range/Units 17:58 23:48 04:56 RBC 3.64 L (4.30-5.90) m/uL Hgb 10.7 L (13.0-17.5) gm/dL Hct 35.2 L (39.0-53.0) % MCHC 30.4 L (31.0-37.0) g/dL Creatinine (0.66-1.25) mg/dL Glucose (74-99) mg/dL POC Glucose (mg/dL) 111 H 135 H (70-110) mg/dL AST (17-59) U/L Total Protein (6.3-8.2) g/dL Albumin (3.5-5.0) g/dL 08/28/23 08/28/23 08/28/23 Range/Units 04:56 06:33 11:52 RBC (4.30-5.90) m/uL Hgb (13.0-17.5) gm/dL Hct (39.0-53.0) % MCHC (31.0-37.0) g/dL Creatinine 0.65 L (0.66-1.25) mg/dL Glucose 131 H (74-99) mg/dL POC Glucose (mg/dL) 135 H 115 H (70-110) mg/dL AST 14 L (17-59) U/L Total Protein 5.0 L (6.3-8.2) g/dL Albumin 2.7 L (3.5-5.0) g/dL
--- NOTE | 2023-08-28 14:38 | P.PN ---
Subjective Progress Note Date: 08/28/23 I am following-up with patient and according to the nurse overnight he was agitated and restless and had to be on IV Precedex and Seroquel was increased to 50mg bid. The Precedex is held and patient is more cooperative today. He feels he is hungry even though he is getting feeding via PEG tube. Objective - Vital Signs Vital signs: Vital Signs Temp 98.2 F 08/28/23 12:00 Pulse 101 H 08/28/23 13:00 Resp 9 L 08/28/23 13:00 BP 142/98 08/28/23 13:00 Pulse Ox 89 L 08/28/23 12:00 FiO2 50 08/26/23 05:07 Intake & Output 08/27/23 08/28/23 08/28/23 18:59 06:59 18:59 Intake Total 725.476 7518.952 650.271 Output Total 760 660 640 Balance 133.035 380.952 10.271 Weight 84 kg Intake: IV 800 600 400 Lactated Ringers 1,000 ml 600 600 300 @ 50 mls/hr IV .Q20H [facility] Rx#:[id number] Piperacillin-Tazobactam 3 200 100 .375 gm In Sodium Chloride 0.9% 100 ml @ 25 mls/hr IVPB Q8HR [facility] Rx# :[id number] Intake, IV Titration 33.035 90.952 10.271 Amount Dexmedetomidine/0.9% NaCl 33.035 90.952 10.271 (Pmx) 400 mcg In Empty Bag 1 bag @ 0.2 MCG/KG/HR 4.309 mls/hr IV .[id number] [facility] Rx#:[id number] Tube Feeding 60 260 240 Other 90 Output: Urine 760 660 640 Other: Voiding Method Indwelling Catheter Indwelling Catheter Indwelling Catheter - Exam General: Sitting in a recliner chair and isnot in acute distress. Neuro: The patient is awake, alert, oriented to self, place and time. Is following simple commands. No aphasia or neglect. Mild Ptosis of right eye. Pupils are round equal and reactive to light. Decrease sensation to right sided of face and normal to touch on left side. No facial weakness. Has mild to moderate hoarsesness of voice but feel there is improvement today. Has mild dysarthria but feel slight less. Motor: Strength is right upper extremity is forearm flexion is 4+. Otherwise 5/5 throughout. Cerebellar: Ataxia finger to nose on the right. - Labs CBC & Chem 7: 08/28/23 04:56 08/28/23 04:56 Labs: Abnormal Lab Results - Last 24 Hours (Table) 08/27/23 08/27/23 08/28/23 Range/Units 17:58 23:48 04:56 RBC 3.64 L (4.30-5.90) m/uL Hgb 10.7 L (13.0-17.5) gm/dL Hct 35.2 L (39.0-53.0) % MCHC 30.4 L (31.0-37.0) g/dL Creatinine (0.66-1.25) mg/dL Glucose (74-99) mg/dL POC Glucose (mg/dL) 111 H 135 H (70-110) mg/dL AST (17-59) U/L Total Protein (6.3-8.2) g/dL Albumin (3.5-5.0) g/dL 08/28/23 08/28/23 08/28/23 Range/Units 04:56 06:33 11:52 RBC (4.30-5.90) m/uL Hgb (13.0-17.5) gm/dL Hct (39.0-53.0) % MCHC (31.0-37.0) g/dL Creatinine 0.65 L (0.66-1.25) mg/dL Glucose 131 H (74-99) mg/dL POC Glucose (mg/dL) 135 H 115 H (70-110) mg/dL AST 14 L (17-59) U/L Total Protein 5.0 L (6.3-8.2) g/dL Albumin 2.7 L (3.5-5.0) g/dL Assessment and Plan Assessment: Acute ischemic stroke, right cerebellar region, definitively verified by MRI. Patient has presented with vertigo, nausea vomiting, gait ataxia and near syncope. Examination reveals nystagmus, ataxia of the right upper limb, and gait ataxia. CT head on my review revealed multiple areas of subacute ischemia in the right cerebellar hemisphere. MRI showed right cerebellum and right late ral medulla oblongata. Patient has history of aortic valve replacement for which patient was on aspirin. Patient had stopped aspirin for about 3 weeks around his lumbar surgery that was performed 3 weeks ago. * Right PCIA stroke (cerebellum and lateral medulla) with symptoms of ataxia on the right, right facial numbness, ptosis of right eye, hoarseness of voice, dyphagia and dizziness: Due to right PCIA stroke and he had worsening of symptoms due to evolution of stroke on repeat MRI--currently symptoms are stable. * Dysphagia due to stroke s/p PEG tube on 08/26/2023 * Delirium due to hospital and stroke induced---improved today * Hypertension * History of aortic valve replacement * Status post back surgery 3 weeks ago * History of bilateral knee and bilateral shoulder surgery. * Mild alcoholism, consumes 2 drinks of vodka daily. Plan: MRI of the brain on 08/20/2023 is reported as involving right cerebellum and right lateral medulla oblongatta. Nonspecific white matter changes, likely secondary due to small vessel ischemic disease. Repeat MRI Brain on 08/24/23: Involving the right cerebellum and the right lateral medulla upon Gatta infarct with slightly more restricted diffusion within the medulla oblongata compared to the immediate prior. No additional ar eas identified. Nonspecific white matter changes, likely secondary due to small vessel ischemic disease. CTA head and neck: Artery is occluded with reconstitution near confluence with the left vertebral artery. Evolving right cerebellar hemisphere and right medulla oblongata acute/subacute CVA. No evidence of dissection of cervical internal carotid artery or vertebral artery or any evidence of significant stenosis at the carotid bifurcation. No evidence of intracranial high-grade stenosis or intracranial aneurysm. Regarding the right vertebral artery the patient is outside the window of in tervention and had symptoms for >24 hours. Has been in our facility for 7 days. 2-D echo revealed left ventricular EF 55 to 60%. Left ventricular cavity size is normal. Mildly increased septal wall thickness. No obvious regional wall motion abnormalities. Moderate left atrial dilation. Ascending aorta is at upper limits of normal. Ascending aorta measured 4.1 cm with aortic root 3.9 cm. Carotid duplex is reported as bilateral heterogeneous plaque greater on the left with no significant hemodynamic stenosis by carotid Doppler ultrasound. 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 Cardiac dysrhythmia. PRIMITIVO: 1. Mildly dilated left atrium with normal appearance of the left atrial appendage, 2. Normal ventricle size and systolic function, 3. Bioprosthetic aortic valve with normal opening and no regurgitation, 4. Mild mitral and tricuspid regurgitation, 5. No shunting across the interatrial septum, 6. Dilated ascending aorta Recommend 30-day event monitor to rule out paroxysmal atrial fibrillation and on 08/22/2023 had monitor placed.. Continue scopolamine patch for excess secretion. Have head of the bed at 30 degrees. Cardiology on board. Fasting a.m. lipid panel. Patient on simvastatin 20 mg daily, would recommend increase to 40 mg in light of LDL cholesterol is elevated at 82.1, total cholesterol 182, triglycerides 123 Hemoglobin A1c-5.9 Continue aspirin 81 mg daily (home dose). During this admission he was on Plavix 75mg daily but it was changed to Brilinta 90mg bid on 08/24/2023. Neuro checks Telemetry monitoring rule out any arrhythmia PT, OT, speech therapy. On seroquel 50mg bid For DVT prophylaxis: On subq heparin. Upon discharge, recommend the patient to follow-up with neurologist as outpatient within 2 weeks. Patient is going to be discharge to inpatient rehab and I feel he will benefit from it. I feel the patient seem stable today. Can be downgraded to floors. If continues to be stable recommend to pursue discharge to inpatient rehab. The plan is discussed with patient and his nurse. Dr. De Jesus will resume neurology service tomorrow A.M. Time with Patient: Less than 30
[2023-08-28 23:39] LABS: Glucose,Whole Blood 151 mg/dL (70-110)
[2023-08-29 06:08] LABS: Glucose,Whole Blood 137 mg/dL (70-110)
[2023-08-29 06:46] LABS: HCT 37.6 % (39.0-53.0); HGB 11.3 gm/dL (13.0-17.5); Hypochromasia Moderate; MCHC 30.1 g/dL (31.0-37.0); MCV 96.4 fL (80.0-100.0); Mean Platelet Volume 7.4; Platelet Count 346 k/uL (150-450); RDW 13.1 % (11.5-15.5); WBC 7.4 k/uL (3.8-10.6)
[2023-08-29 07:28] LABS: ALT 12 U/L (4-49); AST 13 U/L (17-59); African American GFR (CKD) >90 (>60 ml/min/1.73 sqM); Albumin 3.1 g/dL (3.5-5.0); Alkaline Phosphatase 70 U/L (38-126); Anion Gap 4 mmol/L; Blood Urea Nitrogen 11 mg/dL (9-20); Carbon Dioxide 29 mmol/L (22-30); Chloride 106 mmol/L (98-107); Glucose 129 mg/dL (74-99); Magnesium 2.1 mg/dL (1.6-2.3); Non-African American GFR(CKD) 88 (>60 ml/min/1.73 sqM); Potassium 4.4 mmol/L (3.5-5.1); Sodium 139 mmol/L (137-145); Total Bilirubin 0.7 mg/dL (0.2-1.3); Total Protein 5.4 g/dL (6.3-8.2)
[2023-08-29] MEDS: propofoL 100 ML IV ONE (08:25)
[2023-08-29 11:48] VITALS: BMI 25.1
[2023-08-29 12:17] LABS: Glucose,Whole Blood 139 mg/dL (70-110)
--- NOTE | 2023-08-29 12:45 | P.PN ---
Subjective Progress Note Date: 08/29/23 This is a 77-year-old male patient with a known history of hypertension, hyperlipidemia, gastroesophageal reflux disease, daily alcohol use, previous aortic valve replacement in 2014, previous left carotid endarterectomy, recent back surgery 3 weeks ago. 6 days ago the patient had developed severe dizziness lightheadedness and weakness and was able to get himself into a chair but then unable to get out. EMS was called and he was brought here on 08/18/2023. CT angiogram ruled out pulmonary embolism. 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 Large hiatal hernia. CT scan of the brain revealed a moderate age-appropriate atrophy and ischemic demyelination. No acute bleed or mass effect. Echocardiogram revealed preserved left ventricular systolic function. Normally functioning bioprosthetic aortic valve. No evidence of thrombus. Carotid Dopplers revealed no significant stenosis bilaterally. MRI of the brain on 08/20/2023 revealed restricted diffusion within the right cerebellum and right lateral mid medulla oblongata. Follow-up CT scan of the brain revealed age-related atrophy and chronic small vessel ischemic changes without acute intracranial process. However, the patient was having progressive symptoms with increasing weakness on his right side. Facial droop, difficulty managing his secretions. He was seen again by neurology who felt that his CVA was evolving and is requesting transfer to the intensive care unit. Seen today in consultation. He is currently awake and alert. He definitely has some drifting of the right upper extremity. Unable to perform simple tasks such as touching his nose with his right finger. He is coughing and congested. Maintaining good O2 saturations in the mid 90s on 2 L/min per nasal cannula. He is afebrile. Hemodynamically stable. White count 7.2. Hemoglobin 10.4. Platelets 224. Sodium 138. Potassium 3.7. Bicarb 24. BUN 12. Creatinine 0.72. Glucose 106. He currently has a scopolamine patch in place. He is continued on Brilinta and aspirin. Heparin for DVT prophylaxis. Lactated Ringer's at 50 MLS per hour. PRIMITIVO today ruled out thrombus, no evidence of shunting across the interatrial septum, normally functioning bioprosthetic aortic valve. Patient evaluated today on 08/25/2023, remains in the ICU, I saw him yesterday and arrange for transfer to ICU. Patient is obviously having evolving right cerebellar CVA and lateral medulla oblongata CVA. Patient required a Precedex 0.2 mcg/kg/h yesterday upon arrival to the ICU as he was getting agitated and restless, aggressive. Today he seems to be [place]. He is now on aspirin, Brilinta, and heparin subcu. Patient is basically about the same as yesterday, not much has changed with his neurological findings, continues to have abnormal cerebellar findings with definite abnormal right [id number] test. CT angiogram showed distal right vertebral artery occlusion was involving the right cerebellar hemisphere and right medulla oblongata changes/acute evaluated today on 08/26/2023, remains in the ICU, patient is on 4 L nasal can nula, off Precedex. Patient is scheduled to have a PEG tube placement today. Chest x-ray is now showing a right lower lobe infiltrate highly suspicious for aspiration pneumonia hence I have recommended that we start the patient on Zosyn empirically. His neurological status is about the same, no change, and he is being closely followed by neurology on the case. WBC count is 8.6 hemoglobin 10.7 electrolytes are normal and renal profile is normal Patient was evaluated today on 08/27/2023, patient is basically about the same. However he is back on Precedex because of intermittent episodes of agitation. On 3 L nasal cannula and O2 sats are 95% patient is status post PEG tube placement for nutritional support/enteral feeding via PEG tube. Apparently the patient failed his swallow evaluation, and clearly required a PEG tube placement which was done by Dr. Friend chest x-ray continues to show bibasilar infiltrates right more so than left, consistent with aspiration pneumonia, patient remains on Zosyn. WBC count is 7.5 hemoglobin is 10 electrolytes are normal renal profile is normal Patient was evaluated today on 08/28/2023, continues to have intermittent episodes of agitations had to be placed back on Precedex yesterday. Presently on 0.2 mcg/kg/h. Patient is also on Seroquel 50 mg twice daily patient is receiving feeding via PEG tube/enteral feeding he did develop aspiration p neumonia and his swallow evaluations to be rechecked in the next 24 hours. On 2 L nasal cannula, seems to be fairly calm with Precedex. Enteral feeding with Jevity at 40 cc/h.WBC count is 6 hemoglobin 10.7 basic metabolic profile is normal and renal profile is normal The patient is seen today August 29, 2023 in follow-up in the intensive care unit. He is currently awake and alert in no acute distress. He is currently maintaining good O2 saturations in the 90s on room air. He has lactated Rin olu's at 50 MLS per hour. He is being nourished through his PEG tube with Jevity 1.5 at 54 mL an hour which is goal. He has been more calm and cooperative. Less impulsive. He is currently off Precedex. 11.3. Platelets 346. Sodium 139. Potassium 4.4. Bicarb 29. BUN 11. Creatinine 0.76. Gl ucose 129. He has been on Zosyn for aspiration pneumonia. Heparin for DVT prophylaxis. Scopolamine patch remains in place for his excess secretions. Repeat swallow valuation is pending Objective - Vital Signs Vital signs: Vital Signs Temp 98.0 F 08/29/23 04:00 Pulse 98 08/29/23 12:00 Resp 26 H 08/29/23 12:00 BP 117/65 08/29/23 12:00 Pulse Ox 96 08/29/23 12:00 FiO2 50 08/26/23 05:07 Intake & Output 08/28/23 08/29/23 08/29/23 18:59 06:59 18:59 Intake Total 8151.203 3382 744 Output Total 1065 890 380 Balance 253.271 418 364 Weight 84 kg 84 kg Intake: IV 800 600 360 Invasive Line 5 10 Lactated Ringers 1,000 ml 600 600 300 @ 50 mls/hr IV .Q20H [facility] Rx#:[id number] Piperacillin-Tazobactam 3 200 .375 gm In Sodium Chloride 0.9% 100 ml @ 25 mls/hr IVPB Q8HR [facility] Rx# :[id number] cefTRIAXone 1 gm In 50 Sodium Chloride 0.9% 50 ml @ 100 mls/hr IVPB Q24HR [facility] Rx#:[id number] Intake, IV Titration 10.271 Amount Dexmedetomidine/0.9% NaCl 10.271 (Pmx) 400 mcg In Empty Bag 1 bag @ 0.2 MCG/KG/HR 4.309 mls/hr IV .[id number] [facility] Rx#:[id number] Tube Feeding 508 648 324 Other 60 60 Output: Urine 1065 890 380 Other: Voiding Method Indwelling Catheter Indwelling Catheter Indwelling Catheter # Bowel Movements 1 - Exam GENERAL EXAM: Alert, calm, cooperative 77-year-old gentleman, in no distress, on room air HEAD: Normocephalic. Noted facial droop. EYES: Normal reaction of pupils, equal size. NOSE: Clear with pink turbinates. THROAT: No erythema or exudates. NECK: No masses, no JVD. CHEST: No chest wall deformity. LUNGS: Crackles at the bases with scattered rhonchi. CVS: S1 and S2 normal with no audible murmur, regular rhythm. ABDOMEN: No hepatosplenomegaly, normal bowel sounds, no guarding or rigidity. SPINE: No scoliosis or deformity SKIN: No rashes CENTRAL NERVOUS SYSTEM: No change in his overall neurological status with right- sided weakness and poor [id number] test with right hand. EXTREMITIES: There is no peripheral edema. No clubbing, no cyanosis. Peripheral pulses are intact. - Labs CBC & Chem 7: 08/29/23 06:10 08/29/23 06:10 Labs: Abnormal Lab Results - Last 24 Hours (Table) 08/28/23 08/29/23 08/29/23 Range/Units 23:37 06:07 06:10 RBC 3.90 L (4.30-5.90) m/uL Hgb 11.3 L (13.0-17.5) gm/dL Hct 37.6 L (39.0-53.0) % MCHC 30.1 L (31.0-37.0) g/dL Glucose (74-99) mg/dL POC Glucose (mg/dL) 151 H 137 H (70-110) mg/dL AST (17-59) U/L Total Protein (6.3-8.2) g/dL Albumin (3.5-5.0) g/dL 08/29/23 08/29/23 Range/Units 06:10 12:15 RBC (4.30-5.90) m/uL Hgb (13.0-17.5) gm/dL Hct (39.0-53.0) % MCHC (31.0-37.0) g/dL Glucose 129 H (74-99) mg/dL POC Glucose (mg/dL) 139 H (70-110) mg/dL AST 13 L (17-59) U/L Total Protein 5.4 L (6.3-8.2) g/dL Albumin 3.1 L (3.5-5.0) g/dL Assessment and Plan Assessment: Acute ischemic stroke, right cerebellar region and right lateral medulla oblongata as documented by MRI Dysphagia secondary to above, status post PEG tube placement on 08/26/2023, being nourished with Jevity Nystagmus, ataxia of the right upper extremity, gait ataxia secondary to above Recent back surgery approximately 3 weeks ago and patient had remained off aspirin Aortic valve replacement with bioprosthetic valve in 2013 Hyperlipidemia Gastroesophageal reflux disease Large hiatal hernia Carotid stenosis with previous left carotid endarterectomy History of hypertension History of daily alcohol use Plan: The patient was seen and evaluated Labs and medications reviewed Discontinue Zosyn, add ceftriaxone Currently stable and on room air Scopolamine patch remains in place Maintained on statin, aspirin and Brilinta Heparin for DVT prophylaxis Stable for transfer to the selective care unit I have personally seen and examined the patient, performed the documentation in the assessment and plan as written. Number of minutes spent on the visit: 10.
--- NOTE | 2023-08-29 15:25 | P.PN ---
Subjective Progress Note Date: 08/29/23 PMR progress note. Mr. Colunga is 77 yo, right-handed, , lives with his in a 2 story home with 3 BERTIN; does have bed/bath on 1st floor if needed. Was using a walker recently as had lumbar surgery 2 weeks ago. Otherwise was independent with mobility and ADLS. He presented to the hospital because of lightheadedness and dizziness. It is unclear if patient had a passing out spell. There was a concern of possible atrial fibrillation on admission Hg. On review of ECG and telemetry it appears that the rhythm is sinus rhythm with frequent PACs and right bundle branch block. There is no prior documented atrial fibrillation history on [facility]. Patient not on prior anticoagulation. hemoglobin 10.4, BUN 17, creatinine 0.5, troponins are negative, TSH 1.2. Cardiac testing ECG shows sinus rhythm with frequent PACs, right bundle branch block. Heart rate 83 bpm Echo showed LVEF 55 to 60%, no wall motion abnormality, moderate LA dilatation, normal functioning bioprosthetic aortic valve, 18 mmHg mean gradient, no PVL, ascending or to dilated at 4.1 cm Suspected left ECA stenosis on carotid Doppler 08/20/2023 Patient is evaluated today in follow-up in the ER pending bed on the medical floor. He continues to report significant dizziness and lightheadedness. Patient is currently pending MRI. Had carotid doppler done showing bilateral heterogenous plaque greater than left with no significant hemodynamic stenosis by carotid Doppler ultrasound. Stenosis involving the left CECE suspected. There is cardiac dysrhythmia. There was concern for atrial fibrillation with has been ruled out at this time patient appears to have sinus rhythm with right bundle branch block and frequent PVCs and PACs. He has been started on dual antiplatelet therapy with aspirin and Plavix. Echocardiogram has been done and reveals an EF of 55 to 60% with moderate left atrial dilation, trace to mild mitral regurgitation. 08/21/2023 Patient is evaluated in follow-up on the medical floor. Patient does continue to report significant dizziness and lightheadedness ports he is up ambulating to the bathroom today was unable to ambulate back to the bed secondary to his dizz iness. He has meclizine as needed 3 times a day would recommend to change this to scheduled to see if this helps improve his vertigo-like symptoms. Patient's MRI does come back positive for a acute ischemic stroke in the right cerebellum and right lateral medulla oblongata. This is felt to be due to him stopping his aspirin outpatient secondary to a recent lumbar surgery. 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 Neurology recommending aspirin and plavix. 08/21 Patient states that his breathing is a little labored and a little worse from when he came in. He denies having any chest pain, no syncopal episodes, he does have dizziness like spinning of the room. No nausea. His primary exhibit carpenter is Dr. Colon. He denies history of atrial fibrillation. Patient has been seen by cardiothoracic surgery regarding ascending aortic pseudoaneurysm. No plan for any surgical intervention at this time as patient follows on a regular basis with Dr. Jacobs. Echocardiogram reveals EF of 55 to 60%. Moderate left atrial dilatation. Normally functioning bioprosthetic aortic valve with mean gradient 18 mmHg. No PE VL. Ascending aorta measuring 4.1 cm. Aortic root 3.9 cm. Patient was evaluated today on 08/28/2023, continues to have intermittent episodes of agitations had to be placed back on Precedex yesterday. Presently on 0.2 mcg/kg/h. Patient is also on Seroquel 50 mg twice daily patient is receiving feeding via PEG tube/enteral feeding he did develop aspiration pneumonia and his swallow evaluations to be rechecked in the next 24 hours. On 2 L nasal cannula, seems to be fairly calm with Precedex. Enteral feeding with Jevity at 40 cc/h.WBC count is 6 hemoglobin 10.7 basic metabolic profile is normal and renal profile is normal The patient is seen today August 29, 2023 in follow-up in the intensive care unit. He is currently awake and alert in no acute distress. He is currently maintaining good O2 saturations in the 90s on room air. He has lactated Ringer's at 50 MLS per hour. He is being nourished through his PEG tube with Jevity 1.5 at 54 mL an hour which is goal. He has been more calm and cooperative. Less impulsive. He is currently off Precedex. 11.3. Platelets 346. Sodium 139. Potassium 4.4. Bicarb 29. BUN 11. Creatinine 0.76. Glucose 129. He has been on Zosyn for aspiration pneumonia. Heparin for DVT prophylaxis. Scopolamine patch remains in place for his excess secretions. Repeat swallow valuation is pending 08/28: PMR follow up. States feeling better, doesn't recall being agitated. Does admit to some SOB with activity and feels his legs are weak. Denies CP, abdominal pain or other pain complaints. With therapies today was Dep for bathing/dressing, Max A x2 for bed mobility. On 08/25 was mod A for bed mobility, in restriants. Objective - Vital Signs Vital signs: Vital Signs Temp 98.0 F 08/29/23 04:00 Pulse 98 08/29/23 12:00 Resp 26 H 08/29/23 12:00 BP 117/65 08/29/23 12:00 Pulse Ox 96 08/29/23 12:00 FiO2 50 08/26/23 05:07 Intake & Output 08/28/23 08/29/23 08/29/23 18:59 06:59 18:59 Intake Total 4247.107 2020 1066 Output Total 1065 890 560 Balance 253.271 418 506 Weight 84 kg 84 kg Intake: IV 800 600 520 Invasive Line 5 20 Lactated Ringers 1,000 ml 600 600 450 @ 50 mls/hr IV .Q20H [facility] Rx#:[id number] Piperacillin-Tazobactam 3 200 .375 gm In Sodium Chloride 0.9% 100 ml @ 25 mls/hr IVPB Q8HR [facility]IKE Rx# :[id number] cefTRIAXone 1 gm In 50 Sodium Chloride 0.9% 50 ml @ 100 mls/hr IVPB Q24HR [facility]IKE Rx#:[id number] Intake, IV Titration 10.271 Amount Dexmedetomidine/0.9% NaCl 10.271 (Pmx) 400 mcg In Empty Bag 1 bag @ 0.2 MCG/KG/HR 4.309 mls/hr IV .[id number] [facility]IKE Rx#:[id number] Tube Feeding 508 648 486 Other 60 60 Output: Urine 1065 890 560 Other: Voiding Method Indwelling Catheter Indwelling Catheter Indwelling Catheter # Bowel Movements 1 GENERAL: NAD, Well developed, well nourished. HEENT: Pupils are round and equally reacting to light. EOMI. HEART: Regular rate LUNGS: Good air exchange, non-labored ABDOMEN: Soft, nontender, nondistended NEURO: A&O x4. Speech fluent. MMT 5/5 right UE/LE, 4-/5 left UE/LE SILT intact bilateral UE/LE Right finger to nose and heel to mulligan with dysmetria EXTREMITIES: No cyanosis, clubbing, or pedal edema; negative Homans, no calf TTP SKIN: No rashes, warm and dry - Labs CBC & Chem 7: 08/29/23 06:10 08/29/23 06:10 Labs: Abnormal Lab Results - Last 24 Hours (Table) 08/28/23 08/29/23 08/29/23 Range/Units 23:37 06:07 06:10 RBC 3.90 L (4.30-5.90) m/uL Hgb 11.3 L (13.0-17.5) gm/dL Hct 37.6 L (39.0-53.0) % MCHC 30.1 L (31.0-37.0) g/dL Glucose (74-99) mg/dL POC Glucose (mg/dL) 151 H 137 H (70-110) mg/dL AST (17-59) U/L Total Protein (6.3-8.2) g/dL Albumin (3.5-5.0) g/dL 08/29/23 08/29/23 Range/Units 06:10 12:15 RBC (4.30-5.90) m/uL Hgb (13.0-17.5) gm/dL Hct (39.0-53.0) % MCHC (31.0-37.0) g/dL Glucose 129 H (74-99) mg/dL POC Glucose (mg/dL) 139 H (70-110) mg/dL AST 13 L (17-59) U/L Total Protein 5.4 L (6.3-8.2) g/dL Albumin 3.1 L (3.5-5.0) g/dL Assessment and Plan Assessment: Assessment and Plan Assessment: # Right cerebellar/lateral medulla oblongata CVA with ataxia, dizziness - brain CT positive for multiple areas of subacute ischemia in the right cerebellar hemisphere - Patient recently stopped taking his aspirin outpatient about 3 weeks ago secondary to lumbar surgery that was performed. - brain MRI confirms stroke in the right cerebellum. - decline in function, with agitation with progression of CVA. 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 On review of CT from 2019, ascending aorta pseudoaneurysm was noticed measuring at 2.3 cm # Mild Ascending aorta dilatation - CT surgery consult for ascending aorta pseudoaneurysm appreciated. No plan for intervention #S/p bioprosthetic aortic valve, normal function # History of prostate cancer # Recent lumbar surgery 3 weeks ago # Hx of carotid artery stenosis with previous left carotid endartectomy Recommendations: - per your medical management - continue therapies Currently Max A x2 to Dep with therapies. At this time would be most appropriate for CHARIS. However, if able to participate and have slightly improved function, can reassess.
--- NOTE | 2023-08-29 18:32 | P.PN ---
Subjective Progress Note Date: 08/29/23 Patient was seen for a follow-up. Patient was seen for initial consultation on 08/19/2023. Subsequently patient was seen by Dr. Navarrete, and then by Dr. Arce. Please refer to their note for details. Patient states he is feeling much better. Patient had dysphagia, requiring PEG tube placement. He has hoarse voice, which is most bothering him. His right- sided numbness has improved. Objective - Vital Signs Vital signs: Vital Signs Temp 98.6 F 08/29/23 16:00 Pulse 109 H 08/29/23 16:00 Resp 22 08/29/23 16:00 BP 133/80 08/29/23 16:00 Pulse Ox 93 L 08/29/23 16:00 FiO2 50 08/26/23 05:07 Intake & Output 08/28/23 08/29/23 08/29/23 18:59 06:59 18:59 Intake Total 8061.354 1096 1066 Output Total 1065 890 560 Balance 253.271 418 506 Weight 84 kg 84 kg Intake: IV 800 600 520 Invasive Line 5 20 Lactated Ringers 1,000 ml 600 600 450 @ 50 mls/hr IV .Q20H [facility] Rx#:[id number] Piperacillin-Tazobactam 3 200 .375 gm In Sodium Chloride 0.9% 100 ml @ 25 mls/hr IVPB Q8HR [facility] Rx# :[id number] cefTRIAXone 1 gm In 50 Sodium Chloride 0.9% 50 ml @ 100 mls/hr IVPB Q24HR [facility] Rx#:[id number] Intake, IV Titration 10.271 Amount Dexmedetomidine/0.9% NaCl 10.271 (Pmx) 400 mcg In Empty Bag 1 bag @ 0.2 MCG/KG/HR 4.309 mls/hr IV .[id number] [facility] Rx#:[id number] Tube Feeding 508 648 486 Other 60 60 Output: Urine 1065 890 560 Other: Voiding Method Indwelling Catheter Indwelling Catheter Indwelling Catheter # Bowel Movements 1 - Exam Patient's mental status is normal. Patient has hoarse voice. No aphasia. Mentation normal. On cranial examination pupils are equal, round and reactive to light, visual gregorio are full. Extraocular muscles are intact. Patient has right ptosis. Patient has flattening of the right nasolabial fold. Tongue protrudes midline. On muscle strength testing, the strength is normal in the arms and legs. Patient has ataxia for [id number] testing on the right. No ataxia with the left upper limb. Sensory to touch is decreased in the right arm and right leg. Sensory to temperature is decreased on the left arm and left leg. Patient has crossed sens ory findings. - Labs CBC & Chem 7: 08/29/23 06:10 08/29/23 06:10 Labs: Abnormal Lab Results - Last 24 Hours (Table) 08/28/23 08/29/23 08/29/23 Range/Units 23:37 06:07 06:10 RBC 3.90 L (4.30-5.90) m/uL Hgb 11.3 L (13.0-17.5) gm/dL Hct 37.6 L (39.0-53.0) % MCHC 30.1 L (31.0-37.0) g/dL Glucose (74-99) mg/dL POC Glucose (mg/dL) 151 H 137 H (70-110) mg/dL AST (17-59) U/L Total Protein (6.3-8.2) g/dL Albumin (3.5-5.0) g/dL Procalcitonin (0.02-0.09) ng/mL 08/29/23 08/29/23 08/29/23 Range/Units 06:10 06:10 12:15 RBC (4.30-5.90) m/uL Hgb (13.0-17.5) gm/dL Hct (39.0-53.0) % MCHC (31.0-37.0) g/dL Glucose 129 H (74-99) mg/dL POC Glucose (mg/dL) 139 H (70-110) mg/dL AST 13 L (17-59) U/L Total Protein 5.4 L (6.3-8.2) g/dL Albumin 3.1 L (3.5-5.0) g/dL Procalcitonin 0.69 H (0.02-0.09) ng/mL Assessment and Plan Assessment: * Acute ischemic stroke, right PICA distribution. Patient has presented with vertigo, nausea vomiting, gait ataxia and near syncope. Examination reveals nystagmus, ataxia of the right upper limb, and gait ataxia. CT head on my review revealed multiple areas of subacute ischemia in the right cerebellar h emisphere. Patient has history of aortic valve replacement for which patient was on aspirin. Patient had stopped aspirin for about 3 weeks around his lumbar surgery that was performed 3 weeks ago. * Dysphagia due to stroke s/p PEG tube on 08/26/2023 * Delirium due to hospital and stroke induced---improved today * Hypertension * History of aortic valve replacement * Status post back surgery 3 weeks ago * History of bilateral knee and bilateral shoulder surgery. * Mild alcoholism, consumes 2 drinks of vodka daily. Plan: * MRI of the brain on 08/20/2023 is reported as involving right cerebellum and right lateral medulla oblongatta. Nonspecific white matter changes, likely secondary due to small vessel ischemic disease. * Repeat MRI Brain on 08/24/23: Involving the right cerebellum and the right lateral medulla oblongata, with slightly more restricted diffusion within the medulla oblongata compared to the immediate prior. No additional areas identified. Nonspecific white matter changes, likely secondary due to small vessel ischemic disease. 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 Evolving right cerebellar hemisphere and right medulla oblongata acute/subacute CVA. No evidence of dissection of cervical internal carotid artery or vertebral artery or any evidence of significant stenosis at the carotid bifurcation. No evidence of intracranial high-grade stenosis or intracranial aneurysm. * Regarding the right vertebral artery the patient is outside the window of intervention and had symptoms for >24 hours. Has been in our facility for 7 days. * 2-D echo revealed left ventricular EF 55 to 60%. Left ventricular cavity size is normal. Mildly increased septal wall thickness. No obvious regional wall motion abnormalities. Moderate left atrial dilation. Ascending aorta is at upper limits of normal. Ascending aorta measured 4.1 cm with aortic root 3.9 cm. * Carotid duplex is reported as bilateral heterogeneous plaque greater on the left with no significant hemodynamic stenosis by carotid Doppler ultrasound. 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 Cardiac dysrhythmia. * PRIMITIVO: 1. Mildly dilated left atrium with normal appearance of the left atrial appendage, 2. Normal ventricle size and systolic function, 3. Bioprosthetic aortic valve with normal opening and no regurgitation, 4. Mild mitral and tricuspid regurgitation, 5. No shunting across the interatrial septum, 6. Dilated ascending aorta * Recommend 30-day event monitor to rule out paroxysmal atrial fibrillation and on 08/22/2023 had monitor placed.. * Continue scopolamine patch for excess secretion. . * Cardiology on board. No evidence of atrial fibrillation. * Fasting a.m. lipid panel. Patient on simvastatin 20 mg daily, would recommend increase to 40 mg in light of LDL cholesterol is elevated at 82.1, total cholesterol 182, triglycerides 123 * Hemoglobin A1c-5.9 * Continue aspirin 81 mg daily (home dose). During this admission he was on Plavix 75mg daily but it was changed to Brilinta 90mg bid on 08/24/2023. * Neuro checks * Telemetry monitoring rule out any arrhythmia * PT, OT, speech therapy. * On seroquel 50mg bid * For DVT prophylaxis: On subq heparin. * Upon discharge, recommend the patient to follow-up with neurologist as ou tpatient within 2 weeks. * Patient is going to be discharge to inpatient rehab and I feel he will benefit from it. * Neurologically clear for discharge.
[2023-08-29 18:56] LABS: Glucose,Whole Blood 122 mg/dL (70-110)
[2023-08-29 19:57] LABS: Glucose,Whole Blood 125 mg/dL (70-110)
--- NOTE | 2023-08-29 22:14 | P.PN ---
Subjective Patient is a pleasant 77-year-old male came in with complaints lightheadedness it is not clear whether patient is dizzy or vertigo but upon further questioning manage it appears patient has vertigo and patient has weakness in bilateral lower extremities patient is unable to stand. Patient denies any hearing problems sinusitis or ear infection. Patient denies any diaphoresis, denies shortness of breath but patient felt like his get a pass out. Patient is admitted for atrial fibrillation but I did not see any A-fib on the EKG patient had sinus rhythm with PVCs. Patient denies any syncope. Patient is unable to stand quite weak which also started yesterday. 08/20/2023 Patient is evaluated today in follow-up in the ER pending bed on the medical floor. He continues to report significant dizziness and lightheadedness. Patient is currently pending MRI. Had carotid doppler done showing bilateral heterogenous plaque greater than left with no significant hemodynamic stenosis by carotid Doppler ultrasound. Stenosis involving the left CECE suspected. There is cardiac dysrhythmia. There was concern for atrial fibrillation with has been ruled out at this time patient appears to have sinus rhythm with right bundle branch block and frequent PVCs and PACs. He has been started on dual antiplatelet therapy with aspirin and Plavix. Echocardiogram has been done and reveals an EF of 55 to 60% with moderate left atrial dilation, trace to mild mitral regurgitation. 08/21/2023 Patient is evaluated in follow-up on the medical floor. Patient does continue to report significant dizziness and lightheadedness ports he is up ambulating to the bathroom today was unable to ambulate back to the bed secondary to his dizziness. He has meclizine as needed 3 times a day would recommend to change this to scheduled to see if this helps improve his vertigo-like symptoms. Patient's MRI does come back positive for a acute ischemic stroke in the right cerebellum and right lateral medulla oblongata. This is felt to be due to him stopping his aspirin outpatient secondary to a recent lumbar surgery. 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 Neurology recommending aspirin and plavix. 08/22/2023 Patient is evaluated today in follow up. Further evaluation there is concern for thrombus in the ascending aortic aneurysm and patient will be going for a PRIMITIVO tomorrow as recommended by neurology. Patient remains on aspirin and plavix at this time. He continues to report dizziness and lightheadedness. He will be evaluated for inpatient rehab. 08/23/2023 Patient is reporting worsening neurosymptoms today he report hoarseness in his v oice, blurry vision and headache over the right eye and occipital lobe, facial numbness in the right side. This correlates with the area of stroke with MRI showing positive right cerebellar and right medulla oblongata area of infarct. Patient will undergo a repeat brain CT today. He is also pending a PRIMITIVO with cardiology. Continues on aspirin and Plavix therapy for now. Blood work reveals a sodium level of 138, potassium 4.7, BUN of 12 creatinine of 0.72. 08/24/2023 Patient is evaluated today on the medical floor. He is having worsening neurological symptoms including the numbness now going from the face all the way down the right side into the right arm. Patient also reports weakness in the right side. He is up in the bathroom attempting to shave and washout but is quite frustrated and agitated due to his worsening neurological symptoms. He does report the pain in his right eye has slightly improved today. Patient was given a scopolamine patch yesterday due to secretions and hoarseness in his voice and he reports that he has not noticed much difference in his symptoms. A repeat brain CT was completed yesterday which did not report on the acute stroke. Noted there was a age-related atrophic and chronic small vessel ischemic change without any acute intracranial processes at this time. Underwent trans esophageal echocardiogram completed yesterday revealing a mildly dilated left atrium with normal appearance of the left atrial appendage. Normal ventricle size and systolic function. There is a bioprosthetic aortic valve with normal opening and no regurgitation. Mild mitral and tricuspid regurgitation. No shunting across the interarterial septum. A dilated ascending aorta measuring 4.2 cm. There is no evidence of pericardial effusion and this was a negative bubble study. Continues on aspirin and Plavix therapy at this time. He is receiving LR at 50 MLS per hour. Patient continues on DVT prophylaxis with subcutaneous heparin. Over the night patient had an episode of SVT with heart rate up into the 180s to 200s. He received adenosine and was sta rted on IV Cardizem drip. This is being discontinued today and cardiology is planning on transitioning the patient to oral Lopressor. Heart rate is now controlled and he is in normal sinus mechanism. Had a chest xray due to increased congestion noted on examination and concern for aspiration. Chest xray reveals no acute cardiopulmonary process. There is large hiatal hernia may be present. Remains afebrile, heart rate of 96, blood pressure 122/66, 95% 2L nasal cannula. 08/24. Patient seen and examined. at the bedside. Patient had a swallow study done this morning and failed swallow eval. Discussed with speech, they are recommending PEG tube placement 08/25. Patient seen and examined. Patient is much more alert compared to yesterday. Family at the bedside. Patient scheduled for PEG tube placement today 08/26. Patient seen and examined. Patient had PEG tube placed yesterday, currently started on tube feeding. Patient gets frustrated easily. 08/27. Patient seen and examined. Currently sitting up in the chair. Patient has been weaned off the Precedex drip 08/29/23 Patient was calm this morning, no more agitation, he was not getting Precedex Seroquel was increased to 50 mg twice daily PEG tube in place Patient will benefit from IPR upon discharge Had Powell catheter in place with yellow urine Ringer lactate running at 50 mL/h Tube feeding running at 50 mL/h Patient has mild weakness on the right arm and leg Numbness feels better No headache or dizziness Feels congested Objective - Vital Signs Vital signs: Vital Signs Temp 98.0 F 08/29/23 04:00 Pulse 96 08/29/23 11:00 Resp 16 08/29/23 11:00 BP 117/65 08/29/23 11:00 Pulse Ox 93 L 08/29/23 11:00 FiO2 50 08/26/23 05:07 Intake & Output 08/28/23 08/29/23 08/29/23 18:59 06:59 18:59 Intake Total 5431.690 0383 610 Output Total 1065 890 315 Balance 253.271 418 295 Weight 84 kg 84 kg Intake: IV 800 600 310 Invasive Line 5 10 Lactated Ringers 1,000 ml 600 600 250 @ 50 mls/hr IV .Q20H [facility] Rx#:[id number] Piperacillin-Tazobactam 3 200 .375 gm In Sodium Chloride 0.9% 100 ml @ 25 mls/hr IVPB Q8HR [facility] Rx# :[id number] cefTRIAXone 1 gm In 50 Sodium Chloride 0.9% 50 ml @ 100 mls/hr IVPB Q24HR [facility] Rx#:[id number] Intake, IV Titration 10.271 Amount Dexmedetomidine/0.9% NaCl 10.271 (Pmx) 400 mcg In Empty Bag 1 bag @ 0.2 MCG/KG/HR 4.309 mls/hr IV .[id number] [facility] Rx#:[id number] Tube Feeding 508 648 270 Other 60 30 Output: Urine 1065 890 315 Other: Voiding Method Indwelling Catheter Indwelling Catheter Indwelling Catheter # Bowel Movements 1 - Exam GENERAL: The patient is alert and oriented x3, not in any acute distress. Well developed, well nourished. HEENT: Pupils are round and equally reacting to light. EOMI. No scleral icterus. No conjunctival pallor. Normocephalic, atraumatic. No pharyngeal erythema. No thyromegaly. CARDIOVASCULAR: S1 and S2 present. No murmurs, rubs, or gallops. PULMONARY: Chest is clear to auscultation, no wheezing , no crackles. ABDOMEN: Soft, nontender, nondistended, normoactive bowel sounds. No palpable organomegaly. MUSCULOSKELETAL: No joint swelling or deformity. EXTREMITIES: No cyanosis, clubbing, or pedal edema. NEUROLOGICAL: Gross neurological examination did not reveal any focal deficits. SKIN: No rashes. no petechiae. - Labs CBC & Chem 7: 08/29/23 06:10 08/29/23 06:10 Labs: Abnormal Lab Results - Last 24 Hours (Table) 08/28/23 08/29/23 08/29/23 Range/Units 23:37 06:07 06:10 RBC 3.90 L (4.30-5.90) m/uL Hgb 11.3 L (13.0-17.5) gm/dL Hct 37.6 L (39.0-53.0) % MCHC 30.1 L (31.0-37.0) g/dL Glucose (74-99) mg/dL POC Glucose (mg/dL) 151 H 137 H (70-110) mg/dL AST (17-59) U/L Total Protein (6.3-8.2) g/dL Albumin (3.5-5.0) g/dL 08/29/23 08/29/23 Range/Units 06:10 12:15 RBC (4.30-5.90) m/uL Hgb (13.0-17.5) gm/dL Hct (39.0-53.0) % MCHC (31.0-37.0) g/dL Glucose 129 H (74-99) mg/dL POC Glucose (mg/dL) 139 H (70-110) mg/dL AST 13 L (17-59) U/L Total Protein 5.4 L (6.3-8.2) g/dL Albumin 3.1 L (3.5-5.0) g/dL Assessment and Plan Assessment: Acute ischemic stroke, right cerebellar region Aspiration pneumonia -Cardiac dysrhythmia atrial fibrillation has been ruled out while inpatient continue on cardiac telemetry -Episode of SVT requiring IV cardizem -History of aortic valve replacement in 2013 -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
[2023-08-30] LABS: Glucose,Whole Blood 106 mg/dL (70-110)
[2023-08-30 05:59] LABS: Glucose,Whole Blood 117 mg/dL (70-110)
--- NOTE | 2023-08-30 08:18 | P.PN ---
Subjective Patient is a pleasant 77-year-old male came in with complaints lightheadedness it is not clear whether patient is dizzy or vertigo but upon further questioning manage it appears patient has vertigo and patient has weakness in bilateral lower extremities patient is unable to stand. Patient denies any hearing problems sinusitis or ear infection. Patient denies any diaphoresis, denies shortness of breath but patient felt like his get a pass out. Patient is admitted for atrial fibrillation but I did not see any A-fib on the EKG patient had sinus rhythm with PVCs. Patient denies any syncope. Patient is unable to stand quite weak which also started yesterday. 08/20/2023 Patient is evaluated today in follow-up in the ER pending bed on the medical floor. He continues to report significant dizziness and lightheadedness. Patient is currently pending MRI. Had carotid doppler done showing bilateral heterogenous plaque greater than left with no significant hemodynamic stenosis by carotid Doppler ultrasound. Stenosis involving the left CECE suspected. There is cardiac dysrhythmia. There was concern for atrial fibrillation with has been ruled out at this time patient appears to have sinus rhythm with right bundle branch block and frequent PVCs and PACs. He has been started on dual antiplatelet therapy with aspirin and Plavix. Echocardiogram has been done and reveals an EF of 55 to 60% with moderate left atrial dilation, trace to mild mitral regurgitation. 08/21/2023 Patient is evaluated in follow-up on the medical floor. Patient does continue to report significant dizziness and lightheadedness ports he is up ambulating to the bathroom today was unable to ambulate back to the bed secondary to his dizziness. He has meclizine as needed 3 times a day would recommend to change this to scheduled to see if this helps improve his vertigo-like symptoms. Patient's MRI does come back positive for a acute ischemic stroke in the right cerebellum and right lateral medulla oblongata. This is felt to be due to him stopping his aspirin outpatient secondary to a recent lumbar surgery. 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 Neurology recommending aspirin and plavix. 08/22/2023 Patient is evaluated today in follow up. Further evaluation there is concern for thrombus in the ascending aortic aneurysm and patient will be going for a PRIMITIVO tomorrow as recommended by neurology. Patient remains on aspirin and plavix at this time. He continues to report dizziness and lightheadedness. He will be evaluated for inpatient rehab. 08/23/2023 Patient is reporting worsening neurosymptoms today he report hoarseness in his v oice, blurry vision and headache over the right eye and occipital lobe, facial numbness in the right side. This correlates with the area of stroke with MRI showing positive right cerebellar and right medulla oblongata area of infarct. Patient will undergo a repeat brain CT today. He is also pending a PRIMITIVO with cardiology. Continues on aspirin and Plavix therapy for now. Blood work reveals a sodium level of 138, potassium 4.7, BUN of 12 creatinine of 0.72. 08/24/2023 Patient is evaluated today on the medical floor. He is having worsening neurological symptoms including the numbness now going from the face all the way down the right side into the right arm. Patient also reports weakness in the right side. He is up in the bathroom attempting to shave and washout but is quite frustrated and agitated due to his worsening neurological symptoms. He does report the pain in his right eye has slightly improved today. Patient was given a scopolamine patch yesterday due to secretions and hoarseness in his voice and he reports that he has not noticed much difference in his symptoms. A repeat brain CT was completed yesterday which did not report on the acute stroke. Noted there was a age-related atrophic and chronic small vessel ischemic change without any acute intracranial processes at this time. Underwent trans esophageal echocardiogram completed yesterday revealing a mildly dilated left atrium with normal appearance of the left atrial appendage. Normal ventricle size and systolic function. There is a bioprosthetic aortic valve with normal opening and no regurgitation. Mild mitral and tricuspid regurgitation. No shunting across the interarterial septum. A dilated ascending aorta measuring 4.2 cm. There is no evidence of pericardial effusion and this was a negative bubble study. Continues on aspirin and Plavix therapy at this time. He is receiving LR at 50 MLS per hour. Patient continues on DVT prophylaxis with subcutaneous heparin. Over the night patient had an episode of SVT with heart rate up into the 180s to 200s. He received adenosine and was sta rted on IV Cardizem drip. This is being discontinued today and cardiology is planning on transitioning the patient to oral Lopressor. Heart rate is now controlled and he is in normal sinus mechanism. Had a chest xray due to increased congestion noted on examination and concern for aspiration. Chest xray reveals no acute cardiopulmonary process. There is large hiatal hernia may be present. Remains afebrile, heart rate of 96, blood pressure 122/66, 95% 2L nasal cannula. 08/24. Patient seen and examined. at the bedside. Patient had a swallow study done this morning and failed swallow eval. Discussed with speech, they are recommending PEG tube placement 08/25. Patient seen and examined. Patient is much more alert compared to yesterday. Family at the bedside. Patient scheduled for PEG tube placement today 08/26. Patient seen and examined. Patient had PEG tube placed yesterday, currently started on tube feeding. Patient gets frustrated easily. 08/27. Patient seen and examined. Currently sitting up in the chair. Patient has been weaned off the Precedex drip 08/29/23 Patient was calm this morning, no more agitation, he was not getting Precedex Seroquel was increased to 50 mg twice daily PEG tube in place Patient will benefit from IPR upon discharge Had Powell catheter in place with yellow urine Ringer lactate running at 50 mL/h Tube feeding running at 50 mL/h Patient has mild weakness on the right arm and leg Numbness feels better No headache or dizziness Feels congested 08/30/2023 Patient mentation is at baseline, he has insight. He came in with stroke with right-sided weakness, his weakness is related to poor coordination rather than motor neuron deficit. He has good hand hoop expander on the right side and he can elevate his arm above his head but he cannot c oordinate movement very well but to a certain degree. His right leg is better however he stayed in bed most of the time. PEG tube was placed during this admission related to dysphagia secondary to his stroke, currently tube feeding running at goal at 50 to 54 mL/h, no abdominal issue. No problem with bowel movement. Powell catheter in place. Patient was cleared for a neurologist for discharge, patient may need to go to subacute rehab rather than IPR as his ability to cooperate is low. Currently kept on aspirin and Brilinta. And metoprolol. His blood pressure is good, labs reviewed and look stable We can discontinue Ringer lactate He remains on ceftriaxone for his pneumonia which can be switched to oral antibiotics upon discharge Objective - Vital Signs Vital signs: Vital Signs Temp 98.0 F 08/30/23 03:18 Pulse 100 08/30/23 03:18 Resp 17 08/30/23 03:18 BP 137/82 08/30/23 03:18 Pulse Ox 93 L 08/30/23 03:18 FiO2 50 08/26/23 05:07 Intake & Output 08/29/23 08/30/23 08/30/23 18:59 06:59 18:59 Intake Total 1472 114 Output Total 720 50 Balance 752 64 Weight 84 kg Intake: IV 680 60 Invasive Line 5 20 Invasive Line 6 10 10 Lactated Ringers 1,000 ml 600 50 @ 50 mls/hr IV .Q20H [facility] Rx#:[id number] cefTRIAXone 1 gm In 50 Sodium Chloride 0.9% 50 ml @ 100 mls/hr IVPB Q24HR [facility] Rx#:[id number] Tube Feeding 702 54 Other 90 Output: Urine 720 50 Other: Voiding Method Indwelling Catheter Indwelling Catheter # Voids 700 # Bowel Movements 1 - Exam GENERAL: The patient is alert and oriented x3, not in any acute distress. Well developed, well nourished. HEENT: Pupils are round and equally reacting to light. EOMI. No scleral icterus. No conjunctival pallor. Normocephalic, atraumatic. No pharyngeal erythema. No thyromegaly. CARDIOVASCULAR: S1 and S2 present. No murmurs, rubs, or gallops. PULMONARY: Chest is clear to auscultation, no wheezing , no crackles. ABDOMEN: Soft, nontender, nondistended, normoactive bowel sounds. No palpable organomegaly. MUSCULOSKELETAL: No joint swelling or deformity. EXTREMITIES: No cyanosis, clubbing, or pedal edema. NEUROLOGICAL: Gross neurological examination did not reveal any focal deficits. SKIN: No rashes. no petechiae. - Labs CBC & Chem 7: 08/29/23 06:10 08/29/23 06:10 Labs: Abnormal Lab Results - Last 24 Hours (Table) 08/29/23 08/29/23 08/29/23 Range/Units 06:10 12:15 18:54 POC Glucose (mg/dL) 139 H 122 H (70-110) mg/dL Procalcitonin 0.69 H (0.02-0.09) ng/mL 08/29/23 08/30/23 Range/Units 19:56 05:58 POC Glucose (mg/dL) 125 H 117 H (70-110) mg/dL Procalcitonin (0.02-0.09) ng/mL Assessment and Plan Assessment: Acute ischemic stroke, right cerebellar region Aspiration pneumonia -Cardiac dysrhythmia atrial fibrillation has been ruled out while inpatient continue on cardiac telemetry -Episode of SVT requiring IV cardizem -History of aortic valve replacement in 2013 -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
[2023-08-30 11:48] LABS: Glucose,Whole Blood 131 mg/dL (70-110)
--- NOTE | 2023-08-30 11:49 | P.PN ---
Subjective Progress Note Date: 08/30/23 Principal diagnosis: Syncope. This is a 77-year-old male patient with a known history of hypertension, hyperlipidemia, gastroesophageal reflux disease, daily alcohol use, previous aortic valve replacement in 2013, previous left carotid endarterectomy, recent back surgery 3 weeks ago. 6 days ago the patient had developed severe dizziness lightheadedness and weakness and was able to get himself into a chair but then unable to get out. EMS was called and he was brought here on 08/18/2023. CT angiogram ruled out pulmonary embolism. 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 Large hiatal hernia. CT scan of the brain revealed a moderate age-appropriate atrophy and ischemic demyelination. No acute bleed or mass effect. Echocardiogram revealed preserved left ventricular systolic function. Normally functioning bioprosthetic aortic valve. No e vidence of thrombus. Carotid Dopplers revealed no significant stenosis bilaterally. MRI of the brain on 08/20/2023 revealed restricted diffusion within the right cerebellum and right lateral mid medulla oblongata. Follow-up CT scan of the brain revealed age-related atrophy and chronic small vessel ischemic changes without acute intracranial process. However, the patient was having progressive symptoms with increasing weakness on his right side. Facial droop, difficulty managing his secretions. He was seen again by neurology who felt that his CVA was evolving and is requesting transfer to the intensive care unit. Seen today in consultation. He is currently awake and alert. He definitely has some drifting of the right upper extremity. Unable to perform simple tasks such as touching his nose with his right finger. He is coughing and congested. Maintaining good O2 saturations in the mid 90s on 2 L/min per nasal cannula. He is afebrile. Hemodynamically stable. White count 7.2. Hemoglobin 10.4. Platelets 224. Sodium 138. Potassium 3.7. Bicarb 24. BUN 12. Creatinine 0.7 2. Glucose 106. He currently has a scopolamine patch in place. He is continued on Brilinta and aspirin. Heparin for DVT prophylaxis. Lactated Ringer's at 50 MLS per hour. PRIMITIVO today ruled out thrombus, no evidence of shunting across the interatrial septum, normally functioning bioprosthetic aor tic valve. Patient evaluated today on 08/25/2023, remains in the ICU, I saw him yesterday and arrange for transfer to ICU. Patient is obviously having evolving right cerebellar CVA and lateral medulla oblongata CVA. Patient required a Precedex 0.2 mcg/kg/h yesterday upon arrival to the ICU as he was getting agitated and restless, aggressive. Today he seems to be [place]. He is now on aspirin, B rilinta, and heparin subcu. Patient is basically about the same as yesterday, not much has changed with his neurological findings, continues to have abnormal cerebellar findings with definite abnormal right [id number] test. CT angiogram showed distal right vertebral artery occlusion was involving the right cerebellar hemisphere and right medulla oblongata changes/acute evaluated today on 08/26/2023, remains in the ICU, patient is on 4 L nasal cannula, off Precedex. Patient is scheduled to have a PEG tube placement today. Chest x-ray is now showing a right lower lobe infiltrate highly suspicious for aspiration pneumonia hence I have recommended that we start the patient on Zosyn empirically. His neurological status is about the same, no change, and he is being closely followed by neurology on the case. WBC count is 8.6 hemoglobin 10.7 electrolytes are normal and renal profile is normal Patient was evaluated today on 08/27/2023, patient is basically about the same. However he is back on Precedex because of intermittent episodes of agitation. On 3 L nasal cannula and O2 sats are 95% patient is status post PEG tube placement for nutritional support/enteral feeding via PEG tube. Apparently the patient failed his swallow evaluation, and clearly required a PEG tube placement which was done by Dr. Friend chest x-ray continues to show bibasilar infiltrates right more so than left, consistent with aspiration pneumonia, patient remains on Zosyn. WBC count is 7.5 hemoglobin is 10 electrolytes are normal renal profile is normal Patient was evaluated today on 08/28/2023, continues to have intermittent episodes of agitations had to be placed back on Precedex yesterday. Presently on 0.2 mcg/kg/h. Patient is also on Seroquel 50 mg twice daily patient is receiving feeding via PEG tube/enteral feeding he did develop aspiration pneumonia and his swallow evaluations to be rechecked in the next 24 hours. On 2 L nasal cannula, seems to be fairly calm with Precedex. Enteral feeding with Jevity at 40 cc/h.WBC count is 6 hemoglobin 10.7 basic metabolic profile is normal and renal profile is normal The patient is seen today August 29, 2023 in follow-up in the intensive care unit. He is currently awake and alert in no acute distress. He is currently maintaining good O2 saturations in the 90s on room air. He has lactated Ringer's at 50 MLS per hour. He is being nourished through his PEG tube with Jevity 1.5 at 54 mL an hour which is goal. He has been more calm and cooperative. Less impulsive. He is currently off Precedex. 11.3. Platelets 346. Sodium 139. Potassium 4.4. Bicarb 29. BUN 11. Creatinine 0.76. Glucose 129. He has been on Zosyn for aspiration pneumonia. Heparin for DVT prophylaxis. Scopolamine patch remains in place for his excess secretions. Repeat swallow valuation is pending This note dated August 30, 2023. The patient is seen today in room 359. The patient is getting Jevity at 54 cc an hour. He is not receiving any IV fluids. No need for supplemental oxygen. Clinically, the patient is stable. He was in the intensive care unit yesterday, and moved out, as he was clinically much improved. New labs today other than a glucose of 117. Objective - Vital Signs Vital signs: Vital Signs Temp 98.5 F 08/30/23 09:00 Pulse 108 H 08/30/23 09:00 Resp 16 08/30/23 09:00 BP 116/62 08/30/23 09:00 Pulse Ox 95 08/30/23 09:00 FiO2 50 08/26/23 05:07 Intake & Output 08/29/23 08/30/23 08/30/23 18:59 06:59 18:59 Intake Total 1472 114 Output Total 720 50 Balance 752 64 Weight 84 kg Intake: IV 680 60 Invasive Line 5 20 Invasive Line 6 10 10 Lactated Ringers 1,000 ml 600 50 @ 50 mls/hr IV .Q20H [facility] Rx#:[id number] cefTRIAXone 1 gm In 50 Sodium Chloride 0.9% 50 ml @ 100 mls/hr IVPB Q24HR [facility] Rx#:[id number] Tube Feeding 702 54 Other 90 Output: Urine 720 50 Other: Voiding Method Indwelling Catheter Indwelling Catheter Indwelling Catheter # Voids 700 # Bowel Movements 1 - Exam No acute distress, oriented 3. Room air saturation is 95%. HEENT examination is grossly unremarkable. Mucous membranes are moist. No oral lesions. Neck supple. Full range of motion. No adenopathy thyromegaly or neck vein distention. Cardiovascular examination reveals regular rhythm rate. S1-S2 normal. No S3 or S4. No discernible murmur noted. Heart rate is 92 bpm. Lungs reveal clear breath sounds. Breath sounds are equal bilaterally. No adventitious lung sounds including wheezes rhonchi or crackles. Abdomen soft bowel sounds are heard. No masses or tenderness. Extremities are intact. No cyanosis clubbing or edema. Skin is without rash or lesion. Neurologic examination continues to reveal right-sided weakness. 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 Dysphagia secondary to above, status post PEG tube placement on 08/26/2023, being nourished with Jevity. Nystagmus, ataxia of the right upper extremity, gait ataxia secondary to above. Recent back surgery approximately 3 weeks ago. Aortic valve replacement with bioprosthetic valve in 2013. Hyperlipidemia. Gastroesophageal reflux disease. Large hiatal hernia. Carotid stenosis with previous left carotid endarterectomy. History of hypertension. History of daily alcohol use. Plan: Plan dated August 30, 2023. The patient was seen in the intensive care unit yesterday. He was moved out to the general medical floor. Today he is seen in room 359. The patient is receiving Jevity via PEG tube, at 54 cc an hour. The patient is not receiving any IV fluids. No need for supplemental oxygen. Labs, x-rays, and medications are reviewed. Discharge planning underway. We will continue to follow make recommendations along the way. Antibiotics were modified. Time with Patient: Less than 30
[2023-08-30] MEDS ORDERED: SIMETHICONE 40 MG/0.6 ML DROPS 2,000 MG/30 ML BOTTLE PO PRN (15:50)
[2023-08-30] MEDS: chlorproMAZINE 25 MG TAB PO PRN (17:51)
[2023-08-30 17:58] LABS: Glucose,Whole Blood 127 mg/dL (70-110)
[2023-08-31 00:21] LABS: Glucose,Whole Blood 142 mg/dL (70-110)
[2023-08-31 06:03] LABS: Glucose,Whole Blood 134 mg/dL (70-110)
--- NOTE | 2023-08-31 07:12 | P.PN ---
Subjective Progress Note Date: 08/30/23 08/30/2023: Patient was seen for a follow-up. Patient has started with hiccups since yesterday, now getting worse. Patient undergoing barium swallow. Patient has been evaluated by physical medicine and rehab, considered not a candidate for inpatient rehab. community worker looking into other inpatient rehab facilities. Apparently patient not able to tolerate therapy for more than 2 hours, therefore declined for inpatient rehab. Continues to have right-sided numbness. Patient's son was also present. Denies any new worsening except for hiccups. 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 08/29/2023: Patient was seen for a follow-up. Patient was seen for initial consultation on 08/19/2023. Subsequently patient was seen by Dr. Navarrete, and then by Dr. Arce. Please refer to their note for details. Patient states he is feeling much better. Patient had dysphagia, requiring PEG tube placement. He has hoarse voice, which is most bothering him. His right-si ded numbness has improved. Objective - Vital Signs Vital signs: Vital Signs Temp 98.1 F 08/30/23 16:00 Pulse 99 08/30/23 16:00 Resp 17 08/30/23 16:00 BP 131/73 08/30/23 16:00 Pulse Ox 95 08/30/23 16:00 FiO2 50 08/26/23 05:07 Intake & Output 08/29/23 08/30/23 08/30/23 18:59 06:59 18:59 Intake Total 1472 114 Output Total 720 50 Balance 752 64 Weight 84 kg Intake: IV 680 60 Invasive Line 5 20 Invasive Line 6 10 10 Lactated Ringers 1,000 ml 600 50 @ 50 mls/hr IV .Q20H [facility] Rx#:[id number] cefTRIAXone 1 gm In 50 Sodium Chloride 0.9% 50 ml @ 100 mls/hr IVPB Q24HR [facility] Rx#:[id number] Tube Feeding 702 54 Other 90 Output: Urine 720 50 Other: Voiding Method Indwelling Catheter Indwelling Catheter Indwelling Catheter # Voids 700 # Bowel Movements 1 - Exam Patient's mental status is normal. Patient has hoarse voice. No aphasia. M entation normal. On cranial examination pupils are equal, round and reactive to light, visual gregorio are full. Extraocular muscles are intact. Patient has nystagmus looking to the left. Patient is hiccuping. Patient has right ptosis. Patient has flattening of the right nasolabial fold. Tongue protrudes midline. On muscle strength testing, the strength is normal in the arms and legs. Patient has ataxia for [id number] testing on the right. No ataxia with the left upper limb. Sensory to touch is decreased in the right arm and right leg. Sensory to temperature is decreased on the left arm and left leg. Patient has crossed sensory findings. - Labs CBC & Chem 7: 08/29/23 06:10 08/29/23 06:10 Labs: Abnormal Lab Results - Last 24 Hours (Table) 08/29/23 08/29/23 08/30/23 Range/Units 18:54 19:56 05:58 POC Glucose (mg/dL) 122 H 125 H 117 H (70-110) mg/dL 08/30/23 Range/Units 11:46 POC Glucose (mg/dL) 131 H (70-110) mg/dL Assessment and Plan Assessment: * Acute ischemic stroke, right PICA distribution with Wallenberg syndrome. Gayle ent has presented with vertigo, nausea vomiting, gait ataxia and near syncope. Examination reveals nystagmus, ataxia of the right upper limb, and gait ataxia. CT head on my review revealed multiple areas of subacute ischemia in the right cerebellar hemisphere. Patient has history of aortic valve replacement for which patient was on aspirin. Patient had stopped aspirin for about 3 weeks around his lumbar surgery that was performed 3 weeks ago. * New-onset hiccups, likely due to above. * Dysphagia due to stroke s/p PEG tube on 08/26/2023 * Delirium due to hospital and stroke induced---improved today * Hypertension * History of aortic valve replacement * Status post back surgery 3 weeks ago * History of bilateral knee and bilateral shoulder surgery. * Mild alcoholism, consumes 2 drinks of vodka daily. Plan: * Initial MRI of the brain on 08/20/2023 is reported as involving right cerebellum and right lateral medulla oblongatta. Nonspecific white matter changes, likely secondary due to small vessel ischemic disease. * Repeat MRI Brain on 08/24/23: Involving the right cerebellum and the right lateral medulla oblongata, with slightly more restricted diffusion within the medulla oblongata compared to the immediate prior. No additional areas identified. Nonspecific white matter changes, likely secondary due to small vessel ischemic disease. 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 Evolving right cerebellar hemisphere and right medulla oblongata acute/subacute CVA. No evidence of dissection of cervical internal carotid artery or vertebral artery or any evidence of significant stenosis at the carotid bifurcation. No evidence of intracranial high-grade stenosis or intracranial aneurysm. * 2-D echo revealed left ventricular EF 55 to 60%. Left ventricular cavity size is normal. Mildly increased septal wall thickness. No obvious regional wall motion abnormalities. Moderate left atrial dilation. Ascending aorta is at upper limits of normal. Ascending aorta measured 4.1 cm with aortic root 3.9 cm. * Carotid duplex is reported as bilateral heterogeneous plaque greater on the left with no significant hemodynamic stenosis by carotid Doppler ultrasound. 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 Cardiac dysrhythmia. * PRIMITIVO: 1. Mildly dilated left atrium with normal appearance of the left atrial appendage, 2. Normal ventricle size and systolic function, 3. Bioprosthetic aortic valve with normal opening and no regurgitation, 4. Mild mitral and tricuspid regurgitation, 5. No shunting across the interatrial septum, 6. D ilated ascending aorta * Recommend 30-day event monitor to rule out paroxysmal atrial fibrillation and on 08/22/2023 had monitor placed.. * Continue scopolamine patch for excess secretion. * Start Thorazine for hiccups. . * Cardiology on board. No evidence of atrial fibrillation. Patient not on any anticoagulation. * Fasting a.m. lipid panel. Patient on simvastatin 20 mg daily, would recommend increase to 40 mg in light of LDL cholesterol is elevated at 82.1, total cholesterol 182, triglycerides 123 * Hemoglobin A1c-5.9 * Continue aspirin 81 mg daily (home dose). During this admission he was on Plavix 75mg daily but it was changed to Brilinta 90mg bid on 08/24/2023. * Neuro checks * Telemetry monitoring rule out any arrhythmia * PT, OT, speech therapy. * On seroquel 50mg bid * For DVT prophylaxis: On subq heparin. * Upon discharge, recommend the patient to follow-up with neurologist as outpatient within 2 weeks. * Awaiting decision for transfer to inpatient rehab versus subacute rehab.
[2023-08-31 11:52] LABS: Glucose,Whole Blood 127 mg/dL (70-110)
--- NOTE | 2023-08-31 12:13 | P.PN ---
Subjective Progress Note Date: 08/31/23 Principal diagnosis: Syncope. This is a 77-year-old male patient with a known history of hypertension, hyperlipidemia, gastroesophageal reflux disease, daily alcohol use, previous aortic valve replacement in 2013, previous left carotid endarterectomy, recent back surgery 3 weeks ago. 6 days ago the patient had developed severe dizziness lightheadedness and weakness and was able to get himself into a chair but then unable to get out. EMS was called and he was brought here on 08/18/2023. CT angiogram ruled out pulmonary embolism. 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 Large hiatal hernia. CT scan of the brain revealed a moderate age-appropriate atrophy and ischemic demyelination. No acute bleed or mass effect. Echocardiogram revealed preserved left ventricular systolic function. Normally functioning bioprosthetic aortic valve. No e vidence of thrombus. Carotid Dopplers revealed no significant stenosis bilaterally. MRI of the brain on 08/20/2023 revealed restricted diffusion within the right cerebellum and right lateral mid medulla oblongata. Follow-up CT scan of the brain revealed age-related atrophy and chronic small vessel ischemic changes without acute intracranial process. However, the patient was having progressive symptoms with increasing weakness on his right side. Facial droop, difficulty managing his secretions. He was seen again by neurology who felt that his CVA was evolving and is requesting transfer to the intensive care unit. Seen today in consultation. He is currently awake and alert. He definitely has some drifting of the right upper extremity. Unable to perform simple tasks such as touching his nose with his right finger. He is coughing and congested. Maintaining good O2 saturations in the mid 90s on 2 L/min per nasal cannula. He is afebrile. Hemodynamically stable. White count 7.2. Hemoglobin 10.4. Platelets 224. Sodium 138. Potassium 3.7. Bicarb 24. BUN 12. Creatinine 0.7 2. Glucose 106. He currently has a scopolamine patch in place. He is continued on Brilinta and aspirin. Heparin for DVT prophylaxis. Lactated Ringer's at 50 MLS per hour. PRIMITIVO today ruled out thrombus, no evidence of shunting across the interatrial septum, normally functioning bioprosthetic aor tic valve. Patient evaluated today on 08/25/2023, remains in the ICU, I saw him yesterday and arrange for transfer to ICU. Patient is obviously having evolving right cerebellar CVA and lateral medulla oblongata CVA. Patient required a Precedex 0.2 mcg/kg/h yesterday upon arrival to the ICU as he was getting agitated and restless, aggressive. Today he seems to be [place]. He is now on aspirin, B rilinta, and heparin subcu. Patient is basically about the same as yesterday, not much has changed with his neurological findings, continues to have abnormal cerebellar findings with definite abnormal right [id number] test. CT angiogram showed distal right vertebral artery occlusion was involving the right cerebellar hemisphere and right medulla oblongata changes/acute evaluated today on 08/26/2023, remains in the ICU, patient is on 4 L nasal cannula, off Precedex. Patient is scheduled to have a PEG tube placement today. Chest x-ray is now showing a right lower lobe infiltrate highly suspicious for aspiration pneumonia hence I have recommended that we start the patient on Zosyn empirically. His neurological status is about the same, no change, and he is being closely followed by neurology on the case. WBC count is 8.6 hemoglobin 10.7 electrolytes are normal and renal profile is normal Patient was evaluated today on 08/27/2023, patient is basically about the same. However he is back on Precedex because of intermittent episodes of agitation. On 3 L nasal cannula and O2 sats are 95% patient is status post PEG tube placement for nutritional support/enteral feeding via PEG tube. Apparently the patient failed his swallow evaluation, and clearly required a PEG tube placement which was done by Dr. Friend chest x-ray continues to show bibasilar infiltrates right more so than left, consistent with aspiration pneumonia, patient remains on Zosyn. WBC count is 7.5 hemoglobin is 10 electrolytes are normal renal profile is normal Patient was evaluated today on 08/28/2023, continues to have intermittent episodes of agitations had to be placed back on Precedex yesterday. Presently on 0.2 mcg/kg/h. Patient is also on Seroquel 50 mg twice daily patient is receiving feeding via PEG tube/enteral feeding he did develop aspiration pneumonia and his swallow evaluations to be rechecked in the next 24 hours. On 2 L nasal cannula, seems to be fairly calm with Precedex. Enteral feeding with Jevity at 40 cc/h.WBC count is 6 hemoglobin 10.7 basic metabolic profile is normal and renal profile is normal The patient is seen today August 29, 2023 in follow-up in the intensive care unit. He is currently awake and alert in no acute distress. He is currently maintaining good O2 saturations in the 90s on room air. He has lactated Ringer's at 50 MLS per hour. He is being nourished through his PEG tube with Jevity 1.5 at 54 mL an hour which is goal. He has been more calm and cooperative. Less impulsive. He is currently off Precedex. 11.3. Platelets 346. Sodium 139. Potassium 4.4. Bicarb 29. BUN 11. Creatinine 0.76. Glucose 129. He has been on Zosyn for aspiration pneumonia. Heparin for DVT prophylaxis. Scopolamine patch remains in place for his excess secretions. Repeat swallow valuation is pending Progress note dated August 30, 2023. The patient is seen today in room 359. The patient is getting Jevity at 54 cc an hour. He is not receiving any IV fluids. No need for supplemental oxygen. Clinically, the patient is stable. He was in the intensive care unit yesterday, and moved out, as he was clinically much improved. New labs today other than a glucose of 117. Progress note dated August 31, 2023. The patient is seen today in room 359. He remains on room air. He has a PEG tube in place. He is receiving Jevity at 54 cc an hour. His most recent procalcitonin level was 0.69. He continues on Rocephin. Current labs include a glucose of 127. The patient was in the intensive care unit for a number of days, moved out a couple days ago. Objective - Vital Signs Vital signs: Vital Signs Temp 98.3 F 08/31/23 07:45 Pulse 101 H 08/31/23 07:45 Resp 19 08/31/23 07:45 BP 132/83 08/31/23 07:45 Pulse Ox 95 08/31/23 07:45 FiO2 50 08/26/23 05:07 Intake & Output 08/30/23 08/31/23 08/31/23 18:59 06:59 18:59 Output Total 1500 1275 Balance -1500 -1275 Output: Urine 1500 1275 Other: Voiding Method Indwelling Catheter Indwelling Catheter Indwelling Catheter - Exam No acute distress, oriented 3. Room air saturation is 95%. HEENT examination is grossly unremarkable. Mucous membranes are moist. No oral lesions. Neck supple. Full range of motion. No adenopathy thyromegaly or neck vein distention. Cardiovascular examination reveals regular rhythm rate. S1-S2 normal. No S3 or S4. No discernible murmur noted. Heart rate is 89 bpm. Lungs reveal clear breath sounds. Breath sounds are equal bilaterally. No adventitious lung sounds including wheezes rhonchi or crackles. Abdomen soft bowel sounds are heard. No masses or tenderness. Extremities are intact. No cyanosis clubbing or edema. Skin is without rash or lesion. Neurologic examination continues to reveal right-sided weakness. 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 Dysphagia secondary to above, status post PEG tube placement on 08/26/2023, being nourished with Jevity. Nystagmus, ataxia of the right upper extremity, gait ataxia secondary to above. Recent back surgery approximately 3 weeks ago. Aortic valve replacement with bioprosthetic valve in 2013. Hyperlipidemia. Gastroesophageal reflux disease. Large hiatal hernia. Carotid stenosis with previous left carotid endarterectomy. History of hypertension. History of daily alcohol use. Plan: Plan dated August 30, 2023. The patient was seen in the intensive care unit yesterday. He was moved out to the general medical floor. Today he is seen in room 359. The patient is receiving Jevity via PEG tube, at 54 cc an hour. The patient is not receiving any IV fluids. No need for supplemental oxygen. Labs, x-rays, and medications are reviewed. Discharge planning underway. We will continue to follow make recommendations along the way. Antibiotics were modified. Plan dated August 31, 2023. The patient is doing well. He was moved out of the intensive care unit a couple days ago. He is currently on room air. He is getting Jevity via his PEG tube, at 54 cc an hour. The patient continues on Rocephin for suspected aspiration pneumonia. Labs, x-rays, and medications are reviewed. Prognosis is guarded. Discharge planning underway. The patient continues to have right-sided weakness. Time with Patient: Less than 30
[2023-08-31 18:07] LABS: Glucose,Whole Blood 123 mg/dL (70-110)
--- NOTE | 2023-08-31 22:34 | P.PN ---
Subjective Patient is a pleasant 77-year-old male came in with complaints lightheadedness it is not clear whether patient is dizzy or vertigo but upon further questioning manage it appears patient has vertigo and patient has weakness in bilateral lower extremities patient is unable to stand. Patient denies any hearing problems sinusitis or ear infection. Patient denies any diaphoresis, denies shortness of breath but patient felt like his get a pass out. Patient is admitted for atrial fibrillation but I did not see any A-fib on the EKG patient had sinus rhythm with PVCs. Patient denies any syncope. Patient is unable to stand quite weak which also started yesterday. 08/20/2023 Patient is evaluated today in follow-up in the ER pending bed on the medical floor. He continues to report significant dizziness and lightheadedness. Patient is currently pending MRI. Had carotid doppler done showing bilateral heterogenous plaque greater than left with no significant hemodynamic stenosis by carotid Doppler ultrasound. Stenosis involving the left CECE suspected. There is cardiac dysrhythmia. There was concern for atrial fibrillation with has been ruled out at this time patient appears to have sinus rhythm with right bundle branch block and frequent PVCs and PACs. He has been started on dual antiplatelet therapy with aspirin and Plavix. Echocardiogram has been done and reveals an EF of 55 to 60% with moderate left atrial dilation, trace to mild mitral regurgitation. 08/21/2023 Patient is evaluated in follow-up on the medical floor. Patient does continue to report significant dizziness and lightheadedness ports he is up ambulating to the bathroom today was unable to ambulate back to the bed secondary to his dizziness. He has meclizine as needed 3 times a day would recommend to change this to scheduled to see if this helps improve his vertigo-like symptoms. Patient's MRI does come back positive for a acute ischemic stroke in the right cerebellum and right lateral medulla oblongata. This is felt to be due to him stopping his aspirin outpatient secondary to a recent lumbar surgery. 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 Neurology recommending aspirin and plavix. 08/22/2023 Patient is evaluated today in follow up. Further evaluation there is concern for thrombus in the ascending aortic aneurysm and patient will be going for a PRIMITIVO tomorrow as recommended by neurology. Patient remains on aspirin and plavix at this time. He continues to report dizziness and lightheadedness. He will be evaluated for inpatient rehab. 08/23/2023 Patient is reporting worsening neurosymptoms today he report hoarseness in his v oice, blurry vision and headache over the right eye and occipital lobe, facial numbness in the right side. This correlates with the area of stroke with MRI showing positive right cerebellar and right medulla oblongata area of infarct. Patient will undergo a repeat brain CT today. He is also pending a PRIMITIVO with cardiology. Continues on aspirin and Plavix therapy for now. Blood work reveals a sodium level of 138, potassium 4.7, BUN of 12 creatinine of 0.72. 08/24/2023 Patient is evaluated today on the medical floor. He is having worsening neurological symptoms including the numbness now going from the face all the way down the right side into the right arm. Patient also reports weakness in the right side. He is up in the bathroom attempting to shave and washout but is quite frustrated and agitated due to his worsening neurological symptoms. He does report the pain in his right eye has slightly improved today. Patient was given a scopolamine patch yesterday due to secretions and hoarseness in his voice and he reports that he has not noticed much difference in his symptoms. A repeat brain CT was completed yesterday which did not report on the acute stroke. Noted there was a age-related atrophic and chronic small vessel ischemic change without any acute intracranial processes at this time. Underwent trans esophageal echocardiogram completed yesterday revealing a mildly dilated left atrium with normal appearance of the left atrial appendage. Normal ventricle size and systolic function. There is a bioprosthetic aortic valve with normal opening and no regurgitation. Mild mitral and tricuspid regurgitation. No shunting across the interarterial septum. A dilated ascending aorta measuring 4.2 cm. There is no evidence of pericardial effusion and this was a negative bubble study. Continues on aspirin and Plavix therapy at this time. He is receiving LR at 50 MLS per hour. Patient continues on DVT prophylaxis with subcutaneous heparin. Over the night patient had an episode of SVT with heart rate up into the 180s to 200s. He received adenosine and was sta rted on IV Cardizem drip. This is being discontinued today and cardiology is planning on transitioning the patient to oral Lopressor. Heart rate is now controlled and he is in normal sinus mechanism. Had a chest xray due to increased congestion noted on examination and concern for aspiration. Chest xray reveals no acute cardiopulmonary process. There is large hiatal hernia may be present. Remains afebrile, heart rate of 96, blood pressure 122/66, 95% 2L nasal cannula. 08/24. Patient seen and examined. at the bedside. Patient had a swallow study done this morning and failed swallow eval. Discussed with speech, they are recommending PEG tube placement 08/25. Patient seen and examined. Patient is much more alert compared to yesterday. Family at the bedside. Patient scheduled for PEG tube placement today 08/26. Patient seen and examined. Patient had PEG tube placed yesterday, currently started on tube feeding. Patient gets frustrated easily. 08/27. Patient seen and examined. Currently sitting up in the chair. Patient has been weaned off the Precedex drip 08/29/23 Patient was calm this morning, no more agitation, he was not getting Precedex Seroquel was increased to 50 mg twice daily PEG tube in place Patient will benefit from IPR upon discharge Had Powell catheter in place with yellow urine Ringer lactate running at 50 mL/h Tube feeding running at 50 mL/h Patient has mild weakness on the right arm and leg Numbness feels better No headache or dizziness Feels congested 08/30/2023 Patient mentation is at baseline, he has insight. He came in with stroke with right-sided weakness, his weakness is related to poor coordination rather than motor neuron deficit. He has good hand deckhand crab boat on the right side and he can elevate his arm above his head but he cannot c oordinate movement very well but to a certain degree. His right leg is better however he stayed in bed most of the time. PEG tube was placed during this admission related to dysphagia secondary to his stroke, currently tube feeding running at goal at 50 to 54 mL/h, no abdominal issue. No problem with bowel movement. Powell catheter in place. Patient was cleared for a neurologist for discharge, patient may need to go to subacute rehab rather than IPR as his ability to cooperate is low. Currently kept on aspirin and Brilinta. And metoprolol. His blood pressure is good, labs reviewed and look stable We can discontinue Ringer lactate He remains on ceftriaxone for his pneumonia which can be switched to oral antibiotics upon discharge 08/31/2023 Patient feels comfortable No dyspnea, no chest pain Discussed with case liner, patient pending placement and son are at bedside and I discussed the case with them including management plan and they verbalized understanding and acceptance. Also with medication and to be discharged to rehab Objective - Vital Signs Vital signs: Vital Signs Temp 97.9 F 08/31/23 19:40 Pulse 71 08/31/23 19:40 Resp 18 08/31/23 19:40 BP 146/88 08/31/23 19:40 Pulse Ox 95 08/31/23 19:40 FiO2 50 08/26/23 05:07 Intake & Output 08/31/23 08/31/23 09/01/23 06:59 18:59 06:59 Output Total 1275 600 375 Balance -1275 -600 -375 Output: Urine 1275 600 375 Other: Voiding Method Indwelling Catheter Indwelling Catheter Indwelling Catheter # Bowel Movements 1 - Exam GENERAL: The patient is alert and oriented x3, not in any acute distress. Well developed, well nourished. HEENT: Pupils are round and equally reacting to light. EOMI. No scleral icterus. No conjunctival pallor. Normocephalic, atraumatic. No pharyngeal erythema. No thyromegaly. CARDIOVASCULAR: S1 and S2 present. No murmurs, rubs, or gallops. PULMONARY: Chest is clear to auscultation, no wheezing , no crackles. ABDOMEN: Soft, nontender, nondistended, normoactive bowel sounds. No palpable organomegaly. MUSCULOSKELETAL: No joint swelling or deformity. EXTREMITIES: No cyanosis, clubbing, or pedal edema. NEUROLOGICAL: Gross neurological examination did not reveal any focal deficits. SKIN: No rashes. no petechiae. 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
[2023-09-01 00:02] LABS: Glucose,Whole Blood 145 mg/dL (70-110)
[2023-09-01 06:08] LABS: Glucose,Whole Blood 127 mg/dL (70-110)
[2023-09-01 08:16] VITALS: TEMP 99.4
--- NOTE | 2023-09-01 08:24 | P.PN ---
Subjective Progress Note Date: 08/31/23 08/31/2023: Patient was seen for a follow-up. Patient's family members were present. Patient underwent barium swallow, and it has much improved. Patient's hiccups also have improved with Thorazine. He only gets hiccups when he swallows ice chips. This was recommended by speech therapist. [facility] have declined. Patient possibly going to subacute rehab in [facility]. 08/30/2023: Patient was seen for a follow-up. Patient has started with hiccups since yesterday, now getting worse. Patient undergoing barium swallow. Patient has been evaluated by physical medicine and rehab, considered not a candidate for inpatient rehab. food service worker looking into other inpatient rehab facilities. Apparently patient not able to tolerate therapy for more than 2 hours, therefore declined for inpatient rehab. Continues to have right-sided numbness. Patient's son was also present. Denies any new worsening except for hiccups. 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 08/29/2023: Patient was seen for a follow-up. Patient was seen for initial consultation on 08/19/2023. Subsequently patient was seen by Dr. Navarrete, and then by Dr. Arce. Please refer to their note for details. Patient states he is feeling much better. Patient had dysphagia, requiring PEG tube placement. He has hoarse voice, which is most bothering him. His right- sided numbness has improved. Objective - Vital Signs Vital signs: Vital Signs Temp 98.3 F 08/31/23 07:45 Pulse 60 08/31/23 12:00 Resp 18 08/31/23 12:00 BP 113/54 08/31/23 12:00 Pulse Ox 95 08/31/23 12:00 FiO2 50 08/26/23 05:07 Intake & Output 08/30/23 08/31/23 08/31/23 18:59 06:59 18:59 Output Total 1500 1275 Balance -1500 -1275 Output: Urine 1500 1275 Other: Voiding Method Indwelling Catheter Indwelling Catheter Indwelling Catheter - Exam Patient's mental status is normal. Patient has hoarse voice. No aphasia. Mentation normal. On cranial examination pupils are equal, round and reactive to light, visual fi elds are full. Extraocular muscles are intact. Patient has nystagmus looking to the left. Patient is hiccuping. Patient has right ptosis. Patient has flattening of the right nasolabial fold. Tongue protrudes midline. On muscle strength testing, the strength is normal in the arms and legs. Patient has ataxia for [id number] testing on the right. No ataxia with the left upper limb. Sensory to touch is decreased in the right arm and right leg. Sensory to temperature is decreased on the left arm and left leg. Patient has crossed sensory findings. - Labs CBC & Chem 7: 08/29/23 06:10 08/29/23 06:10 Labs: Abnormal Lab Results - Last 24 Hours (Table) 08/30/23 08/31/23 08/31/23 Range/Units 17:57 00:17 06:00 POC Glucose (mg/dL) 127 H 142 H 134 H (70-110) mg/dL 08/31/23 Range/Units 11:50 POC Glucose (mg/dL) 127 H (70-110) mg/dL Assessment and Plan Assessment: * Acute ischemic stroke, right PICA distribution with Wallenberg syndrome. P atient has presented with vertigo, nausea vomiting, gait ataxia and near syncope. Examination at this time reveals nystagmus, ataxia of the right upper limb, crossed sensory findings, hiccups and gait ataxia. MRI of the brain confirmed CVA in the right PICA distribution. Patient has history of ao rtic valve replacement for which patient was on aspirin. Patient had stopped aspirin for about 3 weeks around his lumbar surgery that was performed 3 weeks ago. * New-onset hiccups, likely due to above. Improved with Thorazine. * Dysphagia due to stroke s/p PEG tube on 08/26/2023 * Delirium due to hospital and stroke induced---improved today * Hypertension * History of aortic valve replacement * Status post back surgery 3 weeks ago * History of bilateral knee and bilateral shoulder surgery. * Mild alcoholism, consumes 2 drinks of vodka daily. Plan: * Initial MRI of the brain on 08/20/2023 is reported as involving right cerebellum and right lateral medulla oblongatta. Nonspecific white matter changes, likely secondary due to small vessel ischemic disease. * Repeat MRI Brain on 08/24/23: Involving the right cerebellum and the right lateral medulla oblongata, with slightly more restricted diffusion within the medulla oblongata compared to the immediate prior. No additional areas identified. Nonspecific white matter changes, likely secondary due to small vessel ischemic disease. 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 Evolving right cerebellar hemisphere and right medulla oblongata acute/subacute CVA. No evidence of dissection of cervical internal carotid artery or vertebral artery or any evidence of significant stenosis at the carotid bifurcation. No evidence of intracranial high-grade stenosis or intracranial aneurysm. * 2-D echo revealed left ventricular EF 55 to 60%. Left ventricular cavity size is normal. Mildly increased septal wall thickness. No obvious regional wall motion abnormalities. Moderate left atrial dilation. Ascending aorta is at upper limits of normal. Ascending aorta measured 4.1 cm with aortic root 3.9 cm. * Carotid duplex is reported as bilateral heterogeneous plaque greater on the left with no significant hemodynamic stenosis by carotid Doppler ultrasound. 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 Cardiac dysrhythmia. * PRIMITIVO: 1. Mildly dilated left atrium with normal appearance of the left atrial appendage, 2. Normal ventricle size and systolic function, 3. Bioprosthetic aortic valve with normal opening and no regurgitation, 4. Mild mitral and tricuspid regurgitation, 5. No shunting across the interatrial septum, 6. Dilated ascending aorta * Recommend 30-day event monitor to rule out paroxysmal atrial fibrillation and on 08/22/2023 had monitor placed.. * Continue scopolamine patch for excess secretion. * Continue Thorazine as needed for hiccups. . * Cardiology on board. No evidence of atrial fibrillation. Patient not on any anticoagulation. * Fasting a.m. lipid panel. Patient on simvastatin 20 mg daily, would recommend increase to 40 mg in light of LDL cholesterol is elevated at 82.1, total cholesterol 182, triglycerides 123 * Hemoglobin A1c-5.9 * Continue aspirin 81 mg daily (home dose). During this admission he was on Plavix 75mg daily but it was changed to Brilinta 90mg bid on 08/24/2023. * Neuro checks * Telemetry monitoring rule out any arrhythmia * PT, OT, speech therapy. * On seroquel 50mg bid * For DVT prophylaxis: On subq heparin. * Upon discharge, recommend the patient to follow-up with neurologist as outpatient within 2 weeks. * Awaiting decision for transfer to inpatient rehab versus subacute rehab. * Neurologically clear.
--- NOTE | 2023-09-01 09:01 | FL ---
Modified barium swallow. HISTORY: Dysphagia. Modified barium swallow was performed with the department of speech pathology. The patient was prese nted with various consistencies of barium. There is no evidence for aspiration or penetration. Pooling of contrast within the valleculae and pir iform sinus. Full report is to follow from the department of speech pathology. Impression: No marv aspiration seen at this time.
[2023-09-01 11:41] LABS: Glucose,Whole Blood 158 mg/dL (70-110)
--- NOTE | 2023-09-01 12:12 | P.PN ---
Subjective Progress Note Date: 09/01/23 Principal diagnosis: Syncope. This is a 77-year-old male patient with a known history of hypertension, hyperlipidemia, gastroesophageal reflux disease, daily alcohol use, previous aortic valve replacement in 2013, previous left carotid endarterectomy, recent back surgery 3 weeks ago. 6 days ago the patient had developed severe dizziness lightheadedness and weakness and was able to get himself into a chair but then unable to get out. EMS was called and he was brought here on 08/18/2023. CT angiogram ruled out pulmonary embolism. 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 Large hiatal hernia. CT scan of the brain revealed a moderate age-appropriate atrophy and ischemic demyelination. No acute bleed or mass effect. Echocardiogram revealed preserved left ventricular systolic function. Normally functioning bioprosthetic aortic valve. No e vidence of thrombus. Carotid Dopplers revealed no significant stenosis bilaterally. MRI of the brain on 08/20/2023 revealed restricted diffusion within the right cerebellum and right lateral mid medulla oblongata. Follow-up CT scan of the brain revealed age-related atrophy and chronic small vessel ischemic changes without acute intracranial process. However, the patient was having progressive symptoms with increasing weakness on his right side. Facial droop, difficulty managing his secretions. He was seen again by neurology who felt that his CVA was evolving and is requesting transfer to the intensive care unit. Seen today in consultation. He is currently awake and alert. He definitely has some drifting of the right upper extremity. Unable to perform simple tasks such as touching his nose with his right finger. He is coughing and congested. Maintaining good O2 saturations in the mid 90s on 2 L/min per nasal cannula. He is afebrile. Hemodynamically stable. White count 7.2. Hemoglobin 10.4. Platelets 224. Sodium 138. Potassium 3.7. Bicarb 24. BUN 12. Creatinine 0.7 2. Glucose 106. He currently has a scopolamine patch in place. He is continued on Brilinta and aspirin. Heparin for DVT prophylaxis. Lactated Ringer's at 50 MLS per hour. PRIMITIVO today ruled out thrombus, no evidence of shunting across the interatrial septum, normally functioning bioprosthetic aor tic valve. Patient evaluated today on 08/25/2023, remains in the ICU, I saw him yesterday and arrange for transfer to ICU. Patient is obviously having evolving right cerebellar CVA and lateral medulla oblongata CVA. Patient required a Precedex 0.2 mcg/kg/h yesterday upon arrival to the ICU as he was getting agitated and restless, aggressive. Today he seems to be [place]. He is now on aspirin, B rilinta, and heparin subcu. Patient is basically about the same as yesterday, not much has changed with his neurological findings, continues to have abnormal cerebellar findings with definite abnormal right [id number] test. CT angiogram showed distal right vertebral artery occlusion was involving the right cerebellar hemisphere and right medulla oblongata changes/acute evaluated today on 08/26/2023, remains in the ICU, patient is on 4 L nasal cannula, off Precedex. Patient is scheduled to have a PEG tube placement today. Chest x-ray is now showing a right lower lobe infiltrate highly suspicious for aspiration pneumonia hence I have recommended that we start the patient on Zosyn empirically. His neurological status is about the same, no change, and he is being closely followed by neurology on the case. WBC count is 8.6 hemoglobin 10.7 electrolytes are normal and renal profile is normal Patient was evaluated today on 08/27/2023, patient is basically about the same. However he is back on Precedex because of intermittent episodes of agitation. On 3 L nasal cannula and O2 sats are 95% patient is status post PEG tube placement for nutritional support/enteral feeding via PEG tube. Apparently the patient failed his swallow evaluation, and clearly required a PEG tube placement which was done by Dr. Friend chest x-ray continues to show bibasilar infiltrates right more so than left, consistent with aspiration pneumonia, patient remains on Zosyn. WBC count is 7.5 hemoglobin is 10 electrolytes are normal renal profile is normal Patient was evaluated today on 08/28/2023, continues to have intermittent episodes of agitations had to be placed back on Precedex yesterday. Presently on 0.2 mcg/kg/h. Patient is also on Seroquel 50 mg twice daily patient is receiving feeding via PEG tube/enteral feeding he did develop aspiration pneumonia and his swallow evaluations to be rechecked in the next 24 hours. On 2 L nasal cannula, seems to be fairly calm with Precedex. Enteral feeding with Jevity at 40 cc/h.WBC count is 6 hemoglobin 10.7 basic metabolic profile is normal and renal profile is normal The patient is seen today August 29, 2023 in follow-up in the intensive care unit. He is currently awake and alert in no acute distress. He is currently maintaining good O2 saturations in the 90s on room air. He has lactated Ringer's at 50 MLS per hour. He is being nourished through his PEG tube with Jevity 1.5 at 54 mL an hour which is goal. He has been more calm and cooperative. Less impulsive. He is currently off Precedex. 11.3. Platelets 346. Sodium 139. Potassium 4.4. Bicarb 29. BUN 11. Creatinine 0.76. Glucose 129. He has been on Zosyn for aspiration pneumonia. Heparin for DVT prophylaxis. Scopolamine patch remains in place for his excess secretions. Repeat swallow valuation is pending Progress note dated August 30, 2023. The patient is seen today in room 359. The patient is getting Jevity at 54 cc an hour. He is not receiving any IV fluids. No need for supplemental oxygen. Clinically, the patient is stable. He was in the intensive care unit yesterday, and moved out, as he was clinically much improved. New labs today other than a glucose of 117. Progress note dated August 31, 2023. The patient is seen today in room 359. He remains on room air. He has a PEG tube in place. He is receiving Jevity at 54 cc an hour. His most recent procalcitonin level was 0.69. He continues on Rocephin. Current labs include a glucose of 127. The patient was in the intensive care unit for a number of days, moved out a couple days ago. Progress note dated September 01, 2023. The patient is seen today in room 359, and 2 family members are in the room with him. The patient is currently on room air. He is receiving Rocephin. No IV fluids. The patient is receiving tube feedings, and, today we order a flutter valve for him. His primary issue is chest congestion, and cough, although he is having a hard time bringing up sputum. In addition, the patient is receiving Jevity at 54 cc an hour. Current labs include a glucose of 158. Objective - Vital Signs Vital signs: Vital Signs Temp 99.4 F 09/01/23 08:14 Pulse 88 06/27/24 11:10 Resp 16 09/01/23 11:10 BP 90/58 09/01/23 11:10 Pulse Ox 94 L 09/01/23 11:10 FiO2 50 08/26/23 05:07 Intake & Output 08/31/23 09/01/23 09/01/23 18:59 06:59 18:59 Output Total 600 550 475 Balance -600 -550 -475 Output: Urine 600 550 475 Other: Voiding Method Indwelling Catheter Indwelling Catheter Indwelling Catheter # Bowel Movements 1 - Exam No acute distress, oriented 3. Room air saturation is 94 %. HEENT examination is grossly unremarkable. Mucous membranes are moist. No oral lesions. Neck supple. Full range of motion. No adenopathy thyromegaly or neck vein distention. Cardiovascular examination reveals regular rhythm rate. S1-S2 normal. No S3 or S4. No discernible murmur noted. Heart rate is 88 bpm. Lungs reveal clear breath sounds. Breath sounds are equal bilaterally. No adventitious lung sounds including wheezes rhonchi or crackles. Abdomen soft bowel sounds are heard. No masses or tenderness. A PEG tube was noted. Extremities are intact. No cyanosis clubbing or edema. Skin is without rash or lesion. Neurologic examination continues to reveal right-sided weakness. - Labs CBC & Chem 7: 08/29/23 06:10 08/29/23 06:10 Labs: Abnormal Lab Results - Last 24 Hours (Table) 08/31/23 09/01/23 09/01/23 Range/Units 18:06 00:00 06:06 POC Glucose (mg/dL) 123 H 145 H 127 H (70-110) mg/dL 09/01/23 Range/Units 11:40 POC Glucose (mg/dL) 158 H (70-110) mg/dL Assessment and Plan Assessment: Acute ischemic stroke, right cerebellar region and right lateral medulla oblongata. Dysphagia secondary to above, status post PEG tube placement on 08/26/2023, being nourished with Jevity. Nystagmus, ataxia of the right upper extremity, gait ataxia secondary to above. Recent back surgery approximately 3 weeks ago. Aortic valve replacement with bioprosthetic valve in 2013. Hyperlipidemia. Gastroesophageal reflux disease. Large hiatal hernia. Carotid stenosis with previous left carotid endarterectomy. History of hypertension. History of daily alcohol use. Plan: Plan dated August 30, 2023. The patient was seen in the intensive care unit yesterday. He was moved out to the general medical floor. Today he is seen in room 359. The patient is receiving Jevity via PEG tube, at 54 cc an hour. The patient is not receiving any IV fluids. No need for supplemental oxygen. Labs, x-rays, and medications are reviewed. Discharge planning underway. We will continue to follow make recommendations along the way. Antibiotics were modified. Plan dated August 31, 2023. The patient is doing well. He was moved out of the intensive care unit a couple days ago. He is currently on room air. He is getting Jevity via his PEG tube, at 54 cc an hour. The patient continues on Rocephin for suspected aspiration pneumonia. Labs, x-rays, and medications are reviewed. Prognosis is guarded. Discharge planning underway. The patient continues to have right-sided weakness. Plan dated September 01, 2023. The patient was seen in room 359. Earlier this week he was seen in the intensive care unit. He is on room air. He is on Rocephin, but we will discontinue that. He is not receiving any IV fluids. He is getting tube feedings, at 54 cc an hour. Because of chest congestion, will order a flutter valve, we want him to use it every hour while awake. Additional recommendations and suggestions are forthcoming. Labs, x-rays, and all medications are reviewed. Prognosis is guarded. Time with Patient: Less than 30
--- NOTE | 2023-09-01 12:48 | P.DS ---
Providers Date of admission: 08/18/23 22:30 Attending physician: Constantine Ramirez Consults: 08/19/23 12:37 Consult Physician Routine Consulting Provider: Sisi De Jesus Consult Reason/Comments: vertigo, weakness Do you want consulting provider notified?: Yes 08/20/23 18:03 Consult Physician Routine Consulting Provider: Dean Hou Consult Reason/Comments: Ascending aorta pseudoaneurysm Do you want consulting provider notified?: Yes 08/22/23 13:25 Consult Physician Routine Consulting Provider: Mundo Delgado Consult Reason/Comments: IPR Do you want consulting provider notified?: Yes 08/24/23 11:39 Consult Physician Routine Consulting Provider: Regina Helton Consult Reason/Comments: ICU mgt, Evolving stroke Do you want consulting provider notified?: Yes Primary care physician: [facility] Course: Diagnoses: -Acute ischemic stroke, right cerebellar region -Aspiration pneumonia -Cardiac dysrhythmia atrial fibrillation has been ruled out while inpatient continue on cardiac telemetry -Episode of SVT requiring IV cardizem -History of aortic valve replacement in 2013 -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 Patient had extensive workup including CTA of the head and neck and MRI of the brain showing right ventricular artery occlusion with evolving right cerebellar hemisphere and right medulla oblongata CVA with no significant intracranial stenosis or aneurysm. Carotid Doppler showing no significant stenosis and echocardiogram showing ejection fraction of 55 to 60%. Hemoglobin A1c 5.9% Patient evaluated by neurologist and mainframe programmer where he was monitored for short time in the ICU. Patient also failed swallow evaluation because of his stroke. He has poor coordination and ataxia. As such general surgery was consulted and PEG tube was placed, tube feeding running at goal and patient tolerates that as well Patient received antibiotic for his aspiration pneumonia with Zosyn and eventually with ceftriaxone. Patient showed interval improvement Patient also somewhat sleepy, he likes to keep his Seroquel 50 mg twice daily and [place] as needed, risk and benefits are explained extensively we recommend to limit [place]. And if patient becomes more drowsy may lower Seroquel as well. For now the patient requires to keep this medication. Therefore we will change his [place] 5-325 from every 6 hours as needed down to every 12 hours as needed. Patient currently kept on dual antiplatelet therapy with aspirin and Brilinta , Metoprolol 25 mg. Also will be discharged on short course of oral antibiotic Patient currently remains stable no new complaint. Patient and family agreeable to go to rehab Patient was cleared for discharge by all consultants including neurologist, intensive care team general surgeon. Problems and management plan were discussed with the patient and he verbalized understanding and acceptance Patient was found stable and can be discharged during fpc for rehab in guarded prognosis however he needs follow-up as an outpatient. Patient was instructed to follow up with PCP within one week and patient agrees We recommend patient follow-up with a neurologist in 1 to 2 weeks after discharge and he agrees Physical exam Gen: patient is a AAOx3, no distress CVS: S1-S2, RRR, no murmur Lungs: B/L CTA, no wheezing Abdomen: soft, no distention, no tenderness, positive bowel sounds. PEG tube in place with tube feeding running Extremity: no leg edema or induration -Neuro: He is awake and alert, he has mild generalized weakness, he has poor coordination and ataxia. Sensation intact and meningeal signs absent Time spent more than 35 minutes Patient Condition at Discharge: Serious Plan - Discharge Summary Discharge Rx Participant: Yes New Discharge Prescriptions: No Action Aspirin [Adult Low Dose Aspirin EC] 81 mg PO DAILY Simvastatin [Zocor] 20 mg PO HS Lansoprazole 30 mg PO Q2D Losartan [Cozaar] 50 mg PO DAILY Naproxen Sodium [Aleve] 220 mg PO BID PRN PRN Reason: Pain hydroCHLOROthiazide 12.5 mg PO DAILY Discharge Medication List Aspirin [Adult Low Dose Aspirin EC] 81 mg PO DAILY 08/29/17 [History] Acetaminophen Tab [Tylenol] 325 mg PO Q6HR PRN tab 09/01/23 [Rx] Atorvastatin [Lipitor] 40 mg PO HS tab 09/01/23 [Rx] HYDROcodone/APAP 5-325MG [[place] 5-325] 1 each PO Q12HR PRN 5 Days #10 tab 09/01/23 [Rx] Meclizine [Antivert] 25 mg PO TID PRN tab 09/01/23 [Rx] Metoprolol Tartrate [Lopressor] 25 mg PO BID tab 09/01/23 [Rx] Pantoprazole [Protonix] 40 mg PO AC-BRKFST tab 09/01/23 [Rx] QUEtiapine [SEROquel] 50 mg PO BID tab 09/01/23 [Rx] Scopolamine 1 mg/72 Hr Patch [TransDerm Scop] 1 patch TRANSDERM Q72H 7 Days #3 patch 09/01/23 [Rx] Simethicone 40 mg/0.6 ml Drops [Mylicon Drops] 40 mg PO QID PRN ml 09/01/23 [Rx] Ticagrelor [Brilinta] 90 mg PO BID #60 tab 09/01/23 [Rx] chlorproMAZINE [Thorazine] 25 mg PO Q4HR PRN tab 09/01/23 [Rx] Follow up Appointment(s)/Referral(s): Linda Mccloud MD [Primary Care Provider] - 1-2 days Activity/Diet/Wound Care/Special Instructions: Tube feeding orders: Jevity 1.5 @54cc/hr with 30ml H20 flush q4hrs
[2023-09-01 15:36] VITALS: BP 103/68; PULSE 81; RESP 17
== END 2023-09-01 17:19 | DRG 64 ==
LOC: EC 20:12 → 1SOBS 22:30 → 3SCARD 08-19 14:41 → 2SICU 08-24 15:12 → 3SCARD 08-29 19:47
PROVIDERS: ADMIT Hospitalist; ATTEND Hospitalist
PROC: 3E0G76Z Introduction of Nutritional Substance into Upper GI, Via Natural or Artificial Opening (ICD-10-PCS; 2023-08-26)
PROC: 0DH63UZ Insertion of Feeding Device into Stomach, Percutaneous Approach (ICD-10-PCS; principal; 2023-08-26 08:15)
DX: I63.541 Cerebral infarction due to unspecified occlusion or stenosis of right cerebellar artery (principal); G93.41 Metabolic encephalopathy; J69.0 Pneumonitis due to inhalation of food and vomit; E44.0 Moderate protein-calorie malnutrition; G81.91 Hemiplegia, unspecified affecting right dominant side; I47.10 Supraventricular tachycardia, unspecified; F10.20 Alcohol dependence, uncomplicated; I77.810 Thoracic aortic ectasia; R13.10 Dysphagia, unspecified; I65.01 Occlusion and stenosis of right vertebral artery; E86.0 Dehydration; I95.9 Hypotension, unspecified; I10 Essential (primary) hypertension; Z95.3 Presence of xenogenic heart valve; G46.3 Brain stem stroke syndrome; E78.5 Hyperlipidemia, unspecified; I49.1 Atrial premature depolarization; K44.9 Diaphragmatic hernia without obstruction or gangrene; R29.700 NIHSS score 0; D17.4 Benign lipomatous neoplasm of intrathoracic organs; I08.1 Rheumatic disorders of both mitral and tricuspid valves; I45.10 Unspecified right bundle-branch block; Z79.82 Long term (current) use of aspirin; Z96.653 Presence of artificial knee joint, bilateral; Z86.718 Personal history of other venous thrombosis and embolism; Z68.25 Body mass index [BMI] 25.0-25.9, adult; Z79.899 Other long term (current) drug therapy; Z92.3 Personal history of irradiation; Z85.46 Personal history of malignant neoplasm of prostate; K21.9 Gastro-esophageal reflux disease without esophagitis; H53.2 Diplopia; H53.8 Other visual disturbances; H55.09 Other forms of nystagmus; R26.0 Ataxic gait; R29.810 Facial weakness; H57.11 Ocular pain, right eye; R49.0 Dysphonia; R06.6 Hiccough; H02.401 Unspecified ptosis of right eyelid; I65.23 Occlusion and stenosis of bilateral carotid arteries
CPT/HCPCS: 36415; 43246; 70450; 70496; 70498; 70551; 71045; 71275; 74230; 80048; 80053; 80061; 83036; 83605; 83735; 83880; 84100; 84145; 84443; 84484; 85025; 85027; 85379; 85610; 85730; 93005; 93270; 93306; 93312; 93320; 93325; 93880; 94760; 96361; 96365; 96366; 96375; 99291

== ENCOUNTER 2024-03-05 10:42 | Emergency (ER) | payer MEDICARE ==
[2024-03-05 10:57] VITALS: RESP 18
--- NOTE | 2024-03-05 10:57 | ED ---
General Adult HPI - General Source: patient, RN notes reviewed Mode of arrival: wheelchair Limitations: no limitations <Christal Huddleston - Last Filed: 03/05/24 10:55> <Doris Potter - Last Filed: 03/07/24 18:55> - General Chief complaint: Recheck/Abnormal Lab/Rx Stated complaint: Pic tube issue Time Seen by Provider: 03/05/24 10:54 - History of Present Illness Initial comments: Quick Note: This is a 78-year-old male who presents to the emergency department for problems with his PEG tube. Patient has had a PEG tube since September due to a stroke. States that one of the lines stopped working a couple of weeks ago and last night the other line stopped working, and he is now unable to use it altogether. (Christal Huddleston) 78-year-old male presents emergency department reporting that his PEG tube is leaking. It was placed in September by Dr. Marquez. States that one of the ports stopped working a couple weeks ago and the other one stopped working last night. He is unable to use it altogether. He does depend on the tube for all feeds and medications. He denies any pain. No other alleviating, precipitating or modifying factors (Doris Potter) - Related Data Home Medications Medication Instructions Recorded Confirmed Aspirin [Adult Low Dose Aspirin EC] 81 mg PO DAILY 08/29/17 08/19/23 Previous Rx's Medication Instructions Recorded Acetaminophen Tab [Tylenol] 325 mg PO Q6HR PRN tab 09/01/23 Atorvastatin [Lipitor] 40 mg PO HS tab 09/01/23 HYDROcodone/APAP 5-325MG [[place] 1 each PO Q12HR PRN 5 Days #10 tab 09/01/23 5-325] Meclizine [Antivert] 25 mg PO TID PRN tab 09/01/23 Metoprolol Tartrate [Lopressor] 25 mg PO BID tab 09/01/23 Pantoprazole [Protonix] 40 mg PO AC-BRKFST tab 09/01/23 QUEtiapine [SEROquel] 50 mg PO BID tab 09/01/23 Scopolamine 1 mg/72 Hr Patch 1 patch TRANSDERM Q72H 7 Days #3 09/01/23 [TransDerm Scop] patch Simethicone 40 mg/0.6 ml Drops 40 mg PO QID PRN ml 09/01/23 [Mylicon Drops] Ticagrelor [Brilinta] 90 mg PO BID #60 tab 09/01/23 chlorproMAZINE [Thorazine] 25 mg PO Q4HR PRN tab 09/01/23 Allergies Allergy/AdvReac Type Severity Reaction Status Date / Time No Known Allergies Allergy Verified 03/05/24 10:56 Review of Systems ROS Other: All systems not noted in ROS Statement are negative. <Christal Huddleston - Last Filed: 03/05/24 10:55> ROS Other: All systems not noted in ROS Statement are negative. <Doris Potter - Last Filed: 03/07/24 18:55> ROS Statement: Those systems with pertinent positive or pertinent negative responses have been documented in the HPI. 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, History of Any Multi-Drug Resistant Organisms: MRSA Date of last positivie culture/infection: 10/25/23 MDRO Source:: urine Past Surgical History: Cardiac Valve Replacement, Heart Catheterization, Hernia Repair, Joint Replacement, Orthopedic Surgery Additional Past Surgical History / Comment(s): aortic valve replacement 2013, rt ankle tendon repair, shelly knee replacements, left carotid endarterectomy, arthroscopy left knee x 3 Past Anesthesia/Blood Transfusion Reactions: Previous Problems w/ Anesthesia Additional Past Anesthesia/Blood Transfusion Reaction / Comment(s): DVT post op after ankle surgery, throat swelling and sore throat "pretty bad" after he had a rthroscopy left knee surgery at another hospital. pt states was not told anything about any problems or difficulty with intubation Past Psychological History: No Psychological Hx Reported Past Alcohol Use History: Daily Additional Past Alcohol Use History / Comment(s): 2 drinks daily with dinner Past Drug Use History: None Reported - Past Family History Mother History Unknown: Yes Family Medical History: Cancer Additional Family Medical History / Comment(s): ovarian cancer Father History Unknown: Yes Family Medical History: Cancer Additional Family Medical History / Comment(s): melanoma <Christal Huddleston - Last Filed: 03/05/24 10:55> General Exam <Christal Huddleston - Last Filed: 03/05/24 10:55> General appearance: alert, in no apparent distress Head exam: Present: atraumatic, normocephalic, normal inspection Eye exam: Present: normal appearance, PERRL, EOMI. Absent: scleral icterus, conjunctival injection, periorbital swelling ENT exam: Present: normal exam, mucous membranes moist Neck exam: Present: normal inspection. Absent: tenderness, meningismus, lymphadenopathy Respiratory exam: Present: normal lung sounds bilaterally. Absent: respiratory distress, wheezes, rales, rhonchi, stridor Cardiovascular Exam: Present: regular rate, normal rhythm, normal heart sounds. Absent: systolic murmur, diastolic murmur, rubs, gallop, clicks GI/Abdominal exam: Present: soft, normal bowel sounds. Absent: distended, tenderness, guarding, rebound, rigid Extremities exam: Present: normal inspection, full ROM, normal capillary refill. Absent: tenderness, pedal edema, joint swelling, calf tenderness Back exam: Present: normal inspection Neurological exam: Present: alert, oriented X3, CN II-XII intact Psychiatric exam: Present: normal affect, normal mood Skin exam: Present: warm, dry, intact, normal color. Absent: rash <Doris Potter - Last Filed: 03/07/24 18:55> - General Exam Comments Initial Comments: Visual Physical Exam Vital signs reviewed General: Well-appearing, nontoxic, no acute distress. Head: Normocephalic, atraumatic Eyes: PERRLA, EOMI ENT: Airway patent Chest: Nonlabored breathing Skin: No visual rash, normal skin tone Neuro: Alert and oriented 3 Musculoskeletal: No gross abnormalities (Christal Huddleston) Course Vital Signs 03/05/24 03/05/24 10:54 14:24 Temperature 97.5 F L 98.0 F Pulse Rate 70 73 Respiratory 18 18 Rate Blood Pressure 110/65 133/72 O2 Sat by Pulse 95 96 Oximetry Medical Decision Making <Christal Huddleston - Last Filed: 03/05/24 10:55> <Doris Potter - Last Filed: 03/07/24 18:55> - Medical Decision Making I performed the QuickNote portion of this chart. Signed Christal Huddleston PA-C. (Christal Huddleston) Was pt. sent in by a medical professional or institution (, [facility], HUNTING AND FISHING GUIDE, urgent care, hospital, or halfway...) When possible be specific @ -No Did you speak to anyone other than the patient for history (EMS, parent, family, police, friend...)? What history was obtained from this source @ -Spoke with for history Did you review nursing and triage notes (agree or disagree)? Why? @ -I reviewed and agree with nursing and triage notes Were old charts reviewed (outside hosp., previous admission, EMS record, old EKG, old radiological studies, urgent care reports/EKG's, halfway records)? Report findings @ -I reviewed the procedure note for placement of the PEG tube which was completed in September by Dr. Yepez Differential Diagnosis (chest pain, altered mental status, abdominal pain women, abdominal pain men, vaginal bleeding, weakness, fever, dyspnea, syncope, headache, dizziness, GI bleed, back pain, seizure, CVA, palpatations, mental health, musculoskeletal)? @ -Malfunctioning PEG tube, displaced PEG tube EKG interpreted by me (3pts min.). @ -Not done X-rays interpreted by me (1pt min.). @ -None done CT interpreted by me (1pt min.). @ -None done U/S interpreted by me (1pt. min.). @ -None done What testing was considered but not performed or refused? (CT, X-rays, U/S, labs)? Why? @ -None What meds were considered but not given or refused? Why? @ -None Did you discuss the management of the patient with other professionals (professionals i.e. , [employer]ISES, HUNTING AND FISHING GUIDE, lab, RT, psych nurse, social welfare administrator, mining teacher, teacher, commanding officer garage, case folder)? Give summary @ -Spoke with Dr. yepez who does have his team come down to the emergency department and replaces the and On the tube Was smoking cessation discussed for >3mins.? @ -No Was critical care preformed (if so, how long)? @ -No Were there social determinants of health that impacted care today? How? (Homelessness, low income, unemployed, alcoholism, drug addiction, transportation, low edu. Level, literacy, decrease access to med. care, group home, rehab)? @ -No Was there de-escalation of care discussed even if they declined (Discuss DNR or withdrawal of care, Hospice)? DNR status @ -No What co-morbidities impacted this encounter? (DM, HTN, Smoking, COPD, CAD, Cancer, CVA, ARF, Chemo, Hep., AIDS, mental health diagnosis, sleep apnea, morbid obesity)? @ -Stroke Was patient admitted / discharged? Hospital course, mention meds given and route, prescriptions, significant lab abnormalities, going to OR and other pertinent info. @ -Upon arrival patient seen and evaluated in bed 33. Thorough history and physical exam was performed. I did review the patient's chart. I can identify the tube but it is believed that the patient does have a Kangaroo tube. I did call and speak with Dr. Yepez. He does send members of his team down to the emergency department and they replaced and On the tube. Patient be discharged home Undiagnosed new problem with uncertain prognosis? @ -No Drug Therapy requiring intensive monitoring for toxicity (Heparin, Nitro, Insulin, Cardizem)? @ -No Were any procedures done? @ -No Diagnosis/symptom? @ -Acute PEG tube dysfunction Acute, or Chronic, or Acute on Chronic? @ -Acute Uncomplicated (without systemic symptoms) or Complicated (systemic symptoms)? @ -Uncomplicated Side effects of treatment? @ -No Exacerbation, Progression, or Severe Exacerbation? @ -No Poses a threat to life or bodily function? How? (Chest pain, [place], [place], pneumonia, PE, COPD, DKA, ARF, appy, cholecystitis, CVA, Diverticulitis, Homicidal, Suicidal, threat to staff... and all critical care pts) @ -No (Doris Potter) Disposition <Christal Huddleston - Last Filed: 03/05/24 10:55> Is patient prescribed a controlled substance at d/c from ED?: No Time of Disposition: 14:20 <Doris Potter - Last Filed: 03/07/24 18:55> Clinical Impression: PEG tube malfunction Disposition: HOME SELF-CARE Condition: Stable Instructions (If sedation given, give patient instructions): How to Use and Care for Your PEG Tube (ED) Referrals: Linda Mccloud MD [Primary Care Provider] - 1-2 days
[2024-03-05 14:26] VITALS: BP 133/72; PULSE 73; TEMP 98
== END 2024-03-05 14:26 | disposition home or self-care (01) ==
LOC: EC 10:42
DX: K94.23 Gastrostomy malfunction (principal)
CPT/HCPCS: 99283

== ENCOUNTER 2024-03-22 11:29 | Emergency (ER) | payer MEDICARE ==
[2024-03-22 11:48] VITALS: PULSE 67; RESP 18
--- NOTE | 2024-03-22 12:10 | ED ---
Recheck HPI - General Chief Complaint: Recheck/Abnormal Lab/Rx Stated Complaint: feeding tube broke Time Seen by Provider: 03/22/24 11:52 Source: patient, family, RN notes reviewed Mode of arrival: ambulatory Limitations: no limitations - History of Present Illness Initial Comments: This is a 78-year-old male with history of CVA and subsequent placement in September [address] Friend who i presenting to the emergency department with his for complaint of broken feeding tube part. Patient states that he went to his general surgeon's office yesterday where he was instructed to report to the emergency room for replacement of attachment feeding tube since the surgeon sates that replacement take about one week to arrive outpatient. atient denies abdominal pain, nausea, vomiting. Patient is completely dependent on his feeding tube for feeding and medications. - Related Data Home Medications Medication Instructions Recorded Confirmed Aspirin [Adult Low Dose Aspirin EC] 81 mg PO DAILY 08/29/17 08/19/23 Previous Rx's Medication Instructions Recorded Acetaminophen Tab [Tylenol] 325 mg PO Q6HR PRN tab 09/01/23 Atorvastatin [Lipitor] 40 mg PO HS tab 09/01/23 HYDROcodone/APAP 5-325MG [[place] 1 each PO Q12HR PRN 5 Days #10 tab 09/01/23 5-325] Meclizine [Antivert] 25 mg PO TID PRN tab 09/01/23 Metoprolol Tartrate [Lopressor] 25 mg PO BID tab 09/01/23 Pantoprazole [Protonix] 40 mg PO AC-BRKFST tab 09/01/23 QUEtiapine [SEROquel] 50 mg PO BID tab 09/01/23 Scopolamine 1 mg/72 Hr Patch 1 patch TRANSDERM Q72H 7 Days #3 09/01/23 [TransDerm [place]] patch Simethicone 40 mg/0.6 ml Drops 40 mg PO QID PRN ml 09/01/23 [Mylicon Drops] Ticagrelor [Brilinta] 90 mg PO BID #60 tab 09/01/23 chlorproMAZINE [Thorazine] 25 mg PO Q4HR PRN tab 09/01/23 Allergies Allergy/AdvReac Type Severity Reaction Status Date / Time No Known Allergies Allergy Verified 03/05/24 10:56 Review of Systems ROS Statement: Those systems with pertinent positive or pertinent negative responses have been documented in the HPI. ROS Other: All systems not noted in ROS Statement are negative. 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, History of Any Multi-Drug Resistant Organisms: MRSA Date of last positivie culture/infection: 10/25/23 MDRO Source:: urine Past Surgical History: Cardiac Valve Replacement, Heart Catheterization, Hernia Repair, Joint Replacement, Orthopedic Surgery Additional Past Surgical History / Comment(s): aortic valve replacement 2013, rt ankle tendon repair, shelly knee replacements, left carotid endarterectomy, arthroscopy left knee x 3 Past Anesthesia/Blood Transfusion Reactions: Previous Problems w/ Anesthesia Additional Past Anesthesia/Blood Transfusion Reaction / Comment(s): DVT post op after ankle surgery, throat swelling and sore throat "pretty bad" after he had arthroscopy left knee surgery at another hospital. pt states was not told anything about any problems or difficulty with intubation Past Psychological History: No Psychological Hx Reported Past Alcohol Use History: Daily Past Drug Use History: None Reported - Past Family History Mother History Unknown: Yes Family Medical History: Cancer Additional Family Medical History / Comment(s): ovarian cancer Father History Unknown: Yes Family Medical History: Cancer Additional Family Medical History / Comment(s): melanoma General Exam Limitations: no limitations General appearance: alert, in no apparent distress Neck exam: Present: normal inspection. Absent: tenderness, meningismus, lymphadenopathy Respiratory exam: Present: normal lung sounds bilaterally. Absent: respiratory distress, wheezes, rales, rhonchi, stridor Cardiovascular Exam: Present: regular rate, normal rhythm, normal heart sounds. Absent: systolic murmur, diastolic murmur, rubs, gallop, clicks GI/Abdominal exam: Present: soft, normal bowel sounds, other (PEG tube with no overlying erythema or edema). Absent: distended, tenderness, guarding, rebound, rigid Extremities exam: Present: normal inspection, full ROM, normal capillary refill. Absent: tenderness, pedal edema, joint swelling, calf tenderness Back exam: Present: normal inspection Skin exam: Present: warm, dry, intact, normal color. Absent: rash Course Vital Signs 03/22/24 03/22/24 11:40 13:54 Temperature 97.8 F 98.1 F Pulse Rate 67 67 Respiratory 18 18 Rate Blood Pressure 102/57 106/68 O2 Sat by Pulse 93 L 94 L Oximetry Medical Decision Making - Medical Decision Making Was pt. sent in by a medical professional or institution ([facility] Michelle, MARINE REPORTER, urgent care, hospital, or longterm...) When possible be specific @ -Patient was advised by general surgeon reports emergency department, or replacement of PEG tube connector Did you speak to anyone other than the patient for history (EMS, parent, family, police, friend...)? What history was obtained from this source @ -No Did you review nursing and triage notes (agree or disagree)? Why? @ -I reviewed and agree with nursing and triage notes Were old charts reviewed (outside hosp., previous admission, EMS record, old EKG, old radiological studies, urgent care reports/EKG's, longterm records)? Report findings @ -No old charts were reviewed Differential Diagnosis (chest pain, altered mental status, abdominal pain women, abdominal pain men, vaginal bleeding, weakness, fever, dyspnea, syncope, headache, dizziness, GI bleed, back pain, seizure, CVA, palpatations, mental health, musculoskeletal)? @ -PEG tube malfunction EKG interpreted by me (3pts min.). @ -none X-rays interpreted by me (1pt min.). @ -None done CT interpreted by me (1pt min.). @ -None done U/S interpreted by me (1pt. min.). @ -None done What testing was considered but not performed or refused? (CT, X-rays, U/S, labs)? Why? @ -None What meds were considered but not given or refused? Why? @ -None Did you discuss the management of the patient with other professionals (professionals i.e. MOISES Michelle, MARINE REPORTER, lab, RT, psych nurse, manager social services, sales exhibitor, teacher, interface control officer, piano case maker)? Give summary @ -i spoke with telephone diaphragm assembler general surgeon, Dr. Cintron, who has sent staff, Britany JOSEPH, who has successfully changed the patient;s PEG tube connector. Was smoking cessation discussed for >3mins.? @ -No Was critical care preformed (if so, how long)? @ -No Were there social determinants of health that impacted care today? How? (Homelessness, low income, unemployed, alcoholism, drug addiction, transportation, low edu. Level, literacy, decrease access to med. care, [facility], rehab)? @ -No Was there de-escalation of care discussed even if they declined (Discuss DNR or withdrawal of care, Hospice)? DNR status @ -No What co-morbidities impacted this encounter? (DM, HTN, Smoking, COPD, CAD, Cancer, CVA, ARF, Chemo, Hep., AIDS, mental health diagnosis, sleep apnea, morbid obesity)? @ -None Was patient admitted / discharged? Hospital course, mention meds given and route, prescriptions, significant lab abnormalities, going to OR and other pertinent info. @ -Discharge. 78-year-old male presenting with for PEG tube malfunction. Patient is resting company no signs acute distress. PEG tube appears well with no signs erythema. PEG tube Successfully replaced by general surgeon staff. Discussed with Dr. Everett Undiagnosed new problem with uncertain prognosis? @ -No Drug Therapy requiring intensive monitoring for toxicity (Heparin, Nitro, Insulin, Cardizem)? @ -No Were any procedures done? @ -No Diagnosis/symptom? @ -PEG tube malfunction Acute, or Chronic, or Acute on Chronic? @ -acute Uncomplicated (without systemic symptoms) or Complicated (systemic symptoms)? @ -uncomplicated Side effects of treatment? @ -No Exacerbation, Progression, or Severe Exacerbation? @ -No Poses a threat to life or bodily function? How? (Chest pain, [place], [place], pneumonia, PE, COPD, DKA, ARF, appy, cholecystitis, CVA, Diverticulitis, Homicidal, Suicidal, threat to staff... and all critical care pts) @ -No Disposition Clinical Impression: PEG tube malfunction Disposition: HOME SELF-CARE Condition: Good Instructions (If sedation given, give patient instructions): How to Use and Care for Your PEG Tube (ED) Additional Instructions: Please return to the Emergency Department if symptoms worsen or any other concerns. Is patient prescribed a controlled substance at d/c from ED?: No Referrals: Linda Mccloud MD [Primary Care Provider] - 1-2 days Time of Disposition: 13:48
[2024-03-22 13:56] VITALS: BP 106/68; TEMP 98.1
--- NOTE | 2024-03-22 14:15 | P.GSCN ---
History of Present Illness Consult date: 03/22/24 History of present illness: CHIEF COMPLAINT: Broken PEG tube HISTORY OF PRESENT ILLNESS: This is a 78-year-old male with a known history of CVA. He had a PEG tube placed in August [address] Friend. Patient reports that part of the adapter piece is broken and therefore cannot get his tube feeds. Patient came into the ER for new PEG tube adapter piece. PAST MEDICAL HISTORY: See below PAST SURGICAL HISTORY: See below MEDICATIONS: See below ALLERGIES: See below SOCIAL HISTORY: No illicit drug use. REVIEW OF SYSTEMS: CONSTITUTIONAL: Denies fever or chills. HEENT: Denies blurred vision, vision changes, or eye pain. Denies hemoptysis CARDIOVASCULAR: Denies chest pain or pressure. RESPIRATORY: No shortness of breath. GASTROINTESTINAL: See HPI for pertinent findings HEMATOLOGIC: Denies bleeding disorders. GENITOURINARY: Denies any blood in urine or increased urinary frequency. SKIN: Denies pruitis. Denies rash. PHYSICAL EXAM: VITAL SIGNS: Reviewed GENERAL: Well-developed in no acute distress. HEENT: No sclera icterus. Extraocular movements grossly intact. Moist buccal mucosa. Head is atraumatic, normocephalic. No nasal drainage. ABDOMEN: Soft. Nondistended. Nontender. PEG tube site is clean dry and intact. Adapter piece is broken one of the prongs. NEUROLOGIC: Alert and oriented. Cranial nerves II through XII grossly intact. LABORATORY DATA: IMAGING: ASSESSMENT: 1. Malfunctioning/broken PEG tube adapter PLAN: -Adapter was exchanged at bedside -Patient can be discharge from surgical standpoint Physician Batch Mixing Truck Driver note has been reviewed by physician. Signing provider agrees with the documented findings, assessment, and plan of care. Additional documentation by . Patient has broken feeding tube adapter. Equipment obtained with placement of new feeding tube adapter. Patient to return to routine feeding goals. 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, History of Any Multi-Drug Resistant Organisms: MRSA Year Discovered:: 10/25/23 MDRO Source:: urine Past Surgical History: Cardiac Valve Replacement, Heart Catheterization, Hernia Repair, Joint Replacement, Orthopedic Surgery Additional Past Surgical History / Comment(s): aortic valve replacement 2013, rt ankle tendon repair, shelly knee replacements, left carotid endarterectomy, arthroscopy left knee x 3 Past Anesthesia/Blood Transfusion Reactions: Previous Problems w/ Anesthesia Additional Past Anesthesia/Blood Transfusion Reaction / Comm: DVT post op after ankle surgery, throat swelling and sore throat "pretty bad" after he had arthroscopy left knee surgery at another hospital. pt states was not told anything about any problems or difficulty with intubation Past Psychological History: No Psychological Hx Reported Past Alcohol Use History: Daily Past Drug Use History: None Reported - Past Family History Mother History Unknown: Yes Family Medical History: Cancer Additional Family Medical History / Comment(s): ovarian cancer Father History Unknown: Yes Family Medical History: Cancer Additional Family Medical History / Comment(s): melanoma Medications and Allergies Home Medications Medication Instructions Recorded Confirmed Type Aspirin [Adult Low Dose Aspirin EC] 81 mg PO DAILY 08/29/17 08/19/23 History Acetaminophen Tab [Tylenol] 325 mg PO Q6HR PRN tab 09/01/23 Rx Atorvastatin [Lipitor] 40 mg PO HS tab 09/01/23 Rx HYDROcodone/APAP 5-325MG [[place] 1 each PO Q12HR PRN 5 Days #10 tab 09/01/23 Rx 5-325] Meclizine [Antivert] 25 mg PO TID PRN tab 09/01/23 Rx Metoprolol Tartrate [Lopressor] 25 mg PO BID tab 09/01/23 Rx Pantoprazole [Protonix] 40 mg PO AC-BRKFST tab 09/01/23 Rx QUEtiapine [SEROquel] 50 mg PO BID tab 09/01/23 Rx Scopolamine 1 mg/72 Hr Patch 1 patch TRANSDERM Q72H 7 Days #3 09/01/23 Rx [TransDerm [place]] patch Simethicone 40 mg/0.6 ml Drops 40 mg PO QID PRN ml 09/01/23 Rx [Mylicon Drops] Ticagrelor [Brilinta] 90 mg PO BID #60 tab 09/01/23 Rx chlorproMAZINE [Thorazine] 25 mg PO Q4HR PRN tab 09/01/23 Rx Allergies Allergy/AdvReac Type Severity Reaction Status Date / Time No Known Allergies Allergy Verified 03/05/24 10:56 Surgical - Exam Vital Signs Temp Pulse Resp BP Pulse Ox 97.8 F 67 18 102/57 93 L 03/22/24 11:40 03/22/24 11:40 03/22/24 11:40 03/22/24 11:40 03/22/24 11:40
== END 2024-03-22 13:54 | disposition home or self-care (01) ==
LOC: EC 11:29
DX: K94.23 Gastrostomy malfunction (principal)
CPT/HCPCS: 43762; 99283

== ENCOUNTER → 2024-04-09 | Outpatient (CLI) | payer MEDICARE | END | disposition home or self-care (01) | LOC: LABWHC1 12:11 | PROVIDERS: ATTEND Urology | DX: Z85.46 Personal history of malignant neoplasm of prostate (principal) | CPT/HCPCS: 36415; 84153 ==

== ENCOUNTER → 2024-06-25 | Outpatient (CLI) | payer MEDICARE ==
--- NOTE | 2024-06-25 12:18 | MR ---
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 COMPARISON: CTA head and neck 08/24/2023, MR brain 08/24/2023, 08/20/2023, CT brain 08/23/2023, 08/19/2023 . TECHNIQUE: Multi planar, multi sequence imaging was performed through the brain without administratio n intravenous contrast. FINDINGS: Motion degraded examination. The guardado-white junctions, ventricular system, basal cisterns appear unremarkable. Age-appropriate cer ebral parenchymal volume loss. Diffusion-weighted imaging shows no evidence of restricted diffusion t o suggest acute/subacute infarct. Region of encephalomalacia within the right cerebellum and right la teral medulla oblongata with gliosis from prior infarct. Intracranial arterial flow voids are maintai araceli. Midline structures show no abnormality. Similar patchy areas of high T2/FLAIR signal intensity a re seen within the periventricular and subcortical white matter. The susceptibility weighted images d o not reveal any evidence for micro-hemorrhage. The bone marrow signal is within normal limits. The paranasal sinuses are unremarkable. Bilateral ap hakia. IMPRESSION: Motion degraded examination. 1. No evidence of intracranial mass or acute/subacute infarct. 2. 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 3. Similar nonspecific mild white matter changes, likely related to small vessel ischemic disease. [facility], , 06/25/2024 12:16 PM
== END | disposition home or self-care (01) ==
LOC: RADMRIMAIN 11:22
PROVIDERS: ATTEND Psychiatry & Neurology Neurology
DX: R90.82 White matter disease, unspecified (principal); G93.89 Other specified disorders of brain; I63.9 Cerebral infarction, unspecified
CPT/HCPCS: 70551